=== PATIENT | female | born 1990 | race Caucasian/White ===

== ENCOUNTER → 2017-02-21 | Outpatient (CLI) | payer OTHER ==
[~2017-02-21] MED LIST: AA/A14DR2 EACH EAR; AC500T PO; ACHD5005 PO; ALBU0.632 IH; ALBU17AE23 IH; ALPR2TAB2 PO; AMOX500C2 PO; ASEN10TA9 SL; AZIT-21 PO; AZTH250C PO; CEFU500T PO; CEPH500C PO; CITA10TA70 PO; CPR500T PO; DAPS25TA2 PO; DIAZ10TA PO; DICL500C PO; DOCU-161 PO; DOXE10CA PO; DOXY100C2 PO; HALO20TA PO; HYDR-3062 PO; HYDR-3812 PO; LACT10SO5 PO; LITH600C PO; LOXA25CA2 PO; METO-354 PO; METR500T PO; MINO100C2 PO; MTR500T PO; NAPR-243 PO; OMEP20TA2 PO; ONDA-42 SL; ONDA8TAB13 PO; ONDAN4ODT PO; ONDAN4ODT SL; OXCA600T3 PO; PALI6TAB2 PO; PHEN100T17 PO; PNT40TEC PO; PRD10T PO; PRD20T PO; PRM25T PO; PROP10TA8 PO; QTP100T PO; QUET300T PO; RNT150T PO; RT-FLOV44 INH; SENN1TAB76 PO; SULF1TAB38 PO; TRM50T PO; TRZ100T PO; VILA40TA PO
--- NOTE | 2017-02-21 13:01 | Diagnostic Imaging Report ---
INDICATION: Pelvic pain, irregular menstrual cycles. COMPARISON: None. DISCUSSION: Transabdominal and transvaginal sonographic evaluation of the pelvis was performed. The uterus is normal in echotexture and size measuring 7.2 x 4.7 x 3.5 cm. Normal endometrial thickness measuring 1 cm. The left ovary was not visualized, obscured by bowel. The right ovary is normal in echotexture and size with normal color Doppler blood flow. The right ovary measures 2.5 x 2.4 x 2.5 cm. No abnormal adnexal mass or fluid. IMPRESSION: 1. Nonvisualization of the left ovary due to overlying bowel. No other acute abnormality identified. Dictated by: Dictated on workstation # [id number]
== END ==
LOC: RAD 12:19
PROVIDERS: ATTEND Nurse Practitioner Family
DX: R10.2 Pelvic and perineal pain (principal)
CPT/HCPCS: 76830; 76856

== ENCOUNTER 2017-05-12 15:26 | Emergency (ER) | payer SELFPAY ==
[~2017-05-12] VITALS: Ht 177.8 cm; Wt 158.9 kg
[2017-05-12 15:36] VITALS: BP 155/83
[2017-05-12 15:52] LABS: BILIRUBIN,URINE NEGATIVE (NEGATIVE); KETONES,URINE NEGATIVE (NEGATIVE); LEUKOCYTE ESTERASE ,URINE 2+ (NEGATIVE); NITRITE,URINE NEGATIVE (NEGATIVE); PH,URINE 5 (5-9); PROTEIN,URINE 1+ (NEGATIVE); UROBILINOGEN,URINE NORMAL (NORMAL)
[2017-05-12 15:54] LABS: BASOPHILS # (AUTO) 0.1 10^3/uL (0.0-0.1); BASOPHILS % (AUTO) 1 % (0-10); EOSINOPHILS # (AUTO) 0.7 10^3/uL (0.0-0.3); EOSINOPHILS % (AUTO) 5 % (0-10); LYMPHOCYTES # (AUTO) 2.5 X 10^3 (1.0-4.0); LYMPHOCYTES % (AUTO) 18 % (12-44); MEAN CORPUSCULAR HEMOGLOBIN 28 PG (25-34); MEAN CORPUSCULAR HGB CONC 31 G/DL (32-36); MEAN CORPUSCULAR VOLUME 88 FL (80-99); MEAN PLATELET VOLUME 11.9 FL (7.4-10.4); MONOCYTES # (AUTO) 1.1 X 10^3 (0.0-1.0); MONOCYTES % (AUTO) 8 % (0-12); NEUTROPHILS # (AUTO) 9.8 X 10^3 (1.8-7.8); NEUTROPHILS % (AUTO) 69 % (42-75); PLATELET COUNT 280 10^3/uL (130-400); RED CELL DISTRIBUTION WIDTH 14.2 % (10.0-14.5); WHITE BLOOD COUNT 14.2 10^3/uL (4.3-11.0)
--- NOTE | 2017-05-12 15:57 | ED GU-Female ---
General Chief Complaint: -Female Stated Complaint: PAIN WHILE URINATING Source: patient Exam Limitations: no limitations History of Present Illness Time seen by provider: 15:55 Initial Comments To ER with reports of dental pain left upper for several days as well as urinary retention, burning upon urination for the past several weeks. She saw her primary care provider Dr. Peralta who put her on cephalexin (she believes that the antibiotic) which she finished one week ago but denies noting any improvement in her symptoms. She states that she's had no urinary output in 2 days but she's not been drinking much either. She does report chills and nausea with vomiting. No fevers. No flank pain. She does have suprapubic abdominal pain. 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 Timing/Duration: just prior to arrival Severity/Quality: moderate Location: suprapubic Radiation: none Activities at Onset: none Allergies and Home Medications Allergies Coded Allergies: No Known Drug Allergies (Unverified , 10/04/10) Home Medications Acetaminophen 500 Mg Tablet, 500 MG PO Q6H PRN for PAIN, (Reported) Albuterol Unknown Strength Aerosol, 2 PUFF IH Q4H PRN for SHORTNESS OF BREATH for 30 Days, (Reported) NEEDED FOR SHORTNESS OF BREATH Albuterol Sulfate 0.63 Mg/3 Ml Vial.neb, 1 EACH IH Q4HR, (Reported) Cefuroxime Axetil 500 Mg Tablet, 500 MG PO BID, #10 Prescribed by: THOM HUSAIN on 09/12/16 194 Citalopram Hydrobromide 10 Mg Tablet, 1 EACH PO DAILY, (Reported) Fluticasone Propionate 1 Puff Puff, 2 PUFF INH BID@08,20, #3 Ref 0 Prescribed by: SYDNEY CHENEY on 10/28/13 0939 Haloperidol 20 Mg Tablet, 1 EACH PO BID, (Reported) [place] Carbonate 600 Mg Capsule, 600 MG PO BID, (Reported) Minocycline HCl 100 Mg Capsule, 100 MG PO BID, #20 Ref 0 Prescribed by: ROSA PACE on 01/13/16 2348 Ondansetron 8 Mg Tab.rapdis, 8 MG PO Q6H PRN for NAUSEA/VOMITING, #10 Ref 0 Prescribed by: ROSA PACE on 02/24/15 1739 Ondansetron 8 Mg Tab.rapdis, 8 MG PO Q6H PRN for NAUSEA/VOMITING, #10 Ref 0 Prescribed by: ROSA PACE on 01/13/16 2348 Ondansetron Hcl 4 Mg Tab, 4 MG SL Q4H, #10 FOR NAUSEA AND VOMITING Prescribed by: ANA YEUNG on 04/12/15 1629 Pantoprazole Sod 40 Mg Tab, 40 MG PO DAILY, #10 Prescribed by: ANA YEUNG on 04/12/15 1629 Phenazopyridine Hcl 100 Mg Tablet, 1-2 EACH PO TID PRN PRN for PAIN, #14 Ref 1 Prescribed by: ROSA PACE on 02/24/15 1739 Trazodone Hcl 100 Mg Tablet, 100 MG PO DAILY, (Reported) Constitutional: see HPI EENTM: see HPI Respiratory: no symptoms reported Cardiovascular: no symptoms reported Genitourinary: no symptoms reported Musculoskeletal: no symptoms reported Skin: no symptoms reported Psychiatric/Neurological: No Symptoms Reported Endocrine: No Symptoms Reported Past Zpnqqnb-Liuewv-Iymrhw Hx Patient Social History Alcohol Use: Denies Use Recreational Drug Use: Yes (MARIJUANA) Smoking Status: Current Everyday Smoker Type Used: Cigarettes Recent Foreign Travel: No Contact w/Someone Who Travel: No Recent Hopitalizations: No Immunizations Up To Date Tetanus Booster (TDap): Less than 5yrs Seasonal Allergies Seasonal Allergies: Yes Surgeries HX Surgeries: Yes (LEFT EAR--BENIGN TUMOR REMOVED) Surgeries: Ear Surgery Respiratory Hx Respiratory Disorders: Yes Respiratory Disorders: Asthma, Pneumonia Cardiovascular Hx Cardiac Disorders: No Neurological Hx Neurological Disorders: No Reproductive System Hx Reproductive Disorders: No Sexually Transmitted Disease: No HIV/AIDS: No Female Reproductive Disorders: Denies Genitourinary Hx Genitourinary Disorders: Yes Genitourinary Disorders: Kidney Infection, Bladder Infection, UTI-Chronic Gastrointestinal Hx Gastrointestinal Disorders: Yes (H PYLORI, PAIN, N/V,HEARTBURN) Gastrointestinal Disorders: Gastroesophageal Reflux, Ulcer Musculoskeletal Hx Musculoskeletal Disorders: Yes Musculoskeletal Disorders: Back Injury, Chronic Back Pain Endocrine Hx Endocrine Disorders: Yes (INSULIN INTOLERANT, OBESITY) Endocrine Disorders: Diabetes, Non-Insulin dep HEENT HX ENT Disorders: No Hearing Impairment: Denies Cancer Hx Cancer: No Psychosocial Hx Psychiatric Problems: Yes (SCHIZO-EFFECTIVE, H/O CUTTING SELF, PANIC ATTACKS ) Behavioral Health Disorders: ADD/ADHD, Sleep Difficulties, Anxiety, Suicide Attempts, Bipolar, Personality Disorder, Depression Integumentary HX Skin/Integumentary Disorder: No Blood Transfusions Hx Blood Disorders: No Family Medical History Significant Family History: No Pertinent Family Hx Family Medial History: Family history: Asthma 09 BROTHER, Onset:Childhood Family history: Gastrointestinal disease 03 MOTHER, Onset:Unknown Family history: Hypertension 03 FATHER, Onset:40's - 50 Kidney disease 03 MOTHER, Onset:Childhood No Family History of: Abdominal aortic aneurysm [place]'s disease Alcoholism Aphasia Cancer Cataract Chest pain Congenital heart disease Congestive heart failure Cystic fibrosis Dementia Dysphagia Family history: Allergy Family history: Alzheimer's disease Family history: Arthritis Family history: Breast disease Family history: Cardiovascular disease Family history: Coronary thrombosis Family history: Diabetes mellitus Family history: Glaucoma Family history: Osteoporosis Family history: Thyroid disorder Headache Hearing loss Heart disease Hereditary disease History of - anemia History of - disorder History of - respiratory disease History of drug abuse Human immunodeficiency virus (HIV) seropositivity Hypercholesterolemia Infertile Malignant neoplasm of lung Myocardial infarction Parkinson's disease Prostate cancer Psychotic disorder Seizure disorder Stroke Tuberculosis Visual impairment Physical Exam Vital Signs Vital Sign - Last 12Hours 05/12/17 15:36 Temp 97.4 Pulse 83 Resp 16 B/P (MAP) 155/83 Capillary Refill : General Appearance: WD/WN, no apparent distress, obese HEENT: PERRL/EOMI, normal ENT inspection Neck: non-tender, full range of motion Cardiovascular: regular rate, rhythm, no murmur Respiratory: no respiratory distress, no accessory muscle use Gastrointestinal: normal bowel sounds, non tender, soft Neurologic/Psychiatric: alert, normal mood/affect, oriented x 3 Skin: normal color, warm/dry Progress/Results/Core Measures Results/Orders Lab Results Laboratory Tests Test 05/12/17 14:45 05/12/17 15:46 Range/Units White Blood Count 14.2 H 4.3-11.0 10^3/uL Red Blood Count 4.80 4.35-5.85 10^6/uL Hemoglobin 13.3 11.5-16.0 G/DL Hematocrit 42 35-52 % Mean Corpuscular Volume 88 80-99 FL Mean Corpuscular Hemoglobin 28 25-34 PG Mean Corpuscular Hemoglobin Concent 31 L 32-36 G/DL Red Cell Distribution Width 14.2 10.0-14.5 % Platelet Count 280 130-400 10^3/uL Mean Platelet Volume 11.9 H 7.4-10.4 FL Neutrophils (%) (Auto) 69 42-75 % Lymphocytes (%) (Auto) 18 12-44 % Monocytes (%) (Auto) 8 0-12 % Eosinophils (%) (Auto) 5 0-10 % Basophils (%) (Auto) 1 0-10 % Neutrophils # (Auto) 9.8 H 1.8-7.8 X 10^3 Lymphocytes # (Auto) 2.5 1.0-4.0 X 10^3 Monocytes # (Auto) 1.1 H 0.0-1.0 X 10^3 Eosinophils # (Auto) 0.7 H 0.0-0.3 10^3/uL Basophils # (Auto) 0.1 0.0-0.1 10^3/uL Neutrophils % (Manual) 56 % Lymphocytes % (Manual) 38 % Monocytes % (Manual) 0 % Eosinophils % (Manual) 5 % Basophils % (Manual) 1 % Band Neutrophils 0 % Blood Morphology Comment NORMAL Urine Color YELLOW Urine Clarity CLEAR Urine pH 5 5-9 Urine Specific [place] 1.020 1.016-1.022 Urine Protein 1+ H NEGATIVE Urine Glucose (UA) NEGATIVE NEGATIVE Urine Ketones NEGATIVE NEGATIVE Urine Nitrite NEGATIVE NEGATIVE Urine Bilirubin NEGATIVE NEGATIVE Urine Urobilinogen NORMAL NORMAL MG/DL Urine Leukocyte Esterase 2+ H NEGATIVE Urine RBC (Auto) NEGATIVE NEGATIVE Urine RBC NONE /HPF Urine WBC 0-2 /HPF Urine Squamous Epithelial Cells RARE /HPF Urine Crystals NONE /LPF Urine Bacteria TRACE /HPF Urine Casts NONE /LPF Urine Mucus NEGATIVE /LPF Urine Culture Indicated YES Sodium Level 140 135-145 MMOL/L Potassium Level 4.2 3.6-5.0 MMOL/L Chloride Level 107 98-107 MMOL/L Carbon Dioxide Level 24 21-32 MMOL/L Anion Gap 9 5-14 MMOL/L Blood Urea Nitrogen 9 7-18 MG/DL Creatinine 0.76 0.60-1.30 MG/DL Estimat Glomerular Filtration Rate > 60 BUN/Creatinine Ratio 12 Glucose Level 88 70-105 MG/DL Calcium Level 9.1 8.5-10.1 MG/DL Total Bilirubin 0.5 0.1-1.0 MG/DL Aspartate Amino Transf (AST/SGOT) 15 5-34 U/L Alanine Aminotransferase (ALT/SGPT) 27 0-55 U/L Alkaline Phosphatase 74 40-136 U/L Total Protein 7.5 6.4-8.2 GM/DL Albumin 3.8 3.2-4.5 GM/DL My Orders Orders - THOM HUSAIN APRN Ua Culture If Indicated (05/12/17 15:29) Urine Bedside (05/12/17 15:29) Cbc With Automated Diff (05/12/17 15:47) Comprehensive Metabolic Panel (05/12/17 15:47) Saline Lock/Iv-Start (05/12/17 15:47) Ns Iv 1000 Ml (Sodium Chloride 0.9%) (05/12/17 16:00) Ct Abdomen/Pelvis W (05/12/17 15:47) Fentanyl Injection (Sublimaze Injection (05/12/17 16:00) Iohexol Injection (Omnipaque 350 Mg/Ml 1 (05/12/17 16:00) Ns (Ivpb) (Sodium Chloride 0.9% Ivpb Bag (05/12/17 16:00) Urine Culture (05/12/17 14:45) Ct Abd/Pelvis Wo(Kidney Stone) (05/12/17 16:06) Hcg,Qualitative Urine (05/12/17 16:06) Manual Differential (05/12/17 14:45) Vital Signs/I&O Vital Sign - Last 12Hours 05/12/17 15:36 Temp 97.4 Pulse 83 Resp 16 B/P (MAP) 155/83 Departure Communication Progress Notes [place] catheter was inserted due to her sensation of a full bladder and no urine output in 2 days. Return of only about 200 mL of urine. 1609-The patient removed her own [place] catheter and IV as the nurse found them both laying on the floor when she entered the room to give IV pain medication and fluids. 1613- patient refuses CT scan would like to leave AGAINST MEDICAL ADVICE. I advised her of the risks. When asked why she wants to leave she states "I'm just freaked out". AMA form signed Impression Impression: Primary Impression: Left against medical advice Disposition: 07 AGAINST MEDICAL ADVICE Condition: Against Medical Advice Departure-Patient Inst. Referrals: YAIR JEREZ MD (PCP/Family) Primary Care Physician THOM HUSAIN APRN May 12, 2017 15:57
[2017-05-12] MEDS ORDERED: NS IV 1000 ML 1,000 ML IV SCH (16:00)
[2017-05-12] MEDS ORDERED: fentaNYL INJECTION 100 MCG/2 ML AMP IVP ONE (16:00)
[2017-05-12] MEDS ORDERED: IOHEXOL 350 MG/ML 100 ML (OMNIPAQUE 350) VIAL IV ONE (16:00)
[2017-05-12] MEDS ORDERED: NS 100 ML (IVPB) BAG IV ONE (16:00)
[2017-05-12 16:05] LABS: SQUAMOUS EPITHELIAL CELL,UR RARE /HPF; WBC,URINE 0-2 /HPF
[2017-05-12 16:08] LABS: ALANINE AMINOTRANSFERASE 27 U/L (0-55); ALBUMIN 3.8 GM/DL (3.2-4.5); ANION GAP 9 MMOL/L (5-14); ASPARTATE AMINO TRANSFERASE 15 U/L (5-34); BILIRUBIN,TOTAL 0.5 MG/DL (0.1-1.0); BLOOD UREA NITROGEN 9 MG/DL (7-18); BUN/CREATININE RATIO 12; CALCIUM 9.1 MG/DL (8.5-10.1); CARBON DIOXIDE 24 MMOL/L (21-32); CHLORIDE 107 MMOL/L (98-107); CREATININE SERUM 0.76 MG/DL (0.60-1.30); GFR ESTIMATED > 60; GLUCOSE 88 MG/DL (70-105); POTASSIUM 4.2 MMOL/L (3.6-5.0); SODIUM 140 MMOL/L (135-145); TOTAL PROTEIN 7.5 GM/DL (6.4-8.2)
[2017-05-12 16:11] LABS: BAND NEUTROPHILS 0 %; BASOPHILS % (MANUAL) 1 %; EOSINOPHILS % (MANUAL) 5 %; LYMPHOCYTES % (MANUAL) 38 %; NEUTROPHILS % (MANUAL) 56 %
--- OUTSIDE RECORDS SUMMARY | 2017-05-13 18:01 | XMS REPORT ---
Author Author YAIR JEREZ [facility] eClinicalWorks Address Unknown Phone Unavailable Care Team Providers Care City Designer Name Role Phone YAIR JEREZ Unavailable Allergies No Known Allergies Problems Problem Type Condition Code Onset Dates Condition Status Problem Unspecified backache 724.5 Active Problem Absence of menstruation 626.0 Active Problem Morbid obesity 278.01 Active Problem Asthma J45.909 Active Problem Asthma, unspecified, unspecified status 493.90 Active Problem Depressive disorder, not elsewhere classified 311 Active Problem Schizoaffective disorder, unspecified 295.70 Active Problem Nondependent cannabis abuse, unspecified 305.20 Active Medications Medication Code System Code Instructions Start Date End Date Status Dosage Hydrocodone-Acetaminophen [facility] [address]-08 5-325 MG 3 times a day Dec 1 tablet as needed Results No Known Results Summary Purpose eClinicalWorks Submission
--- OUTSIDE RECORDS SUMMARY | 2017-05-13 18:01 | XMS REPORT ---
Author Author YAIR JEREZ [facility] eClinicalWorks Address Unknown Phone Unavailable Care Team Providers Care Direct Care Staffer Name Role Phone YAIR JEREZ Unavailable Allergies No Known Allergies Problems Problem Type Condition Code Onset Dates Condition Status Assessment Back pain M54.9 Active Problem Depressive disorder, not elsewhere classified 311 Active Problem Unspecified backache 724.5 Active Problem Asthma J45.909 Active Problem Absence of menstruation 626.0 Active Problem Back pain M54.9 Active Problem Nondependent cannabis abuse, unspecified 305.20 Active Problem Asthma, unspecified, unspecified status 493.90 Active Problem Morbid obesity 278.01 Active Problem Schizoaffective disorder, unspecified 295.70 Active Medications Medication Code System Code Instructions Start Date End Date Status Dosage Hydrocodone-Acetaminophen [facility] 82862777460 5-325 MG TAKE ONE TABLET BY MOUTH THREE TIMES DAILY NEEDED Naproxen ND 26820155052 500 MG TAKE ONE TABLET BY MOUTH TWICE DAILY WITH FOOD Results No Known Results Summary Purpose eClinicalWorks Submission
--- OUTSIDE RECORDS SUMMARY | 2017-05-13 18:01 | XMS REPORT | Continuity of Care Document ---
Author Author [facility] Organization [facility] Address Unknown Phone Unavailable Care Team Providers Care Product Support Technician Name Role Phone De León, Kaylin PCP [phone] Source Comments Some departments are not documenting in the electronic medical record. If you do not see the information that you expected, contact Release of Information in the Health Information Management department at [phone] for further assistance in locating additional records.[facility] Active Allergies and Adverse Reactions No Known Allergies Current Medications Prescription Sig. Disp. Refills Start End Date Status Date albuterol 0.083% Inhale 2.5 mg solution as Active (PROVENTIL; VENTOLIN) 2.5 directed Every 4 Hours as mg /3 mL (0.083 %) IN needed for Wheezing. nebulizer solution Active Problems Not on file Social History Tobacco Use Types Packs/Day Years Used Date Never Smoker Alcohol Use Drinks/Week oz/Week Comments No Last Filed Vital Signs Vital Sign Reading Time Taken Blood Pressure 135/78 08/16/2010 7:00 PM CDT Pulse 129 08/16/2010 7:00 PM CDT Temperature 37.4 C (99.3 F) 08/16/2010 4:22 PM CDT Respiratory Rate - - Height 1.753 m (5' 9") 08/16/2010 10:00 AM CDT Weight 131.543 kg (290 lb) 08/16/2010 10:00 AM CDT Body Mass Index 42.81 08/16/2010 10:00 AM CDT Oxygen Saturation 96% 08/16/2010 7:00 PM CDT Plan of Care Health Maintenance Due Date Last Done Comments Physical (Comprehensive) 1998 Exam Hpv Vaccines (#1) 2002 Pertussis Vaccine 2002 Tetanus Vaccine 2008 Cervical Cancer Screening 2012 Influenza Vaccine 07/04/2017 Results from Last 3 Months Not on file
--- OUTSIDE RECORDS SUMMARY | 2017-05-13 18:02 | XMS REPORT ---
Author Author YAIR JEREZ [facility] eClinicalWorks Address Unknown Phone Unavailable Care Team Providers Care Business Insurance Agent Name Role Phone YAIR JEREZ CP Unavailable Allergies No Known Allergies Problems Problem Type Condition ICD-9 Code Onset Dates Condition Status Problem Depressive disorder, not elsewhere classified 311 Active Problem Asthma, unspecified, unspecified status 493.90 Active Problem Other abnormal glucose 790.29 Active Problem Unspecified backache 724.5 Active Problem Morbid obesity 278.01 Active Problem Excessive or frequent menstruation 626.2 Active Problem Absence of menstruation 626.0 Active Problem Schizoaffective disorder, unspecified 295.70 Active Problem Nondependent cannabis abuse, unspecified 305.20 Active Problem Unspecified disorder of menstruation and other abnormal bleeding from female genital tract 626.9 Active Problem Hirsutism 704.1 Active Medications Medication Code System Code Instructions Start Date End Date Status Dosage Hydrocodone-Acetaminophen [facility] [place] [address]-12 5-325 MG 3 times a day Dec 1 tablet as needed Results No Known Results Summary Purpose eClinicalWorks Submission
--- OUTSIDE RECORDS SUMMARY | 2017-05-13 18:02 | XMS REPORT ---
Author Author YAIR JEREZ [facility] eClinicalWorks Address Unknown Phone Unavailable Care Team Providers Care Natural Gas Engineer Name Role Phone YAIR JEREZ Unavailable Allergies, Adverse Reactions, Alerts Substance Reaction Event Type N.K.D.A. Info Not Available Non Drug Allergy Problems Problem Type Condition Code Onset Dates Condition Status Assessment Bronchitis J40 Active Assessment Local infection of the skin and subcutaneous tissue, unspecified L08.9 Active Problem Morbid obesity 278.01 Active Problem Schizoaffective disorder, unspecified 295.70 Active Problem Absence of menstruation 626.0 Active Problem Depressive disorder, not elsewhere classified 311 Active Problem Unspecified backache 724.5 Active Problem Nondependent cannabis abuse, unspecified 305.20 Active Problem Asthma, unspecified, unspecified status 493.90 Active Medications Medication Code System Code Instructions Start Date End Date Status Dosage Albuterol Sulfate [facility] [address]-40 (2.5 MG/3ML) 0.083% Inhalation every 4 hrs as needed 3 ml Albuterol Sulfate HFA [facility] [address]-42 108 (90 Base) MCG/ACT Inhalation every 4 hrs 2 puffs as needed PRN cough or wheezing Naproxen [facility] 47241945248 500 MG TAKE ONE TABLET BY MOUTH TWICE DAILY WITH FOOD Bactrim DS [facility] [address]-35 800-160 MG Orally 2 times a day Aug 15, 2015 Aug 22, 2015 1 tablet Naprosyn [facility] [address]-25 500 MG Orally every 12 hrs 1 tablet Hydrocodone-Acetaminophen [facility] [address]-22 5-325 MG 3 times a day Dec 1 tablet as needed Procedures Procedure Coding System Code Date Office Visit, Est Pt., Level 3 CPT-4 87400 Aug 15, 2015 Vital Signs Date/Time: Aug 15, 2015 Temperature 98.0 F Weight 340 lbs Height 68.5 in BMI 50.94 Index Blood Pressure Diastolic 78 mmHg Blood Pressure Systolic 128 mmHg Cardiac Monitoring Heart Rate 78 bpm Results No Known Results Summary Purpose eClinicalWorks Submission
--- OUTSIDE RECORDS SUMMARY | 2017-05-13 18:02 | XMS REPORT ---
Author Author YAIR JEREZ [facility] eClinicalWorks Address Unknown Phone Unavailable Care Team Providers Care Marine Cargo Inspector Name Role Phone YAIR JEREZ Unavailable Allergies No Known Allergies Problems Problem Type Condition Code Onset Dates Condition Status Problem Depressive disorder, not elsewhere classified 311 Active Problem Unspecified backache 724.5 Active Problem Asthma J45.909 Active Problem Absence of menstruation 626.0 Active Problem Back pain M54.9 Active Problem Nondependent cannabis abuse, unspecified 305.20 Active Problem Asthma, unspecified, unspecified status 493.90 Active Problem Morbid obesity 278.01 Active Problem Schizoaffective disorder, unspecified 295.70 Active Medications No Known Medications Results No Known Results Summary Purpose eClinicalWorks Submission
--- OUTSIDE RECORDS SUMMARY | 2017-05-13 18:02 | XMS REPORT ---
Author CONNER Sim eClinicalWorks Address Unknown Phone Unavailable Care Team Providers Care Highballer Name Role Phone CONNER RAMOS CP Unavailable Allergies, Adverse Reactions, Alerts Substance Reaction Event Type N.K.D.A. Info Not Available Non Drug Allergy Problems Problem Type Condition Code Onset Dates Condition Status Problem Back pain M54.9 Active Problem Asthma J45.909 Active Problem Other asthma J45.998 Active Problem Depressive disorder, not elsewhere classified 311 Active Assessment Encounter for dental examination Z01.20 Active Problem Schizoaffective disorder, unspecified 295.70 Active Problem Nondependent cannabis abuse, unspecified 305.20 Active Medications Medication Code System Code Instructions Start Date End Date Status Dosage Hydrocodone-Acetaminophen [facility] 90603478152 5-325 MG TAKE ONE TABLET BY MOUTH THREE TIMES DAILY NEEDED Celexa [facility] 99374148600 20 MG Orally Once a day 1 tablet Klonopin [facility] [address]-43 1 MG Orally- Twice a day as needed 0.5- 1 tablet Amoxicillin [facility] [address]-12 500 MG Orally 4 times daily 1 capsule Procedures Procedure Coding System Code Date INTRAORL-PERIAPICAL 1 FILM 43527 CPT-4 D0220 May 29, 2016 BITEWING - SINGLE FILM CPT-4 D0270 May 29, 2016 LTD ORAL EVALUATION - PROBLEM FOCUS CPT-4 D0140 May 29, 2016 Vital Signs Date/Time: May 29, 2016 Blood Pressure Diastolic 72 mmHg Blood Pressure Systolic 146 mmHg Cardiac Monitoring Heart Rate 86 bpm Results No Known Results Summary Purpose eClinicalWorks Submission
--- OUTSIDE RECORDS SUMMARY | 2017-05-13 18:02 | XMS REPORT ---
Author Author YAIR JEREZ [facility] Address [address] [place] [address] Care Team Providers Care National Sales Trainer Name Role Phone YAIR JEREZ Unavailable PROBLEMS Type Condition ICD9-CM Code EXW95-AQ Code Onset Dates Condition Status SNOMED Code Problem Other asthma J45.998 Active 52103307 Problem Back pain M54.9 Active 876729881 Problem Asthma J45.909 Active 012015065 ALLERGIES Unknown Allergies SOCIAL HISTORY No smoking Hx information available PLAN OF CARE VITAL SIGNS MEDICATIONS Unknown Medications RESULTS No Results PROCEDURES No Known procedures IMMUNIZATIONS No Known Immunizations
--- OUTSIDE RECORDS SUMMARY | 2017-05-13 18:02 | XMS REPORT ---
Author Author YAIR JEREZ [facility] eClinicalWorks Address Unknown Phone Unavailable Care Team Providers Care Tearer Name Role Phone YAIR JEREZ Unavailable Allergies [...] Start Date End Date Status Dosage Hydrocodone-Acetaminophen [facility] 20600277609 5-325 MG TAKE ONE TABLET BY MOUTH THREE TIMES DAILY NEEDED Results No Known Results Summary Purpose eClinicalWorks Submission
--- OUTSIDE RECORDS SUMMARY | 2017-05-13 18:02 | XMS REPORT ---
Author Author SOLA ROSEN [facility] eClinicalWorks Address Unknown Phone Unavailable Care Team Providers Care Logistics Account Manager Name Role Phone SOLA ROSEN CP Unavailable Allergies, Adverse Reactions, Alerts Substance Reaction Event Type N.K.D.A. Info Not Available Non Drug Allergy Problems Problem Type Condition Code Onset Dates Condition Status Assessment Schizoaffective disorder, bipolar type F25.0 Active Problem Depressive disorder, not elsewhere classified [...] Instructions Start Date End Date Status Dosage [facility] [address]-14 1 MG Orally Once a day Nov 02, [address] [facility] [address]-17 5-325 MG 3 times a day Dec 1 tablet as needed Albuterol Sulfate [facility] [address]-79 (2.5 MG/3ML) 0.083% Inhalation every 4 hrs as needed [address] [facility] 72934055465 500 MG TAKE ONE TABLET BY MOUTH TWICE DAILY WITH FOOD [facility] [address]-72 0.5 MG 0 Orally Once a day Nov 02, 2015 1 tablet Procedures Procedure Coding System Code Date URINE TEST CPT-4 36438 Nov 02, 2015 Psych diagnostic evaluation w/medical services, established patient CPT-4 88438 Nov 02, 2015 DRUG SCREEN NON TLC DEVICES CPT-4 06771 Nov 02, 2015 Vital Signs Date/Time: Nov 02, 2015 Cardiac Monitoring Heart Rate 120 bpm Weight 367.5 lbs Height 68.5 in BMI 55.06 Index Blood Pressure Diastolic 72 mmHg Blood Pressure Systolic 120 mmHg Results No Known Results Summary Purpose eClinicalWorks Submission
--- OUTSIDE RECORDS SUMMARY | 2017-05-13 18:02 | XMS REPORT ---
Author Author YAIR JEREZ [facility] eClinicalWorks Address Unknown Phone Unavailable Care Team Providers Care Waste Treatment Operator Name Role Phone YAIR JEREZ Unavailable Allergies [...] Instructions Start Date End Date Status Dosage Klonopin [facility] [address]-73 1 MG Orally- Twice a day as needed 0.5- 1 tablet Results No Known Results Summary Purpose eClinicalWorks Submission
--- OUTSIDE RECORDS SUMMARY | 2017-05-13 18:02 | XMS REPORT ---
Author Author YAIR JEREZ [facility] eClinicalWorks Address Unknown Phone Unavailable Care Team Providers Care Sound Art Instructor Name Role Phone YAIR JEREZ Unavailable Allergies [...] Instructions Start Date End Date Status Dosage Advair Diskus [facility] [address]-00 500-50 MCG/DOSE Inhalation Twice a day Nov 08, 2015 1 puff Results No Known Results Summary Purpose eClinicalWorks Submission
--- OUTSIDE RECORDS SUMMARY | 2017-05-13 18:03 | XMS REPORT ---
Author Author CHIOMA MARTINS Organization eClinicalWorks Address Unknown Phone Unavailable Care Team Providers Care Predatory Animal Exterminator Name Role Phone CHIOMA MARTINS CP Unavailable Allergies No Known Allergies Problems Problem Type Condition Code Onset Dates Condition Status Assessment Visit for suture removal Z48.02 Active Problem Morbid obesity 278.01 Active Problem Schizoaffective disorder, unspecified 295.70 Active Problem Absence of menstruation 626.0 Active Problem Depressive disorder, not elsewhere classified 311 Active Problem Unspecified backache 724.5 Active Problem Nondependent cannabis abuse, unspecified 305.20 Active Problem Asthma, unspecified, unspecified status 493.90 Active Medications No Known Medications Results No Known Results Summary Purpose eClinicalWorks Submission
--- OUTSIDE RECORDS SUMMARY | 2017-05-13 18:03 | XMS REPORT ---
Author Author YAIR JEREZ [facility] eClinicalWorks Address Unknown Phone Unavailable Care Team Providers Care Diamond Grinder Name Role Phone YAIR JEREZ Unavailable Allergies [...] Start Date End Date Status Dosage Hydrocodone-Acetaminophen [facility] 02503728825 5-325 MG TAKE ONE TABLET BY MOUTH THREE TIMES DAILY NEEDED Results No Known Results Summary Purpose eClinicalWorks Submission
--- OUTSIDE RECORDS SUMMARY | 2017-05-13 18:03 | XMS REPORT ---
Author Author YAIR JEREZ [facility] Address [address] [place] [address] Care Team Providers Care Vice President Underwriting Name Role Phone YAIR JEREZ Unavailable PROBLEMS Type Condition ICD9-CM Code XPH52-DW Code Onset Dates Condition Status SNOMED Code Problem Other asthma J45.998 Active 34638219 Problem Back pain M54.9 Active 721680493 Problem Asthma J45.909 Active 347525720 ALLERGIES Unknown Allergies SOCIAL HISTORY No smoking Hx information available PLAN OF CARE VITAL SIGNS MEDICATIONS Unknown Medications RESULTS No Results PROCEDURES No Known procedures IMMUNIZATIONS No Known Immunizations
--- OUTSIDE RECORDS SUMMARY | 2017-05-13 18:03 | XMS REPORT ---
Author Author CE FRENCH [facility] eClinicalWorks Address Unknown Phone Unavailable Care Team Providers Care Manager Fund Name Role Phone CE FRENCH CP Unavailable Allergies, Adverse Reactions, Alerts Substance Reaction Event Type N.K.D.A. Info Not Available Non Drug Allergy Problems Problem Type Condition Code Onset Dates Condition Status Problem Other asthma J45.998 Active Problem Back pain M54.9 Active Problem Mood disorder F39 Active Assessment Intermittent explosive disorder F63.81 Active Problem Asthma J45.909 Active Assessment Generalized anxiety disorder F41.1 Active Medications Medication Code System Code Instructions Start Date End Date Status Dosage Albuterol Sulfate HFA [facility] [address]-51 108 (90 Base) MCG/ACT Inhalation every 4 hrs 2 puffs as needed PRN cough or wheezing Celexa [facility] 89684617787 20 MG Orally Once a day 1 tablet Advair Diskus [facility] [address]-81 500-50 MCG/DOSE Inhalation Twice a day Nov 08, [address] [facility] [place] [address]-86 600 MG Orally at HS Jun 13, 2016 2 tablet Procedures Procedure Coding System Code Date Office Visit, Est Pt., Level 3 CPT-4 33439 Sep 12, 2016 Vital Signs Date/Time: Sep 12, 2016 Cardiac Monitoring Heart Rate 96 bpm Weight 367.8 lbs Height 68.5 in BMI 55.10 Index Blood Pressure Diastolic 88 mmHg Blood Pressure Systolic 148 mmHg Results No Known Results Summary Purpose eClinicalWorks Submission
--- OUTSIDE RECORDS SUMMARY | 2017-05-13 18:03 | XMS REPORT ---
Author Author YAIR JEREZ [facility] eClinicalWorks Address Unknown Phone Unavailable Care Team Providers Care Chemistry Professor Name Role Phone YAIR JEREZ Unavailable Allergies No Known Allergies Problems Problem Type Condition Code Onset Dates Condition Status Problem Morbid obesity 278.01 Active Problem Schizoaffective disorder, unspecified 295.70 Active Problem Absence of menstruation 626.0 Active Problem Depressive disorder, not elsewhere classified 311 Active Problem Unspecified backache 724.5 Active Problem Nondependent cannabis abuse, unspecified 305.20 Active Problem Asthma, unspecified, unspecified status 493.90 Active Medications Medication Code System Code Instructions Start Date End Date Status Dosage Hydrocodone-Acetaminophen [facility] [address]-31 5-325 MG 3 times a day Dec 1 tablet as needed Results No Known Results Summary Purpose eClinicalWorks Submission
--- OUTSIDE RECORDS SUMMARY | 2017-05-13 18:03 | XMS REPORT ---
Author Author SYDNEY CHENEY eClinicalWorks Address Unknown Phone Unavailable Care Team Providers Care Die Cutting Machine Operator Name Role Phone SYDNEY CHENEY CP Unavailable Allergies, Adverse Reactions, Alerts Substance Reaction Event Type N.K.D.A. Info Not Available Non Drug Allergy Problems Problem Type Condition Code Onset Dates Condition Status Problem Asthma J45.909 Active Problem Schizoaffective disorder, unspecified 295.70 Active Problem Back pain M54.9 Active Assessment Shortness of breath R06.02 Active Problem Nondependent cannabis abuse, unspecified 305.20 Active Problem Depressive disorder, not elsewhere classified 311 Active Medications Medication Code System Code Instructions Start Date End Date Status Dosage Zyprexa [facility] [address]-66 20 MG Orally Once a day Aug 30, 2015 1 tablet Celexa [facility] [address]-67 20 MG Orally Once a day Nov 10, 2015 1 tablet Hydrocodone-Acetaminophen [facility] 89506489116 5-325 MG TAKE ONE TABLET BY MOUTH THREE TIMES DAILY NEEDED Proventil HFA [facility] 53330754855 108 (90 Base) MCG/ACT INHALE TWO PUFFS BY MOUTH EVERY 4 TO 6 HOURS NEEDED FOR COUGH OR WHEEZING Naproxen [facility] 15165953122 500 MG TAKE ONE TABLET BY MOUTH TWICE DAILY WITH FOOD Albuterol Sulfate [facility] [address]-97 (2.5 MG/3ML) 0.083% Inhalation every 4 hrs as needed 3 ml Advair Diskus [facility] [address]-09 500-50 MCG/DOSE Inhalation Twice a day Nov 08, 2015 1 puff Albuterol Sulfate HFA [facility] [address]-21 108 (90 Base) MCG/ACT Inhalation every 4 hrs 2 puffs as needed PRN cough or wheezing Klonopin [facility] [address]-81 1 MG Orally- LAST REFILL UNTIL APPOINTMENT IS MADE Twice a day as needed 0.5-1 tablet Spironolactone [facility] [address]-34 100 MG Orally Once a day January 12, 2016 1 tablet Procedures Procedure Coding System Code Date COMPLETE CBC W/AUTO DIFF WBC CPT-4 56065 February 15, 2016 COMPREHEN METABOLIC PANEL CPT-4 18606 February 15, 2016 MEASURE BLOOD OXYGEN LEVEL CPT-4 53894 February 15, 2016 ASSAY THYROID STIM HORMONE CPT-4 81224 February 15, 2016 NATRIURETIC PEPTIDE CPT-4 21785 February 15, 2016 VENIPUNCT, ROUTINE* CPT-4 52497 February 15, 2016 Office Visit, Est Pt., Level 3 CPT-4 61187 February 15, 2016 Vital Signs Date/Time: February 15, 2016 Temperature 98.1 F Weight 373.9 lbs Height 68.5 in Oximetry on room air:98 % Blood Pressure Diastolic 80 mmHg Blood Pressure Systolic 126 mmHg Cardiac Monitoring Heart Rate 88 bpm BMI 56.02 Index Results Name Result Date Reference Range Unit Abnormality Flag CBC ----Lymphs 24 90764209 % ----Neutrophils 62 90713981 % ----Baso (Absolute) 0.1 [id number] 0.0-0.2 x10E3/uL ----Hemoglobin 14.0 58639714 11.1-15.9 g/dL ----Eos (Absolute) 0.7 97896191 0.0-0.4 x10E3/uL H ----Hematocrit 44.4 44942935 34.0-46.6 % ----Monocytes(Absolute) 0.8 10079718 0.1-0.9 x10E3/uL ----MCV 88 91148271 79-97 fL ----Lymphs (Absolute) 2.7 74275102 0.7-3.1 x10E3/uL ----MCH 27.7 45690233 26.6-33.0 pg ----Neutrophils (Absolute) 7.1 77877950 1.4-7.0 x10E3/uL H ----MCHC 31.5 53469570 31.5-35.7 g/dL ----Immature Granulocytes 0 60479811 % ----Basos 1 44359973 % ----RDW 15.0 77035753 12.3-15.4 % ----Immature Grans (Abs) 0.0 77005137 0.0-0.1 x10E3/uL ----WBC 11.3 15058223 3.4-10.8 x10E3/uL H ----Platelets 279 01238119 150-379 x10E3/uL ----Eos 6 35182545 % ----RBC 5.05 77661058 3.77-5.28 x10E6/uL ----Monocytes 7 88438321 % BNP ----B-Type Natriuretic Peptide 11.4 77572045 0.0-100.0 pg/mL ROUTINE VENIPUNCTURE TSH ----TSH 0.911 31917938 0.450-4.500 uIU/mL CMP ----Potassium, Serum 4.6 40539733 3.5-5.2 mmol/L ----Sodium, Serum 137 23744158 134-144 mmol/L ----BUN/Creatinine Ratio 20 03875717 8-20 ----eGFR If Africn Am 116 90624864 >59 mL/min/1.73 ----eGFR If NonAfricn Am 100 29704249 >59 mL/min/1.73 ----Creatinine, Serum 0.82 47972333 0.57-1.00 mg/dL ----BUN 16 84097091 6-20 mg/dL ----Glucose, Serum 90 51814258 65-99 mg/dL ----AST (SGOT) 11 86878934 0-40 IU/L ----Globulin, Total 3.2 62553534 1.5-4.5 g/dL ----ALT (SGPT) 18 23000913 0-32 IU/L ----A/G Ratio 1.2 09843140 1.1-2.5 ----Bilirubin, Total <0.2 60730836 0.0-1.2 mg/dL ----Alkaline Phosphatase, S 73 69843412 39-117 IU/L ----Carbon Dioxide, Total 24 36381701 18-29 mmol/L ----Calcium, Serum 9.3 81130856 8.7-10.2 mg/dL ----Protein, Total, Serum 7.1 89240187 6.0-8.5 g/dL ----Albumin, Serum 3.9 20160215 3.5-5.5 g/dL ----Chloride, Serum 98 20160215 97-108 mmol/L Summary Purpose eClinicalWorks Submission
--- OUTSIDE RECORDS SUMMARY | 2017-05-13 18:04 | XMS REPORT ---
Author Author YAIR JEREZ [facility] eClinicalWorks Address Unknown Phone Unavailable Care Team Providers Care Financial Services Specialist Name Role Phone YAIR JEREZ Unavailable Allergies, Adverse Reactions, Alerts Substance Reaction Event Type N.K.D.A. Info Not Available Non Drug Allergy Problems Problem Type Condition Code Onset Dates Condition Status Assessment Asthma J45.909 Active Problem Depressive disorder, not elsewhere classified [...] Instructions Start Date End Date Status Dosage PredniSONE [facility] [address]-39 20 MG Orally Once a day Nov 10, 2015 as directed Advair Diskus [facility] [address]-88 500-50 MCG/DOSE Inhalation Twice a day Nov 08, 2015 1 puff Celexa [facility] [address]-52 20 MG Orally Once a day Nov 10, 2015 1 tablet Zyprexa [facility] [address]-29 20 MG Orally Once a day Aug 30, 2015 1 tablet Naproxen [facility] 51317519114 500 MG TAKE ONE TABLET BY MOUTH TWICE DAILY WITH FOOD Albuterol Sulfate [facility] [address]-54 (2.5 MG/3ML) 0.083% Inhalation every 4 hrs as needed 3 ml Hydrocodone-Acetaminophen [facility] 10541621710 5-325 MG TAKE ONE TABLET BY MOUTH THREE TIMES DAILY NEEDED Rexulti [facility] [address]-64 0.5 MG 0 Orally Once a day Nov 02, 2015 1 tablet Klonopin [facility] [address]-55 1 MG Orally Twice a day as needed 0.5- 1 tablet Rexulti [facility] [address]-82 1 MG Orally Once a day Nov 02, 2015 1 tablet Procedures Procedure Coding System Code Date Office Visit, Est Pt., Level 2 CPT-4 50529 Nov 10, 2015 Vital Signs Date/Time: Nov 10, 2015 Temperature 97.8 F Weight 370 lbs Height 68.5 in BMI 55.43 Index Blood Pressure Diastolic 78 mmHg Blood Pressure Systolic 128 mmHg Cardiac Monitoring Heart Rate 88 bpm Results No Known Results Summary Purpose eClinicalWorks Submission
--- OUTSIDE RECORDS SUMMARY | 2017-05-13 18:04 | XMS REPORT ---
Author Author CAMILO LAWLER Organization eClinicalWorks Address Unknown Phone Unavailable Care Team Providers Care Civil Engineering Director Name Role Phone CAMILO LAWLER CP Unavailable Allergies No Known Allergies Problems Problem Type Condition Code Onset Dates Condition Status Problem Asthma J45.909 Active Problem Schizoaffective disorder, unspecified 295.70 Active Problem Back pain M54.9 Active Assessment Hirsutism L68.0 Active Assessment Morbid obesity with BMI of 50.0-59.9, adult Z68.43 Active Problem Nondependent cannabis abuse, unspecified 305.20 Active Problem Depressive disorder, not elsewhere classified 311 Active Medications No Known Medications Results No Known Results Summary Purpose eClinicalWorks Submission
--- OUTSIDE RECORDS SUMMARY | 2017-05-13 18:04 | XMS REPORT ---
Author Author SOLA ROSEN [facility] eClinicalWorks Address Unknown Phone Unavailable Care Team Providers Care Costuming Supervisor Name Role Phone SOLA ROSEN Unavailable Allergies, Adverse Reactions, Alerts Substance Reaction Event Type N.K.D.A. Info Not Available Non Drug Allergy Problems Problem Type Condition Code Onset Dates Condition Status Assessment Schizoaffective disorder, bipolar type F25.0 Active Problem Depressive disorder, not elsewhere classified 311 Active Problem Unspecified backache 724.5 Active Assessment Major depressive disorder, single episode, unspecified F32.9 Active Assessment Generalized anxiety disorder F41.1 Active Problem Asthma J45.909 Active Problem Absence of menstruation 626.0 Active Problem Back pain M54.9 Active Problem Nondependent cannabis abuse, unspecified 305.20 Active Problem Asthma, unspecified, unspecified status 493.90 Active Problem Morbid obesity 278.01 Active Problem Schizoaffective disorder, unspecified 295.70 Active Medications Medication Code System Code Instructions Start Date End Date Status Dosage Naproxen [facility] 56864201934 500 MG TAKE ONE TABLET BY MOUTH TWICE DAILY WITH FOOD Albuterol Sulfate [facility] [address]-11 (2.5 MG/3ML) 0.083% Inhalation every 4 hrs as needed [address] [facility] [address]-75 1 MG Orally Twice a day as needed 0.5- [address] [facility] [address]-83 20 MG Orally Once a day Aug 30, [address] [facility] [address]-41 1 MG Orally Once a day Nov 02, [address] [facility] [address]-29 500-50 MCG/DOSE Inhalation Twice a day Nov 08, 2015 1 puff Hydrocodone-Acetaminophen [facility] 67579095762 5-325 MG TAKE ONE TABLET BY MOUTH THREE TIMES DAILY NEEDED Celexa [facility] [address]-77 20 MG Orally Once a day Nov 10, [address] [facility] [address]-12 0.5 MG 0 Orally Once a day Nov 02, 2015 1 tablet Procedures Procedure Coding System Code Date MH Office Visit, Est Pt., Level 4 CPT-4 69195 Nov 10, 2015 Vital Signs Date/Time: Nov 10, 2015 Cardiac Monitoring Heart Rate 90 bpm Weight 370 lbs Height 68.5 in BMI 55.43 Index Blood Pressure Diastolic 78 mmHg Blood Pressure Systolic 128 mmHg Results No Known Results Summary Purpose eClinicalWorks Submission
--- OUTSIDE RECORDS SUMMARY | 2017-05-13 18:04 | XMS REPORT ---
Author Author YAIR JEREZ [facility] eClinicalWorks Address Unknown Phone Unavailable Care Team Providers Care Chief Underwriter Name Role Phone YAIR JEREZ Unavailable Allergies No Known Allergies Problems Problem Type Condition Code Onset Dates Condition Status Problem Asthma J45.909 Active Problem Schizoaffective disorder, unspecified 295.70 Active Problem Back pain M54.9 Active Assessment Back pain M54.9 Active Problem Nondependent cannabis abuse, unspecified 305.20 Active Problem Depressive disorder, not elsewhere classified 311 Active Medications Medication Code System Code Instructions Start Date End Date Status Dosage Klonopin [facility] [address]-46 1 MG Orally- Twice a day as needed 0.5- 1 tablet Spironolactone [facility] [address]-83 100 MG Orally Once a day January 12, 2016 1 tablet Results No Known Results Summary Purpose eClinicalWorks Submission
--- OUTSIDE RECORDS SUMMARY | 2017-05-13 18:04 | XMS REPORT ---
Author Author YAIR JEREZ [facility] Address [address] [place] [address] Care Team Providers Care Community Coordinator Name Role Phone YAIR JEREZ Unavailable PROBLEMS Type Condition ICD9-CM Code BVX58-HF Code Onset Dates Condition Status SNOMED Code Problem Other asthma J45.998 Active 71414010 Problem Back pain M54.9 Active 491577284 Problem Asthma J45.909 Active 898081400 ALLERGIES Unknown Allergies SOCIAL HISTORY No smoking Hx information available PLAN OF CARE VITAL SIGNS MEDICATIONS Medication Instructions Dosage Frequency Start Date End Date Duration Status Celexa 20 MG Orally Once a day 1 tablet 24h 30 Active Proventil HFA 108 (90 Base) MCG/ACT Inhalation every 4 hrs INHALE TWO PUFFS BY MOUTH EVERY 4 TO 6 HOURS NEEDED FOR COUGH OR WHEEZING 4h Active RESULTS No Results PROCEDURES No Known procedures IMMUNIZATIONS No Known Immunizations
--- OUTSIDE RECORDS SUMMARY | 2017-05-13 18:04 | XMS REPORT ---
Author Author YAIR JEREZ [facility] eClinicalWorks Address Unknown Phone Unavailable Care Team Providers Care Shoe Singer Name Role Phone YAIR JEREZ CP Unavailable Allergies, Adverse Reactions, Alerts Substance Reaction Event Type N.K.D.A. Info Not Available Non Drug Allergy Problems Problem Type Condition Code Onset Dates Condition Status Problem Other asthma J45.998 Active Problem Back pain M54.9 Active Problem Mood disorder F39 Active Assessment Mood disorder F39 Active Problem Asthma J45.909 Active Assessment Asthma J45.909 Active Medications Medication Code System Code Instructions Start Date End Date Status Dosage Advair Diskus [facility] [address]-84 500-50 MCG/DOSE Inhalation Twice a day Nov 08, 2015 1 puff PredniSONE [facility] [address]-07 50 mg Orally Once a day Sep 02, 2016 Sep 07, 2016 1 tablet Albuterol Sulfate HFA [facility] [address]-07 108 (90 Base) MCG/ACT Inhalation every 4 hrs 2 puffs as needed PRN cough or wheezing Amoxicillin [facility] [address]-78 500 MG Orally Four times a day Aug 28, 2016 Sep 04, 2016 1 capsule Gabapentin [facility] [address]-24 300 MG Orally daily Jun 13, 2016 1 cap every zenaida X 3 days then 1 cap BID X 3 days then 1 cap daily and 2 caps every zenaida Celexa [facility] 82710359351 20 MG Orally Once a day 1 tablet Procedures Procedure Coding System Code Date Office Visit, Est Pt., Level 3 CPT-4 46398 Sep 02, 2016 Vital Signs Date/Time: Sep 02, 2016 Cardiac Monitoring Heart Rate 80 bpm Weight 364.6 lbs Height 68.5 in BMI 54.62 Index Blood Pressure Diastolic 80 mmHg Blood Pressure Systolic 124 mmHg Results No Known Results Summary Purpose eClinicalWorks Submission
--- OUTSIDE RECORDS SUMMARY | 2017-05-13 18:04 | XMS REPORT ---
Author Author YAIR JEREZ [facility] eClinicalWorks Address Unknown Phone Unavailable Care Team Providers Care Physician Executive Name Role Phone YAIR JEREZ CP Unavailable Allergies, Adverse Reactions, Alerts Substance Reaction Event Type N.K.D.A. Info Not Available Non Drug Allergy Problems Problem Type Condition Code Onset Dates Condition Status Assessment Asthma J45.909 Active Problem Unspecified backache 724.5 Active Assessment Granulation tissue L92.9 Active Problem Absence of menstruation 626.0 Active Problem Morbid obesity 278.01 Active Problem Asthma J45.909 Active Problem Asthma, unspecified, unspecified status 493.90 Active Problem Depressive disorder, not elsewhere classified 311 Active Problem Schizoaffective disorder, unspecified 295.70 Active Problem Nondependent cannabis abuse, unspecified 305.20 Active Medications Medication Code System Code Instructions Start Date End Date Status Dosage Naproxen [facility] 62266491333 500 MG TAKE ONE TABLET BY MOUTH TWICE DAILY WITH FOOD Albuterol Sulfate [facility] [address]-23 (2.5 MG/3ML) 0.083% Inhalation every 4 hrs as needed 3 ml Albuterol Sulfate HFA [facility] [address]-79 108 (90 Base) MCG/ACT Inhalation every 4 hrs 2 puffs as needed PRN cough or wheezing Hydrocodone-Acetaminophen [facility] [address]-91 5-325 MG 3 times a day Dec 1 tablet as needed Procedures Procedure Coding System Code Date Office Visit, Est Pt., Level 3 CPT-4 53888 Oct 06, 2015 MEASURE BLOOD OXYGEN LEVEL CPT-4 03826 Oct 06, 2015 Vital Signs Date/Time: Oct 06, 2015 Temperature 99.1 F Weight 356 lbs Height 68.5 in Oximetry 99 % Blood Pressure Diastolic 78 mmHg Blood Pressure Systolic 118 mmHg Cardiac Monitoring Heart Rate 114 bpm BMI 53.34 Index Results No Known Results Summary Purpose eClinicalWorks Submission
--- OUTSIDE RECORDS SUMMARY | 2017-05-13 18:04 | XMS REPORT ---
Author Author YAIR JEREZ [facility] eClinicalWorks Address Unknown Phone Unavailable Care Team Providers Care Software Consultant Name Role Phone YAIR JEREZ CP Unavailable [...] Nondependent cannabis abuse, unspecified 305.20 Active Medications No Known Medications Results No Known Results Summary Purpose eClinicalWorks Submission
--- OUTSIDE RECORDS SUMMARY | 2017-05-13 18:04 | XMS REPORT ---
Author Author YAIR JEREZ [facility] Address [address] [place] [address] Care Team Providers Care Loan Documents Closer Name Role Phone YAIR JEREZ Unavailable PROBLEMS Type Condition ICD9-CM Code ACT40-VE Code Onset Dates Condition Status SNOMED Code Problem Other asthma J45.998 Active 76145679 Problem Back pain M54.9 Active 498650265 Problem Asthma J45.909 Active 887043724 ALLERGIES Unknown Allergies SOCIAL HISTORY No smoking Hx information available PLAN OF CARE VITAL SIGNS MEDICATIONS Unknown Medications RESULTS No Results PROCEDURES No Known procedures IMMUNIZATIONS No Known Immunizations
--- OUTSIDE RECORDS SUMMARY | 2017-05-13 18:04 | XMS REPORT ---
Author Author YAIR JEREZ [facility] eClinicalWorks Address Unknown Phone Unavailable Care Team Providers Care Database Specialist Name Role Phone YAIR JEREZ Unavailable Allergies No Known Allergies Problems Problem Type Condition Code Onset Dates Condition Status Problem Asthma J45.909 Active Problem Schizoaffective disorder, unspecified 295.70 Active Problem Back pain M54.9 Active Problem Nondependent cannabis abuse, unspecified 305.20 Active Problem Depressive disorder, not elsewhere classified 311 Active Medications No Known Medications Results No Known Results Summary Purpose eClinicalWorks Submission
--- OUTSIDE RECORDS SUMMARY | 2017-05-13 18:04 | XMS REPORT ---
Author Author CHIOMA MARTINS Organization [employer] Address Unknown Phone Unavailable Care Team Providers Care Tobacco Stripping Machine Operator Name Role Phone CHIOMA MARTINS CP Unavailable Allergies, Adverse Reactions, Alerts Substance Reaction Event Type N.K.D.A. Info Not Available Non Drug Allergy Problems Problem Type Condition Code Onset Dates Condition Status Assessment Sebaceous cyst L72.3 Active Problem Morbid obesity 278.01 Active Problem Schizoaffective disorder, unspecified 295.70 Active Problem Absence of menstruation 626.0 Active Problem Depressive disorder, not elsewhere classified 311 Active Problem Unspecified backache 724.5 Active Problem Nondependent cannabis abuse, unspecified 305.20 Active Problem Asthma, unspecified, unspecified status 493.90 Active Medications Medication Code System Code Instructions Start Date End Date Status Dosage Naproxen [facility] 65164209208 500 MG TAKE ONE TABLET BY MOUTH TWICE DAILY WITH FOOD Hydrocodone-Acetaminophen [facility] [address]-55 5-325 MG 3 times a day Dec 1 tablet as needed Albuterol Sulfate [facility] [address]-91 (2.5 MG/3ML) 0.083% Inhalation every 4 hrs as needed 3 ml Albuterol Sulfate HFA [facility] [address]-16 108 (90 Base) MCG/ACT Inhalation every 4 hrs 2 puffs as needed PRN cough or wheezing Zyprexa [facility] [address]-50 20 MG Orally Once a day Aug 30, 2015 1 tablet Klonopin [facility] [address]-88 1 MG Orally Twice a day as needed 0.5- 1 tablet Procedures Procedure Coding System Code Date EXC TR-EXT B9 YOCASTA 3.1-4 CM CPT-4 14455 Sep 19, 2015 Vital Signs Date/Time: Sep 19, 2015 Temperature 97.6 F Weight 360.6 lbs Height 68.5 in BMI 54.03 Index Blood Pressure Diastolic 78 mmHg Blood Pressure Systolic 132 mmHg Cardiac Monitoring Heart Rate 84 bpm Results No Known Results Summary Purpose [employer] Submission
--- OUTSIDE RECORDS SUMMARY | 2017-05-13 18:04 | XMS REPORT ---
Author Author YAIR JEREZ [facility] [employer] Address Unknown Phone Unavailable Care Team Providers Care Juice Bar Team Member Name Role Phone YAIR JEREZ Unavailable Allergies [...] Start Date End Date Status Dosage Hydrocodone-Acetaminophen [facility] 96447970974 5-325 MG TAKE ONE TABLET BY MOUTH THREE TIMES DAILY NEEDED Results No Known Results Summary Purpose [employer]Works Submission
--- OUTSIDE RECORDS SUMMARY | 2017-05-13 18:04 | XMS REPORT ---
Author Author CE FRENCH [facility] e[employer] Address Unknown Phone Unavailable Care Team Providers Care Special Education Inclusion Teacher Name Role Phone CE FRENCH CP Unavailable Allergies, Adverse Reactions, Alerts Substance Reaction Event Type N.K.D.A. Info Not Available Non Drug Allergy Problems Problem Type Condition Code Onset Dates Condition Status Assessment Intermittent explosive disorder F63.81 Active Problem Back pain M54.9 Active Problem Asthma J45.909 Active Problem Other asthma J45.998 Active Problem Depressive disorder, not elsewhere classified 311 Active Assessment Generalized anxiety disorder F41.1 Active Problem Schizoaffective disorder, unspecified 295.70 Active Problem Nondependent cannabis abuse, unspecified 305.20 Active Medications Medication Code System Code Instructions Start Date End Date Status Dosage Albuterol Sulfate [facility] [address]-50 (2.5 MG/3ML) 0.083% Inhalation every 4 hrs as needed 3 ml Celexa [facility] 00147377427 20 MG Orally Once a day 1 tablet Proventil HFA [facility] 22779212946 108 (90 Base) MCG/ACT INHALE TWO PUFFS BY MOUTH EVERY 4 TO 6 HOURS NEEDED FOR COUGH OR WHEEZING Hydrocodone-Acetaminophen [facility] 69688313058 5-325 MG TAKE ONE TABLET BY MOUTH THREE TIMES DAILY NEEDED Albuterol Sulfate HFA [facility] [address]-06 108 (90 Base) MCG/ACT Inhalation every 4 hrs 2 puffs as needed PRN cough or wheezing Gabapentin [facility] [address]-03 300 MG Orally daily Jun 13, 2016 1 cap every zenaida X 3 days then 1 cap BID X 3 days then 1 cap daily and 2 caps every zenaida Procedures Procedure Coding System Code Date Office Visit, Est Pt., Level 4 CPT-4 77492 Jun 13, 2016 Vital Signs Date/Time: Jun 13, 2016 Cardiac Monitoring Heart Rate 92 bpm Weight 364.8 lbs Height 68.5 in BMI 54.65 Index Blood Pressure Diastolic 85 mmHg Blood Pressure Systolic 126 mmHg Results No Known Results Summary Purpose [employer]Works Submission
--- OUTSIDE RECORDS SUMMARY | 2017-05-13 18:05 | XMS REPORT ---
Author Author YAIR JEREZ [facility] e[employer] Address Unknown Phone Unavailable Care Team Providers Care Venereal Disease Control Head Name Role Phone YAIR JEREZ CP Unavailable Allergies, Adverse Reactions, Alerts Substance Reaction Event Type N.K.D.A. Info Not Available Non Drug Allergy Problems Problem Type Condition Code Onset Dates Condition Status Assessment Asthma J45.909 Active Problem Depressive disorder, not elsewhere classified 311 Active Problem Unspecified backache 724.5 Active Assessment Back pain M54.9 Active Problem Asthma J45.909 Active Problem Absence of menstruation 626.0 Active Problem Back pain M54.9 Active Problem Nondependent cannabis abuse, unspecified 305.20 Active Problem Asthma, unspecified, unspecified status 493.90 Active Problem Morbid obesity 278.01 Active Problem Schizoaffective disorder, unspecified 295.70 Active Medications Medication Code System Code Instructions Start Date End Date Status Dosage Naproxen [facility] 15668649878 500 MG TAKE ONE TABLET BY MOUTH TWICE DAILY WITH FOOD Bactrim DS [facility] [address]-52 800-160 MG Orally Twice a day Nov 02, 2015 Nov 07, 2015 1 tablet Albuterol Sulfate [facility] [address]-22 (2.5 MG/3ML) 0.083% Inhalation every 4 hrs as needed 3 ml Hydrocodone-Acetaminophen [facility] [address]-71 5-325 MG 3 times a day Dec 1 tablet as needed Procedures Procedure Coding System Code Date URINALYSIS, AUTO, W/O SCOPE CPT-4 95966 Nov 02, 2015 URINE CULTURE/COLONY COUNT CPT-4 79565 Nov 02, 2015 Office Visit, Est Pt., Level 3 CPT-4 46988 Nov 02, 2015 No Charge CPT-4 17501 Nov 02, 2015 Vital Signs Date/Time: Nov 02, 2015 Temperature 97.8 F Weight 367.5 lbs Height 68.5 in BMI 55.06 Index Blood Pressure Diastolic 72 mmHg Blood Pressure Systolic 120 mmHg Cardiac Monitoring Heart Rate 120 bpm Results Name Result Date Reference Range Unit Abnormality Flag UA LONG DIP (IN HOUSE) ----LAURA +++ [id number] ----NIT Negative [id number] ----Exp date [id number] ----Lot # [id number] ----SG 1.025 [id number] ----KET Trace [id number] ----PETEY + [id number] ----GLU Negative [id number] ----Odor None [id number] ----pH 6.0 20151102 ----BLO Negative [id number] ----URO 0.2 20151102 ----Protein + [id number] ----Lot # [id number] ----Exp date [id number] ----Clarity Slightly Cloudy [id number] ----Color Yellow [id number] Summary Purpose eClinicalWorks Submission
--- OUTSIDE RECORDS SUMMARY | 2017-05-13 18:05 | XMS REPORT ---
Author Author YAIR JEREZ [facility] eClinicalWorks Address Unknown Phone Unavailable Care Team Providers Care Edge Banding Machine Offbearer Name Role Phone YAIR JEREZ Unavailable Allergies [...] Start Date End Date Status Dosage Hydrocodone-Acetaminophen [facility] [address]-04 5-325 MG 3 times a day Dec 1 tablet as needed Results No Known Results Summary Purpose [employer]ClinicalWorks Submission
--- OUTSIDE RECORDS SUMMARY | 2017-05-13 18:05 | XMS REPORT ---
Author Author BELLO VÁZQUEZ [facility] eClinicalWorks Address Unknown Phone Unavailable Care Team Providers Care Curator Herbarium Name Role Phone BELLO VÁZQUEZ CP Unavailable Allergies, Adverse Reactions, Alerts Substance Reaction Event Type N.K.D.A. Info Not Available Non Drug Allergy Problems Problem Type Condition Code Onset Dates Condition Status Assessment Schizoaffective disorder F25.9 Active Assessment Panic disorder with agoraphobia F40.01 Active Problem Morbid obesity 278.01 Active Problem Schizoaffective disorder, unspecified 295.70 Active Problem Absence of menstruation 626.0 Active Problem Depressive disorder, not elsewhere classified 311 Active Problem Unspecified backache 724.5 Active Problem Nondependent cannabis abuse, unspecified 305.20 Active Problem Asthma, unspecified, unspecified status 493.90 Active Medications Medication Code System Code Instructions Start Date End Date Status Dosage Hydrocodone-Acetaminophen [facility] [address]-03 5-325 MG 3 times a day Dec 1 tablet as needed Albuterol Sulfate [facility] [address]-64 (2.5 MG/3ML) 0.083% Inhalation every 4 hrs as needed 3 ml Zyprexa [facility] [address]-76 20 MG Orally Once a day Aug 30, 2015 1 tablet Naproxen [facility] 10905489338 500 MG TAKE ONE TABLET BY MOUTH TWICE DAILY WITH FOOD Albuterol Sulfate HFA [facility] [address]-79 108 (90 Base) MCG/ACT Inhalation every 4 hrs 2 puffs as needed PRN cough or wheezing Klonopin [facility] [address]-00 1 MG Orally Twice a day as needed 0.5- 1 tablet Procedures Procedure Coding System Code Date Office Visit, Est Pt., Level 3 CPT-4 52043 Aug 30, 2015 Vital Signs Date/Time: Aug 30, 2015 Cardiac Monitoring Heart Rate 72 bpm Weight 356.5 lbs Height 68.5 in BMI 53.41 Index Blood Pressure Diastolic 90 mmHg Blood Pressure Systolic 145 mmHg Results No Known Results Summary Purpose eClinicalWorks Submission
--- OUTSIDE RECORDS SUMMARY | 2017-05-13 18:05 | XMS REPORT ---
Author CONNER Sim [employer] Address Unknown Phone Unavailable Care Team Providers Care Director Of Cardiac Rehabilitation Name Role Phone CONNER RAMOS CP Unavailable Allergies, Adverse Reactions, Alerts Substance Reaction Event Type N.K.D.A. Info Not Available Non Drug Allergy Problems Problem Type Condition Code Onset Dates Condition Status Problem Back pain M54.9 Active Problem Asthma J45.909 Active Problem Other asthma J45.998 Active Assessment Dental examination Z01.20 Active Medications Medication Code System Code Instructions Start Date End Date Status Dosage Amoxicillin [facility] [place] 2] [address]-44 500 MG Orally Four times a day Aug 28, 2016 Sep 04, 2016 1 capsule Procedures Procedure Coding System Code Date INTRAORL-PERIAPICAL 1 FILM 06960 CPT-4 D0220 Aug 28, 2016 LTD ORAL EVALUATION - PROBLEM FOCUS CPT-4 D0140 Aug 28, 2016 Vital Signs Date/Time: Aug 28, 2016 Blood Pressure Diastolic 43 mmHg Blood Pressure Systolic 81 mmHg Height 68.5 in Results No Known Results Summary Purpose eClinicalWorks Submission
--- OUTSIDE RECORDS SUMMARY | 2017-05-13 18:06 | XMS REPORT | Continuity of Care Document ---
Author Author [facility] of [facility] of [facility] Address Unknown Phone Unavailable Allergies Active Description Code Type Severity Reaction Onset Reported/Identified Relationship to Patient Clinical Status Yes No Known Drug Allergies [id number] Drug Allergy Unknown N/ A 10/04/2010 Medications Problems Date Dx Coded Attending Type Code Diagnosis Diagnosed By 10/04/2010 Ot 842.10 10/04/2010 Ot 847.0 10/04/2010 Ot 959.09 10/04/2010 Ot E000.8 10/04/2010 Ot E816.0 10/12/2010 Ot V54.89 01/06/2012 Ot 789.03 ABDOMINAL PAIN, RIGHT LOWER QUADRANT 01/06/2012 Ot 789.09 ABDOMINAL PAIN, OTHER SPECIFIED SITE 06/26/2012 Ot 530.11 REFLUX ESOPHAGITIS 06/26/2012 Ot 531.90 STOMACH ULCER NOS 06/26/2012 Ot 535.50 UNSP GASTRITIS GASTRODUODENITIS W/O ME 09/11/2012 Ot 380.4 IMPACTED CERUMEN 09/11/2012 Ot 388.70 OTALGIA NOS 09/11/2012 Ot 521.00 UNSPEC DENTAL CARIES 10/03/2012 Ot 388.70 OTALGIA NOS 10/03/2012 Ot 558.9 NONINF GASTROENTERIT NEC 10/03/2012 Ot 784.0 HEADACHE 10/03/2012 Ot 787.01 NAUSEA WITH VOMITING 12/30/2012 CELSA TELLEZ DO 133.0 SCABIES 12/30/2012 133.0 SCABIES 12/30/2012 MARIELOS MARTIN APRN 133.0 SCABIES 12/30/2012 MARIELOS MARTIN APRN N 133.0 SCABIES 12/30/2012 PORSCHE HARGROVE MD 133.0 SCABIES 12/30/2012 LEIGHTON ESCALANTE APRN 133.0 SCABIES 12/30/2012 MARIELOS MARTIN APRN N 133.0 SCABIES 12/30/2012 SOLITARIO MCKENNA, YAIR 133.0 SCABIES 12/30/2012 SOLITARIO MCKENNA, YAIR 133.0 SCABIES 12/30/2012 133.0 SCABIES 12/30/2012 SOLITARIO MCKENNA, YAIR 133.0 SCABIES 12/30/2012 SOLITARIO MCKENNA, YAIR 133.0 SCABIES 12/30/2012 AVA MERIDA, LEIGHTON Moy 133.0 SCABIES 12/30/2012 SOLITARIO MCKENNA, YAIR 133.0 SCABIES 12/30/2012 SOLITARIO MCKENNA, YAIR 133.0 SCABIES 12/30/2012 GILLIAN PHD, BOZENA Tolentino 133.0 SCABIES 12/30/2012 KATHIE BANKS, BELLO Jarrell 133.0 SCABIES 12/30/2012 SAMIA BELL LAC 133.0 SCABIES 12/30/2012 SOLITARIO MCKENNA, YAIR 133.0 SCABIES 12/30/2012 SAMIA BELL LAC 133.0 SCABIES 02/07/2013 Ot 682.3 CELLULITIS OF ARM 02/07/2013 Ot 989.5 TOXIC EFFECT VENOM 02/07/2013 Ot E000.8 OTHER EXTERNAL CAUSE STATUS 02/07/2013 Ot E849.0 ACCIDENT IN HOME 02/07/2013 Ot E905.1 VENOMOUS SPIDER BITE 02/21/2013 Ot 682.3 CELLULITIS OF ARM 02/21/2013 Ot 787.01 NAUSEA WITH VOMITING 02/22/2013 Ot 682.3 CELLULITIS OF ARM 02/22/2013 Ot V58.30 ENCOUNTER FOR CHANGE OR REMOVAL OF NONSU 05/11/2013 466.0 ACUTE BRONCHITIS 05/11/2013 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 05/11/2013 493.90 ASTHMA UNSPECIFIED 05/11/2013 788.1 DYSURIA 05/11/2013 MARIELOS MARTIN APRN N 466.0 ACUTE BRONCHITIS 05/11/2013 MARIELOS MARTIN APRN N 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 05/11/2013 MARIELOS MARTIN APRN N 493.90 ASTHMA UNSPECIFIED 05/11/2013 MARIELOS MARTIN APRN N 788.1 DYSURIA 05/11/2013 MARIELOS MARTIN APRN N 466.0 ACUTE BRONCHITIS 05/11/2013 MILLER CASHERO INVESTOR RELATIONS ANALYST, MARIELOS N 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 05/11/2013 MILLER CASHERO INVESTOR RELATIONS ANALYST, MARIELOS N 493.90 ASTHMA UNSPECIFIED 05/11/2013 MILLER CASHERO INVESTOR RELATIONS ANALYST, MARIELOS N 788.1 DYSURIA 05/11/2013 BEENA MCKENNA, PORSCHE Jarrell 466.0 ACUTE BRONCHITIS 05/11/2013 PORSCHE HARGROVE MD 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 05/11/2013 BEENA MCKENNA, PORSCHE Jarrell 493.90 ASTHMA UNSPECIFIED 05/11/2013 BEENA MCKENNA, PORSCHE Jarrell 788.1 DYSURIA 05/11/2013 AVA INVESTOR RELATIONS ANALYST, LEIGHTON A 466.0 ACUTE BRONCHITIS 05/11/2013 AVA INVESTOR RELATIONS ANALYST, LEIGHTON A 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 05/11/2013 AVA INVESTOR RELATIONS ANALYST, LEIGHTON A 493.90 ASTHMA UNSPECIFIED 05/11/2013 AVA INVESTOR RELATIONS ANALYST, LEIGHTON A 788.1 DYSURIA 05/11/2013 MILLER CASHERO INVESTOR RELATIONS ANALYST, MARIELOS N 466.0 ACUTE BRONCHITIS 05/11/2013 MILLER CASHERO INVESTOR RELATIONS ANALYST, MARIELOS N 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 05/11/2013 MILLER CASHERO INVESTOR RELATIONS ANALYST, MARIELOS N 493.90 ASTHMA UNSPECIFIED 05/11/2013 MILLER CASHERO INVESTOR RELATIONS ANALYST, MARIELOS N 788.1 DYSURIA 05/11/2013 YAIR JEREZ MD 466.0 ACUTE BRONCHITIS 05/11/2013 YAIR JEREZ MD 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 05/11/2013 SOLITARIO MCKENNA, YAIR 493.90 ASTHMA UNSPECIFIED 05/11/2013 YAIR JEREZ MD 788.1 DYSURIA 05/11/2013 YAIR JEREZ MD 466.0 ACUTE BRONCHITIS 05/11/2013 YAIR JEREZ MD 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 05/11/2013 SOLITARIO MCKENNA, YAIR 493.90 ASTHMA UNSPECIFIED 05/11/2013 YAIR JEREZ MD 788.1 DYSURIA 05/11/2013 466.0 ACUTE BRONCHITIS 05/11/2013 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 05/11/2013 493.90 ASTHMA UNSPECIFIED 05/11/2013 788.1 DYSURIA 05/11/2013 YAIR JEREZ MD 466.0 ACUTE BRONCHITIS 05/11/2013 YAIR JEREZ MD 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 05/11/2013 SOLITARIO MCKENNA, YAIR 493.90 ASTHMA UNSPECIFIED 05/11/2013 SOLITARIO MCKENNA, YAIR 788.1 DYSURIA 05/11/2013 SOLITARIO MCKENNA, YAIR 466.0 ACUTE BRONCHITIS 05/11/2013 SOLITARIO MCKENNA, YAIR 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 05/11/2013 SOLITARIO MCKENNA, YAIR 493.90 ASTHMA UNSPECIFIED 05/11/2013 SOLITARIO MCKENNA, YAIR 788.1 DYSURIA 05/11/2013 AVA INVESTOR RELATIONS ANALYST, LEIGHTON A 466.0 ACUTE BRONCHITIS 05/11/2013 AVA INVESTOR RELATIONS ANALYST, LEIGHTON A 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 05/11/2013 AVA INVESTOR RELATIONS ANALYST, LEIGHTON A 493.90 ASTHMA UNSPECIFIED 05/11/2013 AVA INVESTOR RELATIONS ANALYST, LEIGHTON A 788.1 DYSURIA 05/11/2013 YAIR JEREZ MD 466.0 ACUTE BRONCHITIS 05/11/2013 SOLITARIO MCKENNA, YAIR 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 05/11/2013 SOLITARIO MCKENNA, YAIR 493.90 ASTHMA UNSPECIFIED 05/11/2013 SOLITARIO MCKENNA, YAIR 788.1 DYSURIA 05/11/2013 YAIR JEREZ MD 466.0 ACUTE BRONCHITIS 05/11/2013 SOLITARIO MCKENNA, YAIR 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 05/11/2013 SOLITARIO MCKENNA, YAIR 493.90 ASTHMA UNSPECIFIED 05/11/2013 SOLITARIO MCKENNA, YAIR 788.1 DYSURIA 05/11/2013 GILLIAN PHD, BOZENA Tolentino 466.0 ACUTE BRONCHITIS 05/11/2013 GILLIAN PHD, BOZENA Tolentino 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 05/11/2013 GILLIAN PHD, BOZENA Tolentino 493.90 ASTHMA UNSPECIFIED 05/11/2013 GILLIAN PHD, BOZENA Tolentino 788.1 DYSURIA 05/11/2013 BELLO SALGUERO M 466.0 ACUTE BRONCHITIS 05/11/2013 BELLO SALGUERO M 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 05/11/2013 KATHIE BANKS, BELLO M 493.90 ASTHMA UNSPECIFIED 05/11/2013 KATHIE LAWYER PROBATE, BELLO M 788.1 DYSURIA 05/11/2013 RAY LAC, SAMIA 466.0 ACUTE BRONCHITIS 05/11/2013 RAY LAC, SAMIA 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 05/11/2013 RAY LAC, SAMIA 493.90 ASTHMA UNSPECIFIED 05/11/2013 RAY LAC, SAMIA 788.1 DYSURIA 05/11/2013 SOLITARIO MCKENNA, YAIR 466.0 ACUTE BRONCHITIS 05/11/2013 SOLITARIO MCKENNA, YAIR 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 05/11/2013 SOLITARIO MCKENNA, YAIR 493.90 ASTHMA UNSPECIFIED 05/11/2013 SOLITARIO MCKENNA, YAIR 788.1 DYSURIA 05/11/2013 RAY LAC, SAMIA 466.0 ACUTE BRONCHITIS 05/11/2013 RAY LAC, SAMIA 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 05/11/2013 RAY LAC, SAMIA 493.90 ASTHMA UNSPECIFIED 05/11/2013 RAY LAC, SAMIA 788.1 DYSURIA 06/03/2013 V67.9 UNSPECIFIED FOLLOW-UP EXAMINATION 06/03/2013 PAUL BARRY APRN, MARIELOS N V67.9 UNSPECIFIED FOLLOW-UP EXAMINATION 06/03/2013 PAUL BARRY APRN, MARIELOS N V67.9 UNSPECIFIED FOLLOW-UP EXAMINATION 06/03/2013 PORSCHE HARGROVE MD V67.9 UNSPECIFIED FOLLOW-UP EXAMINATION 06/03/2013 AVA MERIDA, LEIGHTON A V67.9 UNSPECIFIED FOLLOW-UP EXAMINATION 06/03/2013 PAUL BARRY APRN, MARIELOS N V67.9 UNSPECIFIED FOLLOW-UP EXAMINATION 06/03/2013 SOLITARIO MCKENNA, YAIR V67.9 UNSPECIFIED FOLLOW-UP EXAMINATION 06/03/2013 SOLITARIO MCKENNA, YAIR V67.9 UNSPECIFIED FOLLOW-UP EXAMINATION 06/03/2013 V67.9 UNSPECIFIED FOLLOW-UP EXAMINATION 06/03/2013 SOLITARIO MCKENNA, YAIR V67.9 UNSPECIFIED FOLLOW-UP EXAMINATION 06/03/2013 SOLITARIO MCKENNA, YAIR V67.9 UNSPECIFIED FOLLOW-UP EXAMINATION 06/03/2013 AVA MERIDA, LEIGHTON A V67.9 UNSPECIFIED FOLLOW-UP EXAMINATION 06/03/2013 SOLITARIO MCKENNA, YAIR V67.9 UNSPECIFIED FOLLOW-UP EXAMINATION 06/03/2013 SOLITARIO MCKENNA, YAIR V67.9 UNSPECIFIED FOLLOW-UP EXAMINATION 06/03/2013 GILLIAN PHD, BOZENA Tolentino V67.9 UNSPECIFIED FOLLOW-UP EXAMINATION 06/03/2013 BELLO SALGUERO V67.9 UNSPECIFIED FOLLOW-UP EXAMINATION 06/03/2013 SAMIA BELL LAC V67.9 UNSPECIFIED FOLLOW-UP EXAMINATION 06/03/2013 YAIR JEREZ MD V67.9 UNSPECIFIED FOLLOW-UP EXAMINATION 06/03/2013 SAMIA BELL LAC V67.9 UNSPECIFIED FOLLOW-UP EXAMINATION 07/08/2013 PAUL BARRY MAGNOLIA, MARIELOS N 278.00 OBESITY UNSPECIFIED 07/08/2013 MILLER CASHERO INVESTOR RELATIONS ANALYST, MARIELOS N 626.9 UNSPECIFIED DISORDERS OF MENSTRUATION AND OTHER ABNORMAL BLEEDING FROM FEMALE GENITAL TRACT 07/08/2013 MILLER CASHERO INVESTOR RELATIONS ANALYST, MARIELOS N 704.1 HIRSUTISM 07/08/2013 MILLER CASHERO INVESTOR RELATIONS ANALYST, MARIELOS N 278.00 OBESITY UNSPECIFIED 07/08/2013 MILLER CASHERO INVESTOR RELATIONS ANALYST, MARIELOS N 626.9 UNSPECIFIED DISORDERS OF MENSTRUATION AND OTHER ABNORMAL BLEEDING FROM FEMALE GENITAL TRACT 07/08/2013 MILLER CASHERO INVESTOR RELATIONS ANALYST, MARIELOS N 704.1 HIRSUTISM 07/08/2013 PORSCHE HARGROVE MD 278.00 OBESITY UNSPECIFIED 07/08/2013 PORSCHE HARGROVE MD 626.9 UNSPECIFIED DISORDERS OF MENSTRUATION AND OTHER ABNORMAL BLEEDING FROM FEMALE GENITAL TRACT 07/08/2013 PORSCHE HARGROVE MD 704.1 HIRSUTISM 07/08/2013 JACQUE ESCALANTE APRNIDI A 278.00 OBESITY UNSPECIFIED 07/08/2013 AVA MERIDA LEIGHTON A 626.9 UNSPECIFIED DISORDERS OF MENSTRUATION AND OTHER ABNORMAL BLEEDING FROM FEMALE GENITAL TRACT 07/08/2013 AVA MERIDA LEIGHTON A 704.1 HIRSUTISM 07/08/2013 MILLER CASHSOL INVESTOR RELATIONS ANALYST, MARIELOS N 278.00 OBESITY UNSPECIFIED 07/08/2013 MILLER CASHERO INVESTOR RELATIONS ANALYST, MARIELOS N 626.9 UNSPECIFIED DISORDERS OF MENSTRUATION AND OTHER ABNORMAL BLEEDING FROM FEMALE GENITAL TRACT 07/08/2013 MILLER CASHSOL MERIDA, MARIELOS N 704.1 HIRSUTISM 07/08/2013 YAIR JEREZ MD 278.00 OBESITY UNSPECIFIED 07/08/2013 YAIR JEREZ MD 626.9 UNSPECIFIED DISORDERS OF MENSTRUATION AND OTHER ABNORMAL BLEEDING FROM FEMALE GENITAL TRACT 07/08/2013 YAIR JEREZ MD 704.1 HIRSUTISM 07/08/2013 YAIR JEREZ MD 278.00 OBESITY UNSPECIFIED 07/08/2013 YAIR JEREZ MD 626.9 UNSPECIFIED DISORDERS OF MENSTRUATION AND OTHER ABNORMAL BLEEDING FROM FEMALE GENITAL TRACT 07/08/2013 YAIR JEREZ MD 704.1 HIRSUTISM 07/08/2013 278.00 OBESITY UNSPECIFIED 07/08/2013 626.9 UNSPECIFIED DISORDERS OF MENSTRUATION AND OTHER ABNORMAL BLEEDING FROM FEMALE GENITAL TRACT 07/08/2013 704.1 HIRSUTISM 07/08/2013 YAIR JEREZ MD 278.00 OBESITY UNSPECIFIED 07/08/2013 YAIR JEREZ MD 626.9 UNSPECIFIED DISORDERS OF MENSTRUATION AND OTHER ABNORMAL BLEEDING FROM FEMALE GENITAL TRACT 07/08/2013 YAIR JEREZ MD 704.1 HIRSUTISM 07/08/2013 YAIR JEREZ MD 278.00 OBESITY UNSPECIFIED 07/08/2013 YAIR JEREZ MD6.9 UNSPECIFIED DISORDERS OF MENSTRUATION AND OTHER ABNORMAL BLEEDING FROM FEMALE GENITAL TRACT 07/08/2013 YAIR JEREZ MD4.1 HIRSUTISM 07/08/2013 LEIGHTON ESCALANTE APRN A 278.00 OBESITY UNSPECIFIED 07/08/2013 LEIGHTON ESCALANTE APRN A 626.9 UNSPECIFIED DISORDERS OF MENSTRUATION AND OTHER ABNORMAL BLEEDING FROM FEMALE GENITAL TRACT 07/08/2013 LEIGHTON ESCALANTE APRN A 704.1 HIRSUTISM 07/08/2013 YAIR JEREZ MD 278.00 OBESITY UNSPECIFIED 07/08/2013 YAIR JEREZ MD6.9 UNSPECIFIED DISORDERS OF MENSTRUATION AND OTHER ABNORMAL BLEEDING FROM FEMALE GENITAL TRACT 07/08/2013 YAIR JEREZ MD 704.1 HIRSUTISM 07/08/2013 YAIR JEREZ MD 278.00 OBESITY UNSPECIFIED 07/08/2013 YAIR JEREZ MD6.9 UNSPECIFIED DISORDERS OF MENSTRUATION AND OTHER ABNORMAL BLEEDING FROM FEMALE GENITAL TRACT 07/08/2013 YAIR JEREZ MD 704.1 HIRSUTISM 07/08/2013 GILLIAN SANTANA, BOZENA Tolentino 278.00 OBESITY UNSPECIFIED 07/08/2013 BOZENA FRENCH PHD 626.9 UNSPECIFIED DISORDERS OF MENSTRUATION AND OTHER ABNORMAL BLEEDING FROM FEMALE GENITAL TRACT 07/08/2013 GILLIAN SANTANA, BOZENA Tolentino 704.1 HIRSUTISM 07/08/2013 BELLO SALGUERO M 278.00 OBESITY UNSPECIFIED 07/08/2013 BELLO SALGUERO 626.9 UNSPECIFIED DISORDERS OF MENSTRUATION AND OTHER ABNORMAL BLEEDING FROM FEMALE GENITAL TRACT 07/08/2013 BELLO SALGUERO 704.1 HIRSUTISM 07/08/2013 [facility] 278.00 OBESITY UNSPECIFIED 07/08/2013 RAY BUNDY SAMIA 626.9 UNSPECIFIED DISORDERS OF MENSTRUATION AND OTHER ABNORMAL BLEEDING FROM FEMALE GENITAL TRACT 07/08/2013 RAY NIHARIKA SAMIA 704.1 HIRSUTISM 07/08/2013 YAIR JEREZ MD 278.00 OBESITY UNSPECIFIED 07/08/2013 YAIR JEREZ MD6.9 UNSPECIFIED DISORDERS OF MENSTRUATION AND OTHER ABNORMAL BLEEDING FROM FEMALE GENITAL TRACT 07/08/2013 YAIR JEREZ MD 704.1 HIRSUTISM 07/08/2013 R[facility] 278.00 OBESITY UNSPECIFIED 07/08/2013 RAY BUNDY SAMIA 626.9 UNSPECIFIED DISORDERS OF MENSTRUATION AND OTHER ABNORMAL BLEEDING FROM FEMALE GENITAL TRACT 07/08/2013 SAMIA BELL LAC 704.1 HIRSUTISM 09/06/2013 LEIGHTON ESCALANTE APRN A 599.70 HEMATURIA 09/06/2013 LEIGHTON ESCALANTE APRN A 626.0 AMENORRHEA 09/06/2013 LEIGHTON ESCALANTE APRN A 787.01 NAUSEA WITH VOMITING 09/06/2013 MARIELOS MARTIN APRN N 599.70 HEMATURIA 09/06/2013 MARIELOS MARTIN APRN N 626.0 AMENORRHEA 09/06/2013 MARIELOS MARTIN APRN N 787.01 NAUSEA WITH VOMITING 09/06/2013 YAIR JEREZ MD 599.70 HEMATURIA 09/06/2013 YAIR JEREZ MD 626.0 AMENORRHEA 09/06/2013 YAIR JEREZ MD 787.01 NAUSEA WITH VOMITING 09/06/2013 YAIR JEREZ MD 599.70 HEMATURIA 09/06/2013 YAIR JEREZ MD 626.0 AMENORRHEA 09/06/2013 YAIR JEREZ MD 787.01 NAUSEA WITH VOMITING 09/06/2013 599.70 HEMATURIA 09/06/2013 626.0 AMENORRHEA 09/06/2013 787.01 NAUSEA WITH VOMITING 09/06/2013 YAIR JEREZ MD 599.70 HEMATURIA 09/06/2013 SOLITARIO MCKENNA, YAIR 626.0 AMENORRHEA 09/06/2013 YAIR JEREZ MD 787.01 NAUSEA WITH VOMITING 09/06/2013 YAIR JEREZ MD 599.70 HEMATURIA 09/06/2013 YAIR JEREZ MD 626.0 AMENORRHEA 09/06/2013 YAIR JEREZ MD 787.01 NAUSEA WITH VOMITING 09/06/2013 LEIGHTON ESCALANTE APRN A 599.70 HEMATURIA 09/06/2013 LEIGHTON ESCALANTE APRN A 626.0 AMENORRHEA 09/06/2013 LEIGHTON ESCALANTE APRN A 787.01 NAUSEA WITH VOMITING 09/06/2013 YAIR JEREZ MD 599.70 HEMATURIA 09/06/2013 YAIR JEREZ MD 626.0 AMENORRHEA 09/06/2013 YAIR JEREZ MD 787.01 NAUSEA WITH VOMITING 09/06/2013 YAIR JEREZ MD 599.70 HEMATURIA 09/06/2013 YAIR JEREZ MD 626.0 AMENORRHEA 09/06/2013 YAIR JEREZ MD 787.01 NAUSEA WITH VOMITING 09/06/2013 GILLIAN PHDBOZENA 599.70 HEMATURIA 09/06/2013 GILLIAN PHD, BOZENA Tolentino 626.0 AMENORRHEA 09/06/2013 GILLIAN PHD, BOZENA Tolentino 787.01 NAUSEA WITH VOMITING 09/06/2013 BELLO SALGUERO 599.70 HEMATURIA 09/06/2013 KATHIE LAWYER PROBATE, BELLO M 626.0 AMENORRHEA 09/06/2013 KATHIE BANKS, BELLO M 787.01 NAUSEA WITH VOMITING 09/06/2013 LUAREN BELL LACI 599.70 HEMATURIA 09/06/2013 RAY BUNDY SAMIA 626.0 AMENORRHEA 09/06/2013 RAY BUNDY, SAMIA 787.01 NAUSEA WITH VOMITING 09/06/2013 YAIR JEREZ MD 599.70 HEMATURIA 09/06/2013 YAIR JEREZ MD 626.0 AMENORRHEA 09/06/2013 YAIR JEREZ MD 787.01 NAUSEA WITH VOMITING 09/06/2013 LAUREN BELL LACI 599.70 HEMATURIA 09/06/2013 LAUREN BELL LACI 626.0 AMENORRHEA 09/06/2013 SAMIA BELL LAC 787.01 NAUSEA WITH VOMITING 10/07/2013 MILLER LISASOL INVESTOR RELATIONS ANALYST, MARIELOS N 698.9 UNSPECIFIED PRURITIC DISORDER 10/07/2013 PAUL BARRY APRSotero MARIELOS N 782.1 RASH AND OTHER NONSPECIFIC SKIN ERUPTION 10/07/2013 YAIR JEREZ MD.9 UNSPECIFIED PRURITIC DISORDER 10/07/2013 YAIR JEREZ MD2.1 RASH AND OTHER NONSPECIFIC SKIN ERUPTION 10/07/2013 YAIR JEREZ MD.9 UNSPECIFIED PRURITIC DISORDER 10/07/2013 YAIR JEREZ MD2.1 RASH AND OTHER NONSPECIFIC SKIN ERUPTION 10/07/2013 698.9 UNSPECIFIED PRURITIC DISORDER 10/07/2013 782.1 RASH AND OTHER NONSPECIFIC SKIN ERUPTION 10/07/2013 YAIR JEREZ MD.9 UNSPECIFIED PRURITIC DISORDER 10/07/2013 YAIR JEREZ MD2.1 RASH AND OTHER NONSPECIFIC SKIN ERUPTION 10/07/2013 YAIR JEREZ MD.9 UNSPECIFIED PRURITIC DISORDER 10/07/2013 YAIR JEREZ MD2.1 RASH AND OTHER NONSPECIFIC SKIN ERUPTION 10/07/2013 LEIGHTON ESCALANTE APRN 698.9 UNSPECIFIED PRURITIC DISORDER 10/07/2013 LEIGHTON ESCALANTE APRN A 782.1 RASH AND OTHER NONSPECIFIC SKIN ERUPTION 10/07/2013 YAIR JEREZ MD.9 UNSPECIFIED PRURITIC DISORDER 10/07/2013 YAIR JEREZ MD2.1 RASH AND OTHER NONSPECIFIC SKIN ERUPTION 10/07/2013 YAIR JEREZ MD.9 UNSPECIFIED PRURITIC DISORDER 10/07/2013 YAIR JEREZ MD2.1 RASH AND OTHER NONSPECIFIC SKIN ERUPTION 10/07/2013 GILLIAN SANTANA, BOZENA Tolentino 698.9 UNSPECIFIED PRURITIC DISORDER 10/07/2013 BOZENA FRENCH PHD 782.1 RASH AND OTHER NONSPECIFIC SKIN ERUPTION 10/07/2013 BELLO SALGUERO 698.9 UNSPECIFIED PRURITIC DISORDER 10/07/2013 BELLO SALGUERO 782.1 RASH AND OTHER NONSPECIFIC SKIN ERUPTION 10/07/2013 RAY LAC, SAMIA 698.9 UNSPECIFIED PRURITIC DISORDER 10/07/2013 RAY BUNDY, SAMIA 782.1 RASH AND OTHER NONSPECIFIC SKIN ERUPTION 10/07/2013 YAIR JEREZ MD 698.9 UNSPECIFIED PRURITIC DISORDER 10/07/2013 YAIR JEREZ MD 782.1 RASH AND OTHER NONSPECIFIC SKIN ERUPTION 10/07/2013 RAY BUNDY, SAMIA 698.9 UNSPECIFIED PRURITIC DISORDER 10/07/2013 RAY BUNDY, SAMIA 782.1 RASH AND OTHER NONSPECIFIC SKIN ERUPTION 10/24/2013 ANGELI MCKENNA, MATTHEW Tolentino Ot 490 BRONCHITIS NOS 10/24/2013 ANGELI MCKENNA, MATTHEW Tolentino Ot 786.05 SHORTNESS OF BREATH 11/02/2013 YAIR JEREZ MD 724.5 BACKACHE UNSPECIFIED 11/02/2013 724.5 BACKACHE UNSPECIFIED 11/02/2013 YAIR JEREZ MD 724.5 BACKACHE UNSPECIFIED 11/02/2013 YAIR JEREZ MD 724.5 BACKACHE UNSPECIFIED 11/02/2013 LEIGHTON ESCALANTE APRN A 724.5 BACKACHE UNSPECIFIED 11/02/2013 YAIR JEREZ MD 724.5 BACKACHE UNSPECIFIED 11/02/2013 YAIR JEREZ MD 724.5 BACKACHE UNSPECIFIED 11/02/2013 GILLIAN PHD, BOZENA Tolentino 724.5 BACKACHE UNSPECIFIED 11/02/2013 BELLO SALGUERO 724.5 BACKACHE UNSPECIFIED 11/02/2013 RAY BUNDY, SAMIA 724.5 BACKACHE UNSPECIFIED 11/02/2013 YAIR JEREZ MD 724.5 BACKACHE UNSPECIFIED 11/02/2013 RAY BUNDY, SAMIA 724.5 BACKACHE UNSPECIFIED 01/10/2014 YAIR JEREZ MD 461.8 OTHER ACUTE SINUSITIS 01/10/2014 LEIGHTON ESCALANTE APRN A 461.8 OTHER ACUTE SINUSITIS 01/10/2014 YAIR JEREZ MD 461.8 OTHER ACUTE SINUSITIS 01/10/2014 YAIR JEREZ MD 461.8 OTHER ACUTE SINUSITIS 01/10/2014 GILLIAN PHD, BOZENA Tolentino 461.8 OTHER ACUTE SINUSITIS 01/10/2014 BELLO SALGUERO 461.8 OTHER ACUTE SINUSITIS 01/10/2014 RAY LAC, SAMIA 461.8 OTHER ACUTE SINUSITIS 01/10/2014 YAIR JEREZ MD 461.8 OTHER ACUTE SINUSITIS 01/10/2014 RAY LAC, SAMIA 461.8 OTHER ACUTE SINUSITIS 03/07/2014 AVA INVESTOR RELATIONS ANALYST, LEIGHTON A 278.01 MORBID OBESITY 03/07/2014 AVA INVESTOR RELATIONS ANALYST, LEIGHTON A 626.2 MENORRHAGIA 03/07/2014 YAIR JEREZ MD 278.01 MORBID OBESITY 03/07/2014 SOLITARIO MCKENNA, YAIR 626.2 MENORRHAGIA 03/07/2014 YAIR JEREZ MD 278.01 MORBID OBESITY 03/07/2014 YAIR JEREZ MD 626.2 MENORRHAGIA 03/07/2014 GILLIAN PHD, BOZENA Tolentino 278.01 MORBID OBESITY 03/07/2014 GILLIAN PHD, BOZENA Tolentino 626.2 MENORRHAGIA 03/07/2014 BELLO SALGUERO M 278.01 MORBID OBESITY 03/07/2014 BELLO SALGUERO 626.2 MENORRHAGIA 03/07/2014 RAY LAC, SAMIA 278.01 MORBID OBESITY 03/07/2014 RAY LAC, SAMIA 626.2 MENORRHAGIA 03/07/2014 YAIR JEREZ MD 278.01 MORBID OBESITY 03/07/2014 YAIR JEREZ MD 626.2 MENORRHAGIA 03/07/2014 RAY LAC, SAMIA 278.01 MORBID OBESITY 03/07/2014 RAY LAC, SAMIA 626.2 MENORRHAGIA 05/24/2014 YAIR JEREZ MD 790.29 OTHER ABNORMAL GLUCOSE 05/24/2014 YAIR JEREZ MD 790.29 OTHER ABNORMAL GLUCOSE 05/24/2014 GILLIAN PHD, BOZENA Tolentino 790.29 OTHER ABNORMAL GLUCOSE 05/24/2014 BELLO SALGUERO 790.29 OTHER ABNORMAL GLUCOSE 05/24/2014 RAY LAC, SAMIA 790.29 OTHER ABNORMAL GLUCOSE 05/24/2014 YAIR JEREZ MD 790.29 OTHER ABNORMAL GLUCOSE 05/24/2014 RAY LAC, SAMIA 790.29 OTHER ABNORMAL GLUCOSE 05/30/2014 THOM HUSAIN INVESTOR RELATIONS ANALYST Ot 787.01 NAUSEA WITH VOMITING 05/30/2014 HUSAINTHOM INVESTOR RELATIONS ANALYST Ot 789.00 ABDOMINAL PAIN, UNSPECIFIED SITE 10/11/2014 YAIR JEREZ MD 686.9 UNSPECIFIED LOCAL INFECTION OF SKIN AND SUBCUTANEOUS TISSUE 10/11/2014 BOZENA FRENCH PHD 686.9 UNSPECIFIED LOCAL INFECTION OF SKIN AND SUBCUTANEOUS TISSUE 10/11/2014 BELLO SALGUERO 686.9 UNSPECIFIED LOCAL INFECTION OF SKIN AND SUBCUTANEOUS TISSUE 10/11/2014 RAY LAC, SAMIA 686.9 UNSPECIFIED LOCAL INFECTION OF SKIN AND SUBCUTANEOUS TISSUE 10/11/2014 YAIR JEREZ MD 686.9 UNSPECIFIED LOCAL INFECTION OF SKIN AND SUBCUTANEOUS TISSUE 10/11/2014 RAY LAC, SAMIA 686.9 UNSPECIFIED LOCAL INFECTION OF SKIN AND SUBCUTANEOUS TISSUE 12/02/2014 BOZENA FRENCH PHD 300.02 AN GEN ANXIETY 12/02/2014 BOZENA FRENCH PHD 311 DEPRESSIVE DISORDER NOS 12/02/2014 BELLO SALGUERO 300.02 AN GEN ANXIETY 12/02/2014 BELLO SALGUERO 311 DEPRESSIVE DISORDER NOS 12/02/2014 RAY LAC, SAMIA 300.02 AN GEN ANXIETY 12/02/2014 RAY LAC, SAMIA 311 DEPRESSIVE DISORDER NOS 12/02/2014 YAIR JEREZ MD 300.02 AN GEN ANXIETY 12/02/2014 YAIR JEREZ MD 311 DEPRESSIVE DISORDER NOS 12/02/2014 RAY LAC, SAMIA 300.02 AN GEN ANXIETY 12/02/2014 RAY LAC, SAMIA 311 DEPRESSIVE DISORDER NOS 12/12/2014 BOZENA FRENCH PHD 295.70 P SCHIZO AFFECTIVE 12/12/2014 BOZENA FRENCH PHD 305.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 12/12/2014 BELLO SALGUERO 295.70 P SCHIZO AFFECTIVE 12/12/2014 BELLO SALGUERO 305.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 12/12/2014 RAY LAC, SAMIA 295.70 P SCHIZO AFFECTIVE 12/12/2014 RAY LAC, SAMIA 305.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 12/12/2014 YAIR JEREZ MD 295.70 P SCHIZO AFFECTIVE 12/12/2014 YAIR JEREZ MD 305.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 12/12/2014 RAY LAC, SAMIA 295.70 P SCHIZO AFFECTIVE 12/12/2014 RAY LAC, SAMIA 305.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 12/26/2014 SAMIA BELL LAC NODX NO DIAGNOSIS 12/26/2014 YAIR JEREZ MD NODX NO DIAGNOSIS 12/26/2014 SAMIA BELL LAC NODX NO DIAGNOSIS 02/13/2015 SAMIA BELL LAC 296.45 MO BIPOLAR I MANIC PARTIAL OR UNSPEC REMISSION 02/13/2015 SAMIA BELL LAC 296.89 MO BIPOLAR II 02/24/2015 Ot 789.01 02/24/2015 Ot V72.84 02/24/2015 Ot 564.00 02/24/2015 Ot 789.00 02/24/2015 ROSA CORDERO Ot 131.00 UROGENITAL TRICHOMON NOS 02/24/2015 ROSA CORDERO Ot 787.01 NAUSEA WITH VOMITING 02/24/2015 ROSA CORDERO Ot 787.03 VOMITING ALONE 02/24/2015 ROSA CORDERO Ot 787.91 DIARRHEA 04/12/2015 Ot 789.01 04/12/2015 Ot V72.84 04/12/2015 Ot 564.00 04/12/2015 Ot 789.00 04/12/2015 ANA YEUNG DO Ot 623.8 NONINFLAM DIS VAGINA NEC 04/12/2015 ANJANA ANA LOPEZ Ot 626.2 EXCESSIVE MENSTRUATION 04/12/2015 ANJANA ANA LOPEZ Ot 787.01 NAUSEA WITH VOMITING 04/12/2015 ANA YEUNG DO Ot 787.91 DIARRHEA 04/12/2015 Ot 789.01 04/12/2015 Ot V72.84 04/12/2015 Ot 564.00 04/12/2015 Ot 789.00 04/14/2015 ANA YEUNG DO Ot 623.8 04/14/2015 ANJANA ANA LOPEZ Ot 626.2 04/14/2015 ANA YEUNG DO Ot 787.01 04/14/2015 ANJANA ANA LOPEZ Ot 787.91 01/13/2016 Ot 789.01 01/13/2016 Ot V72.84 01/13/2016 Ot 564.00 01/13/2016 Ot 789.00 01/14/2016 ROSA CORDERO Ot E11.9 TYPE 2 DIABETES MELLITUS WITHOUT COMPLIC 01/14/2016 ROSA CORDERO Ot E66.9 OBESITY, UNSPECIFIED 01/14/2016 ROSA CORDERO Ot L72.9 FOLLICULAR CYST OF THE SKIN AND SUBCUTAN 01/14/2016 ROSA CORDERO L Ot L73.2 HIDRADENITIS SUPPURATIVA 01/14/2016 Ot 789.01 01/14/2016 Ot V72.84 01/14/2016 Ot 564.00 01/14/2016 Ot 789.00 01/16/2016 WILFRIDO CORDEROEN aFby Ot E11.9 01/16/2016 ROSA CORDERO Ot E66.9 01/16/2016 SANJEEV RICHARDS, ROSA Hobbs Ot L72.9 01/16/2016 ROSA CORDERO L Ot L73.2 02/07/2016 ROSA CORDERO Ot E11.9 02/07/2016 ROSA CORDERO Ot E66.9 02/07/2016 ROSA CORDERO Ot L72.9 02/07/2016 ROSA CORDERO Ot L73.2 09/12/2016 Ot 789.01 ABDOMINAL PAIN, RIGHT UPPER QUADRANT 09/12/2016 Ot V72.84 EXAM PRE-OPERATIVE NOS 09/12/2016 Ot 564.00 UNSPEC CONSTIPATION 09/12/2016 Ot 789.00 ABDOMINAL PAIN, UNSPECIFIED SITE 09/12/2016 THOM HUSAIN APRN Ot E11.9 TYPE 2 DIABETES MELLITUS WITHOUT COMPLIC 09/12/2016 THOM HUSAIN APRN Ot E66.9 OBESITY, UNSPECIFIED 09/12/2016 THOM HUSAIN APRN Ot N39.0 URINARY TRACT INFECTION, SITE NOT SPECIF 09/12/2016 THOM HUSAIN APRN Ot R10.11 RIGHT UPPER QUADRANT PAIN 09/12/2016 THOM HUSAIN APRN Ot Z79.899 OTHER WASH OPERATOR (CURRENT) DRUG THERAPY 09/13/2016 THOM HUSAIN INVESTOR RELATIONS ANALYST Ot E11.9 TYPE 2 DIABETES MELLITUS WITHOUT COMPLIC 09/13/2016 THOM HUSAIN APRN Ot E66.9 OBESITY, UNSPECIFIED 09/13/2016 THOM HUSAIN APRN Ot N39.0 URINARY TRACT INFECTION, SITE NOT SPECIF 09/13/2016 HUSAIN, PETER J INVESTOR RELATIONS ANALYST Ot R10.11 RIGHT UPPER QUADRANT PAIN 09/13/2016 THOM HUSAIN INVESTOR RELATIONS ANALYST Ot Z79.899 OTHER PRISON (CURRENT) DRUG THERAPY 09/18/2016 THOM HUSAIN INVESTOR RELATIONS ANALYST Ot E11.9 TYPE 2 DIABETES MELLITUS WITHOUT COMPLIC 09/18/2016 THOM HUSAIN INVESTOR RELATIONS ANALYST Ot E66.9 OBESITY, UNSPECIFIED 09/18/2016 THOM HUSAIN INVESTOR RELATIONS ANALYST Ot N39.0 URINARY TRACT INFECTION, SITE NOT SPECIF 09/18/2016 THOM HUSAIN INVESTOR RELATIONS ANALYST Ot R10.11 RIGHT UPPER QUADRANT PAIN 09/18/2016 THOM HUSAIN INVESTOR RELATIONS ANALYST Ot Z79.899 OTHER PRISON (CURRENT) DRUG THERAPY 02/21/2017 Ot 789.01 ABDOMINAL PAIN, RIGHT UPPER QUADRANT 02/21/2017 Ot V72.84 EXAM PRE-OPERATIVE NOS 02/21/2017 Ot 564.00 UNSPEC CONSTIPATION 02/21/2017 Ot 789.00 ABDOMINAL PAIN, UNSPECIFIED SITE 02/21/2017 Ot 789.01 ABDOMINAL PAIN, RIGHT UPPER QUADRANT 02/21/2017 Ot V72.84 EXAM PRE-OPERATIVE NOS 02/21/2017 Ot 564.00 UNSPEC CONSTIPATION 02/21/2017 Ot 789.00 ABDOMINAL PAIN, UNSPECIFIED SITE 04/14/2017 CAMILO LAWLER INVESTOR RELATIONS ANALYST Ot R10.2 PELVIC AND PERINEAL PAIN Procedures Code [place] [address] ROUTINE VENIPUNCTURE 07/08/2013 57449 CBC 07/08/2013 24925 CMP 07/08/2013 70016 LIPID PANEL 07/08 2002331 GFR CALC (RESULT ONLY) 07/08/2013 58723 FSH 07/08/2013 34922 PROGESTERONE 03/2013 59187 TESTOSTERONE PANEL (FREE, TOTAL, and SHBG) 07/08/2013 95831 TSH 07/08/2013 84710 ROUTINE VENIPUNCTURE 07/27/2013 82316 TESTOSTERONE-WOMEN & CHILDREN 07/28/2013 78900 OXIMETRY 2012 64930 THERAPUTIC INJ SQ/IM 08/06/2013 J2930 SOLUMEDROL INJ 06532 UA W/ CULTURE IF INDICATED 09/06/2013 81060 URINE TEST (IN-HOUSE) 09/06/2013 79783 OXIMETRY 2012 29054 OXIMETRY 2013 81811 OXIMETRY 2013 25301 ROUTINE VENIPUNCTURE 03/07/2014 64153 TEST, URINE (IN-HOUSE) 03/07/2014 87472 CBC 03/07/2014 3687316 GFR CALC (RESULT ONLY) 03/07/2014 48460 CMP 03/07/2014 38919 LIPID PANEL 03/07 47068 A1C (RML) 2013 57973 TSH 03/07/2014 26262 INSULIN LEVEL 04/2014 37584 TESTOSTERONE TOTAL-WOMEN & CHILDREN 03/10/2014 34696 I/D SIMPLE ABSCESS 10/11/2014 01767 PSYCH DIAGNOSTIC EVALUATION 12/12/2014 01841 PSYCH DIAG EVAL W/MED SRVCS 12/12/2014 Addiction RayLauren amatoi-lac 12/12/2014 02280 A1C (IN-HOUSE) 69058 UA W/ CULTURE IF INDICATED 01/31/2015 52109 CULTURE URINE 12/2014 Results Test Result Range Complete blood count (CBC) with automated white blood cell (WBC) differential - 09/12/16 18:24 Blood leukocytes automated count (number/volume) 13.7 10*3/ uL 4.3-11.0 Blood erythrocytes automated count (number/volume) 5.13 10*6 /uL 4.35-5.85 Venous blood hemoglobin measurement (mass/volume) 14.8 g/dL 11.5-16.0 Blood hematocrit (volume fraction) 44 % 35-52 Automated erythrocyte mean corpuscular volume 86 [foz_us] 80-99 Automated erythrocyte mean corpuscular hemoglobin (mass per erythrocyte) 29 pg 25-34 Automated erythrocyte mean corpuscular hemoglobin concentration measurement ( mass/volume) 34 g/dL 32-36 Automated erythrocyte distribution width ratio 15.2 % 10.0-14.5 Automated blood platelet count (count/volume) 264 10*3/uL 130-400 Automated blood platelet mean volume measurement 11.8 [foz_ us] 7.4-10.4 Automated blood neutrophils/100 leukocytes 70 % 42-75 Automated blood lymphocytes/100 leukocytes 21 % 12-44 Blood monocytes/100 leukocytes 5 % 0-12 Automated blood eosinophils/100 leukocytes 3 % 0-10 Automated blood basophils/100 leukocytes 0 % 0-10 Blood neutrophils automated count (number/volume) 9.6 10*3 1.8-7.8 Blood lymphocytes automated count (number/volume) 2.9 10*3 1.0-4.0 Blood monocytes automated count (number/volume) 0.7 10*3 0.0-1.0 Automated eosinophil count 0.5 10*3/uL 0.0-0.3 Automated blood basophil count (count/volume) 0.1 10*3/uL 0.0-0.1 Comprehensive metabolic panel - 09/12/16 18:24 Serum or plasma sodium measurement (moles/volume) 139 mmol/ L 135-145 Serum or plasma potassium measurement (moles/volume) 4.3 mmol/L 3.6-5.0 Serum or plasma chloride measurement (moles/volume) 106 mmol /L 98-107 Carbon dioxide 21 mmol/L 21-32 Serum or plasma anion gap determination (moles/volume) 12 mmol/L 5-14 Serum or plasma urea nitrogen measurement (mass/volume) 16 mg/dL 7-18 Serum or plasma creatinine measurement (mass/volume) 0.80 mg /dL 0.60-1.30 Serum or plasma urea nitrogen/creatinine mass ratio 20 NRG Serum or plasma creatinine measurement with calculation of estimated glomerular filtration rate > NRG Serum or plasma glucose measurement (mass/volume) 103 mg/dL 70-105 Serum or plasma calcium measurement (mass/volume) 9.3 mg/dL 8.5-10.1 Serum or plasma total bilirubin measurement (mass/volume) 0.2 mg/dL 0.1-1.0 Serum or plasma alkaline phosphatase measurement (enzymatic activity/volume) 73 U/L 40-136 Serum or plasma aspartate aminotransferase measurement (enzymatic activity/ volume) 21 U/L 5-34 Serum or plasma alanine aminotransferase measurement (enzymatic activity/volume ) 46 U/L 0-55 Serum or plasma protein measurement (mass/volume) 7.5 g/dL 6.4-8.2 Serum or plasma albumin measurement (mass/volume) 3.9 g/dL 3.2-4.5 Lipase - 09/12/16 18:24 Lipase 18 U/L 8-78 Complete urinalysis with reflex to culture - 09/12/16 18:44 Urine color determination YELLOW NRG Urine clarity determination SLIGHTLY CLOUDY NRG Urine pH measurement by test strip 5 5- 9 Specific gravity of urine by test strip 1.025 1.016-1.022 Urine protein assay by test strip, semi-quantitative 1+ NEGATIVE Urine glucose detection by automated test strip NEGATIVE NEGATIVE Erythrocytes detection in urine sediment by light microscopy 2+ NEGATIVE Urine ketones detection by automated test strip NEGATIVE NEGATIVE Urine nitrite detection by test strip NEGATIVE NEGATIVE Urine total bilirubin detection by test strip NEGATIVE NEGATIVE Urine urobilinogen measurement by automated test strip (mass/volume) NORMAL NORMAL Urine leukocyte esterase detection by dipstick 3+ NEGATIVE Automated urine sediment erythrocyte count by microscopy (number/high power field) [HPF] NRG Automated urine sediment leukocyte count by microscopy (number/high power field ) [HPF] NRG Bacteria detection in urine sediment by light microscopy MODERATE NRG Squamous epithelial cells detection in urine sediment by light microscopy 25-50 NRG Crystals detection in urine sediment by light microscopy NONE NRG Casts detection in urine sediment by light microscopy NONE NRG Mucus detection in urine sediment by light microscopy NEGATIVE NRG Complete urinalysis with reflex to culture YES NRG Bacterial urine culture - 09/12/16 18:44 URINE CULTURE RESULTS <10,000/ML NRG Encounters ACCT No. Visit Date/Time Discharge Status Pt. Type Provider Facility Loc./Unit Complaint [id number] 02/21/2015 10:48:00 02/21/2015 23: 59:59 [facility] [id number] 01/31/2015 15:43:00 01/31/2015 23: 59:59 CLS Outpatient YAIR JEREZ MD [id number] 01/18/2015 10:57:00 01/18/2015 23: 59:59 [facility] [id number] 12/12/2014 12:19:00 12/12/2014 23: 59:59 CLS Outpatient GILLIAN SANTANA, BOZENA Tolentino [id number] 12/02/2014 10:59:00 12/02/2014 23: 59:59 CLS Outpatient BELLO SALGUERO [id number] 10/11/2014 09:37:00 10/11/2014 23: 59:59 CLS Outpatient YAIR JEREZ MD [id number] 05/24/2014 15:29:00 05/24/2014 23: 59:59 CLS Outpatient YAIR JEREZ MD [id number] 03/07/2014 08:52:00 03/07/2014 23: 59:59 CLS Outpatient LEIGHTON ESCALANTE APRN [id number] 01/10/2014 16:43:00 01/10/2014 23: 59:59 CLS Outpatient YAIR JEREZ MD [id number] 12/09/2013 11:14:00 12/09/2013 23: 59:59 CLS Outpatient YAIR JEREZ MD [id number] 11/02/2013 16:38:00 11/02/2013 23: 59:59 CLS Outpatient AYIR JEREZ MD [id number] 10/25/2013 16:07:00 10/25/2013 23: 59:59 CLS Outpatient YAIR JEREZ MD [id number] 10/07/2013 10:58:00 10/07/2013 23: 59:59 CLS Outpatient MARIELOS MARTIN APRN [id number] 09/06/2013 13:58:00 09/06/2013 23: 59:59 CLS Outpatient LEIGHTON ESCALANTE APRN [id number] 08/06/2013 15:05:00 08/06/2013 23: 59:59 CLS Outpatient PORSCHE HARGROVE MD [id number] 07/27/2013 10:02:00 07/27/2013 23: 59:59 CLS Outpatient MARIELOS MARTIN APRN [id number] 07/08/2013 08:54:00 07/08/2013 23: 59:59 CLS Outpatient MARIELOS MARTIN APRN [id number] 12/30/2012 09:29:00 12/30/2012 23: 59:59 CLS Outpatient CELSA TELLEZ DO [id number] 11/09/2013 10:55:00 Document Registration [id number] 06/24/2013 14:41:00 Document Registration
== END 2017-05-12 16:15 | disposition left against medical advice (07) ==
LOC: EDUNIT# 15:26 → ER 15:28
DX: Z87.828 Personal history of other (healed) physical injury and trauma; F60.9 Personality disorder, unspecified; F25.9 Schizoaffective disorder, unspecified; R33.9 Retention of urine, unspecified; F41.0 Panic disorder [episodic paroxysmal anxiety]; F90.9 Attention-deficit hyperactivity disorder, unspecified type; G89.29 Other chronic pain; F31.9 Bipolar disorder, unspecified; E66.9 Obesity, unspecified; Z91.5 Personal history of self-harm; M54.9 Dorsalgia, unspecified; E11.9 Type 2 diabetes mellitus without complications; G47.9 Sleep disorder, unspecified; F17.210 Nicotine dependence, cigarettes, uncomplicated; J45.909 Unspecified asthma, uncomplicated; Z86.018 Personal history of other benign neoplasm; K21.9 Gastro-esophageal reflux disease without esophagitis
CPT/HCPCS: 36415; 51702; 80053; 81000; 84703; 85007; 85025; 85027; 87088

== ENCOUNTER 2018-05-16 17:19 | Emergency (ER) | payer SELFPAY ==
[~2018-05-16] VITALS: Ht 177.8 cm; Wt 158.9 kg
[~2018-05-16 17:19] MED LIST changes: -HYDR-3812 PO
--- NOTE | 2018-05-16 18:26 | ED Integumentary General ---
General Chief Complaint: Skin/Wound Problems Stated Complaint: CYST ON STOMACH GETTING BIGGER Nursing Triage Note: CYST LANCED TO LEFT LOWER ABD AT [facility] LAST THUR, TOLD TO COME TO ER IF CYST CLOSED OR BECAME LARGER AND PT FEELS IT HAS DONE BOTH, ALSO SMALL RED PAINFUL CIRCLES AROUND. ALSO C/O CYST BELOW RIGHT BREAST LINE. History of Present Illness Date Seen by Provider: May 16, 2018 Time Seen by Provider: 18:00 Initial Comments Patient is a 27-year-old female who presents to the emergency room with complaints of a left lower abdominal cyst that she had lanced on 05/14/18 at [facility]. The cyst has been draining up and to this point and she says it recently scabbed over. She's been taking doxycycline for infection but has not been able to keep much of it down because it causes her to have nausea and vomiting. She also has a cyst on her right side of her abdomen. She is concerned because the cyst closed and stop draining. Allergies and Home Medications Allergies Coded Allergies: No Known Drug Allergies (Unverified , 10/04/10) Home Medications Acetaminophen 500 Mg Tablet, 500 MG PO Q6H PRN for PAIN, (Reported) Albuterol Unknown Strength Aerosol, 2 PUFF IH Q4H PRN for SHORTNESS OF BREATH, ( Reported) NEEDED FOR SHORTNESS OF BREATH Albuterol Sulfate 0.63 Mg/3 Ml Vial.neb, 1 EACH IH Q4HR, (Reported) Cefuroxime Axetil 500 Mg Tablet, 500 MG PO BID Prescribed by: THOM HUSAIN on 09/12/161946 Citalopram Hydrobromide 10 Mg Tablet, 1 EACH PO DAILY, (Reported) Fluticasone Propionate 1 Puff Puff, 2 PUFF INH BID@,20 Prescribed by: SYDNEY CHENEY on 10/28/13 0939 Haloperidol 20 Mg Tablet, 1 EACH PO BID, (Reported) [place] Carbonate 600 Mg Capsule, 600 MG PO BID, (Reported) Minocycline HCl 100 Mg Capsule, 100 MG PO BID Prescribed by: ROSA PACE on 01/13/16 2348 Ondansetron 8 Mg Tab.rapdis, 8 MG PO Q6H PRN for NAUSEA/VOMITING Prescribed by: ROSA PACE on 02/24/15 1739 Ondansetron 8 Mg Tab.rapdis, 8 MG PO Q6H PRN for NAUSEA/VOMITING Prescribed by: ROSA PACE on 01/13/16 2348 Ondansetron Hcl 4 Mg Tab, 4 MG SL Q4H FOR NAUSEA AND VOMITING Prescribed by: ANA YEUNG on 04/12/15 1629 Pantoprazole Sod 40 Mg Tab, 40 MG PO DAILY Prescribed by: ANA YEUNG on 04/12/15 1629 Phenazopyridine Hcl 100 Mg Tablet, 1-2 EACH PO TID PRN PRN for PAIN Prescribed by: ROSA PACE on 02/24/15 1739 Trazodone Hcl 100 Mg Tablet, 100 MG PO DAILY, (Reported) Patient Home Medication List Home Medication List Reviewed: Yes Constitutional: see HPI; No chills, No diaphoresis, No fever EENTM: see HPI; No ear discharge, No hearing loss, No ear pain Respiratory: see HPI; No short of breath, No wheezing Cardiovascular: see HPI; No chest pain, No edema, No Hx of Intervention Gastrointestinal: see HPI; No abdominal pain, No constipation, No diarrhea; nausea, vomiting Genitourinary: see HPI; No decreased output, No discharge, No dysuria Musculoskeletal: see HPI; No back pain, No gout Skin: see HPI, lesions (the right and left side of abdomen.) Psychiatric/Neurological: See HPI; Denies Anxiety, Denies Depressed, Denies Emotional Problems Endocrine: See HPI; Denies Excessive Sweating, Denies Flushing Hematologic/Lymphatic: See HPI; Denies Anemia, Denies Blood Clots Past Pkifzva-Jfwhnc-Ecsskz Hx Past Med/Social Hx: Reviewed Nursing Past Med/Soc Hx Patient Social History Alcohol Use: Denies Use Recreational Drug Use: No Smoking Status: Current Everyday Smoker Type Used: Cigarettes Recent Foreign Travel: No Contact w/Someone Who Travel: No Recent Infectious Disease Expo: No Recent Hopitalizations: No Physical Abuse: No Sexual Abuse: No Mistreated: No Fear: No Immunizations Up To Date Tetanus Booster (TDap): Less than 5yrs Seasonal Allergies Seasonal Allergies: Yes Past Medical History Surgeries: Yes (LEFT EAR--BENIGN TUMOR REMOVED) Ear Surgery Respiratory: Yes Asthma, Pneumonia Cardiac: No Neurological: No : No Last Menstrual Period: Apr 14, 2018 Reproductive Disorders: No Female Reproductive Disorders: Denies Sexually Transmitted Disease: No HIV/AIDS: No Kidney Infection, Bladder Infection, UTI-Chronic Gastrointestinal: Yes (H PYLORI, PAIN, N/V,HEARTBURN) Gastroesophageal Reflux, Ulcer Musculoskeletal: Yes Back Injury, Chronic Back Pain Endocrine: Yes (INSULIN INTOLERANT, OBESITY) Diabetes, Non-Insulin dep Hearing Impairment: Denies Cancer: No Psychosocial: Yes (SCHIZO-EFFECTIVE, H/O CUTTING SELF, PANIC ATTACKS) ADD/ADHD, Sleep Difficulties, Anxiety, Suicide Attempts, Bipolar, Personality Disorder, Depression Nursing Suicide Risk Score: 0 Integumentary: No Blood Disorders: No Family Medical History Reviewed Nursing Family Hx Family history: Asthma 09 BROTHER, Onset:Childhood Family history: Gastrointestinal disease 03 MOTHER, Onset:Unknown Family history: Hypertension 03 FATHER, Onset:40's - 50 Kidney disease 03 MOTHER, Onset:Childhood No Family History of: Abdominal aortic aneurysm [place]'s disease Alcoholism Aphasia Cancer Cataract Chest pain Congenital heart disease Congestive heart failure Cystic fibrosis Dementia Dysphagia Family history: Allergy Family history: Alzheimer's disease Family history: Arthritis Family history: Breast disease Family history: Cardiovascular disease Family history: Coronary thrombosis Family history: Diabetes mellitus Family history: Glaucoma Family history: Osteoporosis Family history: Thyroid disorder Headache Hearing loss Heart disease Hereditary disease History of - anemia History of - disorder History of - respiratory disease History of drug abuse Human immunodeficiency virus (HIV) seropositivity Hypercholesterolemia Infertile Malignant neoplasm of lung Myocardial infarction Parkinson's disease Prostate cancer Psychotic disorder Seizure disorder Stroke Tuberculosis Visual impairment No Pertinent Family Hx Physical Exam Vital Signs Capillary Refill : Less Than 3 Seconds General Appearance: WD/WN, no apparent distress HEENT: PERRL/EOMI, normal ENT inspection, TMs normal, pharynx normal Neck: non-tender, full range of motion, supple, normal inspection Cardiovascular: regular rate, rhythm, no edema, no gallop, no JVD, no murmur Respiratory: chest non-tender, lungs clear, normal breath sounds, no respiratory distress, no accessory muscle use Gastrointestinal: normal bowel sounds, non tender, soft, no organomegaly, no pulsatile mass Back: normal inspection, no CVA tenderness, no vertebral tenderness Extremities: normal range of motion, non-tender, normal inspection, no pedal edema, no calf tenderness Neurologic/Psychiatric: alert, normal mood/affect, oriented x 3 Skin: normal color, warm/dry, other (patient has history of supprativa hidradenitis and is obese. She has infected areas to the right and left side of her abdomen in the abdominal folds. The area is hardened and erythematous. There is no collection of fluid present.) Skin Problem Location: torso Skin Problem Character: abscess, erythema Lymphatic: no adenopathy Progress/Results/Core Measures Results/Orders Vital Signs/I&O Blood Pressure Mean: 124 Progress Progress Note : Time: 18:32 Progress Note Patient is given a prescription for Bactrim and instructed to stop the doxycycline due to GI upset. Departure Impression Primary Impression: Suppurative hidradenitis Disposition: HOME, SELF-CARE Condition: Stable/Unchanged Departure-Patient Inst. Decision time for Depature: 18:31 Referrals: PIPE OHARA APRN (PCP/Family) Primary Care Physician Patient Instructions: Hidradenitis Suppurativa Add. Discharge Instructions: Take medications as directed. Stop the doxycycline. [facility] within 1 week for recheck. Return back to the emergency room for any concerns as needed. All discharge instructions reviewed with patient and/or family. Voiced understanding. MICHAEL VARGAS May 16, 2018 18:26
[2018-05-16 18:50] VITALS: BP 182/96
== END 2018-05-16 18:35 | disposition home or self-care (01) ==
LOC: EDUNIT# 17:19 → ER 17:21
DX: L73.2 Hidradenitis suppurativa (principal); F17.210 Nicotine dependence, cigarettes, uncomplicated; K21.9 Gastro-esophageal reflux disease without esophagitis; E11.9 Type 2 diabetes mellitus without complications; F90.9 Attention-deficit hyperactivity disorder, unspecified type; F41.9 Anxiety disorder, unspecified; F31.9 Bipolar disorder, unspecified; F60.9 Personality disorder, unspecified; J45.909 Unspecified asthma, uncomplicated; Z87.19 Personal history of other diseases of the digestive system; Z79.4 Long term (current) use of insulin
CPT/HCPCS: 99282

== ENCOUNTER 2018-11-10 13:17 | Outpatient (CLI) | payer OTHER ==
[~2018-11-10] VITALS: Ht 177.8 cm; Wt 172.4 kg
[2018-11-11] MEDS ORDERED: HYDR-3820 PO (13:27)
== END 2018-11-10 14:04 | disposition home or self-care (01) ==
LOC: PREOP 13:17
PROVIDERS: ATTEND Surgery
DX: Z01.818 Encounter for other preprocedural examination (principal)

== ENCOUNTER 2018-11-11 11:08 | Day surgery (SDC) | payer OTHER ==
[~2018-11-11] VITALS: Ht 177.8 cm; Wt 172.4 kg
[2018-11-11 11:10] VITALS: BP 128/64
--- NOTE | 2018-11-11 11:18 | Progress Note-Pre Operative ---
Pre-Operative Progress Note H&P Reviewed The H&P was reviewed, patient examined and no changes noted. Time Seen by Provider: 11:16 Date H&P Reviewed: Nov 11, 2018 Time H&P Reviewed: 11:17 Pre-Operative Diagnosis: Cholelithiasis/cholecystitis SABRINA SAUNDERS DO Nov 11, 2018 11:18
[2018-11-11] MEDS ORDERED: ANCEF 2 GM/50 ML PRE-MIXED IVPB IV ONE (11:30)
[2018-11-11] MEDS ORDERED: LIDOCAINE/EPI 1%-1:200,000 (XYLOCAINE) 10 ML VIAL ONE (11:32)
[2018-11-11] MEDS ORDERED: IOPAMIDOL 61% 30 ML (ISOVUE 300) VIAL IV ONE (11:33)
[2018-11-11] MEDS ORDERED: ROCURONIUM 10 MG/ML 5 ML SYRINGE IV ONE (11:42)
[2018-11-11] MEDS ORDERED: SEVOFLURANE (ULTANE) 15 ML INHAL SOLN ONE ×7 (11:42→13:57)
[2018-11-11] MEDS ORDERED: LIDOCAINE PF 2% 5 ML (XYLOCAINE) VIAL ONE (11:42)
[2018-11-11] MEDS ORDERED: proPOfol 200 MG/20 ML (DIPRIVAN) VIAL IV ONE ×2 (11:42→13:06)
[2018-11-11] MEDS ORDERED: fentaNYL INJECTION 100 MCG/2 ML AMP ONE ×3 (11:42→14:08)
[2018-11-11] MEDS ORDERED: MIDAZOLAM 2 MG/2 ML (VERSED) VIAL ONE (11:43)
[2018-11-11] MEDS: LACTATED RINGERS 1,000 ML IV PRN ×2 (11:45→13:15)
[2018-11-11] MEDS ORDERED: FAMOTIDINE 20MG/2ML IV (PEPCID) ONE (11:57)
[2018-11-11] MEDS ORDERED: DEXAMETHASONE 10 MG/ML (DECADRON) 1 ML VIAL ONE (12:00)
[2018-11-11] MEDS ORDERED: ONDANSETRON 4 MG/2 ML (SDV) Z0FRAN ONE ×2 (12:00→14:11)
[2018-11-11] MEDS ORDERED: FAMOTIDINE 20MG/2ML IV (PEPCID) IVP ONE (12:00)
[2018-11-11] MEDS ORDERED: ceFAZolin 2 GM IV Premixed 50 ML IV ONE (12:00)
[2018-11-11] MEDS ORDERED: NEOSTIGMINE 1 MG/ML 5 ML SYRINGE ONE (12:28)
[2018-11-11] MEDS ORDERED: GLYCOPYRROLATE 0.2 MG/ML (ROBINUL) 2 ML VIAL ONE (12:28)
--- NOTE | 2018-11-11 13:26 | Progress Note-Post Operative ---
Post-Operative Progess Note Surgeon (s)/Business Development Specialist (s) Surgeon SABRINA SAUNDERS DO Business Development Specialist: Lilo Pre-Operative Diagnosis Cholelithiasis/cholecystitis Post-Operative Diagnosis Same Procedure & Operative Findings Date of Procedure 11/11/18 Procedure Performed/Findings Lap bia Anesthesia Type GET Estimated Blood Loss Estimated blood loss (mL): scant Specimens/Packing Specimens Removed GB and Contents SABRINA SAUNDERS DO Nov 11, 2018 13:26
[2018-11-11] MEDS ORDERED: HYDR-3820 PO (13:27)
--- NOTE | 2018-11-11 13:28 | Discharge Inst-Surgical ---
Discharge Inst-Surgical Depart Medication/Instructions New, Converted or Re-Newed RX: RX Given to Pt/Family Patient Instructions Follow up Appt: Make appointment for 1 week. Instructions: No lifting greater than 10 pounds. No strenuous activity. May shower in 24 hours, no tub bath or soaking. Use incentive spirometer at home as directed. No Smoking Skin/Wound Care: May remove bandages in am. You need to leave the Dermabond on over incision it will fall off on its own. Symptoms to Report: Appetite Changes, Extremity Discoloration, Numbness/Tingling, Swelling Increased , Bleeding Excessive, Eyesight Changes, Pain Increased, Urine Color Change, Constipation(Persistent), Fever over 101 degree F, Pain/Pressure in chest, Urinating Difficulty, Cough Up/Vomit Blood, Heart Beat Irreg/Pounding, Pain/ Pressure in jaw, Vaginal Bleeding Increase, Cramps in feet or legs, Lightheadedness, Pain/Pressure in shoulder, Diarrhea(Persistent), Memory Changes Suddenly, Questions/Concerns, Weight gain consecutive days, Dizziness/ Fainting, Nausea/Vomiting, Shortness of Breath, Weight gain over 2 pounds If questions or concerns contact your physician Or seek help at emergency department. Activity Activity as Tolerated: Yes Activity Instructions: Avoid Stress to Incision Driving Instructions: No Driving/Refer to Diet Discharge Diet: Avoid Fatty Foods, Low Fat/Low Cholesterol Diet After 24 Hours: Clear Liquid if Nauseous If Any Problems/Questions/Issu: Contact Your Physician, Go to Emergency Room Skin/Wound Care Infection Signs and Symptoms: Increased Redness, Foul Odor of Wound, Increased Drainage, Skin Itchy or Has a Rash, Increased Swelling, Temperature Above 101 F Wound Care Comment: Heating pad to shoulder or neck tonight Bathing Instructions: Shower Stitches/[place]/Dermabond Dis: Dermabond Ice Pack: Ice On and Off Site (as needed for pain) SABRINA SAUNDERS DO Nov 11, 2018 13:28
[2018-11-11] MEDS ORDERED: KETOROLAC 30 MG/ML VIAL ONE (13:29)
[2018-11-11] MEDS ORDERED: ONDANSETRON 4 MG/2 ML (SDV) Z0FRAN IVP PRN (14:00)
[2018-11-11] MEDS ORDERED: MEPERIDINE (DEMEROL) INJ 50 MG/ML IVP ONE (14:00)
[2018-11-11] MEDS ORDERED: fentaNYL INJECTION 100 MCG/2 ML AMP IVP ONE (14:00)
[2018-11-11] MEDS ORDERED: PROMETHAZINE INJ 25 MG/ML (PHENERGAN) AMP IVP ONE (14:00)
[2018-11-11] MEDS ORDERED: MEPERIDINE (DEMEROL) INJ 50 MG/ML ONE (14:21)
[2018-11-11 14:45] VITALS: BP 134/72
[2018-11-11] MEDS ORDERED: RT-ALBUTEROL HFA (VENTOLIN) PER PUFF IH ONE (14:57)
--- NOTE | 2018-11-11 15:03 | Anesthesia-General Post-Op ---
General Patient Condition Mental Status/LOC: Same as Preop Cardiovascular: Satisfactory Nausea/Vomiting: Absent Respiratory: Satisfactory Pain: Controlled Complications: Absent Post Op Complications Complications None Follow Up Care/Instructions Patient Instructions None needed. Anesthesia/Patient Condition Patient Condition Patient is doing well, no complaints, stable vital signs, no apparent adverse anesthesia problems. No complications reported per nursing. MATHEW NOGUERA CRNA Nov 11, 2018 15:03
[2018-11-11 15:20] VITALS: BP 130/67
[2018-11-11] MEDS ORDERED: HYDROcodone/APAP 10 MG/325 MG (LORTAB) TAB PO ONE (15:26)
[2018-11-11] MEDS ORDERED: HYDROcodone/APAP 5 MG/325 MG (LORTAB) TAB PO PRN (15:30)
[2018-11-11] MEDS ORDERED: HYDROcodone/APAP 10 MG/325 MG (LORTAB) TAB PO PRN (15:30)
--- NOTE | 2018-11-11 15:30 | NUR ---
TAKING PO FLUIDS AND CRACKERS WITHOUT PROBLEM. LORTAB 10/325 MG, ONE TABLET, GIVEN PO FOR C/O MID ABD SURGICAL SITE PAIN RATED 6.
[2018-11-11 16:00] VITALS: BP 134/61
--- NOTE | 2018-11-11 16:00 | NUR ---
PAIN RATED 3. ALERT, HAS BEEN UP TO BR WITH ASSIST, GAIT STEADY, VOIDS WITHOUT PROBLEM. NO CHANGE IN SITE ASSESSMENT. REQUESTING DISMISSAL.
--- NOTE | 2018-11-12 02:44 | OPERATIVE REPORT ---
DATE OF SERVICE: PREOPERATIVE DIAGNOSES: 1. Cholelithiasis, cholecystitis. 2. Morbid obesity. POSTOPERATIVE DIAGNOSES: 1. Cholelithiasis, cholecystitis. 2. Morbid obesity. PROCEDURE: Laparoscopic cholecystectomy. SURGEON: Jake Hatch DO B[employer]B [employer]QUAD COMMANDER: Rigoberto Nagy DO ANESTHESIA: General endotracheal tube. SPECIMEN: Gallbladder and contents. BLOOD LOSS: Scant. FLUIDS: Per anesthesia. POSTOPERATIVE CONDITION: Stable. INDICATION FOR PROCEDURE: The patient is a 28-year-old female who has been having right upper quadrant pain associated with fried and fatty foods and had ultrasound showed stones in the gallbladder. FINDINGS: The patient had multiple stones in the gallbladder. There was some thickening around the gallbladder wall. PROCEDURE NOTE: After informed consent was obtained, the patient was brought to the operating room, placed on the operating table in supine position. She was sterilely prepped and draped in normal fashion. Local lidocaine was used to infiltrate the skin above the umbilicus. Made an incision with #11 blade, carried down through skin into subcutaneous tissue, then deepened down to subcutaneous tissue with Bovie electrocautery down to the fascia. Fascia incised with Bovie electrocautery and bluntly entered the abdomen, swept a finger around, placed 0 Vicryl [id number] suture placed 11 mm trocar port under direct visualization. Created pneumoperitoneum and then placed 3 more ports in normal fashion using local lidocaine, 11 blade for stab incision and VersaStep system, all done under direct observation, one subxiphoid and 2 right upper quadrant. The patient then placed in reverse Trendelenburg and rotated left, able to visualize the gallbladder, take a picture and grasped and take at the fundus and taken in superior direction and grasp down to Pagan's pouch and pulled it in inferolateral direction and start dissecting out cystic duct and cystic artery, able to get around the cystic duct and the cystic artery, placed one clip distally on the cystic duct and one distally and one proximally on the cystic artery. Cut the cystic duct longterm through Metzenbaum scissors. The lumen into the cystic duct was very hard to see, looked like it had been fibrosed off, tried to cut a little bit more and then came across the entire duct. Attempted to put a cholangiogram catheter, could not get the cholangiocatheter go down, so at this point just elected to grasp the cystic duct and clipped distally to close it off. Then, cut the cystic artery with Metzenbaum scissors. Encountered a posterior branch of the cystic artery and clipped this as well and then cut above this with Bovie electrocautery and L-hook. Then using the Bovie electrocautery, took the gallbladder from bed of liver there was very intrahepatic. There was a small hole made with a couple of stones able to come out. Once we finally got the gallbladder completely off the bed of liver, then placed a bag in the abdomen, placed the gallbladder in the bag and then removed this through a supraumbilical incision. Placed the port back in the abdomen. I had pulled a couple of stones with the bag, but then noted there was still a couple more in the abdomen tried to pull these out grasp them and pulled through the ports. Copiously irrigated the bed of liver with normal saline. There was no bleeding. Clips appeared to be in place. Picture was taken, suctioned out all the fluid and placed the patient in supine. At this point, removed all ports under direct visualization, allowed pneumoperitoneum to escape. Closed supraumbilical incision with 0 Vicryl [id number] suture then clipped. Copiously irrigated all incisions with normal saline, closing the 3 small 5 mm incision with a single interrupted 4-0 undyed Monocryl subcuticular stitch, closed the supraumbilical incision with 3 interrupted 4-0 undyed Monocryl subcuticular stitches. Area was cleaned and dried. Dermabond and Band-Aids placed. Sponge, instruments and needle counts correct at the end of the case. Dr. Nagy assisted in this case helping to make incision. Closed incision, identified anatomy, hold anatomy out of way. She was then sent to recovery room in stable condition. Job ID: [id number] DocumentID: [id number] Dictated Date: 11/11/2018 14:54:12 Otolaryngology Surgeon Date: 11/12/2018 02:43:39 Dictated By: JAKE HATCH DO
[2018-11-12] MEDS ORDERED: FAMOTIDINE 20MG/2ML IV (PEPCID) IVP SCH (09:00)
== END 2018-11-11 16:00 | disposition home or self-care (01) ==
LOC: SDC 11:08
PROVIDERS: ATTEND Surgery
DX: K80.10 Calculus of gallbladder with chronic cholecystitis without obstruction (principal); Z11.2 Encounter for screening for other bacterial diseases; E66.01 Morbid (severe) obesity due to excess calories; F17.210 Nicotine dependence, cigarettes, uncomplicated; J45.909 Unspecified asthma, uncomplicated; K21.9 Gastro-esophageal reflux disease without esophagitis; F32.9 Major depressive disorder, single episode, unspecified; F25.0 Schizoaffective disorder, bipolar type; F90.9 Attention-deficit hyperactivity disorder, unspecified type; F60.9 Personality disorder, unspecified; Z68.43 Body mass index [BMI] 50.0-59.9, adult
CPT/HCPCS: 84703; 87081; 88304; 94664

== ENCOUNTER 2019-01-20 11:17 | Emergency (ER) | payer SELFPAY ==
[~2019-01-20] VITALS: Ht 177.8 cm; Wt 145.1 kg
[~2019-01-20 11:17] MED LIST changes: +HYDR-3820 PO
[2019-01-20] MEDS ORDERED: NS IV 1000 ML 1,000 ML IV SCH ×2 (11:46→14:48)
[2019-01-20] MEDS ORDERED: KETOROLAC 30 MG/ML VIAL IVP STA (11:46)
[2019-01-20 11:57] LABS: BILIRUBIN,URINE NEGATIVE (NEGATIVE); CLARITY,URINE YELLOW; COLOR,URINE CLEAR; GLUCOSE, URINE (UA) NEGATIVE (NEGATIVE); KETONES,URINE 1+ (NEGATIVE); LEUKOCYTE ESTERASE ,URINE 1+ (NEGATIVE); NITRITE,URINE NEGATIVE (NEGATIVE); PH,URINE 5 (5-9); PROTEIN,URINE 2+ (NEGATIVE); UROBILINOGEN,URINE NORMAL (NORMAL)
[2019-01-20] MEDS ORDERED: ONDANSETRON 4 MG/2 ML (SDV) Z0FRAN IVP ONE ×2 (12:00→14:00)
--- NOTE | 2019-01-20 12:11 | ED GI ---
General Chief Complaint: Abdominal/GI Problems Stated Complaint: LOWER ABD PAIN Nursing Triage Note: pt presents with c/o flank pain that radiates to her right lower abdomen since 1000 this morning. pt reports nausea and vomting 6x since pain started Sepsis Screen: No Definite Risk History of Present Illness Date Seen by Provider: Jan 20, 2019 Time Seen by Provider: 11:50 Initial Comments 28-year-old female presents for nausea, vomiting, right lower abdominal and flank pain, diaphoresis and pale. She reports her symptoms began acutely at 10:00 this morning. She has no history of frequent UTIs or kidney stones. She took ibuprofen 600 mg but vomited within 5 minutes of taking it. She had a miscarriage within the last year and is unsure if she is at the present time. Patient is unsure the exact date for her last menstrual cycle , she knows it was early November. She reports is not unusual for her to skip one to 2 months in between cycles. Timing/Duration: 1-3 Hours Severity/Quality: Moderate Location: RLQ, Flank (right) Radiation: No Radiation Activities at Onset: None Modifying Factors: Improves With Lying down, Improves With Vomiting Associated Symptoms: Back Pain, Nausea/Vomiting Allergies and Home Medications Allergies Coded Allergies: No Known Drug Allergies (Unverified , 10/04/10) Home Medications Hydrocodone Bit/Acetaminophen 1 Tab Tab, 1-2 EACH PO Q6H PRN for PAIN-MODERATE Prescribed by: KATHIE PINEDA on 01/20/19 1524 Hydrocodone/Acetaminophen 1 Each Tablet, 1 TAB PO Q6H Prescribed by: SABRINA SAUNDERS on 11/11/18 1327 Ondansetron 4 Mg Tab.rapdis, 8 MG PO Q6H PRN for NAUSEA/VOMITING-1ST LINE Prescribed by: KATHIE PINEDA on 01/20/19 1524 Patient Home Medication List Home Medication List Reviewed: Yes Review of Systems Review of Systems Constitutional: no symptoms reported, see HPI Gastrointestinal: See HPI, Abdominal Pain, Nausea, Poor Appetite, Poor Fluid Intake, Vomiting All Other Systems Reviewed Negative Unless Noted: Yes Past [id number]-Qlzavm Hx Past Med/Social Hx: Reviewed Nursing Past Med/Soc Hx Patient Social History Alcohol Use: Denies Use Recreational Drug Use: No Smoking Status: Current Everyday Smoker Type Used: Cigarettes Former Smoker, Quit: Sep 10, 2018 Recent Foreign Travel: No Contact w/Someone Who Travel: No Recent Infectious Disease Expo: No Recent Hopitalizations: No Immunizations Up To Date Tetanus Booster (TDap): Less than 5yrs Seasonal Allergies Seasonal Allergies: No Past Medical History Surgeries: Yes Gallbladder Respiratory: No Asthma Cardiac: No Neurological: No Reproductive Disorders: No Female Reproductive Disorders: Denies Sexually Transmitted Disease: No HIV/AIDS: No Genitourinary: No UTI-Chronic Gastrointestinal: No Gastroesophageal Reflux, Ulcer Musculoskeletal: No Chronic Back Pain Endocrine: No Diabetes, Non-Insulin dep HEENT: No Hearing Impairment: Denies Cancer: No Psychosocial: No ADD/ADHD, Sleep Difficulties, Anxiety, Suicide Attempts, Bipolar, Personality Disorder, Depression Integumentary: No Blood Disorders: No Family Medical History Family history: Asthma 09 BROTHER, Onset:Childhood Family history: Gastrointestinal disease 03 MOTHER, Onset:Unknown Family history: Hypertension 03 FATHER, Onset:40's - 50 Kidney disease 03 MOTHER, Onset:Childhood No Family History of: Abdominal aortic aneurysm Hart's disease Alcoholism Aphasia Cancer Cataract Chest pain Congenital heart disease Congestive heart failure Cystic fibrosis Dementia Dysphagia Family history: Allergy Family history: Alzheimer's disease Family history: Arthritis Family history: Breast disease Family history: Cardiovascular disease Family history: Coronary thrombosis Family history: Diabetes mellitus Family history: Glaucoma Family history: Osteoporosis Family history: Thyroid disorder Headache Hearing loss Heart disease Hereditary disease History of - anemia History of - disorder History of - respiratory disease History of drug abuse Human immunodeficiency virus (HIV) seropositivity Hypercholesterolemia Infertile Malignant neoplasm of lung Myocardial infarction Parkinson's disease Prostate cancer Psychotic disorder Seizure disorder Stroke Tuberculosis Visual impairment No Pertinent Family Hx Physical Exam Vital Signs Vital Signs - First Documented 01/20/19 11:32 Temp 97.5 Pulse 76 Resp 18 B/P (MAP) 144/96 (112) Pulse Ox 97 O2 Delivery Room Air Capillary Refill : Less Than 3 Seconds Height/Weight/BMI Height: 5'10.00" Weight: 320lbs. 0.0oz. [id number]; 54.5 BMI Method:Stated General Appearance: WD/WN, moderate distress (pain and vomiting) HEENT: PERRL/EOMI, normal ENT inspection, TMs normal, pharynx normal Neck: non-tender, full range of motion, supple, normal inspection Respiratory: chest non-tender, lungs clear, normal breath sounds Cardiovascular: normal peripheral pulses, regular rate, rhythm Gastrointestinal: normal bowel sounds, soft; No distended, No guarding, No rebound; tenderness (RLQ and Right flank) Back: normal inspection, no CVA tenderness, no vertebral tenderness, CVA tenderness (R) Neurologic/Psychiatric: no motor/sensory deficits, alert, normal mood/affect, oriented x 3 Skin: diaphoresis, pallor Progress/Results/Core Measures Results/Orders Lab Results Laboratory Tests Test 01/20/19 11:42 01/20/19 12:35 Range/Units Urine Color CLEAR Urine Clarity YELLOW Urine pH 5 5-9 Urine Specific [place] 1.030 H 1.016-1.022 Urine Protein 2+ H NEGATIVE Urine Glucose (UA) NEGATIVE NEGATIVE Urine Ketones 1+ H NEGATIVE Urine Nitrite NEGATIVE NEGATIVE Urine Bilirubin NEGATIVE NEGATIVE Urine Urobilinogen NORMAL NORMAL MG/DL Urine Leukocyte Esterase 1+ H NEGATIVE Urine RBC (Auto) 1+ H NEGATIVE White Blood Count 14.9 H 4.3-11.0 10^3/uL Red Blood Count 4.71 4.35-5.85 10^6/uL Hemoglobin 13.0 11.5-16.0 G/DL Hematocrit 40 35-52 % Mean Corpuscular Volume 85 80-99 FL Mean Corpuscular Hemoglobin 28 25-34 PG Mean Corpuscular Hemoglobin Concent 33 32-36 G/DL Red Cell Distribution Width 15.6 H 10.0-14.5 % Platelet Count 273 130-400 10^3/uL Mean Platelet Volume 11.8 H 7.4-10.4 FL Neutrophils (%) (Auto) 88 H 42-75 % Lymphocytes (%) (Auto) 8 L 12-44 % Monocytes (%) (Auto) 3 0-12 % Eosinophils (%) (Auto) 0 0-10 % Basophils (%) (Auto) 0 0-10 % Neutrophils # (Auto) 13.0 H 1.8-7.8 X 10^3 Lymphocytes # (Auto) 1.3 1.0-4.0 X 10^3 Monocytes # (Auto) 0.5 0.0-1.0 X 10^3 Eosinophils # (Auto) 0.1 0.0-0.3 10^3/uL Basophils # (Auto) 0.0 0.0-0.1 10^3/uL Neutrophils % (Manual) 88 % Lymphocytes % (Manual) 8 % Monocytes % (Manual) 3 % Basophils % (Manual) 1 % Blood Morphology Comment NORMAL Sodium Level 138 135-145 MMOL/L Potassium Level 4.5 3.6-5.0 MMOL/L Chloride Level 107 98-107 MMOL/L Carbon Dioxide Level 20 L 21-32 MMOL/L Anion Gap 11 5-14 MMOL/L Blood Urea Nitrogen 14 7-18 MG/DL Creatinine 0.86 0.60-1.30 MG/DL Estimat Glomerular Filtration Rate > 60 BUN/Creatinine Ratio 16 Glucose Level 122 H 70-105 MG/DL Calcium Level 8.8 8.5-10.1 MG/DL Corrected Calcium 9.0 8.5-10.1 MG/DL Total Bilirubin 0.3 0.1-1.0 MG/DL Aspartate Amino Transf (AST/SGOT) 17 5-34 U/L Alanine Aminotransferase (ALT/SGPT) 23 0-55 U/L Alkaline Phosphatase 68 40-136 U/L Total Protein 7.1 6.4-8.2 GM/DL Albumin 3.8 3.2-4.5 GM/DL My Orders Orders - KATHIE PINEDA Urine Bedside (01/20/19 11:20) Ketorolac Injection (Toradol Injection) (01/20/19 11:46) Saline Lock/Iv-Start (01/20/19 11:46) Ns Iv 1000 Ml (Sodium Chloride 0.9%) (01/20/19 11:46) Ondansetron Injection (Zofran Injectio (01/20/19 12:00) Urinalysis Dipstick Only (01/20/19 11:20) Abdomen/Kub 1view (01/20/19 12:38) Cbc With Automated Diff (01/20/19 12:38) Comprehensive Metabolic Panel (01/20/19 12:38) Manual Differential (01/20/19 12:35) Hydrocodone/Apap 5/325 Tablet (Lortab 5 (01/20/19 13:45) Ondansetron Injection (Zofran Injectio (01/20/19 14:00) Ct Abd/Pelvis Wo(Kidney Stone) (01/20/19 14:05) Saline Lock/Iv-Start (01/20/19 14:48) Ns Iv 1000 Ml (Sodium Chloride 0.9%) (01/20/19 14:48) Promethazine Injection (Phenergan Injec (01/20/19 15:45) Medications Given in ED Current Medications Medications Dose Ordered Sig/Monica Route Start Time Stop Time Status Last Admin Dose Admin Acetaminophen/ Hydrocodone Bitart 1 tab ONCE ONCE PO 01/20/19 13:45 01/20/19 13:46 DC 01/20/19 13:45 1 TAB Ondansetron HCl 4 mg ONCE ONCE IVP 01/20/19 12:00 01/20/19 12:01 DC 01/20/19 12:14 4 MG Ondansetron HCl 8 mg ONCE ONCE IVP 01/20/19 14:00 01/20/19 14:01 DC 01/20/19 14:12 8 MG Promethazine HCl 12.5 mg ONCE ONCE IVP 01/20/19 15:45 01/20/19 15:46 DC 01/20/19 15:43 12.5 MG Vital Signs/I&O 01/20/19 01/20/19 11:32 15:31 Temp 97.5 Pulse 76 76 Resp 18 18 B/P (MAP) 144/96 (112) 164/94 (117) Pulse Ox 97 98 O2 Delivery Room Air Room Air Blood Pressure Mean: 112 Progress Progress Note : Time: 11:50 Progress Note Patient seen and evaluated, urine hCG negative. We'll give 1 L of normal saline per IV, Zofran 4 mg IV and Toradol 30 mg IV. Will obtain labs and a KUB x-ray. 1300 KUB possible stone right lower quadrant, will obtain CT study. 1315 patient continuing to have nausea and pain, will give an additional 8 mg of Zofran IV and Lortab 5 mg for pain. 1400 patient continuing to have mild nausea, will give normal saline [address] shows a 3 mm stone in the distal ureter, right. Discussed findings with the patient, this should pass without surgical intervention. Phenergan 12.5 mg IV for nausea. Appointment made with Dr. Davis for early next week. Discharge instructions and return precautions reviewed with patient. Diagnostic Imaging Diagonstic Imaging: Xray Plain Films/CT/US/NM/MRI: abdomen Comments NAME: HUNTER COBB MED REC#: [id number] PT STATUS: REG ER : 1990 PHYSICIAN: KATHIE PINEDA ADMIT DATE: 01/20/19/ER Draft Date of Exam:01/20/19 ABDOMEN/KUB 1VIEW INDICATION: Nausea, vomiting, and diarrhea as well as right lower quadrant pain. TIME OF EXAM: 12:48 p.m. FINDINGS: The bowel gas pattern is nonobstructive. There are surgical clips in the gallbladder fossa. No pathologic calcifications are seen. No definite free air is identified. IMPRESSION: No acute abnormality is detected. Dictated on workstation # [id number] Dict: 01/20/19 1346 Trans: 01/20/19 1349 [id number] Interpreted by: MARY ANN LARSON MD Electronically signed by: Reviewed: Reviewed by Me Diagonstic Imaging: CT Plain Films/CT/US/NM/MRI: abdomen, pelvis Comments NAME: HUNTER COBB [facility] REC#: [id number] PT STATUS: REG ER : 1990 PHYSICIAN: KATHIE PINEDA ADMIT DATE: 01/20/19/ER Draft Date of Exam:01/20/19 CT ABD/PELVIS WO(KIDNEY STONE) PROCEDURE: CT urinary tract, rule out kidney stone. TECHNIQUE: Multiple contiguous axial images were obtained through the abdomen and pelvis without the use of intravenous contrast. Auto Exposure Controls were utilized during the CT exam to meet ALARA standards for radiation dose reduction. INDICATION: Right-sided posterior abdominal pain. COMPARISON: Correlation is made with prior CT from 09/12/2016. FINDINGS: A subpleural nodule in the posterior lateral left lower lobe appears to be stable in size at 6 mm. Otherwise the lung bases are clear. The liver is unremarkable. Gallbladder is surgically absent. No biliary duct dilatation is seen. The pancreas and spleen are unremarkable. No adrenal mass is identified. The right kidney does appear to be enlarged. There is right-sided hydro-ureteral nephrosis. Dilated right ureter is traced into the pelvis where there is an approximately 3 mm calculus located within the distal right ureter just proximal to the UVJ. Bladder is decompressed. No bladder calculi are seen. The left ureter is unremarkable. No intrarenal calculi are seen. Aorta is non-aneurysmal. Small and large bowel loops are normal in caliber. Appendix is unremarkable. There is no ascites or fluid collection. The uterus is unremarkable. IMPRESSION: 3 mm distal right ureteric calculus producing moderate hydroureteronephrosis. No other significant abnormality is detected. Dictated on workstation # [id number] Dict: 01/20/19 1445 Trans: 01/20/19 1458 TIM [id number] Interpreted by: MARY ANN LARSON MD Electronically signed by: Departure Impression Primary Impression: Urolithiasis Qualified Codes: N20.1 - Calculus of ureter Additional Impression: Nausea and vomiting Qualified Codes: R11.14 - Bilious vomiting Disposition: HOME, SELF-CARE Condition: Improved Departure-Patient Inst. Decision time for Depature: 14:30 Referrals: [facility]/ (PCP) Primary Care Physician PIPE OHARA APRN (Family) Primary Care Physician Patient Instructions: Kidney Stones (DC) Add. Discharge Instructions: Use hydrocodone/acetaminophen as prescribed for pain Take the Zofran as prescribed for nausea and vomiting Take ibuprofen 600 mg every 8 hours. Do not take any additional Tylenol if taking the hydrocodone as it has Tylenol in it. Increase her water intake and empty bladder every 2 hours while awake. Drink 1 cup of cranberry juice daily. Filter urine as directed. Follow-up with Dr. Ledezma on January 25 at 1:30 PM. Return to emergency department if symptoms worsen, fever greater than 101 not relieved by ibuprofen, or new problems. All discharge instructions reviewed with patient and/or family. Voiced understanding. Scripts Ondansetron (Ondansetron Odt) 4 Mg Tab.rapdis 8 MG PO Q6H PRN for NAUSEA/VOMITING-1ST LINE, #18 TAB 0 Refills Prov: KATHIE PINEDA 01/20/19 Hydrocodone Bit/Acetaminophen (Hydrocodone/Acetaminophen 5/325mg Tablet) 1 Tab Tab 1-2 EACH PO Q6H PRN for PAIN-MODERATE MDD 10, #30 TAB 0 Refills Prov: KATHIE PINEDA 01/20/19 Copy Copies To 1: DORITA DAVIS MD, AMY ARNP Jan 20, 2019 12:11
[2019-01-20 12:45] LABS: BASOPHILS % (AUTO) 0 % (0-10); EOSINOPHILS # (AUTO) 0.1 10^3/uL (0.0-0.3); EOSINOPHILS % (AUTO) 0 % (0-10); HEMATOCRIT 40 % (35-52); LYMPHOCYTES # (AUTO) 1.3 X 10^3 (1.0-4.0); LYMPHOCYTES % (AUTO) 8 % (12-44); MEAN CORPUSCULAR HEMOGLOBIN 28 PG (25-34); MEAN CORPUSCULAR HGB CONC 33 G/DL (32-36); MEAN CORPUSCULAR VOLUME 85 FL (80-99); MEAN PLATELET VOLUME 11.8 FL (7.4-10.4); MONOCYTES # (AUTO) 0.5 X 10^3 (0.0-1.0); MONOCYTES % (AUTO) 3 % (0-12); NEUTROPHILS % (AUTO) 88 % (42-75); PLATELET COUNT 273 10^3/uL (130-400); RED CELL DISTRIBUTION WIDTH 15.6 % (10.0-14.5); WHITE BLOOD COUNT 14.9 10^3/uL (4.3-11.0)
[2019-01-20 13:04] LABS: ALANINE AMINOTRANSFERASE 23 U/L (0-55); ALBUMIN 3.8 GM/DL (3.2-4.5); ALKALINE PHOSPHATASE 68 U/L (40-136); BILIRUBIN,TOTAL 0.3 MG/DL (0.1-1.0); BUN/CREATININE RATIO 16; CALCIUM 8.8 MG/DL (8.5-10.1); CARBON DIOXIDE 20 MMOL/L (21-32); CHLORIDE 107 MMOL/L (98-107); CREATININE SERUM 0.86 MG/DL (0.60-1.30); GFR ESTIMATED > 60; GLUCOSE 122 MG/DL (70-105); POTASSIUM 4.5 MMOL/L (3.6-5.0); SODIUM 138 MMOL/L (135-145); TOTAL PROTEIN 7.1 GM/DL (6.4-8.2)
[2019-01-20 13:13] LABS: BASOPHILS % (MANUAL) 1 %; LYMPHOCYTES % (MANUAL) 8 %; MONOCYTES % (MANUAL) 3 %; NEUTROPHILS % (MANUAL) 88 %; RBC MORPH NORMAL
[2019-01-20] MEDS ORDERED: HYDROcodone/APAP 5 MG/325 MG (LORTAB) TAB PO ONE (13:45)
--- NOTE | 2019-01-20 13:49 | Diagnostic Imaging Report ---
INDICATION: Nausea, vomiting, and diarrhea as well as right lower quadrant pain. TIME OF EXAM: 12:48 p.m. FINDINGS: The bowel gas pattern is nonobstructive. There are surgical clips in the gallbladder fossa. No pathologic calcifications are seen. No definite free air is identified. IMPRESSION: No acute abnormality is detected. Dictated by: Dictated on workstation # [id number]
--- NOTE | 2019-01-20 14:58 | Diagnostic Imaging Report ---
PROCEDURE: CT urinary tract, rule out kidney stone. TECHNIQUE: Multiple contiguous axial images were obtained through the abdomen and pelvis without the use of intravenous contrast. Auto Exposure Controls were utilized during the CT exam to meet ALARA standards for radiation dose reduction. INDICATION: Right-sided posterior abdominal pain. COMPARISON: Correlation is made with prior CT from 09/12/2016. FINDINGS: A subpleural nodule in the posterior lateral left lower lobe appears to be stable in size at 6 mm. Otherwise the lung bases are clear. The liver is unremarkable. Gallbladder is surgically absent. No biliary duct dilatation is seen. The pancreas and spleen are unremarkable. No adrenal mass is identified. The right kidney does appear to be enlarged. There is right-sided hydro-ureteral nephrosis. Dilated right ureter is traced into the pelvis where there is an approximately 3 mm calculus located within the distal right ureter just proximal to the UVJ. Bladder is decompressed. No bladder calculi are seen. The left ureter is unremarkable. No intrarenal calculi are seen. Aorta is non-aneurysmal. Small and large bowel loops are normal in caliber. Appendix is unremarkable. There is no ascites or fluid collection. The uterus is unremarkable. IMPRESSION: 3 mm distal right ureteric calculus producing moderate hydroureteronephrosis. No other significant abnormality is detected. Dictated by: Dictated on workstation # [id number]
[2019-01-20] MEDS ORDERED: ACHD5005 PO (15:24)
[2019-01-20] MEDS ORDERED: ONDA4TAB11 PO (15:24)
[2019-01-20 15:31] VITALS: BP 164/94
[2019-01-20] MEDS ORDERED: PROMETHAZINE INJ 25 MG/ML (PHENERGAN) AMP IVP ONE (15:45)
== END 2019-01-20 15:50 | disposition home or self-care (01) ==
LOC: EDUNIT# 11:17 → ER 11:19
DX: N13.2 Hydronephrosis with renal and ureteral calculous obstruction (principal); J45.909 Unspecified asthma, uncomplicated; K21.9 Gastro-esophageal reflux disease without esophagitis; E11.9 Type 2 diabetes mellitus without complications; F98.8 Other specified behavioral and emotional disorders with onset usually occurring in childhood and adolescence; F90.9 Attention-deficit hyperactivity disorder, unspecified type; F41.9 Anxiety disorder, unspecified; F31.9 Bipolar disorder, unspecified; F60.9 Personality disorder, unspecified; Z82.49 Family history of ischemic heart disease and other diseases of the circulatory system; Z91.5 Personal history of self-harm; Z87.19 Personal history of other diseases of the digestive system; Z87.440 Personal history of urinary (tract) infections; Z98.890 Other specified postprocedural states; Z87.891 Personal history of nicotine dependence
CPT/HCPCS: 36415; 74018; 74176; 80053; 81002; 84703; 85007; 85027; 96361; 96374; 96375; 96376

== ENCOUNTER → 2019-08-06 | Outpatient (CLI) | payer SELFPAY ==
[~2019-08-06] MED LIST changes: +CATHETER FLUSH 10 ML SYR IV PRN; +HOLD METFORMIN - RECEIVED CONTRAST 20 ML VIAL IV SCH; +IOHEXOL 350 MG/ML 100 ML (OMNIPAQUE 350) VIAL IV ONE; +NS 100 ML (IVPB) BAG IV ONE; +ONDA4TAB11 PO
--- NOTE | 2019-08-06 19:35 | Diagnostic Imaging Report ---
PROCEDURE: CT chest with contrast only. TECHNIQUE: Multiple contiguous axial images were obtained through the chest after administration of intravenous contrast. Auto Exposure Controls were utilized during the CT exam to meet ALARA standards for radiation dose reduction. DATE: August 06, 2019. COMPARISON: Chest radiograph, October 25, 2013. INDICATION: 29-year-old female, right-sided pulmonary nodule. FINDINGS: There is very minimal atelectasis in the right upper lobe on axial image 49 and adjacent sequential images. There is a noncalcified left lower lobe pulmonary nodule on axial image 105 which measures 6 mm in size. There is a subjacent 3 mm left lower lobe pulmonary nodule. There is no additional pulmonary nodule. There is no lung mass. There is no additional focal airspace consolidation. There is no pneumothorax. There is no pleural effusion. The central airways are patent. There is no identified large central pulmonary embolus. There is nondiagnostic assessment for segmental and subsegmental pulmonary emboli. The heart is not enlarged. There is no pericardial effusion. There is no identified abnormally enlarged mediastinal, hilar or axillary lymph node which meets CT size criteria for adenopathy. The patient is status post cholecystectomy. There is no identified acute bony abnormality. IMPRESSION: CT chest: 1. There is a 6 mm noncalcified left lower lobe pulmonary nodule and adjacent 3 mm noncalcified left lower lobe pulmonary nodule. These are unchanged since at least May 30, 2014, consistent with benign etiology. No additional identified pulmonary nodule. 2. No acute cardiopulmonary abnormality. Dictated by: Dictated on workstation # [id number]
== END ==
LOC: RAD 13:11
PROVIDERS: ATTEND Nurse Practitioner Family
DX: R91.8 Other nonspecific abnormal finding of lung field (principal); Z90.49 Acquired absence of other specified parts of digestive tract
CPT/HCPCS: 71260

== ENCOUNTER → 2019-08-30 | Outpatient (CLI) | payer SELFPAY ==
[~2019-08-30] MED LIST changes: -CATHETER FLUSH 10 ML SYR IV PRN; -HOLD METFORMIN - RECEIVED CONTRAST 20 ML VIAL IV SCH; -IOHEXOL 350 MG/ML 100 ML (OMNIPAQUE 350) VIAL IV ONE; -NS 100 ML (IVPB) BAG IV ONE
[2019-08-30 16:08] LABS: ABG BASE EXCESS 1.3 MMOL/L (-2.5-2.5); ABG OXYGEN SATURATION 96 % (94-100); ABG PCO2 41 MMHG (35-45); ABG PH 7.41 (7.37-7.43); ABG PO2 79 MMHG (79-93); ABG TCO2 26.7 MMOL/L (21.0-31.0); ALLENS TEST POS; INSPIRED O2 ROOM AIR; PATIENT TEMP 37; VENTILATOR NO
== END ==
LOC: RT 15:28
PROVIDERS: ATTEND Internal Medicine Critical Care Medicine
DX: R06.00 Dyspnea, unspecified (principal)
CPT/HCPCS: 36600; 82805

== ENCOUNTER → 2019-09-20 | Outpatient (CLI) | payer OTHER ==
[~2019-09-20] MED LIST changes: +SULF-222 PO
== END ==
LOC: CARD 14:02
PROVIDERS: ATTEND Internal Medicine Critical Care Medicine
DX: I51.7 Cardiomegaly (principal)
CPT/HCPCS: 93306

== ENCOUNTER 2019-09-23 01:03 | Emergency (ER) | payer SELFPAY ==
[~2019-09-23] VITALS: Ht 177 cm; Wt 185.0 kg
[~2019-09-23 01:03] MED LIST changes: -SULF-222 PO
[2019-09-23] MEDS ORDERED: LACTATED RINGERS 1,000 ML IV STA (02:19)
[2019-09-23 02:25] LABS: BASOPHILS # (AUTO) 0.1 10^3/uL (0.0-0.1); BASOPHILS % (AUTO) 1 % (0-10); EOSINOPHILS # (AUTO) 0.6 10^3/uL (0.0-0.3); EOSINOPHILS % (AUTO) 5 % (0-10); HEMATOCRIT 40 % (35-52); HEMOGLOBIN 12.8 G/DL (11.5-16.0); LYMPHOCYTES # (AUTO) 3.3 X 10^3 (1.0-4.0); LYMPHOCYTES % (AUTO) 31 % (12-44); MEAN CORPUSCULAR HEMOGLOBIN 28 PG (25-34); MEAN CORPUSCULAR HGB CONC 32 G/DL (32-36); MEAN CORPUSCULAR VOLUME 86 FL (80-99); MEAN PLATELET VOLUME 12.2 FL (7.4-10.4); MONOCYTES # (AUTO) 0.9 X 10^3 (0.0-1.0); MONOCYTES % (AUTO) 8 % (0-12); NEUTROPHILS % (AUTO) 55 % (42-75); PLATELET COUNT 272 10^3/uL (130-400); RED CELL DISTRIBUTION WIDTH 14.7 % (10.0-14.5); WHITE BLOOD COUNT 10.8 10^3/uL (4.3-11.0)
--- NOTE | 2019-09-23 02:25 | ED General ---
General Chief Complaint: Skin/Wound Problems Stated Complaint: POSS BIT BY SPIDER ON STOMACH, STS CHEST DISCOMFOR Source of Information: Patient Exam Limitations: No Limitations History of Present Illness Date Seen by Provider: Sep 23, 2019 Time Seen by Provider: 02:13 Initial Comments Here with report of spider bite on her stomach. Also notes that she's been short of breath for a few days. States the wound was noted yesterday and has worsened. There is increasing surrounding erythema that she has noted and marked with a pen. It seems to have extended beyond the previous marked now and encompasses an area of approximately 12 x 12 cm with a central more significant 2 x 2 centimeter area of erythema that has a 4 mm ulcerative core in the center. Complains of nausea. States that she's not been drinking well. States that she's not felt well since she has not ate or drank much. Does smoke but is down to 2 cigarettes a day. Notes wheezing has worsened over the past couple of days. Timing/Duration: 2-3 Days Severity: Moderate Associated Systoms: No Chest Pain, No Cough, No Fever/Chills; Nausea/Vomiting, Shortness of Air; No Weakness Allergies and Home Medications Allergies Coded Allergies: No Known Drug Allergies (Unverified , 10/04/10) Home Medications Hydrocodone Bit/Acetaminophen 1 Tab Tab, 1-2 EACH PO Q6H PRN for PAIN-MODERATE Prescribed by: KATHIE PINEDA on 01/20/19 1524 Hydrocodone/Acetaminophen 1 Each Tablet, 1 TAB PO Q6H Prescribed by: SABRINA SAUNDERS on 11/11/18 1327 Ondansetron 4 Mg Tab.rapdis, 8 MG PO Q6H PRN for NAUSEA/VOMITING-1ST LINE Prescribed by: KATHIE PINEDA on 01/20/19 1524 Ondansetron 4 Mg Tab.rapdis, 4 MG PO Q6H PRN for NAUSEA/VOMITING Prescribed by: MATTHEW SUH on 09/23/19 030 Sulfamethoxazole/Trimethoprim 1 Each Tablet, 1 EACH PO BID Prescribed by: MATTHEW SUH on 09/23/19 030 Patient Home Medication List Home Medication List Reviewed: Yes Review of Systems Review of Systems Constitutional: see HPI; No chills, No fever EENTM: no symptoms reported Respiratory: No cough; short of breath, wheezing Cardiovascular: no symptoms reported Gastrointestinal: nausea; No vomiting Genitourinary: no symptoms reported Musculoskeletal: no symptoms reported Skin: see HPI, change in color, lesions Psychiatric/Neurological: No Symptoms Reported Past Owuvxzl-Ooqpmk-Fkktsb Hx Past Med/Social Hx: Reviewed Nursing Past Med/Soc Hx Patient Social History Alcohol Use: Denies Use Recreational Drug Use: No Smoking Status: Current Everyday Smoker Type Used: Cigarettes Former Smoker, Quit: Sep 10, 2018 Recent Foreign Travel: No Contact w/Someone Who Travel: No Recent Hopitalizations: No Physical Abuse: No Sexual Abuse: No Mistreated: No Fear: No Immunizations Up To Date Tetanus Booster (TDap): Less than 5yrs Seasonal Allergies Seasonal Allergies: No Past Medical History Surgeries: Yes Gallbladder Respiratory: No Asthma Cardiac: No Neurological: No Reproductive Disorders: No Female Reproductive Disorders: Denies Sexually Transmitted Disease: No HIV/AIDS: No Genitourinary: No UTI-Chronic Gastrointestinal: No Gastroesophageal Reflux, Ulcer Musculoskeletal: No Chronic Back Pain Endocrine: No Diabetes, Non-Insulin dep HEENT: No Hearing Impairment: Denies Cancer: No Psychosocial: No ADD/ADHD, Sleep Difficulties, Anxiety, Suicide Attempts, Bipolar, Personality Disorder, Depression Integumentary: No Blood Disorders: No Family Medical History Reviewed Nursing Family Hx Family history: Asthma 09 BROTHER, Onset:Childhood Family history: Gastrointestinal disease 03 MOTHER, Onset:Unknown Family history: Hypertension 03 FATHER, Onset:40's - 50 Kidney disease 03 MOTHER, Onset:Childhood No Family History of: Abdominal aortic aneurysm Albino's disease Alcoholism Aphasia Cancer Cataract Chest pain Congenital heart disease Congestive heart failure Cystic fibrosis Dementia Dysphagia Family history: Allergy Family history: Alzheimer's disease Family history: Arthritis Family history: Breast disease Family history: Cardiovascular disease Family history: Coronary thrombosis Family history: Diabetes mellitus Family history: Glaucoma Family history: Osteoporosis Family history: Thyroid disorder Headache Hearing loss Heart disease Hereditary disease History of - anemia History of - disorder History of - respiratory disease History of drug abuse Human immunodeficiency virus (HIV) seropositivity Hypercholesterolemia Infertile Malignant neoplasm of lung Myocardial infarction Parkinson's disease Prostate cancer Psychotic disorder Seizure disorder Stroke Tuberculosis Visual impairment No Pertinent Family Hx Physical Exam Vital Signs Vital Signs - First Documented 09/23/19 01:12 Temp 36.4 Pulse 107 Resp 20 B/P (MAP) 183/107 (132) Pulse Ox 100 O2 Delivery Room Air Capillary Refill : Height, Weight, BMI Height: 5'10.00" Weight: 320lbs. 0.0oz. 145.651180fm; 54.5 BMI Method:Stated General Appearance: No Apparent Distress, WD/WN, Obese HEENT: PERRL/EOMI, Pharynx Normal Neck: Non Tender, Supple Respiratory: No Accessory Muscle Use, Expiration, Wheezing Cardiovascular: No Murmur, Tachycardia Gastrointestinal: Non Tender, Soft Back: Normal Inspection, No CVA Tenderness, No Vertebral Tenderness Extremity: Normal Range of Motion, Non Tender Neurologic/Psychiatric: Alert, Oriented x3 Skin: Warm/Dry, Erythema, Other (erythema of right lower abdomen 12 x 12 cm wit h a central more significant 2 x 2 centimeter area of erythema that has a 4 mm ulcerative core in the center.) Progress/Results/Core Measures Suspected Sepsis SIRS Temperature: Pulse: Respiratory Rate: Laboratory Tests 09/23/19 01:35: White Blood Count 10.8 Blood Pressure / Mean: Laboratory Tests 09/23/19 01:35: Creatinine 0.81, Platelet Count 272, Total Bilirubin 0.2 Results/Orders Lab Results Laboratory Tests Test 09/23/19 01:35 Range/Units White Blood Count 10.8 4.3-11.0 10^3/uL Red Blood Count 4.61 4.35-5.85 10^6/uL Hemoglobin 12.8 11.5-16.0 G/DL Hematocrit 40 35-52 % Mean Corpuscular Volume 86 80-99 FL Mean Corpuscular Hemoglobin 28 25-34 PG Mean Corpuscular Hemoglobin Concent 32 32-36 G/DL Red Cell Distribution Width 14.7 H 10.0-14.5 % Platelet Count 272 130-400 10^3/uL Mean Platelet Volume 12.2 H 7.4-10.4 FL Neutrophils (%) (Auto) 55 42-75 % Lymphocytes (%) (Auto) 31 12-44 % Monocytes (%) (Auto) 8 0-12 % Eosinophils (%) (Auto) 5 0-10 % Basophils (%) (Auto) 1 0-10 % Neutrophils # (Auto) 6.0 1.8-7.8 X 10^3 Lymphocytes # (Auto) 3.3 1.0-4.0 X 10^3 Monocytes # (Auto) 0.9 0.0-1.0 X 10^3 Eosinophils # (Auto) 0.6 H 0.0-0.3 10^3/uL Basophils # (Auto) 0.1 0.0-0.1 10^3/uL Sodium Level 141 135-145 MMOL/L Potassium Level 4.1 3.6-5.0 MMOL/L Chloride Level 105 98-107 MMOL/L Carbon Dioxide Level 23 21-32 MMOL/L Anion Gap 13 5-14 MMOL/L Blood Urea Nitrogen 15 7-18 MG/DL Creatinine 0.81 0.60-1.30 MG/DL Estimat Glomerular Filtration Rate > 60 BUN/Creatinine Ratio 19 Glucose Level 102 70-105 MG/DL Calcium Level 9.1 8.5-10.1 MG/DL Corrected Calcium 9.2 8.5-10.1 MG/DL Total Bilirubin 0.2 0.1-1.0 MG/DL Aspartate Amino Transf (AST/SGOT) 13 5-34 U/L Alanine Aminotransferase (ALT/SGPT) 26 0-55 U/L Alkaline Phosphatase 72 40-136 U/L C-Reactive Protein High Sensitivity 1.51 H 0.00-0.50 MG/DL Total Protein 7.3 6.4-8.2 GM/DL Albumin 3.9 3.2-4.5 GM/DL My Orders Orders - MATTHEW SUH MD Cbc With Automated Diff (09/23/19 02:19) Comprehensive Metabolic Panel (09/23/19 02:19) Hs C Reactive Protein (09/23/19 02:19) Ondansetron Injection (Zofran Injectio (09/23/19 02:30) Lactated Ringers (Lr 1000 Ml Iv Solution (09/23/19 02:19) Ed Iv/Invasive Line Start (09/23/19 02:19) Albuterol/Ipra Inhalation Soln (Duoneb I (09/23/19 02:30) Svn Small Volume Nebulizer (09/23/19 02:19) Sulfamethoxazole/Trimet Ds Tab (Bactrim (09/23/19 02:40) Rx-Albuterol Inhaler (Rx-Proair) (09/23/19 02:45) Ondansetron Injection (Zofran Injectio (09/23/19 03:00) Medications Given in ED Current Medications Medications Dose Ordered Sig/Monica Route Start Time Stop Time Status Last Admin Dose Admin Albuterol Sulfate 1 gm ONCE ONCE IH 09/23/19 02:45 09/23/19 02:46 DC 09/23/19 02:53 1 GM Albuterol/ Ipratropium 3 ml ONCE ONCE INH 09/23/19 02:30 09/23/19 02:31 DC 09/23/19 02:25 3 ML Ondansetron HCl 4 mg ONCE ONCE IVP 09/23/19 02:30 09/23/19 02:31 DC 09/23/19 02:25 4 MG Ondansetron HCl 4 mg ONCE ONCE IVP 09/23/19 03:00 09/23/19 03:01 DC 09/23/19 03:04 4 MG Vital Signs/I&O 09/23/19 01:12 Temp 36.4 Pulse 107 Resp 20 B/P (MAP) 183/107 (132) Pulse Ox 100 O2 Delivery Room Air Capillary Refill : Progress Note : Progress Note Seen and evaluated. IV, labs, DuoNeb, LR 1 L bolus and Zofran 4 mg IV ordered. Monitor patient. 0300: Labs reviewed and showed no significant findings. CRP is a little elevated. Bactrim DS one tab by mouth given. Go pack of albuterol MDI given. A little better after the DuoNeb that was given earlier in audible whe ezing has resolved. Patient is a little nauseated again after taking the Bactrim DS. Repeat 4 mg of Zofran IV. Dressing changed by nursing. Discharged home with return precautions. Patient verbalize understanding instructions and agreement with plan. Departure Impression Primary Impression: Spider bite wound Qualified Codes: T63.304A - Toxic effect of unspecified spider venom, undetermined, initial encounter Additional Impressions: Cellulitis Qualified Codes: L03.311 - Cellulitis of abdominal wall Bronchitis Nausea Disposition: 01 HOME, SELF-CARE Condition: Stable Departure-Patient Inst. Decision time for Depature: 03:03 Referrals: [facility] (PCP) Primary Care Physician PIPE OHARA APRN (Family) Primary Care Physician Patient Instructions: Spider Bites, Cellulitis (Skin Infection), Adult (DC), Nausea and Vomiting, Adult (DC), Acute Bronchitis, Adult (DC) Add. Discharge Instructions: All discharge instructions reviewed with patient and/or family. Voiced understanding. Take medications as directed. Follow-up with your Dr. in one to 2 days for recheck. Return for worse pain, fever, vomiting, weakness, breathing problems or other concerns as needed. You may continue to change dressing over wound at least daily but more often if needed if it becomes soiled. You may take ibuprofen 600 mg every 8 hours as needed for pain. You may also take Tyleno l/acetaminophen 1000 mg every 8 hours as needed for pain.. Plenty of fluids. Scripts Sulfamethoxazole/Trimethoprim (Sulfamethoxazole-Tmp Ds Tablet) 1 Each Tablet 1 EACH PO BID, #20 TAB 0 Refills Prov: MATTHEW SUH MD 09/23/19 Ondansetron (Ondansetron Odt) 4 Mg Tab.rapdis 4 MG PO Q6H PRN for NAUSEA/VOMITING, #12 TAB 0 Refills Prov: MATTHEW SUH MD 09/23/19 MATTHEW SUH MD Sep 23, 2019 02:25 POS
[2019-09-23] MEDS ORDERED: ONDANSETRON 4 MG/2 ML (SDV) Z0FRAN IVP ONE ×2 (02:30→03:00)
[2019-09-23] MEDS ORDERED: RT-ALBUTEROL/IPRATROPIUM 3 ML (DUONEB) VIAL INH ONE (02:30)
[2019-09-23 02:38] LABS: ALANINE AMINOTRANSFERASE 26 U/L (0-55); ALBUMIN 3.9 GM/DL (3.2-4.5); ALKALINE PHOSPHATASE 72 U/L (40-136); BILIRUBIN,TOTAL 0.2 MG/DL (0.1-1.0); BUN/CREATININE RATIO 19; CALCIUM 9.1 MG/DL (8.5-10.1); CARBON DIOXIDE 23 MMOL/L (21-32); CHLORIDE 105 MMOL/L (98-107); CREATININE SERUM 0.81 MG/DL (0.60-1.30); GFR ESTIMATED > 60; GLUCOSE 102 MG/DL (70-105); POTASSIUM 4.1 MMOL/L (3.6-5.0); SODIUM 141 MMOL/L (135-145); TOTAL PROTEIN 7.3 GM/DL (6.4-8.2)
[2019-09-23] MEDS ORDERED: TRIM/SULFAMETH 160/800 (SEPTRA DS) TAB PO STA (02:40)
[2019-09-23] MEDS ORDERED: RX-ALBUTEROL INHALER (PROAIR) 8.5 GM IH ONE (02:45)
[2019-09-23] MEDS ORDERED: ONDA4TAB11 PO (03:06)
[2019-09-23] MEDS ORDERED: SULF-222 PO (03:06)
[2019-09-23 03:55] VITALS: BP 151/86
--- NOTE | 2019-09-23 14:05 | NUR ---
Received a phone call from Erin stating she can not afford the medications she was prescribed today. F/U with [facility] et faxed information to them ([facility]). Spoke with Erin again et encouraged her to make a f/u appointment with them et that they would be contacting her for any additional needs as well as medications she might need.
== END 2019-09-23 04:00 | disposition home or self-care (01) ==
LOC: EDUNIT# 01:03 → ER 01:06
DX: T63.304A Toxic effect of unspecified spider venom, undetermined, initial encounter (principal); L03.311 Cellulitis of abdominal wall; R11.0 Nausea; J45.909 Unspecified asthma, uncomplicated; K21.9 Gastro-esophageal reflux disease without esophagitis; E11.9 Type 2 diabetes mellitus without complications; F90.9 Attention-deficit hyperactivity disorder, unspecified type; F41.9 Anxiety disorder, unspecified; F31.9 Bipolar disorder, unspecified; F60.9 Personality disorder, unspecified; F17.210 Nicotine dependence, cigarettes, uncomplicated; Z82.49 Family history of ischemic heart disease and other diseases of the circulatory system
CPT/HCPCS: 36415; 80053; 85025; 86141

== ENCOUNTER → 2019-10-01 | Outpatient (CLI) | payer OTHER ==
[~2019-10-01] MED LIST changes: +RT-ALBUTEROL SULF 2.5 MG/3 ML PRE-MIX VIAL INH ONE; +RT-ALBUTEROL SULF 2.5 MG/3 ML PRE-MIX VIAL ONE; +SULF-222 PO
== END ==
LOC: RT 12:26
PROVIDERS: ATTEND Internal Medicine Critical Care Medicine
DX: R06.00 Dyspnea, unspecified (principal)
CPT/HCPCS: 94060; 94640; 94726; 94729

== ENCOUNTER 2019-10-07 20:31 | Outpatient (CLI) | payer OTHER ==
[~2019-10-07 20:31] MED LIST changes: -MINO100C2 PO; +MINO100C5 PO; -RT-ALBUTEROL SULF 2.5 MG/3 ML PRE-MIX VIAL INH ONE; -RT-ALBUTEROL SULF 2.5 MG/3 ML PRE-MIX VIAL ONE
== END 2019-10-08 06:45 | disposition home or self-care (01) ==
LOC: SLEEP 20:31
PROVIDERS: ATTEND Internal Medicine Critical Care Medicine
DX: J98.4 Other disorders of lung (principal); E66.9 Obesity, unspecified; G47.10 Hypersomnia, unspecified; J45.909 Unspecified asthma, uncomplicated
CPT/HCPCS: 95810

== ENCOUNTER 2020-04-10 13:51 | Outpatient (RCR) | payer OTHER ==
[~2020-04-10 13:51] MED LIST changes: -CATHETER FLUSH 10 ML SYR IV PRN; -HOLD METFORMIN - RECEIVED CONTRAST 20 ML VIAL IV SCH; -IOHEXOL 350 MG/ML 100 ML (OMNIPAQUE 350) VIAL IV ONE; -NS 100 ML (IVPB) BAG IV ONE
== END 2020-07-09 | disposition home or self-care (01) ==
LOC: CARD 13:51
PROVIDERS: ATTEND Internal Medicine Interventional Cardiology
DX: I10 Essential (primary) hypertension (principal); R55 Syncope and collapse; R00.2 Palpitations; Z72.0 Tobacco use

== ENCOUNTER → 2020-04-10 | Outpatient (CLI) | payer OTHER ==
[~2020-04-10] MED LIST changes: +ACHYD1T PO; +CATHETER FLUSH 10 ML SYR IV PRN; +HOLD METFORMIN - RECEIVED CONTRAST 20 ML VIAL IV SCH; -HYDR-3820 PO; +IOHEXOL 350 MG/ML 100 ML (OMNIPAQUE 350) VIAL IV ONE; +NS 100 ML (IVPB) BAG IV ONE
[2020-04-10 14:42] LABS: CREATININE SERUM 0.74 MG/DL (0.60-1.30); GFR ESTIMATED > 60
[2020-04-10 14:43] LABS: BUN/CREATININE RATIO 18
--- NOTE | 2020-04-10 17:54 | Diagnostic Imaging Report ---
INDICATION: Lung nodule and shortness of breath and cough. TECHNIQUE: Multiple contiguous axial images were obtained through the chest after uneventful bolus administration of intravenous contrast. 3D reconstructed CTA MIP acquisitions were also performed. Auto Exposure Controls were utilized during the CT exam to meet ALARA standards for radiation dose reduction. COMPARISON made to 08/06/2019. Bolus is somewhat suboptimal but the central pulmonary structures show no evidence of pulmonary emboli. The thoracic aorta is normal in caliber. There is no mediastinal hematoma or mass or adenopathy. There is no hilar mass or adenopathy. There are no enlarged axillary nodes. There is no pleural or pericardial fluid. Lung parenchymal windows demonstrate some motion artifact. There is no consolidation. Small 6 mm pulmonary nodule visualized in the left lower lobe is unchanged compared to 08/06/2019. Visualized portions of the upper abdomen were unremarkable. IMPRESSION: No CT evidence of pulmonary emboli or acute abnormality in the chest. Stable small 6 mm nodule in the left lower lobe. There is some limitation due to motion artifact. Dictated by: Dictated on workstation # [id number]
== END ==
LOC: RAD 13:51
PROVIDERS: ATTEND Nurse Practitioner Family
DX: J45.909 Unspecified asthma, uncomplicated (principal); R91.1 Solitary pulmonary nodule; M79.89 Other specified soft tissue disorders
CPT/HCPCS: 36415; 71275; 82565; 84520

== ENCOUNTER → 2020-05-26 | Outpatient (CLI) | payer OTHER ==
--- NOTE | 2020-05-26 17:23 | Diagnostic Imaging Report ---
PROCEDURE: US Non-ob pelvis comp/trans. TECHNIQUE: Multiple real-time grayscale images were obtained of the pelvis in various projections endovaginally. Transabdominal imaging was also performed. INDICATION: Abnormal uterine bleeding. FINDINGS: Uterus is anteverted measuring 8.6 x 3.6 x 4.7 cm. There is a 9 mm nabothian cyst present. No myometrial mass is detected. Overall quality of the study is significantly compromised due to patient large body habitus. Ovaries cannot be visualized due to body habitus. No definite adnexal mass or free fluid is identified. IMPRESSION: Limited study due to patient large body habitus. No gross abnormality is detected. Dictated by: Dictated on workstation # [id number]
== END ==
LOC: RAD 14:09
DX: N93.9 Abnormal uterine and vaginal bleeding, unspecified (principal)
CPT/HCPCS: 76830; 76856

== ENCOUNTER 2020-10-22 18:33 | Emergency (ER) | payer OTHER ==
[~2020-10-22] VITALS: Ht 178 cm; Wt 192.0 kg
[2020-10-22 19:15] LABS: BILIRUBIN,URINE NEGATIVE (NEGATIVE); CLARITY,URINE CLEAR; COLOR,URINE YELLOW; GLUCOSE, URINE (UA) NEGATIVE (NEGATIVE); KETONES,URINE NEGATIVE (NEGATIVE); LEUKOCYTE ESTERASE ,URINE NEGATIVE (NEGATIVE); NITRITE,URINE NEGATIVE (NEGATIVE); PH,URINE 5.5 (5-9); PROTEIN,URINE NEGATIVE (NEGATIVE)
--- NOTE | 2020-10-22 19:15 | NUR ---
PT REPORTS UPON RISE ON THIS DAY, SHE BEGAN TO EXPERIENCE SOA THAT INCREASES IN SEVERITY WHEN EXERTING HERSELF. REPORTS CHEST DISCOMFORT DESCRIBED "TIGHTNESS." REPORTS WITHIN LAST HOUR, SHE HAS BEGAN TO EXPERIENCE HEADACHE ET DIZZINESS. DENIES FEVER OR CHILLS. REPORTS TO UTILIZE CPAP MACHINE AT NIGHT. REPORTS HX ASTHMA. 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 A&OX4.
--- NOTE | 2020-10-22 19:15 | NUR ---
RECIEVED REPORT FROM DA LOMBARDI TO ASSUME CARE OF PT AT THIS TIME.
[2020-10-22] MEDS ORDERED: NS IV 1000 ML 1,000 ML ONE (19:22)
[2020-10-22 19:28] LABS: BACTERIA,URINE NEGATIVE /HPF; WBC,URINE RARE /HPF
[2020-10-22] MEDS ORDERED: NS IV 1000 ML 1,000 ML IV SCH (19:30)
[2020-10-22 19:32] LABS: BASOPHILS # (AUTO) 0.1 10^3/uL (0.0-0.1); BASOPHILS % (AUTO) 1 % (0-10); EOSINOPHILS # (AUTO) 0.3 10^3/uL (0.0-0.3); EOSINOPHILS % (AUTO) 3 % (0-10); HEMATOCRIT 38 % (35-52); HEMOGLOBIN 11.6 g/dL (11.5-16.0); LYMPHOCYTES # (AUTO) 2.4 10^3/uL (1.0-4.0); LYMPHOCYTES % (AUTO) 22 % (12-44); MEAN CORPUSCULAR HEMOGLOBIN 25 pg (25-34); MEAN CORPUSCULAR HGB CONC 30 g/dL (32-36); MEAN CORPUSCULAR VOLUME 82 fL (80-99); MEAN PLATELET VOLUME 11.2 fL (9.0-12.2); MONOCYTES # (AUTO) 0.7 10^3/uL (0.0-1.0); MONOCYTES % (AUTO) 6 % (0-12); NEUTROPHILS # (AUTO) 7.4 10^3/uL (1.8-7.8); NEUTROPHILS % (AUTO) 68 % (42-75); PLATELET COUNT 300 10^3/uL (130-400); WHITE BLOOD COUNT 10.9 10^3/uL (4.3-11.0)
[2020-10-22 19:38] LABS: CHLORIDE 102 MMOL/L (98-107); SODIUM 136 MMOL/L (135-145)
[2020-10-22 19:39] LABS: CALCIUM 8.9 MG/DL (8.5-10.1)
[2020-10-22 19:40] LABS: FIBRIN DEGRADATION PRODUCTS 0.47 UG/ML (0.00-0.49); GLUCOSE 90 MG/DL (70-105); INR 0.9 (0.8-1.4)
[2020-10-22 19:41] LABS: TOTAL PROTEIN 7.6 GM/DL (6.4-8.2)
[2020-10-22 19:42] LABS: BILIRUBIN,TOTAL 0.3 MG/DL (0.1-1.0); CARBON DIOXIDE 24 MMOL/L (21-32)
[2020-10-22 19:44] LABS: ALKALINE PHOSPHATASE 70 U/L (40-136); GFR ESTIMATED > 60
[2020-10-22 19:45] LABS: BUN/CREATININE RATIO 19
[2020-10-22 19:47] LABS: ALANINE AMINOTRANSFERASE 27 U/L (0-55)
--- NOTE | 2020-10-22 19:49 | ED Respiratory ---
General Chief Complaint: Respiratory Problems Stated Complaint: MAJOR ASHFORD History of Present Illness Date Seen by Provider: Oct 22, 2020 Time Seen by Provider: 18:45 Initial Comments 30-year-old female presents for headache and shortness of breath. She has a longstanding history of asthma and syncopal episodes, she was on steroids approximately 3 to 4 weeks ago for her asthma. She wears CPAP at night. She has been tested multiple times for COVID-19 as she works in long-term care, reporting a few residents and employees are positive. Her most recent test was on 10/19/2020 and she is unsure of the results. She denies any fevers. She last had Tylenol at noon today. She has had no nausea or vomiting and reports normal smell and taste. Her appetite has been less than normal today. She last used her albuterol inhaler at 1630, Advair this morning. Timing/Duration: yesterday Severity: moderate Prior Episodes/Possible Cause: occasional episodes Modifying Factors: Improves With Albuterol Inhaler, Improves With Rest, Improves With Other (CPAP) Associated Symptoms: chest pain/soreness, cough (Occasionally productive); No dizziness, No earache; facial pain (Frontal sinuses); No fever/chills; headache; No lightheadedness; muscle aches; No nasal congestion, No nasal drainage; shortness of breath; No sinus infection, No sore throat, No wheezing Allergies and Home Medications Allergies Coded Allergies: No Known Drug Allergies (Unverified , 10/04/10) Home Medications Amoxicillin/Potassium Clav 1 Each Tablet, 1 EACH PO BID Prescribed by: KATHIE PINEDA on 10/22/202048 Hydrocodone Bit/Acetaminophen 1 Each Tablet, 1 TAB PO Q6H Prescribed by: SABRINA SAUNDERS on 11/11/18 1327 Hydrocodone Bit/Acetaminophen 1 Tab Tab, 1-2 EACH PO Q6H PRN for PAIN-MODERATE Prescribed by: KATHIE PINEDA on 01/20/19 1524 Ondansetron 4 Mg Tab.rapdis, 8 MG PO Q6H PRN for NAUSEA/VOMITING-1ST LINE Prescribed by: KATHIE PINEDA on 01/20/19 1524 Ondansetron 4 Mg Tab.rapdis, 4 MG PO Q6H PRN for NAUSEA/VOMITING Prescribed by: MATTHEW SUH on 11/21/19 0306 Prednisone 20 Mg Tab, 40 MG PO DAILY Prescribed by: KATHIE PINEDA on 10/22/202048 Sulfamethoxazole/Trimethoprim 1 Each Tablet, 1 EACH PO BID Prescribed by: MATTHEW SUH on 09/23/19305 Patient Home Medication List Home Medication List Reviewed: Yes Review of Systems Review of Systems Constitutional: see HPI, malaise EENTM: see HPI, no symptoms reported; No epistaxis, No nose congestion, No nose pain, No throat pain Respiratory: see HPI, cough, dyspnea on exertion, short of breath Cardiovascular: no symptoms reported, see HPI; No chest pain, No palpitations, No syncope Gastrointestinal: see HPI; No abdominal pain, No constipation, No diarrhea; loss of appetite; No nausea, No vomiting Genitourinary: no symptoms reported, see HPI : No Musculoskeletal: no symptoms reported, see HPI Skin: no symptoms reported, see HPI All Other Systems Reviewed Negative Unless Noted: Yes Past Phaboza-Wskfll-Yjwfxo Hx Past Med/Social Hx: Reviewed Nursing Past Med/Soc Hx Patient Social History Alcohol Use: Denies Use Recreational Drug Use: No Smoking Status: Former Smoker Type Used: Cigarettes Former Smoker, Quit: Sep 10, 2018 Recent Foreign Travel: No Contact w/Someone Who Travel: No Recent Infectious Disease Expo: Yes Recent Hopitalizations: No Physical Abuse: No Sexual Abuse: No Mistreated: No Fear: No Immunizations Up To Date Tetanus Booster (TDap): Less than 5yrs Seasonal Allergies Seasonal Allergies: No Past Medical History Surgeries: Yes Gallbladder Respiratory: No Asthma Cardiac: No Neurological: No Reproductive Disorders: No Female Reproductive Disorders: Denies Sexually Transmitted Disease: No HIV/AIDS: No Genitourinary: No UTI-Chronic Gastrointestinal: No Gastroesophageal Reflux, Ulcer Musculoskeletal: No Chronic Back Pain Endocrine: No Diabetes, Non-Insulin dep HEENT: No Hearing Impairment: Denies Cancer: No Psychosocial: No ADD/ADHD, Sleep Difficulties, Anxiety, Suicide Attempts, Bipolar, Personality Disorder, Depression Integumentary: No Blood Disorders: No Family Medical History Family history: Asthma 09 BROTHER, Onset:Childhood Family history: Gastrointestinal disease 03 MOTHER, Onset:Unknown Family history: Hypertension 03 FATHER, Onset:40's - 50 Kidney disease 03 MOTHER, Onset:Childhood No Family History of: Abdominal aortic aneurysm Telfair's disease Alcoholism Aphasia Cancer Cataract Chest pain Congenital heart disease Congestive heart failure Cystic fibrosis Dementia Dysphagia Family history: Allergy Family history: Alzheimer's disease Family history: Arthritis Family history: Breast disease Family history: Cardiovascular disease Family history: Coronary thrombosis Family history: Diabetes mellitus Family history: Glaucoma Family history: Osteoporosis Family history: Thyroid disorder Headache Hearing loss Heart disease Hereditary disease History of - anemia History of - disorder History of - respiratory disease History of drug abuse Human immunodeficiency virus (HIV) seropositivity Hypercholesterolemia Infertile Malignant neoplasm of lung Myocardial infarction Parkinson's disease Prostate cancer Psychotic disorder Seizure disorder Stroke Tuberculosis Visual impairment No Pertinent Family Hx Physical Exam Vital Signs - First Documented 10/22/20 18:45 Temp 36.6 Pulse 100 Resp 22 B/P (MAP) 162/92 (115) O2 Delivery Room Air Capillary Refill : Less Than 3 Seconds Height: 5'10.00" Weight: 320lbs. 0.0oz. 145.959203ve; 60.00 BMI Method:Stated General Appearance: WD/WN, no apparent distress, obese Eyes: Bilateral Eye Normal Inspection, Bilateral Eye PERRL, Bilateral Eye EOMI HEENT: PERRL/EOMI, normal ENT inspection, TMs normal, pharynx normal Neck: non-tender, full range of motion, supple, normal inspection Respiratory: chest non-tender, lungs clear, normal breath sounds, no respiratory distress, no accessory muscle use Cardiovascular: normal peripheral pulses, regular rate, rhythm, no edema Gastrointestinal: normal bowel sounds, non tender, soft Extremities: normal range of motion, non-tender, normal inspection, no pedal edema, no calf tenderness, normal capillary refill Neurologic/Psychiatric: no motor/sensory deficits, alert, normal mood/affect, oriented x 3 Skin: normal color, warm/dry Lymphatic: no adenopathy Progress/Results/Core Measures Suspected Sepsis Recent Fever Within 48 Hours: No Infection Criteria Present: Suspected New Infection New/Unexplained Altered Menta: No Sepsis Screen: Possible Severe Sepsis Risk SIRS Temperature: Pulse: 100 Respiratory Rate: 22 Laboratory Tests 10/22/20 19:19: White Blood Count 10.9 Blood Pressure 162 /92 Mean: 115 Laboratory Tests 10/22/20 19:19: Creatinine 0.70, INR Comment 0.9, Platelet Count 300, Total Bilirubin 0.3 Results/Orders Lab Results Laboratory Tests Test 10/22/20 18:52 10/22/20 19:10 10/22/20 19:19 10/22/20 21:10 Range/Units Coronavirus 2019 (ANIRUDH) Negative Negative Urine Color YELLOW Urine Clarity CLEAR Urine pH 5.5 5-9 Urine Specific Leonard >=1.030 1.016-1.022 Urine Protein NEGATIVE NEGATIVE Urine Glucose (UA) NEGATIVE NEGATIVE Urine Ketones NEGATIVE NEGATIVE Urine Nitrite NEGATIVE NEGATIVE Urine Bilirubin NEGATIVE NEGATIVE Urine Urobilinogen 0.2 < = 1.0 MG/DL Urine Leukocyte Esterase NEGATIVE NEGATIVE Urine RBC (Auto) NEGATIVE NEGATIVE Urine RBC NONE /HPF Urine WBC RARE /HPF Urine Squamous Epithelial Cells 2-5 /HPF Urine Crystals NONE /LPF Urine Bacteria NEGATIVE /HPF Urine Casts NONE /LPF Urine Mucus NEGATIVE /LPF Urine Culture Indicated NO White Blood Count 10.9 4.3-11.0 10^3/uL Red Blood Count 4.69 3.80-5.11 10^6/uL Hemoglobin 11.6 11.5-16.0 g/dL Hematocrit 38 35-52 % Mean Corpuscular Volume 82 80-99 fL Mean Corpuscular Hemoglobin 25 25-34 pg Mean Corpuscular Hemoglobin Concent 30 L 32-36 g/dL Red Cell Distribution Width 15.4 H 10.0-14.5 % Platelet Count 300 130-400 10^3/uL Mean Platelet Volume 11.2 9.0-12.2 fL Immature Granulocyte % (Auto) 1 % Neutrophils (%) (Auto) 68 42-75 % Lymphocytes (%) (Auto) 22 12-44 % Monocytes (%) (Auto) 6 0-12 % Eosinophils (%) (Auto) 3 0-10 % Basophils (%) (Auto) 1 0-10 % Neutrophils # (Auto) 7.4 1.8-7.8 10^3/uL Lymphocytes # (Auto) 2.4 1.0-4.0 10^3/uL Monocytes # (Auto) 0.7 0.0-1.0 10^3/uL Eosinophils # (Auto) 0.3 0.0-0.3 10^3/uL Basophils # (Auto) 0.1 0.0-0.1 10^3/uL Immature Granulocyte # (Auto) 0.1 0.0-0.1 10^3/uL Prothrombin Time 13.0 12.2-14.7 SEC INR Comment 0.9 0.8-1.4 Activated Partial Thromboplast Time 27 24-35 SEC D-Dimer 0.47 0.00-0.49 UG/ML Sodium Level 136 135-145 MMOL/L Potassium Level 4.0 3.6-5.0 MMOL/L Chloride Level 102 98-107 MMOL/L Carbon Dioxide Level 24 21-32 MMOL/L Anion Gap 10 5-14 MMOL/L Blood Urea Nitrogen 13 7-18 MG/DL Creatinine 0.70 0.60-1.30 MG/DL Estimat Glomerular Filtration Rate > 60 BUN/Creatinine Ratio 19 Glucose Level 90 70-105 MG/DL Calcium Level 8.9 8.5-10.1 MG/DL Corrected Calcium 8.9 8.5-10.1 MG/DL Total Bilirubin 0.3 0.1-1.0 MG/DL Aspartate Amino Transf (AST/SGOT) 15 5-34 U/L Alanine Aminotransferase (ALT/SGPT) 27 0-55 U/L Alkaline Phosphatase 70 40-136 U/L Lactate Dehydrogenase 236 H 125-220 U/L Troponin I < 0.028 <0.028 NG/ML C-Reactive Protein High Sensitivity 1.79 H 0.00-0.50 MG/DL Total Protein 7.6 6.4-8.2 GM/DL Albumin 4.0 3.2-4.5 GM/DL Procalcitonin 0.03 <0.10 NG/ML Micro Results Microbiology 10/22/20 Influenza Types A,B Antigen (TALHA) - Final, Complete My Orders Orders - KATHIE PINEDA Influenza A And B Antigens (10/22/20 18:49) Covid 19 Inhouse Test (10/22/20 18:49) Urine Bedside (10/22/20 18:49) Ua Culture If Indicated (10/22/20 18:49) Ns Iv 1000 Ml (Sodium Chloride 0.9%) (10/22/20 19:22) Dexamethasone Injection (Decadron Injec (10/22/20 19:22) Ed Iv/Invasive Line Start (10/22/20 19:24) Ns Iv 1000 Ml (Sodium Chloride 0.9%) (10/22/20 19:30) Dexamethasone Injection (Decadron Inje (10/22/20 19:30) Cbc With Automated Diff (10/22/20 19:24) Comprehensive Metabolic Panel (10/22/20 19:24) Hs C Reactive Protein (10/22/20 19:24) Fibrin Degradation Products (10/22/20 19:24) Protime With Inr (10/22/20 19:24) Partial Thromboplastin Time (10/22/20 19:24) Troponin I (10/22/20 19:24) Chest 1 View, Ap/Pa Only (10/22/20 19:24) Ekg Tracing (10/22/20 19:24) Procalcitonin (Pct) (10/22/20 19:27) LDH (10/22/20 19:) Vital Signs: Every 4 Hours (Or (10/22/20 19:52) Ferritin (10/22/20:52) Ekg Tracing (10/22/20:52) Coronavirus Sars-Cov-2 So 2018 (10/22/20 19:52) Sputum Culture (10/22/20 20:18) Acetaminophen Tablet/Caplet (Tylenol T (10/22/20 20:42) Ceftriaxone For Iv Use (Rocephin For I (10/22/20 20:45) Azithromycin Injection (Zithromax Inject (10/22/20 20:45) Rx-Ondansetron Po (Rx-Zofran Po) (10/22/20 21:57) Medications Given in ED Current Medications Medications Dose Ordered Sig/Monica Route Start Time Stop Time Status Last Admin Dose Admin Azithromycin 500 mg/Sodium Chloride 255 ml @ 250 mls/hr ONCE ONCE IV 10/22/20 20:45 10/22/20 21:46 DC 10/22/20 21:01 250 MLS/HR Ceftriaxone Sodium 1000 mg/ Sterile Water 10 ml @ 200 mls/hr ONCE ONCE IV 10/22/20 20:45 10/22/20 20:47 DC 10/22/20 21:01 200 MLS/HR Dexamethasone Sodium Phosphate 8 mg ONCE ONCE IV 10/22/20 19:30 10/22/20 19:31 DC 10/22/20 19:30 8 MG Vital Signs/I&O 10/22/20 18:45 Temp 36.6 Pulse 100 Resp 22 B/P (MAP) 162/92 (115) O2 Delivery Room Air Capillary Refill : Less Than 3 Seconds Blood Pressure Mean: 115 Progress Note : Time: 18:45 Progress Note Patient seen and evaluated, afebrile, SaO2 97 to 99% on room air. Will complete labs, EKG and chest x-ray. Normal saline 1 L per IV, Decadron 8 mg IV. 1934 rapid Covid swab negative, influenza A/B negative. Will do send out COVID- 19 Chest x-ray shows possible early pneumonia on the right lower lobe. 1999 azithromycin and Rocephin for pneumonia, IV. Then will plan discharge. 2014 patient complains of headache, Tylenol 650 mg orally given. Patient will give Sputum specimen. 2129 antibiotics infused, patient complains of mild nausea will give Zofran. Unable to provide sputum sample. Discharge instructions, return precautions and quarantine reviewed with patient. All questions answered. ECG Initial ECG Impression Date: Oct 22, 2020 Initial ECG Impression Time: 19:16 Initial ECG Rate: 94 Initial ECG Rhythm: Normal Sinus Initial ECG Intervals: Normal Initial ECG Intervals VT 161, QRSD 102, QT 352, QTc 441. [place] P 30, QRS 8, T 13. Initial ECG Impression: Normal Initial ECG Comparisson: Unchanged Diagnostic Imaging Diagonstic Imaging: Xray Plain Films/CT/US/NM/MRI: chest Comments NAME: HUNTER COBB MED REC#: [id number] PT STATUS: REG ER : 1990 PHYSICIAN: KATHIE PINEDA ADMIT DATE: 10/22/20/ER Draft Date of Exam:10/22/20 CHEST 1 VIEW, AP/PA ONLY INDICATION: Covid pneumonia, shortness of breath and chest pain. FINDINGS: Heart size is normal. There are patchy infiltrates in the right lung base. There is no pleural effusion or pneumothorax. Mediastinum is unremarkable. IMPRESSION: Patchy right base infiltrate suspect for pneumonia. Dictated on workstation # [id number] Dict: 10/22/202003 Trans: 10/22/202010 PJE [id number] Interpreted by: JOE RG MD Electronically signed by: Departure Impression Primary Impression: Asthma Qualified Codes: J45.40 - Moderate persistent asthma, uncomplicated Additional Impressions: Right lower lobe pneumonia Qualified Codes: J18.9 - Pneumonia, unspecified organism Person under investigation for COVID-19 Disposition: 01 HOME, SELF-CARE Condition: Stable Departure-Patient Inst. Decision time for Depature: 21:15 Referrals: [facility] (PCP) Primary Care Physician PIPE OHARA APRN (Family) Primary Care Physician Patient Instructions: Pneumonia, Adult (DC), Coronavirus Disease 2019 (COVID- 19) ED, Asthma, Adult ED Add. Discharge Instructions: Continue to use your medications for asthma, for additional shortness of air use 2 to 4 puffs of your albuterol every 4 hours, wait 2 to 3 minutes before puffs. Take aspirin 81 mg once daily Begin an immune multivitamin that has vitamin C, vitamin D and zinc. Quarantine at home until your Covid 19 send out test results are called to you. Take antibiotics and steroids as prescribed. Have someone get your medications and leave on your porch. Call your primary care provider if your symptoms are not improving or worsen. You may take Tylenol 650 mg alternating with ibuprofen 600 mg every 4 hours for fever or headache. Continue to use your CPAP when sleeping. Walk in your home and do not stay sedentary, take deep breaths 10 times every hour while awake. Increase water intake, 16 ounces every 2 hours while awake. Return to the emergency department for shortness of breath not relieved with your inhaler, fever greater than 101 degrees not relieved with Tylenol or ibuprofen, chest pain, or new urgent healthcare needs. All discharge instructions reviewed with patient and/or family. Voiced understanding. Scripts Ondansetron (Ondansetron Odt) 4 Mg Tab.rapdis 4 MG PO Q6H PRN for NAUSEA/VOMITING, #8 TAB 0 Refills Prov: KATHIE PINEDA 10/22/20 Prednisone (Prednisone) 20 Mg Tab 40 MG PO DAILY, #6 TAB 0 Refills Prov: KATHIE PINEDA 10/22/20 Amoxicillin/Potassium Clav (Augmentin 875-125 Tablet) 1 Each Tablet 1 EACH PO BID, #20 TAB 0 Refills Prov: KATHIE PINEDA 10/22/20 Work/School Note: Work Release Form Date Seen in the Emergency Department: Oct 22, 2020 Other Restrictions Listed Below: No work until COVID testing results and symptom free 48 hours. KATHIE PINEDA Oct 22, 2020 19:49
--- NOTE | 2020-10-22 20:12 | Diagnostic Imaging Report ---
INDICATION: Covid pneumonia, shortness of breath and chest pain. FINDINGS: Heart size is normal. There are patchy infiltrates in the right lung base. There is no pleural effusion or pneumothorax. Mediastinum is unremarkable. IMPRESSION: Patchy right base infiltrate suspect for pneumonia. Dictated by: Dictated on workstation # [id number]
[2020-10-22] MEDS ORDERED: ACETAMINOPHEN 325 MG TABLET PO STA (20:42)
[2020-10-22] MEDS ORDERED: AZITHROMYCIN INJECTION 500 MG in NS (IVPB) 250 ML IV ONE (20:45)
[2020-10-22] MEDS ORDERED: cefTRIAXone FOR IV USE 1,000 MG in WATER (STERILE) FOR INJECTION 10 ML IV ONE (20:45)
[2020-10-22] MEDS ORDERED: PRD20T PO (20:49)
[2020-10-22] MEDS ORDERED: AMOX-358 PO (20:49)
[2020-10-22] MEDS ORDERED: RX-ONDANSETRON 4 MG ODT (ZOFRAN) PPK #4 ONE (21:54)
[2020-10-22] MEDS ORDERED: RX-ONDANSETRON 4 MG ODT (ZOFRAN) PPK #4 PO STA (21:57)
[2020-10-22] MEDS ORDERED: ONDA4TAB11 PO (21:59)
[2020-10-22 22:05] VITALS: BP 123/97
== END 2020-10-22 22:05 | disposition home or self-care (01) ==
LOC: EDUNIT# 18:33 → ER 18:34
DX: J45.909 Unspecified asthma, uncomplicated (principal); J18.1 Lobar pneumonia, unspecified organism; E66.9 Obesity, unspecified; G89.29 Other chronic pain; M54.9 Dorsalgia, unspecified; Z20.828 Contact with and (suspected) exposure to other viral communicable diseases; Z68.44 Body mass index [BMI] 60.0-69.9, adult; Z82.49 Family history of ischemic heart disease and other diseases of the circulatory system; Z87.891 Personal history of nicotine dependence; Z79.891 Long term (current) use of opiate analgesic; Z79.52 Long term (current) use of systemic steroids
CPT/HCPCS: 71045; 80053; 81000; 82728; 83615; 84145; 84484; 84703; 85025; 85379; 85610; 85730; 86141; 87804; 93005; 99284; U0002; 36415; 87635

== ENCOUNTER 2020-11-09 05:37 | Outpatient (RCR) | payer OTHER ==
[~2020-11-09 05:37] MED LIST changes: +AMOX-358 PO
[2020-11-09] MEDS ORDERED: METF-397 PO (13:56)
== END 2020-11-09 14:19 | disposition home or self-care (01) ==
LOC: PREOP 05:37
PROVIDERS: ATTEND Surgery
DX: Z01.812 Encounter for preprocedural laboratory examination (principal); L05.91 Pilonidal cyst without abscess

== ENCOUNTER 2020-11-15 08:01 | Day surgery (SDC) | payer OTHER ==
[2020-11-15] VITALS (11 sets, daily range): BP systolic 107–165; BP diastolic 35–82
[~2020-11-15] VITALS: Ht 177.8 cm; Wt 192.0 kg
[~2020-11-15 08:01] MED LIST changes: +METF-397 PO
--- NOTE | 2020-11-15 08:07 | Progress Note-Pre Operative ---
Pre-Operative Progress Note H&P Reviewed The H&P was reviewed, patient examined and no changes noted. Time Seen by Provider: 08:05 Date H&P Reviewed: Nov 15, 2020 Time H&P Reviewed: 08:06 Pre-Operative Diagnosis: pilonidal cyst SABRINA SAUNDERS DO Nov 15, 2020 08:07
[2020-11-15] MEDS ORDERED: CATHETER FLUSH 10 ML SYR IV PRN (08:30)
[2020-11-15] MEDS ORDERED: ceFAZolin 2 GM IV Premixed 50 ML IV ONE (08:30)
[2020-11-15] MEDS ORDERED: LACTATED RINGERS 1,000 ML IV PRN (08:30)
[2020-11-15] MEDS ORDERED: LIDOCAINE/EPI 1%-1:100,000 (XYLOCAINE) 50 ML ONE (08:52)
[2020-11-15] MEDS ORDERED: MIDAZOLAM 2 MG/2 ML (VERSED) VIAL ONE (09:01)
[2020-11-15] MEDS ORDERED: fentaNYL INJECTION 100 MCG/2 ML AMP ONE (09:01)
[2020-11-15] MEDS ORDERED: proPOfol 200 MG/20 ML (DIPRIVAN) VIAL IV ONE (09:09)
[2020-11-15] MEDS ORDERED: ONDANSETRON 4 MG/2 ML (SDV) Z0FRAN ONE (09:09)
[2020-11-15] MEDS ORDERED: ROCURONIUM 10 MG/ML 5 ML SYRINGE IV ONE (09:10)
[2020-11-15] MEDS ORDERED: SUCCINYLCHOLINE INJ 100 MG/5 ML SYR/VIAL ONE (09:10)
[2020-11-15] MEDS ORDERED: LIDOCAINE PF 2% 5 ML (XYLOCAINE) VIAL ONE (09:10)
[2020-11-15] MEDS ORDERED: DESFLURANE (SUPRANE) 15 ML INHAL SOLN ONE (09:10)
--- NOTE | 2020-11-15 10:04 | Progress Note-Post Operative ---
Post-Operative Progess Note Surgeon (s)/Batch Mixing Truck Driver (s) Surgeon SABRINA SAUNDERS DO Batch Mixing Truck Driver: ARTURO Copeland Pre-Operative Diagnosis pilonidal cyst Post-Operative Diagnosis same Procedure & Operative Findings Date of Procedure 11/15/20 Procedure Performed/Findings Exc of pilonidal cyst with packing Anesthesia Type GET Estimated Blood Loss Estimated blood loss (mL): scant Specimens/Packing Specimens Removed pilonidal cyst SABRINA SAUNDERS DO Nov 15, 2020 10:04
[2020-11-15] MEDS ORDERED: ACHYD1T PO (10:05)
--- NOTE | 2020-11-15 10:06 | Discharge Inst-Surgical ---
Discharge Inst-Surgical Depart Medication/Instructions New, Converted or Re-Newed RX: RX Given to Pt/Family Patient Instructions Follow up Appt: Make appointment for 1 week. [phone] Instructions: No strenuous activity. May shower in 24 hours, no tub bath or soaking. Use incentive spirometer at home as directed. No Smoking Skin/Wound Care: May remove bandages in am. You need to leave the Dermabond on incision it will fall off on it's own. Symptoms to Report: Appetite Changes, Extremity Discoloration, Numbness/Tingling, Swelling Increased, Bleeding Excessive, Eyesight Changes, Pain Increased, Urine Color Lora nge, Constipation(Persistent), Fever over 101 degree F, Pain/Pressure in chest, Urinating Difficulty, Cough Up/Vomit Blood, Heart Beat Irreg/Pounding, Pain/Pressure in jaw, Cramps in feet or legs, Lightheadedness, Pain/Pressure in shoulder, Diarrhea(Persistent), Memory Changes Suddenly, Questions/Concerns, Weight gain consecutive days, Dizziness/Fainting, Nausea/Vomiting, Shortness of Breath, Weight gain over 2 pounds If questions or concerns contact your physician Or seek help at emergency department. Activity Activity as Tolerated: Yes Activity Instructions: Avoid Stress to Incision Driving Instructions: No Driving/Refer to Dr. Mcgill Discharge Diet: No Restrictions Diet After 24 Hours: Clear Liquid if Nauseous If Any Problems/Questions/Issu: Contact Your Physician, Go to Emergency Room Skin/Wound Care Infection Signs and Symptoms: Increased Redness, Foul Odor of Wound, Increased Drainage, Skin Itchy or Has a Rash, Increased Swelling, Temperature Above 101 F Bathing Instructions: SABRINA Carbajal DO Nov 15, 2020 10:06
--- NOTE | 2020-11-15 10:25 | Anesthesia-General Post-Op ---
General Patient Condition Mental Status/LOC: Same as Preop Cardiovascular: Satisfactory Nausea/Vomiting: Absent Respiratory: Satisfactory Pain: Controlled Complications: Absent Post Op Complications Complications None Follow Up Care/Instructions Patient Instructions None needed. Anesthesia/Patient Condition Patient Condition Patient is doing well, no complaints, stable vital signs, no apparent adverse anesthesia problems. No complications reported per nursing. MARGRET MEEK CRNA Nov 15, 2020 10:25
[2020-11-15] MEDS ORDERED: morphine INJ 10 MG/ML 1ML (SYR OR VIAL) IVP ONE (10:30)
[2020-11-15] MEDS: ONDANSETRON 4 MG/2 ML (SDV) Z0FRAN IVP PRN ×2 (10:46→11:30)
[2020-11-15] MEDS ORDERED: HYDROcodone/APAP 10 MG/325 MG (LORTAB) TAB PO ONE (12:30)
--- NOTE | 2020-11-15 19:42 | OPERATIVE REPORT ---
DATE OF SERVICE: 11/15/2020 PREOPERATIVE DIAGNOSIS: Pilonidal cyst. POSTOPERATIVE DIAGNOSIS: Pilonidal cyst. PROCEDURE: Excision of pilonidal cyst. SURGEON: Jake Hatch DO FLORAL ASSISTANT: FELIPE Copeland. ANESTHESIA: General endotracheal tube. SPECIMEN: Pilonidal cyst. BLOOD LOSS: Scant. FLUIDS: Per anesthesia. POSTOPERATIVE CONDITION: Stable. INDICATION FOR PROCEDURE: The patient is a 30-year-old female who has an opening in between her gluteal cheeks diagnosed with pilonidal cyst. It has occasionally drained and she wanted this removed. FINDINGS: The patient had a pilonidal cyst removed and sent to pathology. PROCEDURE NOTE: After informed consent was obtained, the patient was brought to the operating room, placed on the table in the prone position. She was sterilely prepped and draped in normal fashion. Local lidocaine was used to infiltrate the pilonidal cyst. The patient had multiple small pinpoint holes in between the gluteal cheeks, but she had one area that was measured about 4 mm x about 2 mm, had some good granulation tissue in it, but this area had been leaking. I infiltrated around this with local, then made an incision with 11 blade, carried down through the skin and subcutaneous tissues, made a circular incision around this opening and grasped with an Allis and then dissected down with Bovie electrocautery. Elected to open the incision superiorly and inferiorly to be able to get all of this sinus tract down to the sacrum, able to get all the way down and removed the sinus tract, did not really see any other sinus tract, even though she had these pinpoint holes above and below this point, copiously irrigated. Hemostasis obtained. Elected to pack with quarter-inch iodoform packing. The patient tolerated the procedure and transferred to recovery room in stable condition. Sponge, instrument and needle count was correct at the end of the case. Job ID: [id number] DocumentID: [id number] Dictated Date: 11/15/2020 13:01:00 Operations Systems Specialist Date: 11/15/2020 19:40:46 Dictated By: JAKE HATCH DO
== END 2020-11-15 12:40 | disposition home or self-care (01) ==
LOC: SDC 08:01
PROVIDERS: ATTEND Surgery
DX: L05.91 Pilonidal cyst without abscess (principal); G47.33 Obstructive sleep apnea (adult) (pediatric); K21.9 Gastro-esophageal reflux disease without esophagitis; E11.9 Type 2 diabetes mellitus without complications; I10 Essential (primary) hypertension; J45.909 Unspecified asthma, uncomplicated; E66.01 Morbid (severe) obesity due to excess calories; Z68.44 Body mass index [BMI] 60.0-69.9, adult; Z79.51 Long term (current) use of inhaled steroids; Z79.899 Other long term (current) drug therapy; Z79.84 Long term (current) use of oral hypoglycemic drugs; Z87.891 Personal history of nicotine dependence
CPT/HCPCS: 82962; 84703; 87081; 88304

== ENCOUNTER 2020-12-16 13:01 | Emergency (ER) | payer OTHER ==
[~2020-12-16] VITALS: Ht 177.8 cm; Wt 181.4 kg
[2020-12-16 13:49] LABS: BILIRUBIN,URINE NEGATIVE (NEGATIVE); CLARITY,URINE CLOUDY; COLOR,URINE YELLOW; GLUCOSE, URINE (UA) NEGATIVE (NEGATIVE); KETONES,URINE NEGATIVE (NEGATIVE); LEUKOCYTE ESTERASE ,URINE NEGATIVE (NEGATIVE); NITRITE,URINE NEGATIVE (NEGATIVE); PROTEIN,URINE NEGATIVE (NEGATIVE)
[2020-12-16 14:02] LABS: BACTERIA,URINE LARGE /HPF; RBC,URINE 0-2 /HPF; SQUAMOUS EPITHELIAL CELL,UR 25-50 /HPF; WBC,URINE 0-2 /HPF
[2020-12-16 14:03] LABS: BASOPHILS % (AUTO) 1 % (0-10); EOSINOPHILS # (AUTO) 0.1 10^3/uL (0.0-0.3); EOSINOPHILS % (AUTO) 1 % (0-10); HEMATOCRIT 37 % (35-52); HEMOGLOBIN 10.9 g/dL (11.5-16.0); LYMPHOCYTES # (AUTO) 1.2 10^3/uL (1.0-4.0); LYMPHOCYTES % (AUTO) 23 % (12-44); MEAN CORPUSCULAR HEMOGLOBIN 24 pg (25-34); MEAN CORPUSCULAR HGB CONC 30 g/dL (32-36); MEAN CORPUSCULAR VOLUME 82 fL (80-99); MEAN PLATELET VOLUME 10.8 fL (9.0-12.2); MONOCYTES # (AUTO) 0.7 10^3/uL (0.0-1.0); MONOCYTES % (AUTO) 13 % (0-12); NEUTROPHILS # (AUTO) 3.3 10^3/uL (1.8-7.8); NEUTROPHILS % (AUTO) 62 % (42-75); PLATELET COUNT 237 10^3/uL (130-400); WHITE BLOOD COUNT 5.3 10^3/uL (4.3-11.0)
--- NOTE | 2020-12-16 14:07 | ED General ---
General Chief Complaint: General Problems/Pain Stated Complaint: FEVER / HEADACHE Nursing Triage Note: Pt ambulatory to ED with multiple complaints. Pt c/o increased SOB. Pt reports having asthma. Pt reports headache and low and middle back pain with urinary burning and "dribbling". Pt reports back and urinary issues began three days ago. Pt reports fever began last night and got as high as 103.9. Pt reports taking 650 mg tylenol at approximately 1100. Pt reports being tested for COVID at work on but has not received the results. Nursing Sepsis Screen: No Definite Risk Source of Information: Patient Exam Limitations: No Limitations History of Present Illness Date Seen by Provider: Dec 16, 2020 Time Seen by Provider: 13:45 Initial Comments This is a 30-year-old female who presents to the ER with complaints of urinary hesitancy, dribbling, burning and right lower back pain for the past 3 days. States she recently had a pilonidal cyst I&D, and is having quite a bit of purulent discharge. She is currently followed by Dr. Saunders. Reports decreased fluid intake, due to hectic work schedule. Additionally, reports increasing shortness of breath with activity, but states she does have history of asthma. Has been using her albuterol inhaler at home with minimal relief. States she is COIVD tested twice a week at her work, and has test pending from . She has been alternating Tylenol and Excedrin with no relief. Allergies and Home Medications Allergies Coded Allergies: No Known Drug Allergies (Unverified , 10/04/10) Home Medications Hydrocodone Bit/Acetaminophen 1 Ea Tab, 1 TAB PO Q6H Prescribed by: SABRINA SAUNDERS on 11/15/20 1005 Metformin HCl 500 Mg Tablet, 500 MG PO BID, (Reported) Ondansetron 4 Mg Tab.rapdis, 8 MG PO Q6H PRN for NAUSEA/VOMITING-1ST LINE Prescribed by: KATHIE PINEDA on 01/20/19 1524 Sulfamethoxazole/Trimethoprim 1 Each Tablet, 1 EACH PO BID Prescribed by: DIPTI DURAN on 12/16/20 1017 Patient Home Medication List Home Medication List Reviewed: Yes Review of Systems Review of Systems Constitutional: see HPI EENTM: no symptoms reported Respiratory: see HPI Cardiovascular: no symptoms reported Gastrointestinal: see HPI Genitourinary: see HPI Musculoskeletal: no symptoms reported Skin: see HPI Psychiatric/Neurological: No Symptoms Reported Hematologic/Lymphatic: No Symptoms Reported Immunological/Allergic: no symptoms reported Past Xwhbqrc-Yqsbjw-Thnynp Hx Patient Social History Alcohol Use: Denies Use Smoking Status: Former Smoker Type Used: Cigarettes Former Smoker, Quit: Sep 10, 2018 Recent Infectious Disease Expo: No Recent Hopitalizations: No Immunizations Up To Date Tetanus Booster (TDap): Less than 5yrs Date of Influenza Vaccine: Sep 03, 2020 Seasonal Allergies Seasonal Allergies: No Past Medical History Surgeries: Yes Gallbladder Respiratory: Yes Asthma, Sleep Apnea Currently Using CPAP: Yes Currently Using BIPAP: No Cardiac: No Neurological: No Reproductive Disorders: No Female Reproductive Disorders: Denies Sexually Transmitted Disease: No HIV/AIDS: No Genitourinary: No Kidney Stones Gastrointestinal: No Gastroesophageal Reflux, Ulcer Musculoskeletal: No Chronic Back Pain Endocrine: No Diabetes, Non-Insulin dep HEENT: No Hearing Impairment: Denies Cancer: No Psychosocial: No Sleep Difficulties, Suicide Attempts Integumentary: Yes (HAS HIDRADENITIS UNDER BREASTS) Blood Disorders: No Family Medical History Family history: Asthma 09 BROTHER, Onset:Childhood Family history: Gastrointestinal disease 03 MOTHER, Onset:Unknown Family history: Hypertension 03 FATHER, Onset:40's - 50 Kidney disease 03 MOTHER, Onset:Childhood No Family History of: Abdominal aortic aneurysm [place]'s disease Alcoholism Aphasia Cancer Cataract Chest pain Congenital heart disease Congestive heart failure Cystic fibrosis Dementia Dysphagia Family history: Allergy Family history: Alzheimer's disease Family history: Arthritis Family history: Breast disease Family history: Cardiovascular disease Family history: Coronary thrombosis Family history: Diabetes mellitus Family history: Glaucoma Family history: Osteoporosis Family history: Thyroid disorder Headache Hearing loss Heart disease Hereditary disease History of - anemia History of - disorder History of - respiratory disease History of drug abuse Human immunodeficiency virus (HIV) seropositivity Hypercholesterolemia Infertile Malignant neoplasm of lung Myocardial infarction Parkinson's disease Prostate cancer Psychotic disorder Seizure disorder Stroke Tuberculosis Visual impairment No Pertinent Family Hx Physical Exam Vital Signs Vital Signs - First Documented 12/16/20 13:15 Temp 37.0 Pulse 102 Resp 22 B/P (MAP) 182/93 (122) Pulse Ox 97 O2 Delivery Room Air Capillary Refill : Less Than 3 Seconds Height, Weight, BMI Height: 5'10.00" Weight: 320lbs. 0.0oz. 145.894892pn; 57.00 BMI Method:Stated General Appearance: No Apparent Distress, WD/WN Eyes: Bilateral Eye Normal Inspection, Bilateral Eye PERRL, Bilateral Eye EOMI HEENT: PERRL/EOMI, Normal ENT Inspection, Pharynx Normal, Moist Mucous Membranes Neck: Full Range of Motion, Normal Inspection, Supple Respiratory: Chest Non Tender, Lungs Clear, Normal Breath Sounds, No Accessory Muscle Use, No Respiratory Distress Cardiovascular: Regular Rate, Rhythm, No Murmur, Normal Peripheral Pulses Gastrointestinal: Normal Bowel Sounds, Non Tender Back: Normal Inspection, No Vertebral Tenderness Extremity: Normal Capillary Refill, Normal Inspection, Normal Range of Motion Neurologic/Psychiatric: Alert, Oriented x3, No Motor/Sensory Deficits, Normal Mood/Affect Skin: Normal Color, Warm/Dry Progress/Results/Core Measures Suspected Sepsis Recent Fever Within 48 Hours: Yes Infection Criteria Present: None New/Unexplained Altered Menta: No Sepsis Screen: No Definite Risk SIRS Temperature: Pulse: 102 Respiratory Rate: 22 Laboratory Tests 12/16/20 13:52: White Blood Count 5.3 Blood Pressure 182 /93 Mean: 122 Laboratory Tests 12/16/20 13:52: Creatinine 0.79, Platelet Count 237, Total Bilirubin 0.2 Results/Orders Lab Results Laboratory Tests Test 12/16/20 13:25 12/16/20 13:52 Range/Units Urine Color YELLOW Urine Clarity CLOUDY Urine pH 6.0 5-9 Urine Specific [place] 1.025 H 1.016-1.022 Urine Protein NEGATIVE NEGATIVE Urine Glucose (UA) NEGATIVE NEGATIVE Urine Ketones NEGATIVE NEGATIVE Urine Nitrite NEGATIVE NEGATIVE Urine Bilirubin NEGATIVE NEGATIVE Urine Urobilinogen 0.2 < = 1.0 MG/DL Urine Leukocyte Esterase NEGATIVE NEGATIVE Urine RBC (Auto) TRACE-I NEGATIVE Urine RBC 0-2 /HPF Urine WBC 0-2 /HPF Urine Squamous Epithelial Cells 25-50 H /HPF Urine Crystals NONE /LPF Urine Bacteria LARGE H /HPF Urine Casts NONE /LPF Urine Mucus NEGATIVE /LPF Urine Culture Indicated NO White Blood Count 5.3 4.3-11.0 10^3/uL Red Blood Count 4.49 3.80-5.11 10^6/uL Hemoglobin 10.9 L 11.5-16.0 g/dL Hematocrit 37 35-52 % Mean Corpuscular Volume 82 80-99 fL Mean Corpuscular Hemoglobin 24 L 25-34 pg Mean Corpuscular Hemoglobin Concent 30 L 32-36 g/dL Red Cell Distribution Width 15.9 H 10.0-14.5 % Platelet Count 237 130-400 10^3/uL Mean Platelet Volume 10.8 9.0-12.2 fL Immature Granulocyte % (Auto) 0 % Neutrophils (%) (Auto) 62 42-75 % Lymphocytes (%) (Auto) 23 12-44 % Monocytes (%) (Auto) 13 H 0-12 % Eosinophils (%) (Auto) 1 0-10 % Basophils (%) (Auto) 1 0-10 % Neutrophils # (Auto) 3.3 1.8-7.8 10^3/uL Lymphocytes # (Auto) 1.2 1.0-4.0 10^3/uL Monocytes # (Auto) 0.7 0.0-1.0 10^3/uL Eosinophils # (Auto) 0.1 0.0-0.3 10^3/uL Basophils # (Auto) 0.0 0.0-0.1 10^3/uL Immature Granulocyte # (Auto) 0.0 0.0-0.1 10^3/uL Sodium Level 138 135-145 MMOL/L Potassium Level 4.2 3.6-5.0 MMOL/L Chloride Level 105 98-107 MMOL/L Carbon Dioxide Level 24 21-32 MMOL/L Anion Gap 9 5-14 MMOL/L Blood Urea Nitrogen 11 7-18 MG/DL Creatinine 0.79 0.60-1.30 MG/DL Estimat Glomerular Filtration Rate > 60 BUN/Creatinine Ratio 14 Glucose Level 94 70-105 MG/DL Calcium Level 8.3 L 8.5-10.1 MG/DL Corrected Calcium 8.5 8.5-10.1 MG/DL Total Bilirubin 0.2 0.1-1.0 MG/DL Aspartate Amino Transf (AST/SGOT) 17 5-34 U/L Alanine Aminotransferase (ALT/SGPT) 25 0-55 U/L Alkaline Phosphatase 62 40-136 U/L Total Protein 7.3 6.4-8.2 GM/DL Albumin 3.7 3.2-4.5 GM/DL Micro Results Microbiology 12/16/20 Influenza Types A,B Antigen (TALHA) - Final, Complete My Orders Orders - DIPTI DURAN APRN Influenza A And B Antigens (12/16/20 13:27) Ua Culture If Indicated (12/16/20 13:41) Chest 1 View, Ap/Pa Only (12/16/20 13:41) Comprehensive Metabolic Panel (12/16/20 13:41) Cbc With Automated Diff (12/16/20 13:41) Ketorolac Injection (Toradol Injection) (12/16/20 15:00) Orphenadrine Inj (Ed Only) (Norflex Inje (12/16/20 15:00) Ceftriaxone For Im Use (Rocephin For Im (12/16/20 15:00) Lidocaine 1% Inj 20 Ml (Xylocaine 1% Inj (12/16/20 15:00) Medications Given in ED Current Medications Medications Dose Ordered Sig/Monica Route Start Time Stop Time Status Last Admin Dose Admin Ceftriaxone Sodium 1,000 mg ONCE ONCE IM 12/16/20 15:00 12/16/20 15:01 DC 12/16/20 15:07 1,000 MG Ketorolac Tromethamine 60 mg ONCE ONCE IM 12/16/20 15:00 12/16/20 15:01 DC 12/16/20 15:09 60 MG Lidocaine HCl 2.1 ml ONCE ONCE INJ 12/16/20 15:00 12/16/20 15:01 DC 12/16/20 15:07 2.1 ML Vital Signs/I&O 12/16/20 12/16/20 13:15 15:36 Temp 37.0 37.0 Pulse 102 92 Resp 22 18 B/P (MAP) 182/93 (122) 152/90 (122) Pulse Ox 97 97 O2 Delivery Room Air Room Air Capillary Refill : Less Than 3 Seconds Blood Pressure Mean: 122 Progress Note : Progress Note Pt. examined and in no acute distress. Has COVID test pending. Will check urine, basic labs, CXR, and influenza at this time. Currently she is resting comfortably. Labs reviewed and are unremarkable. Influenza negative. Chest x-ray shows no acute findings. Slight urinary tract infection vs contaminated sample, will treat with Bactrim as this will also help with her pilonidal cyst. Pain in her back could certainly be from the cyst. She is not septic. discussed as living at home until she has results of her COVID test. Reviewed treatment plan and discharge POC, she is agreeable with plan. Diagnostic Imaging Diagonstic Imaging: Xray Plain Films/CT/US/NM/MRI: chest Comments NAME: [facility] REC#: [id number] PT STATUS: REG ER : 1990 PHYSICIAN: DIPTI DURAN APRN ADMIT DATE: 12/16/20/ER Signed Date of Exam:12/16/20 CHEST 1 VIEW, AP/PA ONLY CHEST 1 VIEW, AP/PA ONLY Indication: Chest pain. Comparison: 10/22/2020 Findings: Diffuse hazy opacities are secondary to patient's large body habitus. No focal airspace disease in the visualized lungs. Please note that the posterior lower lobes are poorly evaluated by portable radiography. No pleural effusion or pneumothorax. Normal cardiomediastinal silhouette. Impression: 1. No acute cardiopulmonary process by portable radiography. Dictated by: Dictated on workstation # [id number] Dict: 12/16/20 1439 Trans: 12/16/20 1440 [facility] [id number] Interpreted by: CARMELO HAUSER MD Electronically signed by: CARMELO HAUSER MD 12/16/20 1440 Reviewed: Reviewed by Me Departure Impression Primary Impression: Urinary tract infection Disposition: 01 HOME, SELF-CARE Condition: Improved Departure-Patient Inst. Decision time for Depature: 14:54 Referrals: [facility] (PCP) Primary Care Physician RANDY SESAY APRN (Family) Primary Care Physician Patient Instructions: Urinary Tract Infection, Adult (DC) Add. Discharge Instructions: Plan: 1. Discharge home. Increase fluid intake. 2. May take Tylenol or Ibuprofen as needed for pain per package instructions. 3. Follow up with Dr. Saunders next week regarding Pilonidal cyst. 4. Take antibiotics as directed and complete full course. 5. Return for any new or concerning symptoms. All discharge instructions reviewed with patient and/or family. Voiced understanding. Scripts Sulfamethoxazole/Trimethoprim (Bactrim Ds Tablet) 1 Each Tablet 1 EACH PO BID for 10 Days, #20 TAB 0 Refills Prov: DIPTI DURAN APRN 12/16/20 Work/School Note: Work Release Form Date Seen in the Emergency Department: Dec 16, 2020 Return to Work: Dec 19, 2020 Restrictions: Return-No Fever (24hrs) Restrictions: Need to wait for COVID results DIPTI DURAN APRN Dec 16, 2020 14:07
[2020-12-16 14:15] LABS: ALBUMIN 3.7 GM/DL (3.2-4.5); CHLORIDE 105 MMOL/L (98-107); POTASSIUM 4.2 MMOL/L (3.6-5.0); SODIUM 138 MMOL/L (135-145)
[2020-12-16 14:16] LABS: CALCIUM 8.3 MG/DL (8.5-10.1)
[2020-12-16 14:17] LABS: GLUCOSE 94 MG/DL (70-105)
[2020-12-16 14:18] LABS: TOTAL PROTEIN 7.3 GM/DL (6.4-8.2)
[2020-12-16 14:19] LABS: BILIRUBIN,TOTAL 0.2 MG/DL (0.1-1.0); CARBON DIOXIDE 24 MMOL/L (21-32)
[2020-12-16 14:21] LABS: ALKALINE PHOSPHATASE 62 U/L (40-136); CREATININE SERUM 0.79 MG/DL (0.60-1.30); GFR ESTIMATED > 60
[2020-12-16 14:22] LABS: BUN/CREATININE RATIO 14
[2020-12-16 14:24] LABS: ALANINE AMINOTRANSFERASE 25 U/L (0-55)
--- NOTE | 2020-12-16 14:41 | Diagnostic Imaging Report ---
CHEST 1 VIEW, AP/PA ONLY Indication: Chest pain. Comparison: 10/22/2020 Findings: Diffuse hazy opacities are secondary to patient's large body habitus. No focal airspace disease in the visualized lungs. Please note that the posterior lower lobes are poorly evaluated by portable radiography. No pleural effusion or pneumothorax. Normal cardiomediastinal silhouette. Impression: 1. No acute cardiopulmonary process by portable radiography. Dictated by: Dictated on workstation # [id number]
[2020-12-16] MEDS ORDERED: SULF1TAB35 PO (14:57)
[2020-12-16] MEDS ORDERED: ORPHENADRINE 60 MG/2 ML (NORFLEX) AMP (ED ONLY) IM ONE (15:00)
[2020-12-16] MEDS ORDERED: KETOROLAC 60 MG/2 ML VIAL IM ONE (15:00)
[2020-12-16] MEDS ORDERED: LIDOCAINE 1% INJ 20 ML 20 ML VIAL INJ ONE (15:00)
[2020-12-16] MEDS ORDERED: cefTRIAXone 1,000 MG/2.86 ml vial (IM ONLY) IM ONE (15:00)
[2020-12-16 15:36] VITALS: BP 152/90
== END 2020-12-16 15:35 | disposition home or self-care (01) ==
LOC: EDUNIT# 13:01 → ER 13:02
DX: N39.0 Urinary tract infection, site not specified (principal); G89.29 Other chronic pain; M54.9 Dorsalgia, unspecified; E11.9 Type 2 diabetes mellitus without complications; Z87.891 Personal history of nicotine dependence; Z82.49 Family history of ischemic heart disease and other diseases of the circulatory system; Z79.84 Long term (current) use of oral hypoglycemic drugs; Z79.891 Long term (current) use of opiate analgesic
CPT/HCPCS: 36415; 71045; 80053; 81000; 85025; 87804

== ENCOUNTER 2020-12-29 14:12 | Emergency (ER) | payer OTHER ==
[~2020-12-29] VITALS: Ht 177.8 cm; Wt 188.2 kg
[~2020-12-29 14:12] MED LIST changes: +SULF1TAB35 PO
[2020-12-29] MEDS ORDERED: NS IV 1000 ML 1,000 ML IV SCH (14:45)
[2020-12-29] MEDS ORDERED: ACETAMINOPHEN 325 MG TABLET PO ONE (14:45)
[2020-12-29 15:36] LABS: ALBUMIN 3.7 GM/DL (3.2-4.5); CHLORIDE 109 MMOL/L (98-107); SODIUM 141 MMOL/L (135-145)
[2020-12-29 15:37] LABS: CALCIUM 8.3 MG/DL (8.5-10.1)
[2020-12-29 15:38] LABS: GLUCOSE 85 MG/DL (70-105); TOTAL PROTEIN 7.2 GM/DL (6.4-8.2)
[2020-12-29 15:39] LABS: CARBON DIOXIDE 26 MMOL/L (21-32)
[2020-12-29 15:40] LABS: BILIRUBIN,TOTAL 0.3 MG/DL (0.1-1.0)
[2020-12-29 15:42] LABS: ALKALINE PHOSPHATASE 63 U/L (40-136); CREATININE SERUM 0.73 MG/DL (0.60-1.30); GFR ESTIMATED > 60
[2020-12-29 15:43] LABS: BUN/CREATININE RATIO 15
[2020-12-29 15:45] LABS: ALANINE AMINOTRANSFERASE 80 U/L (0-55)
[2020-12-29 15:47] LABS: BASOPHILS # (AUTO) 0.1 10^3/uL (0.0-0.1); BASOPHILS % (AUTO) 1 % (0-10); EOSINOPHILS # (AUTO) 0.2 10^3/uL (0.0-0.3); EOSINOPHILS % (AUTO) 3 % (0-10); HEMATOCRIT 39 % (35-52); HEMOGLOBIN 11.7 g/dL (11.5-16.0); LYMPHOCYTES # (AUTO) 2.1 10^3/uL (1.0-4.0); LYMPHOCYTES % (AUTO) 32 % (12-44); MEAN CORPUSCULAR HEMOGLOBIN 24 pg (25-34); MEAN CORPUSCULAR HGB CONC 30 g/dL (32-36); MEAN CORPUSCULAR VOLUME 80 fL (80-99); MEAN PLATELET VOLUME 12.1 fL (9.0-12.2); MONOCYTES # (AUTO) 0.5 10^3/uL (0.0-1.0); MONOCYTES % (AUTO) 8 % (0-12); NEUTROPHILS # (AUTO) 3.7 10^3/uL (1.8-7.8); NEUTROPHILS % (AUTO) 56 % (42-75); PLATELET COUNT 245 10^3/uL (130-400); WHITE BLOOD COUNT 6.6 10^3/uL (4.3-11.0)
--- NOTE | 2020-12-29 15:53 | Diagnostic Imaging Report ---
INDICATION: Shortness of breath. Comparison made to prior examination 12/16/2020. FINDINGS: The heart size, mediastinal configuration, and pulmonary vascularity are within normal limits. There is no pleural effusion, pneumothorax, or pneumonia. The osseous structures are unremarkable. IMPRESSION: No acute cardiopulmonary abnormality. Dictated by: Dictated on workstation # [id number]
[2020-12-29 16:09] LABS: PROTHROMBIN TIME PATIENT 13.3 SEC (12.2-14.7)
--- NOTE | 2020-12-29 16:44 | ED Respiratory ---
General Chief Complaint: Respiratory Problems Stated Complaint: COVID + SOB Nursing Triage Note: PT ABULATE TO ROOM 06 WITHOUT DIFFICULTY WITH C/O SOB. PT REPORTS TESTING POS FOR COVID-19 ON FRIDAY AND WAS GIVEN PRESCRIPTION FOR PREDNISONE. Source: patient Exam Limitations: no limitations History of Present Illness Date Seen by Provider: Dec 29, 2020 Time Seen by Provider: 14:33 Initial Comments 30-year-old female who presents to the emergency room with complaints of shortness of breath. Lost taste of smell and tested positive for Covid 19 on 12/26/2020. She reports that over the past few days she has had worsening shortness of breath. At time of diagnosis she was prescribed prednisone and is currently on day 3 of prednisone prescription. She denies fevers. Reports that she has had a lot of fatigue. Timing/Duration: getting worse Associated Symptoms: cough, shortness of breath Allergies and Home Medications Allergies Coded Allergies: No Known Drug Allergies (Unverified , 10/04/10) Home Medications Hydrocodone Bit/Acetaminophen 1 Ea Tab, 1 TAB PO Q6H Prescribed by: SABRINA SAUNDERS on 11/15/20 1005 Metformin HCl 500 Mg Tablet, 500 MG PO BID, (Reported) Ondansetron 4 Mg Tab.rapdis, 8 MG PO Q6H PRN for NAUSEA/VOMITING-1ST LINE Prescribed by: KATHIE PINEDA on 01/20/19 1524 Sulfamethoxazole/Trimethoprim 1 Each Tablet, 1 EACH PO BID Prescribed by: DIPTI DRUAN on 12/16/20 1457 Patient Home Medication List Home Medication List Reviewed: Yes Review of Systems Review of Systems Constitutional: see HPI; No chills, No fever; malaise Respiratory: see HPI, short of breath All Other Systems Reviewed Negative Unless Noted: Yes Past Usrcwdb-Drfgfj-Lniaoy Hx Past Med/Social Hx: Reviewed Nursing Past Med/Soc Hx Patient Social History Alcohol Use: Denies Use Smoking Status: Former Smoker Type Used: Cigarettes Former Smoker, Quit: Sep 10, 2018 2nd Hand Smoke Exposure: No Recent Infectious Disease Expo: No Recent Hopitalizations: No Immunizations Up To Date Tetanus Booster (TDap): Less than 5yrs Date of Influenza Vaccine: Sep 03, 2020 Seasonal Allergies Seasonal Allergies: No Past Medical History Surgeries: Yes Gallbladder Respiratory: Yes Asthma, Sleep Apnea Currently Using CPAP: Yes Currently Using BIPAP: No Cardiac: No Neurological: No Reproductive Disorders: No Female Reproductive Disorders: Denies Sexually Transmitted Disease: No HIV/AIDS: No Genitourinary: No Kidney Stones Gastrointestinal: No Gastroesophageal Reflux, Ulcer Musculoskeletal: No Chronic Back Pain Endocrine: No Diabetes, Non-Insulin dep HEENT: No Hearing Impairment: Denies Cancer: No Psychosocial: No Sleep Difficulties, Suicide Attempts Integumentary: Yes (HAS HIDRADENITIS UNDER BREASTS) Blood Disorders: No Family Medical History Reviewed Nursing Family Hx Family history: Asthma 09 BROTHER, Onset:Childhood Family history: Gastrointestinal disease 03 MOTHER, Onset:Unknown Family history: Hypertension 03 FATHER, Onset:40's - 50 Kidney disease 03 MOTHER, Onset:Childhood No Family History of: Abdominal aortic aneurysm [place]'s disease Alcoholism Aphasia Cancer Cataract Chest pain Congenital heart disease Congestive heart failure Cystic fibrosis Dementia Dysphagia Family history: Allergy Family history: Alzheimer's disease Family history: Arthritis Family history: Breast disease Family history: Cardiovascular disease Family history: Coronary thrombosis Family history: Diabetes mellitus Family history: Glaucoma Family history: Osteoporosis Family history: Thyroid disorder Headache Hearing loss Heart disease Hereditary disease History of - anemia History of - disorder History of - respiratory disease History of drug abuse Human immunodeficiency virus (HIV) seropositivity Hypercholesterolemia Infertile Malignant neoplasm of lung Myocardial infarction Parkinson's disease Prostate cancer Psychotic disorder Seizure disorder Stroke Tuberculosis Visual impairment No Pertinent Family Hx Physical Exam Vital Signs - First Documented 12/29/20 14:37 Temp 36.1 Pulse 96 Resp 18 B/P (MAP) 160/111 (127) O2 Delivery Room Air Capillary Refill : Less Than 3 Seconds Height: 5'10.00" Weight: 320lbs. 0.0oz. 145.132986wq; 59.00 BMI Method:Stated General Appearance: WD/WN, no apparent distress HEENT: PERRL/EOMI, normal ENT inspection, TMs normal, pharynx normal Respiratory: chest non-tender, lungs clear, normal breath sounds, no respiratory distress, no accessory muscle use Cardiovascular: normal peripheral pulses, regular rate, rhythm, no edema, no gallop, no JVD, no murmur Gastrointestinal: normal bowel sounds, non tender, soft Extremities: normal capillary refill Neurologic/Psychiatric: alert, normal mood/affect, oriented x 3 Skin: normal color, warm/dry Focused Exam Lactate Level 12/29/20 14:51: Lactic Acid Level 1.01 Lactic Acid Level Laboratory Tests Test 12/29/20 14:51 Lactic Acid Level 1.01 MMOL/L (0.50-2.00) Progress/Results/Core Measures Suspected Sepsis Recent Fever Within 48 Hours: No Infection Criteria Present: Documented Infection New/Unexplained Altered Menta: No Sepsis Screen: No Definite Risk SIRS Temperature: Pulse: 96 Respiratory Rate: 18 Laboratory Tests 12/29/20 14:51: White Blood Count 6.6 Blood Pressure 160 /111 Mean: 127 12/29/20 14:51: Lactic Acid Level 1.01 Laboratory Tests 12/29/20 14:51: Creatinine 0.73, INR Comment 1.0, Platelet Count 245, Total Bilirubin 0.3 Results/Orders Lab Results Laboratory Tests Test 12/29/20 14:51 Range/Units White Blood Count 6.6 4.3-11.0 10^3/uL Red Blood Count 4.86 3.80-5.11 10^6/uL Hemoglobin 11.7 11.5-16.0 g/dL Hematocrit 39 35-52 % Mean Corpuscular Volume 80 80-99 fL Mean Corpuscular Hemoglobin 24 L 25-34 pg Mean Corpuscular Hemoglobin Concent 30 L 32-36 g/dL Red Cell Distribution Width 15.3 H 10.0-14.5 % Platelet Count 245 130-400 10^3/uL Mean Platelet Volume 12.1 9.0-12.2 fL Immature Granulocyte % (Auto) 0 % Neutrophils (%) (Auto) 56 42-75 % Lymphocytes (%) (Auto) 32 12-44 % Monocytes (%) (Auto) 8 0-12 % Eosinophils (%) (Auto) 3 0-10 % Basophils (%) (Auto) 1 0-10 % Neutrophils # (Auto) 3.7 1.8-7.8 10^3/uL Lymphocytes # (Auto) 2.1 1.0-4.0 10^3/uL Monocytes # (Auto) 0.5 0.0-1.0 10^3/uL Eosinophils # (Auto) 0.2 0.0-0.3 10^3/uL Basophils # (Auto) 0.1 0.0-0.1 10^3/uL Immature Granulocyte # (Auto) 0.0 0.0-0.1 10^3/uL Prothrombin Time 13.3 12.2-14.7 SEC INR Comment 1.0 0.8-1.4 Activated Partial Thromboplast Time 25 24-35 SEC Fibrinogen 402 221-496 MG/DL Sodium Level 141 135-145 MMOL/L Potassium Level 4.0 3.6-5.0 MMOL/L Chloride Level 109 H 98-107 MMOL/L Carbon Dioxide Level 26 21-32 MMOL/L Anion Gap 6 5-14 MMOL/L Blood Urea Nitrogen 11 7-18 MG/DL Creatinine 0.73 0.60-1.30 MG/DL Estimat Glomerular Filtration Rate > 60 BUN/Creatinine Ratio 15 Glucose Level 85 70-105 MG/DL Lactic Acid Level 1.01 0.50-2.00 MMOL/L Calcium Level 8.3 L 8.5-10.1 MG/DL Corrected Calcium 8.5 8.5-10.1 MG/DL Total Bilirubin 0.3 0.1-1.0 MG/DL Aspartate Amino Transf (AST/SGOT) 32 5-34 U/L Alanine Aminotransferase (ALT/SGPT) 80 H 0-55 U/L Alkaline Phosphatase 63 40-136 U/L Lactate Dehydrogenase 224 H 125-220 U/L Troponin I < 0.028 <0.028 NG/ML C-Reactive Protein High Sensitivity 0.35 0.00-0.50 MG/DL Total Protein 7.2 6.4-8.2 GM/DL Albumin 3.7 3.2-4.5 GM/DL My Orders Orders - MICHAEL VARGAS Vital Signs: Every 4 Hours (Or (12/29/20 14:32) Monitor-Rhythm Ecg Trace Only (12/29/20 14:32) Ed Iv/Invasive Line Start (12/29/20 14:32) Cbc With Automated Diff (12/29/20 14:32) Comprehensive Metabolic Panel (12/29/20 14:32) Ferritin (12/29/20 14:32) LDH (12/29/20 14:32) Hs C Reactive Protein (12/29/20 14:32) Troponin I (12/29/20 14:32) Lactic Acid Analyzer (12/29/20 14:32) Protime With Inr (12/29/20 14:32) Partial Thromboplastin Time (12/29/20 14:32) Fibrinogen (12/29/20 14:32) Ekg Tracing (12/29/20 14:32) Chest 1 View, Ap/Pa Only (12/29/20 14:32) Ns Iv 1000 Ml (Sodium Chloride 0.9%) (12/29/20 14:45) Acetaminophen Tablet/Caplet (Tylenol T (12/29/20 14:45) Medications Given in ED Current Medications Medications Dose Ordered Sig/Monica Route Start Time Stop Time Status Last Admin Dose Admin Acetaminophen 650 mg ONCE ONCE PO 12/29/20 14:45 12/29/20 14:46 DC 12/29/20 15:07 650 MG Vital Signs/I&O 12/29/20 14:37 Temp 36.1 Pulse 96 Resp 18 B/P (MAP) 160/111 (127) O2 Delivery Room Air Capillary Refill : Less Than 3 Seconds Blood Pressure Mean: 127 Progress Note : Time: 16:42 Progress Note I have seen and evaluated the patient. I informed her of her normal laboratory and imaging studies. She is feeling better after fluid administration. I have instructed her to continue previously prescribed medications. Use her rescue inhaler albuterol as needed. She agrees with plan of care, plans for discharge, return precautions were given. Departure Impression Primary Impression: COVID-19 Disposition: 01 HOME, SELF-CARE Condition: Stable/Unchanged Departure-Patient Inst. Decision time for Depature: 16:43 Referrals: [facility]/ (PCP) Primary Care Physician RANDY SESAY APRN (Family) Primary Care Physician Patient Instructions: Coronavirus Disease 2019 (COVID-19) Overview, Coronavirus Disease 2019 (COVID-19) (DC) Add. Discharge Instructions: Continue your medications as previously prescribed. Use your rescue inhaler as needed. Obtain a pulse oximetry to help monitor at home and if your oxygen saturation goes below 90% return back to the emergency room. Drink plenty of fluids to stay hydrated. Return back to the emergency room for worsening symptoms or concerns as needed. All discharge instructions reviewed with patient and/or family. Voiced understanding. MICHAEL VARGAS Dec 29, 2020 16:44
[2020-12-29 17:08] VITALS: BP 127/66
== END 2020-12-29 17:08 | disposition home or self-care (01) ==
LOC: EDUNIT# 14:12 → ER 14:13
DX: U07.1 COVID-19 (principal); E11.9 Type 2 diabetes mellitus without complications; G89.29 Other chronic pain; M54.9 Dorsalgia, unspecified; Z87.891 Personal history of nicotine dependence; Z82.49 Family history of ischemic heart disease and other diseases of the circulatory system; Z79.891 Long term (current) use of opiate analgesic; Z79.84 Long term (current) use of oral hypoglycemic drugs
CPT/HCPCS: 36415; 71045; 80053; 82728; 83605; 83615; 84484; 85025; 85384; 85610; 85730; 86141; 93005; 93041

== ENCOUNTER 2021-04-06 05:49 | Emergency (ER) | payer SELFPAY ==
[~2021-04-06] VITALS: Ht 177.8 cm; Wt 214.1 kg
[2021-04-06] MEDS ORDERED: RT-ALBUTEROL/IPRATROPIUM 3 ML (DUONEB) VIAL INH ONE (06:15)
[2021-04-06] MEDS ORDERED: predniSONE 20 MG TAB PO ONE (06:15)
--- NOTE | 2021-04-06 06:15 | ED Respiratory ---
General Chief Complaint: Respiratory Problems Stated Complaint: CHEST IS TIGHT,LEGS SWELLING Nursing Triage Note: Pt ambulates to ED 5 w/ c/o increasing shortness of breath and leg swelling. Pt reports it started 2 days ago. Reports using rescue inhalers without relief. Source: patient Exam Limitations: no limitations History of Present Illness Date Seen by Provider: Apr 06, 2021 Time Seen by Provider: 06:03 Initial Comments Patient is a 30-year-old female, morbid obesity who presents to the emergency department today with a chief complaint of shortness of breath and leg swelling. Patient states that she was cleaning out a basement for a new house that they were going to move into and states that she was exposed to some "black mold" within the last week. Patient states that her shortness of breath and leg swelling is started over the course of the last couple of days. She states it feels "tight" to breathe. She is attempted to use her ProAir inhaler for relief but has not been able to. She also tried to use her CPAP last night and was unable to obtain any relief. She denies fevers, chills, runny nose, congestion or sore throat. She states she is chronically nauseated. No issues with bowel or bladder. She states that her feet were so swollen this morning that she has had a difficult time putting on her shoes. She states this does not usually happen. She denies any excessive use of NSAIDs. All other review of systems reviewed and negative except as stated. Timing/Duration: yesterday, getting worse Severity: moderate Prior Episodes/Possible Cause: allergen exposure Modifying Factors: Worse With Activity; Improves With Rest Associated Symptoms: shortness of breath Allergies and Home Medications Allergies Coded Allergies: No Known Drug Allergies (Unverified , 10/04/10) Home Medications Hydrocodone Bit/Acetaminophen 1 Ea Tab, 1 TAB PO Q6H Prescribed by: SABRINA SAUNDERS on 11/15/20 1005 Metformin HCl 500 Mg Tablet, 500 MG PO BID, (Reported) Ondansetron 4 Mg Tab.rapdis, 8 MG PO Q6H PRN for NAUSEA/VOMITING-1ST LINE Prescribed by: KATHIE PINEDA on 01/20/19 1524 Prednisone 50 Mg Tab, 50 MG PO DAILY Prescribed by: LING PINEDA on 04/06/21 0657 Sulfamethoxazole/Trimethoprim 1 Each Tablet, 1 EACH PO BID Prescribed by: DIPTI DURAN on 12/16/20 9204 Patient Home Medication List Home Medication List Reviewed: Yes Review of Systems Review of Systems Constitutional: see HPI EENTM: no symptoms reported Respiratory: dyspnea on exertion, short of breath Cardiovascular: edema Gastrointestinal: no symptoms reported Genitourinary: no symptoms reported : No Musculoskeletal: no symptoms reported Skin: no symptoms reported All Other Systems Reviewed Negative Unless Noted: Yes Past [id number]-Vnvgpd-Jxsogc Hx Patient Social History Type Used: Cigarettes Former Smoker, Quit: Sep 10, 2018 2nd Hand Smoke Exposure: No Recent Infectious Disease Expo: No Recent Hopitalizations: No Immunizations Up To Date Tetanus Booster (TDap): Less than 5yrs Date of Influenza Vaccine: Sep 03, 2020 Seasonal Allergies Seasonal Allergies: No Past Medical History Surgeries: Yes Gallbladder Respiratory: Yes Asthma, Sleep Apnea Currently Using CPAP: Yes Currently Using BIPAP: No Cardiac: No Neurological: No Reproductive Disorders: No Female Reproductive Disorders: Denies Sexually Transmitted Disease: No HIV/AIDS: No Genitourinary: No Kidney Stones Gastrointestinal: No Gastroesophageal Reflux, Ulcer Musculoskeletal: No Chronic Back Pain Endocrine: No Diabetes, Non-Insulin dep HEENT: No Hearing Impairment: Denies Cancer: No Psychosocial: No Sleep Difficulties, Suicide Attempts Integumentary: Yes (HAS HIDRADENITIS UNDER BREASTS) Blood Disorders: No Family Medical History Family history: Asthma 09 BROTHER, Onset:Childhood Family history: Gastrointestinal disease 03 MOTHER, Onset:Unknown Family history: Hypertension 03 FATHER, Onset:40's - 50 Kidney disease 03 MOTHER, Onset:Childhood No Family History of: Abdominal aortic aneurysm Morton's disease Alcoholism Aphasia Cancer Cataract Chest pain Congenital heart disease Congestive heart failure Cystic fibrosis Dementia Dysphagia Family history: Allergy Family history: Alzheimer's disease Family history: Arthritis Family history: Breast disease Family history: Cardiovascular disease Family history: Coronary thrombosis Family history: Diabetes mellitus Family history: Glaucoma Family history: Osteoporosis Family history: Thyroid disorder Headache Hearing loss Heart disease Hereditary disease History of - anemia History of - disorder History of - respiratory disease History of drug abuse Human immunodeficiency virus (HIV) seropositivity Hypercholesterolemia Infertile Malignant neoplasm of lung Myocardial infarction Parkinson's disease Prostate cancer Psychotic disorder Seizure disorder Stroke Tuberculosis Visual impairment No Pertinent Family Hx Physical Exam Vital Signs - First Documented 04/06/21 05:58 Temp 36.3 Pulse 101 Resp 24 B/P (MAP) 179/84 (115) Pulse Ox 99 O2 Delivery Room Air Capillary Refill : Less Than 3 Seconds Height: 5'10.00" Weight: 320lbs. 0.0oz. 145.462757wv; 67.00 BMI Method:Stated General Appearance: WD/WN, no apparent distress Eyes: Bilateral Eye Normal Inspection, Bilateral Eye PERRL, Bilateral Eye EOMI HEENT: PERRL/EOMI, pharynx normal Respiratory: no respiratory distress, no accessory muscle use, wheezing (Scant expiratory wheeze noted on the left, patient has mild increased work of breathing sounds a little dyspneic when she speaks. No overt respiratory distress) Cardiovascular: regular rate, rhythm, no murmur Gastrointestinal: other (Morbid obesity) Extremities: normal inspection, pedal edema (1-2+ pedal edema bilateral lower extremities) Neurologic/Psychiatric: alert, normal mood/affect, oriented x 3 Skin: normal color, warm/dry Progress/Results/Core Measures Suspected Sepsis Recent Fever Within 48 Hours: No Infection Criteria Present: Suspected New Infection New/Unexplained Altered Menta: No Sepsis Screen: Possible Severe Sepsis Risk SIRS Temperature: Pulse: 101 Respiratory Rate: 24 Blood Pressure 179 /84 Mean: 115 Laboratory Tests 04/06/21 06:24: Creatinine 0.73 Results/Orders Lab Results Laboratory Tests Test 04/06/21 06:24 Range/Units Sodium Level 140 135-145 MMOL/L Potassium Level 4.3 3.6-5.0 MMOL/L Chloride Level 104 98-107 MMOL/L Carbon Dioxide Level 24 21-32 MMOL/L Anion Gap 12 5-14 MMOL/L Blood Urea Nitrogen 11 7-18 MG/DL Creatinine 0.73 0.60-1.30 MG/DL Estimat Glomerular Filtration Rate > 60 BUN/Creatinine Ratio 15 Glucose Level 132 H 70-105 MG/DL Calcium Level 8.7 8.5-10.1 MG/DL My Orders Orders - LING PINEDA MD Basic Metabolic Panel (04/06/21 06:15) Prednisone Tablet (Deltasone Tablet) (04/06/21 06:15) Albuterol/Ipra Inhalation Soln (Duoneb I (04/06/21 06:15) Svn Small Volume Nebulizer (04/06/21 06:15) Medications Given in ED Current Medications Medications Dose Ordered Sig/Monica Route Start Time Stop Time Status Last Admin Dose Admin Albuterol/ Ipratropium 3 ml ONCE ONCE INH 04/06/21 06:15 04/06/21 06:16 DC 04/06/21 06:26 3 ML Prednisone 50 mg ONCE ONCE PO 04/06/21 06:15 04/06/21 06:16 DC 04/06/21 06:20 50 MG Vital Signs/I&O 04/06/21 04/06/21 05:58 06:26 Temp 36.3 Pulse 101 Resp 24 B/P (MAP) 179/84 (115) Pulse Ox 99 97 O2 Delivery Room Air Room Air Capillary Refill : Less Than 3 Seconds Blood Pressure Mean: 115 Progress Note : Time: 06:55 Progress Note Patient feels a little bit better after breathing treatment, labs reviewed, electrolytes are normal renal function is normal. Blood sugar is 132. Patient's vital signs are stable. Her blood pressure is good her pulse is normal and her room air oxygen is 96 to 99%. Patient is in no obvious respiratory distress. I counseled her on breathing treatments over the course of the next 24 to 48 hours. We will start her on some prednisone. Patient will be started on 50 mg for 5 days after today. She is advised of the side effects of prednisone. She verbalizes understanding. All questions are sought and answered. Patient is stable for discharge. Departure Impression Primary Impression: Asthma exacerbation Qualified Codes: J45.21 - Mild intermittent asthma with (acute) exacerbation Additional Impression: Pedal edema Disposition: HOME, SELF-CARE Condition: Stable Departure-Patient Inst. Decision time for Depature: 06:55 Referrals: KULDIP MARTÍNEZ MD (PCP/Family) Primary Care Physician Patient Instructions: Asthma, Adult (DC) Add. Discharge Instructions: Take the prednisone daily starting tomorrow for 5 days. Your dose will be 50 mg. Use your ProAir inhaler every 4 hours for today and tomorrow to help relieve your shortness of breath. Come back to the emergency room for any increased or worsening shortness of breath, cough fever or other emergent concerns. Have close follow-up with your primary care provider. Call today for a follow- up appointment on Friday or Friday. Scripts Prednisone (Prednisone) 50 Mg Tab 50 MG PO DAILY for 5 Days, #5 TAB Prov: LING PINEDA MD 04/06/21 LING PINEDA MD Apr 06, 2021 06:15
[2021-04-06 06:40] LABS: CHLORIDE 104 MMOL/L (98-107); POTASSIUM 4.3 MMOL/L (3.6-5.0); SODIUM 140 MMOL/L (135-145)
[2021-04-06 06:42] LABS: CALCIUM 8.7 MG/DL (8.5-10.1); GLUCOSE 132 MG/DL (70-105)
[2021-04-06 06:43] LABS: CARBON DIOXIDE 24 MMOL/L (21-32)
[2021-04-06 06:46] LABS: CREATININE SERUM 0.73 MG/DL (0.60-1.30); GFR ESTIMATED > 60
[2021-04-06 06:47] LABS: BUN/CREATININE RATIO 15
[2021-04-06] MEDS ORDERED: PRD50T PO (06:57)
[2021-04-06 07:02] VITALS: BP 179/84
== END 2021-04-06 07:04 | disposition home or self-care (01) ==
LOC: EDUNIT# 05:49 → ER 05:53
DX: J45.901 Unspecified asthma with (acute) exacerbation (principal); R60.0 Localized edema; R73.9 Hyperglycemia, unspecified; G47.30 Sleep apnea, unspecified; E66.01 Morbid (severe) obesity due to excess calories; Z68.44 Body mass index [BMI] 60.0-69.9, adult; Z99.89 Dependence on other enabling machines and devices; Z87.891 Personal history of nicotine dependence
CPT/HCPCS: 36415; 80048; 94640; 99283

== ENCOUNTER 2021-05-02 05:06 | Inpatient (IN) | payer SELFPAY ==
[~2021-05-02] VITALS: Ht 177.8 cm; Wt 204.9 kg
[~2021-05-02 05:06] MED LIST changes: +PRD50T PO
[2021-05-02 05:36] LABS: BASOPHILS # (AUTO) 0.1 10^3/uL (0.0-0.1); BASOPHILS % (AUTO) 1 % (0-10); EOSINOPHILS # (AUTO) 0.5 10^3/uL (0.0-0.3); EOSINOPHILS % (AUTO) 4 % (0-10); HEMATOCRIT 39 % (35-52); HEMOGLOBIN 11.9 g/dL (11.5-16.0); LYMPHOCYTES # (AUTO) 3.1 10^3/uL (1.0-4.0); LYMPHOCYTES % (AUTO) 27 % (12-44); MEAN CORPUSCULAR HEMOGLOBIN 25 pg (25-34); MEAN CORPUSCULAR HGB CONC 30 g/dL (32-36); MEAN CORPUSCULAR VOLUME 82 fL (80-99); MEAN PLATELET VOLUME 10.4 fL (9.0-12.2); MONOCYTES # (AUTO) 0.8 10^3/uL (0.0-1.0); MONOCYTES % (AUTO) 7 % (0-12); NEUTROPHILS # (AUTO) 6.8 10^3/uL (1.8-7.8); NEUTROPHILS % (AUTO) 60 % (42-75); PLATELET COUNT 335 10^3/uL (130-400); WHITE BLOOD COUNT 11.4 10^3/uL (4.3-11.0)
[2021-05-02 05:50] LABS: ALBUMIN 3.7 GM/DL (3.2-4.5); CHLORIDE 102 MMOL/L (98-107); POTASSIUM 4.2 MMOL/L (3.6-5.0); SODIUM 140 MMOL/L (135-145)
[2021-05-02 05:51] LABS: CALCIUM 9.4 MG/DL (8.5-10.1)
[2021-05-02 05:52] LABS: GLUCOSE 107 MG/DL (70-105)
[2021-05-02 05:53] LABS: PROTHROMBIN TIME PATIENT 13.7 SEC (12.2-14.7); TOTAL PROTEIN 7.6 GM/DL (6.4-8.2)
[2021-05-02 05:54] LABS: BILIRUBIN,TOTAL 0.2 MG/DL (0.1-1.0); CARBON DIOXIDE 27 MMOL/L (21-32)
[2021-05-02 05:55] LABS: ERYTHROCYTE SEDIMENTATION RATE 22 MM/HR (0-20)
[2021-05-02 05:56] LABS: ALKALINE PHOSPHATASE 68 U/L (40-136); CREATININE SERUM 0.81 MG/DL (0.60-1.30); GFR ESTIMATED > 60
[2021-05-02 05:57] LABS: BUN/CREATININE RATIO 17
[2021-05-02 05:59] LABS: ALANINE AMINOTRANSFERASE 26 U/L (0-55)
[2021-05-02 06:04] LABS: BILIRUBIN,URINE NEGATIVE (NEGATIVE); CLARITY,URINE CLEAR; COLOR,URINE YELLOW; GLUCOSE, URINE (UA) NEGATIVE (NEGATIVE); KETONES,URINE NEGATIVE (NEGATIVE); LEUKOCYTE ESTERASE ,URINE NEGATIVE (NEGATIVE); NITRITE,URINE NEGATIVE (NEGATIVE); PH,URINE 5.5 (5-9); PROTEIN,URINE NEGATIVE (NEGATIVE)
[2021-05-02 06:09] LABS: BACTERIA,URINE NEGATIVE /HPF; HCG,QUALITATIVE URINE NEGATIVE (NEGATIVE)
--- NOTE | 2021-05-02 06:13 | ED Respiratory ---
General Stated Complaint: PNEUMONIA,COUGH,FEVER Source: patient (ANA YEUNG DO) History of Present Illness Date Seen by Provider: May 02, 2021 Time Seen by Provider: 05:10 Initial Comments PT ARRIVES VIA POV FROM HOME STATES SHE HAS BEEN SICK FOR THE LAST 10 DAYS C/O PRODUCTIVE COUGH C/O SHORTNESS OF BREATH AND WHEEZING STATES HOME O2 SATS HAVE BEEN 92-98% ON ROOM AIR ( DOES NOT HAVE HOME O2, ONLY CPAP) C/O NAUSEA/VOMITING/DIARRHEA FOR THE LAST 4 DAYS C/O LOSS OF SMELL AND DECREASED TASTE THE LAST 4 DAYS C/O FEVER UP TO 102.5 OFF AND ON FOR THE LAST 10 DAYS C/O BODY ACHES PT WAS SEEN AT [facility] 1 WEEK AGO FOR THESE SYMPTOMS WAS PRESCRIBED LEVAQUIN WHICH SHE HAS FINISHED AND 3 DAYS OF STEROIDS NO IMPROVEMENT IN SYMPTOMS PT HAS ASTHMA AND USES SYMBICORT, ADVAIR AND RESCUE PRO-AIR INHALER LAST USED PRO-AIR JUST PRIOR TO ARRIVAL PT DID HAVE COVID-19 IN DECEMBER--TESTED + 12/26/20 NO HOSPITALIZATION PCP: [facility] (ANA YEUNG DO) Allergies and Home Medications Allergies Coded Allergies: No Known Drug Allergies (Unverified , 10/04/10) Home Medications Hydrocodone Bit/Acetaminophen 1 Ea Tab, 1 TAB PO Q6H Prescribed by: SABRINA SAUNDERS on 11/15/20 1005 Metformin HCl 500 Mg Tablet, 500 MG PO BID, (Reported) Ondansetron 4 Mg Tab.rapdis, 8 MG PO Q6H PRN for NAUSEA/VOMITING-1ST LINE Prescribed by: KATHIE PINEDA on 01/20/19 1524 Prednisone 50 Mg Tab, 50 MG PO DAILY Prescribed by: LING PINEDA on 04/06/21 0657 Sulfamethoxazole/Trimethoprim 1 Each Tablet, 1 EACH PO BID Prescribed by: DIPTI DURAN on 12/16/20 1977 Patient Home Medication List Home Medication List Reviewed: Yes (LYNN DURAN MD) Review of Systems Review of Systems Constitutional: see HPI, fever EENTM: see HPI, nose congestion Respiratory: see HPI, cough, short of breath Cardiovascular: no symptoms reported; No chest pain Gastrointestinal: see HPI; No abdominal pain; diarrhea, nausea, vomiting Genitourinary: no symptoms reported Musculoskeletal: see HPI (BODY ACHES) Skin: no symptoms reported Psychiatric/Neurological: No Symptoms Reported Hematologic/Lymphatic: No Symptoms Reported Immunological/Allergic: no symptoms reported (ANA YEUNG DO) Past Roppgml-Flmked-Gtucxj Hx Past Med/Social Hx: Reviewed and Corrections made (ANA YEUNG DO) Patient Social History Alcohol Use: Past History Drug of Choice: THC, METH Smoking Status: Former Smoker Type Used: Cigarettes Former Smoker, Quit: Sep 10, 2018 2nd Hand Smoke Exposure: No Recent Hopitalizations: No Substance type: Methamphetamine, Marijuana (ANA YEUNG DO) Immunizations Up To Date Tetanus Booster (TDap): Less than 5yrs Date of Influenza Vaccine: Sep 03, 2020 (ANA YEUNG DO) Seasonal Allergies Seasonal Allergies: No (ANA YEUNG DO) Past Medical History Surgeries: Yes (PILONIDAL CYST 11/2020; LEFT EAR BENIGN TUMOR) Ear Surgery, Gallbladder Respiratory: Yes Asthma, Sleep Apnea Currently Using CPAP: Yes Currently Using BIPAP: No Cardiac: No Neurological: No Reproductive Disorders: Yes Female Reproductive Disorders: Menstrual Problems Sexually Transmitted Disease: No HIV/AIDS: No Genitourinary: Yes Kidney Stones Gastrointestinal: Yes Gastroesophageal Reflux, Ulcer Musculoskeletal: Yes Chronic Back Pain Endocrine: Yes (MORBID OBESITY) Diabetes, Non-Insulin dep HEENT: No Hearing Impairment: Denies Cancer: No Psychosocial: Yes (SCHIZO-AFFECTIVE; CUTTING; PANIC ATTACKS; SUBSTANCE ABUSE) Sleep Difficulties, Suicide Attempts, Depression Integumentary: Yes (HAS HIDRADENITIS UNDER BREASTS) Blood Disorders: No (ANA YEUNG DO) Family Medical History Family history: Asthma 09 BROTHER, Onset:Childhood Family history: Gastrointestinal disease 03 MOTHER, Onset:Unknown Family history: Hypertension 03 FATHER, Onset:40's - 50 Kidney disease 03 MOTHER, Onset:Childhood No Family History of: Abdominal aortic aneurysm Rhea's disease Alcoholism Aphasia Cancer Cataract Chest pain Congenital heart disease Congestive heart failure Cystic fibrosis Dementia Dysphagia Family history: Allergy Family history: Alzheimer's disease Family history: Arthritis Family history: Breast disease Family history: Cardiovascular disease Family history: Coronary thrombosis Family history: Diabetes mellitus Family history: Glaucoma Family history: Osteoporosis Family history: Thyroid disorder Headache Hearing loss Heart disease Hereditary disease History of - anemia History of - disorder History of - respiratory disease History of drug abuse Human immunodeficiency virus (HIV) seropositivity Hypercholesterolemia Infertile Malignant neoplasm of lung Myocardial infarction Parkinson's disease Prostate cancer Psychotic disorder Seizure disorder Stroke Tuberculosis Visual impairment No Pertinent Family Hx SOCIAL HISTORY: -ETOH--HX VERY HEAVY USE -DRUGS-HX METH, THC USE -SMOKED 1 PPD, QUIT 2018 (ANA YEUNG DO) Physical Exam Vital Signs - First Documented 05/02/21 05/02/21 05:12 05:25 Temp 36.6 Pulse 111 Resp 22 B/P (MAP) 142/95 (111) Pulse Ox 98 O2 Delivery Room Air O2 Flow Rate 2.00 (LYNN DURAN MD) Capillary Refill : (ANA YEUNG DO) Height: 5'10.00" Weight: 320lbs. 0.0oz. 145.534941gv; 67.00 BMI Method:Stated General Appearance: obese (MORBIDLY OBESE; ), other (ABLE TO TALK IN SHORT SENTENCES; DYSPNEIC WITH AUDIBLE WHEEZING ) HEENT: PERRL/EOMI, normal ENT inspection Neck: normal inspection Respiratory: other (DYSPNEIC WITH AUDIBLE WHEEZING AT BEDSIDE. ) Cardiovascular: no murmur, tachycardia Gastrointestinal: non tender, soft Extremities: non-tender, other (UNABLE TO DETERMINE IF EDEMA IS PRESENT DUE TO BODY HABITUS) Neurologic/Psychiatric: no motor/sensory deficits, alert, normal mood/affect, oriented x 3 Skin: normal color, warm/dry (ANA YEUNG DO) Focused Exam Lactate Level 05/02/21 05:36: Lactic Acid Level 1.02 (LYNN DURAN MD) Lactic Acid Level Laboratory Tests Test 05/02/21 05:36 Lactic Acid Level 1.02 MMOL/L (0.50-2.00) (LYNN DURAN MD) Progress/Results/Core Measures Suspected Sepsis SIRS Temperature: Pulse: Respiratory Rate: Laboratory Tests 05/02/21 05:25: White Blood Count 11.4H Blood Pressure / Mean: 05/02/21 05:36: Lactic Acid Level 1.02 Laboratory Tests 05/02/21 05:25: Creatinine 0.81, INR Comment 1.0, Platelet Count 335, Total Bilirubin 0.2 (ANA YEUNG DO) Results/Orders Lab Results Laboratory Tests Test 05/02/21 05:25 05/02/21 05:36 05/02/21 05:58 Range/Units White Blood Count 11.4 H 4.3-11.0 10^3/uL Red Blood Count 4.80 3.80-5.11 10^6/uL Hemoglobin 11.9 11.5-16.0 g/dL Hematocrit 39 35-52 % Mean Corpuscular Volume 82 80-99 fL Mean Corpuscular Hemoglobin 25 25-34 pg Mean Corpuscular Hemoglobin Concent 30 L 32-36 g/dL Red Cell Distribution Width 15.0 H 10.0-14.5 % Platelet Count 335 130-400 10^3/uL Mean Platelet Volume 10.4 9.0-12.2 fL Immature Granulocyte % (Auto) 1 % Neutrophils (%) (Auto) 60 42-75 % Lymphocytes (%) (Auto) 27 12-44 % Monocytes (%) (Auto) 7 0-12 % Eosinophils (%) (Auto) 4 0-10 % Basophils (%) (Auto) 1 0-10 % Neutrophils # (Auto) 6.8 1.8-7.8 10^3/uL Lymphocytes # (Auto) 3.1 1.0-4.0 10^3/uL Monocytes # (Auto) 0.8 0.0-1.0 10^3/uL Eosinophils # (Auto) 0.5 H 0.0-0.3 10^3/uL Basophils # (Auto) 0.1 0.0-0.1 10^3/uL Immature Granulocyte # (Auto) 0.1 0.0-0.1 10^3/uL Erythrocyte Sedimentation Rate 22 H 0-20 MM/HR Prothrombin Time 13.7 12.2-14.7 SEC INR Comment 1.0 0.8-1.4 Activated Partial Thromboplast Time 28 24-35 SEC Sodium Level 140 135-145 MMOL/L Potassium Level 4.2 3.6-5.0 MMOL/L Chloride Level 102 98-107 MMOL/L Carbon Dioxide Level 27 21-32 MMOL/L Anion Gap 11 5-14 MMOL/L Blood Urea Nitrogen 14 7-18 MG/DL Creatinine 0.81 0.60-1.30 MG/DL Estimat Glomerular Filtration Rate > 60 BUN/Creatinine Ratio 17 Glucose Level 107 H 70-105 MG/DL Calcium Level 9.4 8.5-10.1 MG/DL Corrected Calcium 9.6 8.5-10.1 MG/DL Total Bilirubin 0.2 0.1-1.0 MG/DL Aspartate Amino Transf (AST/SGOT) 12 5-34 U/L Alanine Aminotransferase (ALT/SGPT) 26 0-55 U/L Alkaline Phosphatase 68 40-136 U/L Lactate Dehydrogenase 185 125-220 U/L Troponin I < 0.028 <0.028 NG/ML C-Reactive Protein High Sensitivity 2.06 H 0.00-0.50 MG/DL B-Type Natriuretic Peptide < 10.0 <100.0 PG/ML Total Protein 7.6 6.4-8.2 GM/DL Albumin 3.7 3.2-4.5 GM/DL Procalcitonin 0.03 <0.10 NG/ML Serum Test, Qualitative NEGATIVE NEGATIVE Serum Alcohol < 10 <10 MG/DL Influenza Type A (RT-PCR) Not Detected Not Detecte Influenza Type B (RT-PCR) Not Detected Not Detecte SARS-CoV-2 RNA (RT-PCR) Not Detected Not Detecte Lactic Acid Level 1.02 0.50-2.00 MMOL/L Urine Color YELLOW Urine Clarity CLEAR Urine pH 5.5 5-9 Urine Specific [place] 1.025 H 1.016-1.022 Urine Protein NEGATIVE NEGATIVE Urine Glucose (UA) NEGATIVE NEGATIVE Urine Ketones NEGATIVE NEGATIVE Urine Nitrite NEGATIVE NEGATIVE Urine Bilirubin NEGATIVE NEGATIVE Urine Urobilinogen 0.2 < = 1.0 MG/DL Urine Leukocyte Esterase NEGATIVE NEGATIVE Urine RBC (Auto) NEGATIVE NEGATIVE Urine RBC NONE /HPF Urine WBC NONE /HPF Urine Squamous Epithelial Cells 10-25 H /HPF Urine Crystals NONE /LPF Urine Bacteria NEGATIVE /HPF Urine Casts NONE /LPF Urine Mucus NEGATIVE /LPF Urine Culture Indicated CULTURE PENDING Urine Test NEGATIVE NEGATIVE Urine Opiates Screen NEGATIVE NEGATIVE Urine Oxycodone Screen NEGATIVE NEGATIVE Urine Methadone Screen NEGATIVE NEGATIVE Urine Propoxyphene Screen NEGATIVE NEGATIVE Urine Barbiturates Screen NEGATIVE NEGATIVE Ur Tricyclic Antidepressants Screen NEGATIVE NEGATIVE Urine Phencyclidine Screen NEGATIVE NEGATIVE Urine Amphetamines Screen NEGATIVE NEGATIVE Urine Methamphetamines Screen NEGATIVE NEGATIVE Urine Benzodiazepines Screen NEGATIVE NEGATIVE Urine Cocaine Screen NEGATIVE NEGATIVE Urine Cannabinoids Screen NEGATIVE NEGATIVE (LYNN DURAN MD) My Orders Orders - LYNN DURAN MD Albuterol Pre-Mix Nebs (Rt) (Proventil (05/02/21 07:30) Albuterol/Ipra Inhalation Soln (Duoneb I (05/02/21 07:30) Svn Small Volume Nebulizer (05/02/21 07:30) Svn Small Volume Nebulizer (05/02/21 07:30) Magnesium 1 Gm/100 Ml Ivpb (Magnesium Nuñez (05/02/21 07:30) Arterial Blood Gas (05/02/21 08:49) (LYNN DURAN MD) Medications Given in ED Current Medications Medications Dose Ordered Sig/Monica Route Start Time Stop Time Status Last Admin Dose Admin Albuterol/ Ipratropium 3 ml ONCE ONCE INH 05/02/21 06:15 05/02/21 06:16 DC 05/02/21 06:31 3 ML Albuterol/ Ipratropium 3 ml ONCE ONCE INH 05/02/21 07:30 05/02/21 07:31 DC 05/02/21 07:37 3 ML Dexamethasone Sodium Phosphate 10 mg ONCE ONCE IV 05/02/21 06:15 05/02/21 06:16 DC 05/02/21 06:39 10 MG Dexamethasone Sodium Phosphate 20 mg ONCE ONCE INH 05/02/21 07:30 05/02/21 07:31 DC 05/02/21 07:27 20 MG Magnesium Sulfate/ Dextrose 100 ml @ 100 mls/hr ONCE ONCE IV 05/02/21 07:30 05/02/21 08:29 DC 05/02/21 07:46 100 MLS/HR (LYNN DURAN MD) Vital Signs/I&O 05/02/21 05/02/21 05/02/21 05/02/21 05:12 05:25 06:31 07:29 Temp 36.6 Pulse 111 Resp 22 B/P (MAP) 142/95 (111) Pulse Ox 98 98 98 O2 Delivery Room Air Nasal Cannula Room Air Nasal Cannula O2 Flow Rate 2.00 2.00 05/02/21 07:37 Pulse Ox 96 O2 Delivery Nasal Cannula O2 Flow Rate 2.00 (LYNN DURAN MD) Vital Signs/I&O Capillary Refill : (ANA YEUNG DO) Progress Note : Progress Note PLACED IN ISOLATION ROOM PPE WORN COVID-19 TESTING PERFORMED 0600--CARE TURNED OVER TO DR. DURAN AT SHIFT CHANGE. ALL STUDIES PENDING (ANA YEUNG DO) Progress Note #1: Time: 07:31 Progress Note Work-up has been essentially unremarkable. Patient is still very tight and wheezy after a DuoNeb treatment. Dexamethasone has been administered by IV route and is now being administered by nebulizer as well. An hour-long nebulizer treatment has been ordered to follow. A gram of magnesium will also be administered. We will reassess after these interventions to determine disposition. Oxygen saturation is 100% on 2 L. Progress Note #2: Time: 07:47 Progress Note Patient complained of left earache, especially with coughing. On exam she has a tight cerumen impaction and TM is not visible. Progress Note #3: Time: 08:54 Progress Note Patient is still very tight and wheezy. Oxygen saturation dropped to 91% on room air when she got up to the commode. This was after the hour-long nebulizer treatment. Nasal cannula was reapplied at 2 L/min. Admission was deemed necessary. Magnesium sulfate is infusing. Case was discussed with Dr. West. In her consultation with pulmonology it was determined that bed placement would be based on ABG results. ABG is pending. Patient informed me she has sleep apnea and uses CPAP at night. This was added to the bridging orders. I also placed orders for Colace and irrigation of the left ear when patient is feeling well enough to perform that treatment. I discussed CODE STATUS with the patient and she is full code at this time. She has being admitted to the hospitalist service. Dr. Martínez in [place] is her primary care provider. (LYNN DURAN MD) ECG Initial ECG Impression Date: May 02, 2021 Initial ECG Impression Time: 05:39 Initial ECG Rate: 105 Initial ECG Rhythm: S.Tach (IVCD) (ANA YEUNG DO) Diagnostic Imaging Diagonstic Imaging: Xray Plain Films/CT/US/NM/MRI: chest Comments 2 view chest x-ray viewed by me and report reviewed. See report below: NAME: HUNTER COBB MED REC#: [id number] PT STATUS: REG ER : 1990 PHYSICIAN: ANA YEUNG DO ADMIT DATE: 05/02/21/ER Draft Date of Exam:05/02/21 CHEST PA/LAT (2 VIEW) INDICATION: Cough and labored breathing EXAMINATION: PA and lateral views of the chest. FINDINGS: The heart size and vascularity are normal. Lungs are clear. There is no effusion. There is no acute bony abnormality. IMPRESSION: No acute abnormality is seen. There is no significant change from 10/25/2013. Dictated on workstation # [id number] Dict: 05/02/21 0708 Trans: 05/02/21 0713 [facility] [id number] Interpreted by: BRAD STANTON MD (LYNN DURAN MD) Departure Communication (Admissions) Time/Spoke to Admitting Phy: 08:45 Dr. West (LYNN DURAN MD) Impression Primary Impression: Asthma exacerbation Qualified Codes: J45.901 - Unspecified asthma with (acute) exacerbation Additional Impression: Left ear impacted cerumen Disposition: ADMITTED INPATIENT Condition: Stable Admissions Decision to Admit Reason: Admit from ER (General) Decision to Admit/Date: May 02, 2021 Time/Decision to Admit Time: 08:35 (LYNN DURAN MD) Departure-Patient Inst. Referrals: KULDIP MARTÍNEZ MD (PCP/Family) Primary Care Physician ANA YEUNG DO May 02, 2021 06:13 LYNN DURAN MD May 02, 2021 07:37
[2021-05-02] MEDS ORDERED: RT-ALBUTEROL/IPRATROPIUM 3 ML (DUONEB) VIAL INH ONE ×2 (06:15→07:30)
[2021-05-02 06:47] LABS: AMPHETAMINE SCREEN, URINE NEGATIVE (NEGATIVE); BARBITURATE SCREEN URINE NEGATIVE (NEGATIVE); BENZODIAZEPINES SCREEN URINE NEGATIVE (NEGATIVE); CANNABINOID SCREEN, URINE NEGATIVE (NEGATIVE); COCAINE SCREEN URINE NEGATIVE (NEGATIVE); METHADONE STAT NEGATIVE (NEGATIVE); METHAMPHETAMINE SCREEN URINE S NEGATIVE (NEGATIVE); OPIATE SCREEN URINE NEGATIVE (NEGATIVE); OXYCODONE STAT NEGATIVE (NEGATIVE); PROPOXYPHENE STAT NEGATIVE (NEGATIVE); TRICYCLIC ANTIDEPRESSANTS SCRE NEGATIVE (NEGATIVE)
--- NOTE | 2021-05-02 07:13 | Diagnostic Imaging Report ---
INDICATION: Cough and labored breathing EXAMINATION: PA and lateral views of the chest. FINDINGS: The heart size and vascularity are normal. Lungs are clear. There is no effusion. There is no acute bony abnormality. IMPRESSION: No acute abnormality is seen. There is no significant change from 10/25/2013. Dictated by: Dictated on workstation # [id number]
[2021-05-02] MEDS ORDERED: RT-ALBUTEROL SULF 2.5 MG/3 ML PRE-MIX VIAL INH STA ×2 (07:30→13:24)
[2021-05-02] MEDS ORDERED: MAGNESIUM 1 GM/100 ML IVPB 100 ML IV ONE (07:30)
[2021-05-02] MEDS ORDERED: ADVAIR HFA 115/21 MCG INHALER 8 GM IH ONE (08:00)
[2021-05-02 09:31] LABS: ABG BASE EXCESS 0.6 MMOL/L (-2.5-2.5); ABG OXYGEN SATURATION 96 % (94-100); ABG PCO2 39 MMHG (35-45); ABG PH 7.41 (7.37-7.43); ABG PO2 80 MMHG (79-93); ABG TCO2 25.9 MMOL/L (21.0-31.0); ALLENS TEST YES-POS; INSPIRED O2 2 L
[2021-05-02 09:32] LABS: PATIENT TEMP 98.3; VENTILATOR NO
[2021-05-02] MEDS ORDERED: RT-ALBUTEROL INHALER HFA (VENTOLIN HFA) 18 GM IH SCH (10:00)
[2021-05-02 10:17] VITALS: BP 159/71
[2021-05-02 10:20] VITALS: BP 142/95
[2021-05-02] MEDS ORDERED: DOCUSATE SODIUM 10 MG/ML 10 ML UDC (COLACE) PO PRN (10:30)
[2021-05-02] MEDS ORDERED: DOCUSATE SODIUM 10 MG/ML 10 ML UDC (COLACE) LEFT EAR PRN (10:30)
[2021-05-02] MEDS ORDERED: IBUPROFEN 600 MG (MOTRIN) TAB PO PRN (10:30)
[2021-05-02] MEDS: MAGNESIUM 1 GM/D5W 100 ML IVPB IV SCH ×2 (10:40→12:00)
[2021-05-02] MEDS: ONDANSETRON 4 MG/2 ML (SDV) Z0FRAN IVP PRN ×3 (10:40→21:51)
[2021-05-02] MEDS: LACTATED RINGERS 1,000 ML IV SCH (10:40)
[2021-05-02] MEDS ORDERED: BUDE10.2 IH (11:46)
[2021-05-02] MEDS ORDERED: RT-ALBUINH IH (11:46)
[2021-05-02] MEDS ORDERED: FLUT1DIS26 IH (11:46)
[2021-05-02] MEDS ORDERED: ASPI-789 PO (11:46)
[2021-05-02] MEDS: methylPREDNISolone 40 MG/ML (Solu-MEDROL) VIAL IV SCH ×2 (11:59→17:48)
[2021-05-02] MEDS ORDERED: RT-ALBUTEROL/IPRATROPIUM 3 ML (DUONEB) VIAL INH PRN (12:00)
[2021-05-02 12:29] VITALS: BP 127/62
--- NOTE | 2021-05-02 13:14 | History & Physical-Hospitalist ---
History of Present Illness HPI/Chief Complaint Pt is a 30yoCF with a PMH of asthma who presented to the ER due to shortness of breath. She was seen in the ER on 04/06 for similar and completed steroids then. She has been compliant with her inahlers (Symbicort and Advair and ProAir) at home but has continued to feel short of breath. She also has a lot of nausea and vomiting since being on the steroids. She was seen last week at [facility] clinic and prescribed Levaquin and more steroids. They have not helped her symptoms. She has been using her ProAir every 2-4 hours. She did have COVID back in December. She has not been vaccinated yet. Source: patient Date Seen 05/02/21 Time Seen by a Provider: 13:50 Attending Physician Cathy West MD PCP Magdi Kee MD Referring Physician Date of Admission May 02, 2021 at 08:52 Home Medications & Allergies Home Medications Reviewed patient Home Medication Reconciliation performed by pharmacy medication reconciliations chemical research technician and/or nursing. Patients Allergies have been reviewed. Allergies Allergies Coded Allergies No Known Drug Allergies (Unverified05/02/21) Past Vtovdpc-Zisane-Jidueo Hx Patient Social History Tobacco Use?: No Smoking Status: Former Smoker Use of E-Cig and/or Vaping dev: No Substance type: Methamphetamine, Marijuana Additional substance use comme: quit smoking pot 2019 Alcohol Use?: No Pt feels they are or have been: No Immunizations Up To Date Date of Influenza Vaccine: Sep 03, 2020 Tetanus Booster (TDap): Unknown Hepatitis A: Yes Hepatitis B: Yes Seasonal Allergies Seasonal Allergies: No Current Status status: No status: No Advance Directives: No Communicates: Verbally Primary Language: Nepali Preferred Spoken Language: Nepali Implanted or Applied Medical D: CPAP Past Medical History Surgeries: Ear Surgery, Gallbladder Asthma, Sleep Apnea Currently Using CPAP: Yes Currently Using BIPAP: No Sexually Transmitted Disease: No HIV/AIDS: No Kidney Stones Gastroesophageal Reflux, Ulcer Chronic Back Pain Diabetes, Non-Insulin dep Hearing Impairment: Denies Sleep Difficulties, Suicide Attempts, Depression Blood Disorders: No Asthma Schizoaffective Depression Anxiety 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 Family Medical History Family history: Asthma 09 BROTHER, Onset:Childhood Family history: Gastrointestinal disease 03 MOTHER, Onset:Unknown Family history: Hypertension 03 FATHER, Onset:40's - 50 Kidney disease 03 MOTHER, Onset:Childhood No Family History of: Abdominal aortic aneurysm Comanche's disease Alcoholism Aphasia Cancer Cataract Chest pain Congenital heart disease Congestive heart failure Cystic fibrosis Dementia Dysphagia Family history: Allergy Family history: Alzheimer's disease Family history: Arthritis Family history: Breast disease Family history: Cardiovascular disease Family history: Coronary thrombosis Family history: Diabetes mellitus Family history: Glaucoma Family history: Osteoporosis Family history: Thyroid disorder Headache Hearing loss Heart disease Hereditary disease History of - anemia History of - disorder History of - respiratory disease History of drug abuse Human immunodeficiency virus (HIV) seropositivity Hypercholesterolemia Infertile Malignant neoplasm of lung Myocardial infarction Parkinson's disease Prostate cancer Psychotic disorder Seizure disorder Stroke Tuberculosis Visual impairment No Pertinent Family Hx SOCIAL HISTORY: -ETOH--HX VERY HEAVY USE -DRUGS-HX METH, THC USE -SMOKED 1 PPD, QUIT 2018 Review of Systems Constitutional: fever EENTM: no symptoms reported Respiratory: cough, dyspnea on exertion, phlegm, short of breath, wheezing Cardiovascular: no symptoms reported Gastrointestinal: nausea, vomiting Genitourinary: no symptoms reported Musculoskeletal: no symptoms reported Skin: no symptoms reported Psychiatric/Neurological: No Symptoms Reported Physical Exam Physical Exam Vital Signs Vital Signs - First Documented 05/02/21 05/02/21 05/02/21 05:12 05:25 10:20 Temp 36.6 Pulse 111 Resp 22 B/P (MAP) 142/95 (111) Pulse Ox 98 O2 Delivery Room Air O2 Flow Rate 2.00 FiO2 21 Capillary Refill : Less Than 3 Seconds Height, Weight, BMI Height: 5'10.00" Weight: 320lbs. 0.0oz. 145.538093ac; 65.73 BMI Method:Stated General Appearance: No Apparent Distress, Obese HEENT: PERRL/EOMI, Moist Mucous Membranes Neck: Normal Inspection, Supple Respiratory: No Accessory Muscle Use, Wheezing (poor airmovement but wheezing noted) Cardiovascular: Regular Rate, Rhythm, No Murmur Gastrointestinal: Normal Bowel Sounds, Non Tender, Soft Extremity: No Calf Tenderness, No Pedal Edema Neurologic/Psychiatric: Alert, Oriented x3, Normal Mood/Affect Results Results/Procedures Labs Laboratory Tests 05/02/21 05:25 Patient resulted labs reviewed. Imaging [facility], [place] NAME: [facility] REC#: [id number] PT STATUS: REG ER : 1990 PHYSICIAN: ANA YEUNG DO ADMIT DATE: 05/02/21/ER Signed Date of Exam:05/02/21 CHEST PA/LAT (2 VIEW) INDICATION: Cough and labored breathing EXAMINATION: PA and lateral views of the chest. FINDINGS: The heart size and vascularity are normal. Lungs are clear. There is no effusion. There is no acute bony abnormality. IMPRESSION: No acute abnormality is seen. There is no significant change from 10/25/2013. Dictated by: Dictated on workstation # [id number] Dict: 05/02/21 0708 Trans: 05/02/21 0849 [facility] [id number] Interpreted by: BRAD STANTON MD Electronically signed by: BRAD STANTON MD 05/02/21 0849 Assessment/Plan Admission Diagnosis Status Asthmaticus Admission Status: Inpatient Order (span 2 midnights) Reason for Inpatient Admission: see below Assessment and Plan Status Asthmaticus Wean oxygen as able Received IV Decadron, hour long breathing treatment, Mag, and IH Decadron in the ER ABG done with a Co2 of 39 Continue on IV steroids TelePulm consult, appreciate recs ?post covid syndrome given worsening since her COVID diagnosis in December Nausea and vomiting ? due to gastritis from steroids Start on PPI Obesity No acute needs, clinically significant DVT ppx: Lovenox Diagnosis/Problems Diagnosis/Problems (1) Status asthmaticus Status: Acute Qualifiers: Asthma severity: moderate Asthma persistence: persistent Qualified Codes: J45.42 - Moderate persistent asthma with status asthmaticus CATHY WEST MD May 02, 2021 13:14
[2021-05-02] MEDS ORDERED: RT-ALBUTEROL SULF 2.5 MG/3 ML PRE-MIX VIAL ONE (13:18)
[2021-05-02] MEDS: RT-ALBUTEROL/IPRATROPIUM 3 ML (DUONEB) VIAL INH SCH ×3 (13:18→22:12)
[2021-05-02] MEDS ORDERED: PANTOPRAZOLE 40 MG (PROTONIX) VIAL IV NR (14:45)
[2021-05-02] MEDS ORDERED: ENOXAPARIN 40 MG/0.4 ML (LOVENOX) SYR SQ SCH (14:45)
[2021-05-02 15:27] VITALS: BP 148/72
[2021-05-02] MEDS: ENOXAPARIN 60 MG/0.6 ML (LOVENOX) SYR SC SCH (15:59)
[2021-05-02] MEDS: RT--FLUTICASONE/SALMETEROL 113-14 (AIRDUO RespiCLICK) IH SCH (19:03)
[2021-05-02 19:10] VITALS: BP 144/70
[2021-05-02] MEDS ORDERED: ADVAIR HFA 115/21 MCG INHALER 8 GM IH SCH ×2 (21:00)
[2021-05-02] MEDS: ALPRAZolam 0.5 MG (XANAX) TAB PO PRN (21:51)
[2021-05-02 23:50] VITALS: BP 133/73
[2021-05-03] MEDS: methylPREDNISolone 40 MG/ML (Solu-MEDROL) VIAL IV SCH ×5 (00:48→23:38)
[2021-05-03] MEDS: LACTATED RINGERS 1,000 ML IV SCH (00:48)
[2021-05-03] MEDS: RT-ALBUTEROL/IPRATROPIUM 3 ML (DUONEB) VIAL INH SCH ×6 (02:39→21:58)
[2021-05-03 04:32] VITALS: BP 133/55
[2021-05-03] MEDS: ENOXAPARIN 60 MG/0.6 ML (LOVENOX) SYR SC SCH ×2 (04:44→16:07)
[2021-05-03] MEDS: ONDANSETRON 4 MG/2 ML (SDV) Z0FRAN IVP PRN (04:44)
[2021-05-03] MEDS: RT--FLUTICASONE/SALMETEROL 113-14 (AIRDUO RespiCLICK) IH SCH ×2 (07:33→18:30)
[2021-05-03 07:45] LABS: HEMATOCRIT 35 % (35-52); HEMOGLOBIN 10.9 g/dL (11.5-16.0); MEAN CORPUSCULAR HEMOGLOBIN 25 pg (25-34); MEAN CORPUSCULAR HGB CONC 31 g/dL (32-36); MEAN CORPUSCULAR VOLUME 81 fL (80-99); PLATELET COUNT 303 10^3/uL (130-400); WHITE BLOOD COUNT 13.6 10^3/uL (4.3-11.0)
[2021-05-03 07:55] LABS: CHLORIDE 105 MMOL/L (98-107); POTASSIUM 4.5 MMOL/L (3.6-5.0); SODIUM 139 MMOL/L (135-145)
[2021-05-03 07:57] LABS: CALCIUM 8.8 MG/DL (8.5-10.1); GLUCOSE 162 MG/DL (70-105)
[2021-05-03 07:59] LABS: CARBON DIOXIDE 23 MMOL/L (21-32)
[2021-05-03 08:01] LABS: CREATININE SERUM 0.75 MG/DL (0.60-1.30); GFR ESTIMATED > 60
[2021-05-03 08:02] LABS: BUN/CREATININE RATIO 17
[2021-05-03 08:10] VITALS: BP 119/71
--- NOTE | 2021-05-03 08:34 | Pulmonary Consultation ---
History of Present Illness History of Present Illness Date Seen by Provider: May 03, 2021 Time Seen by Provider: 09:30 Date of Admission History of Present Illness Pt is a 30yoCF with a PMH of asthma who presented to the ER due to shortness of breath. She was seen in the ER on 04/06 for similar and completed steroids then. She has been compliant with her inahlers (Symbicort and Advair and ProAir) at home but has continued to feel short of breath. She also has a lot of nausea and vomiting since being on the steroids. She was seen last week at [facility] clinic and prescribed Levaquin and more steroids. They have not helped her symptoms. She has been using her ProAir every 2-4 hours. She did have COVID back in December. She has not been vaccinated yet. Pt also has a hx of RAISA on CPAP 8cmH20. Last PSG was 2 years ago/ compliant with CPAP. Not on home O2; Last year she gained 160lbs/ decreased exercise tolerance/ cough with clear sputum Allergies and Home Medications Allergies Coded Allergies: No Known Drug Allergies (Unverified , 05/02/21) Home Medications Albuterol Sulfate 1 Puff Puff, 2 PUFF IH Q4H PRN for SHORTNESS OF BREATH, (Reported) Aspirin/Acetaminophen/Caffeine 1 Each Tablet, 2 EACH PO Q6-8HR PRN for HEADACHE, (Reported) Budesonide/Formoterol Fumarate 10.2 Gm Hfa.aer.ad, 2 PUFF IH BID, (Reported) Fluticasone/Salmeterol 1 Each Blst.w.dev, 1 EACH IH DAILY, (Reported) Past Medical/Social/Family Hx Patient Social History Employed/Student: employed Tobacco Use?: No Smoking Status: Former Smoker Use of E-Cig and/or Vaping dev: No Substance type: Methamphetamine, Marijuana quit smoking pot 2019 Alcohol Use?: No Pt stated abuse/neglect: No Immunizations Up To Date Influenza Vaccine Up-to-Date: Yes; Up-to-Date Tetanus Booster (TDap): Unknown Hepatitis A: Yes Hepatitis B: Yes TB Skin Test: None Current Status status: No status: No Advance Directives: No Communicates: Verbally Primary Language: Malawian Preferred Spoken Language: Malawian Implanted or Applied Medical D: CPAP Past Medical History Asthma Schizoaffective Depression Anxiety 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 0.0oz. 145.968939kw; 65.73 BMI Method:Stated Exam Exam Patient acknowledged, consented, and participated in this virtual visit which was conducted using real time audio/video Vital Signs Date Time Temp Pulse Resp B/P (MAP) Pulse Ox O2 Delivery O2 Flow Rate FiO2 05/03/21 08:10 36.4 84 18 119/71 (87) 97 Nasal Cannula 1.00 05/03/21 07:42 Nasal Cannula 1.50 05/03/21 07:33 94 Nasal Cannula 1.50 05/03/21 07:00 103 05/03/21 04:32 36.4 94 20 133/55 (81) 96 Nasal Cannula 1.00 05/03/21 02:39 91 NIV CPAP 0.00 05/03/21 01:00 100 05/02/21 23:50 36.8 71 22 133/73 (93) 94 Nasal Cannula 1.00 05/02/21 22:13 90 NIV CPAP 0.00 05/02/21 20:00 95 Nasal Cannula 1.50 05/02/21 19:13 93 Nasal Cannula 1.00 05/02/21 19:10 36.9 116 22 144/70 (94) 94 Nasal Cannula 1.00 05/02/21 19:03 93 Nasal Cannula 1.00 05/02/21 19:00 110 05/02/21 16:35 113 05/02/21 15:27 36.9 125 20 148/72 (97) 96 Nasal Cannula 1.00 05/02/21 15:13 97 Nasal Cannula 1.00 05/02/21 13:19 98 Nasal Cannula 1.00 05/02/21 12:29 37.2 114 24 127/62 (83) 96 Nasal Cannula 1.00 05/02/21 10:20 36.6 111 98 21 05/02/21 10:17 37.8 124 24 159/71 (100) 95 Nasal Cannula 1.00 05/02/21 10:15 126 28 152/80 96 Nasal Cannula 2.00 I & O 05/03/21 06:59 Intake Total 2020 ml Balance 2020 ml Height & Weight Height: 5'10.00" Weight: 320lbs. 0.0oz. 145.526084rn; 65.73 BMI Method:Stated General Appearance: No Apparent Distress, Obese HEENT: PERRL/EOMI, Moist Mucous Membranes Neck: Normal Inspection, Supple Respiratory: Chest Non Tender, Lungs Clear, No Accessory Muscle Use, Decreased Breath Sounds, Wheezing (resolved) Cardiovascular: Regular Rate, Rhythm, No Murmur Capillary Refill: Less Than 3 Seconds Gastrointestinal: non tender, soft Extremity: No Calf Tenderness, No Pedal Edema, Pedal Edema Neurologic/Psychiatric: Alert, Oriented x3, Normal Mood/Affect Results Lab Laboratory Tests 05/02/21 05:25 05/03/21 07:36 Assessment/Plan Assessment/Plan Acute hyoxemic resp failure dual etiology:L -RAISA suspect RV failure =weight reduction adviced/ consider revisiting the bariatric surgery approach =outpatient PSG =BIPAP12/7 at night if tolerated =melatonin given for better sleep quality =diuretic trial -Asthma poorly controlled/ moderate persistent -continue ICS/LABA/ GELACIO -I believe that the symptoms are mainbly related to raisa/ weigh tgain -ro dvt post covid dw patient via vidyo/ eko used for examination dw bed side rn and BALJIT Fonseca MD May 03, 2021 08:34
[2021-05-03] MEDS: PANTOPRAZOLE 40 MG (PROTONIX) VIAL IV SCH (09:18)
[2021-05-03] MEDS: ALPRAZolam 0.5 MG (XANAX) TAB PO PRN ×2 (09:18→18:54)
[2021-05-03] MEDS ORDERED: FUROSEMIDE 40 MG/4 ML INJ (LASIX) IVP ONE (09:30)
[2021-05-03] MEDS ORDERED: SCOPOLAMINE 1.5 MG (TRANSDERM-SCOP) PATCH TD ONE (09:30)
--- NOTE | 2021-05-03 09:38 | Progress Note - Hospitalist ---
Subjective HPI/CC On Admission Date Seen by Provider: May 03, 2021 Time Seen by Provider: 09:36 Pt is a 30yoCF with a PMH of asthma who presented to the ER due to shortness of breath. She was seen in the ER on 04/06 for similar and completed steroids then. She has been compliant with her inahlers (Symbicort and Advair and ProAir) at h ome but has continued to feel short of breath. She also has a lot of nausea and vomiting since being on the steroids. She was seen last week at [facility] clinic and prescribed Levaquin and more steroids. They have not helped her symptoms. She has been using her ProAir every 2-4 hours. She did have COVID back in December. She has not been vaccinated yet. Subjective/Events-last exam Pt reports breathing easier today. Nausea persists though. She was able to get up a little easier to the bathroom but still coughing a lot and short of breath. Does not feel like she is wheezing now. Focused Exam Lactate Level 05/02/21 05:36: Lactic Acid Level 1.02 Objective Exam Vital Signs Vital Signs Date Time Temp Pulse Resp B/P (MAP) Pulse Ox O2 Delivery O2 Flow Rate FiO2 05/03/21 08:10 36.4 84 18 119/71 (87) 97 Nasal Cannula 1.00 05/02/21 22:13 Capillary Refill : Less Than 3 Seconds General Appearance: No Apparent Distress, Obese Respiratory: No Accessory Muscle Use, Wheezing (scant expiratory) Cardiovascular: Regular Rate, Rhythm, No Murmur Gastrointestinal: Normal Bowel Sounds, Non Tender, Soft Neurologic/Psychiatric: Alert, Oriented x3 Results/Procedures Lab Laboratory Tests 05/03/21 07:36 Patient resulted labs reviewed. Assessment/Plan Assessment and Plan Assess & Plan/Chief Complaint Status Asthmaticus Wean oxygen as able Received IV Decadron, hour long breathing treatment, Mag, and IH Decadron in the ER ABG done with a Co2 of 39 Continue on IV steroids TelePulm consult, appreciate recs Patient confirms that symptoms have been much worse and persistent since COVID in December, likely has "long haul" symptoms Nausea and vomiting ? due to gastritis from steroids Continue PPI Zofran and Phenergan prn Add scopolamine patch as well today If not improvement by tomorrow with talk with surgery about possible EGD Obesity No acute needs, clinically significant DVT ppx: Lovenox Diagnosis/Problems Diagnosis/Problems (1) Status asthmaticus Status: Acute Qualifiers: Asthma severity: moderate Asthma persistence: persistent Qualified Codes: J45.42 - Moderate persistent asthma with status asthmaticus CATHY SAPP MD May 03, 2021 09:38
[2021-05-03] MEDS: PROMETHAZINE INJ 25 MG/ML (PHENERGAN) AMP IVP PRN ×2 (10:33→18:54)
[2021-05-03 12:50] VITALS: BP 127/70
--- NOTE | 2021-05-03 13:54 | Diagnostic Imaging Report ---
PROCEDURE: US Venous Lower Ext Minh. TECHNIQUE: Multiple real-time grayscale images were obtained over the lower extremities in various projections, bilaterally. Additional duplex Doppler and color Doppler images were also obtained. INDICATION: DVT. There is no evidence of right or left lower extremity DVT. Both lower extremity deep venous systems demonstrate normal compressibility with normal response to augmentation and Valsalva. No fluid collection or mass is detected. IMPRESSION: No evidence of right or left lower extremity DVT. Dictated by: Dictated on workstation # [id number]
[2021-05-03 16:09] VITALS: BP 125/71
[2021-05-03] MEDS ORDERED: BENZONATATE 100 MG (TESSALON) CAPSULE PO ONE (16:30)
[2021-05-03] MEDS ORDERED: guaiFENesin/CODEINE (ROBITUSSIN AC) 10ML UDC PO PRN (16:45)
[2021-05-03] MEDS: BENZONATATE 100 MG (TESSALON) CAPSULE PO SCH (19:25)
[2021-05-03] MEDS: MELATONIN 3 MG TABLET PO SCH (19:25)
[2021-05-03 19:56] VITALS: BP 131/69
[2021-05-03 23:46] VITALS: BP 100/63
[2021-05-04] MEDS: RT-ALBUTEROL/IPRATROPIUM 3 ML (DUONEB) VIAL INH SCH ×6 (02:21→22:52)
[2021-05-04] MEDS: ONDANSETRON 4 MG/2 ML (SDV) Z0FRAN IVP PRN ×4 (02:46→20:57)
[2021-05-04 04:33] VITALS: BP 134/76
[2021-05-04] MEDS: ENOXAPARIN 60 MG/0.6 ML (LOVENOX) SYR SC SCH ×2 (05:07→16:00)
[2021-05-04] MEDS: methylPREDNISolone 40 MG/ML (Solu-MEDROL) VIAL IV SCH (05:07)
[2021-05-04] MEDS: RT--FLUTICASONE/SALMETEROL 113-14 (AIRDUO RespiCLICK) IH SCH ×2 (07:01→22:52)
[2021-05-04] MEDS: BENZONATATE 100 MG (TESSALON) CAPSULE PO SCH ×3 (07:54→20:57)
[2021-05-04] MEDS: PANTOPRAZOLE 40 MG (PROTONIX) VIAL IV SCH (07:54)
--- NOTE | 2021-05-04 08:38 | Pulmonary Progress Note ---
Subjective Date Seen by a Provider: May 04, 2021 Time Seen by a Provider: 09:00 Subjective/Events-last exam BIPAP usage over night Review of Systems General: Fatigue Pulmonary: Dyspnea Sepsis Event Evaluation Height, Weight, BMI Height: 5'10.00" Weight: 320lbs. 0.0oz. 145.799574mc; 65.73 BMI Method:Stated Focused Exam Lactate Level 05/02/21 05:36: Lactic Acid Level 1.02 Exam Exam Patient acknowledged, consented, and participated in this virtual visit which was conducted using real time audio/video Vital Signs Date Time Temp Pulse Resp B/P (MAP) Pulse Ox O2 Delivery O2 Flow Rate FiO2 05/04/21 07:03 94 Nasal Cannula 1.50 05/04/21 07:03 Nasal Cannula 1.50 05/04/21 07:00 81 05/04/21 04:33 35.9 76 20 134/76 (95) 97 Nasal Cannula 1.50 05/04/21 02:21 100 20 95 30.00 05/04/21 01:00 61 05/03/21 23:46 36.1 82 20 100/63 (75) 96 Nasal Cannula 1.50 05/03/21 21:59 100 16 96 30.00 05/03/21 19:56 36.8 104 20 131/69 (89) 95 Nasal Cannula 1.50 05/03/21 19:20 Nasal Cannula 1.50 05/03/21 19:00 100 05/03/21 18:31 Nasal Cannula 1.50 05/03/21 18:30 95 Nasal Cannula 1.50 05/03/21 16:09 35.8 88 18 125/71 (89) 94 Nasal Cannula 1.50 05/03/21 14:50 94 Nasal Cannula 1.50 05/03/21 13:00 100 05/03/21 12:50 36.3 95 22 127/70 (89) 96 Nasal Cannula 1.00 05/03/21 11:08 94 Nasal Cannula 1.50 I & O 05/04/21 07:00 Intake Total 3250 ml Balance 3250 ml Height & Weight Height: 5'10.00" Weight: 320lbs. 0.0oz. 145.773997ch; 65.73 BMI Method:Stated General Appearance: No Apparent Distress, Obese HEENT: PERRL/EOMI, Moist Mucous Membranes Neck: Normal Inspection, Supple Respiratory: Lungs Clear, No Accessory Muscle Use, Wheezing (scant expiratory) Cardiovascular: Regular Rate, Rhythm, No Murmur Capillary Refill: Less Than 3 Seconds Gastrointestinal: non tender, soft Extremity: No Calf Tenderness, No Pedal Edema, Pedal Edema Neurologic/Psychiatric: Alert, Oriented x3 Results Lab Laboratory Tests 05/03/21 07:36 Assessment/Plan Assessment/Plan Acute hypoxemic resp failure -nickie/ oih -asthma uncontrolled in the context of NICKIE/ OIH -steroids short course: Prednisone 40mg po qd/LABA/LAMA/GELACIO; consider Advair 500/50 outpatient -outpatient PSG -weight reduction -outpatient follow up -home O2 eval pending BALJIT SOTELO MD May 04, 2021 08:38
[2021-05-04] MEDS ORDERED: FUROSEMIDE 40 MG/4 ML INJ (LASIX) IVP ONE (10:00)
--- NOTE | 2021-05-04 10:26 | Progress Note - Hospitalist ---
Subjective HPI/CC On Admission Date Seen by Provider: May 04, 2021 Time Seen by Provider: 10:21 Pt is a 30yoCF with a PMH of asthma who presented to the ER due to shortness of breath. She was seen in the ER on 04/06 for similar and completed steroids then. She has been compliant with her inahlers (Symbicort and Advair and ProAir) at home but has continued to feel short of breath. She also has a lot of nausea and vomiting since being on the steroids. She was seen last week at [facility] clinic and prescribed Levaquin and more steroids. They have not helped her symptoms. She has been using her ProAir every 2-4 hours. She did have COVID back in December. She has not been vaccinated yet. Subjective/Events-last exam Pt reports feeling better today. No complaints. Breathing is better but she still is dyspneic with exertion. We discussed that this may be post COVID syndrome. Encouraged vaccination as that can help with this symptoms. Focused Exam Lactate Level 05/02/21 05:36: Lactic Acid Level 1.02 Objective Exam Vital Signs Vital Signs Date Time Temp Pulse Resp B/P (MAP) Pulse Ox O2 Delivery O2 Flow Rate FiO2 05/04/21 07:03 94 Nasal Cannula 1.50 05/04/21 07:00 81 05/04/21 04:33 35.9 20 134/76 (95) 05/02/21 22:13 Capillary Refill : Less Than 3 Seconds General Appearance: No Apparent Distress, Obese Respiratory: Lungs Clear, No Accessory Muscle Use Cardiovascular: Regular Rate, Rhythm, No Murmur Gastrointestinal: Normal Bowel Sounds, Non Tender, Soft Extremity: No Calf Tenderness, No Pedal Edema Neurologic/Psychiatric: Alert, Oriented x3 Results/Procedures Lab Patient resulted labs reviewed. Assessment/Plan Assessment and Plan Assess & Plan/Chief Complaint Status Asthmaticus Post COVID syndrome Wean oxygen as able Home oxygen study ordered Continue steroids, switch to PO todays TelePulm consult, appreciate recs Nausea and vomiting Improving Continue PPI Zofran and Phenergan prn Obesity No acute needs, clinically significant DVT ppx: Lovenox Diagnosis/Problems Diagnosis/Problems (1) Status asthmaticus Status: Acute Qualifiers: Asthma severity: moderate Asthma persistence: persistent Qualified Codes: J45.42 - Moderate persistent asthma with status asthmaticus CATHY SAPP MD May 04, 2021 10:26
[2021-05-04 10:32] VITALS: BP 132/72
[2021-05-04 12:14] VITALS: BP 130/63
[2021-05-04] MEDS ORDERED: SALINE NASAL SPRAY (OCEAN) 45 ML BTL PRN (16:15)
[2021-05-04 16:42] VITALS: BP 133/79
[2021-05-04 19:34] VITALS: BP 129/72
[2021-05-04 20:48] VITALS: BP 129/72
[2021-05-04] MEDS: MELATONIN 3 MG TABLET PO SCH (20:57)
[2021-05-05] VITALS: BP 156/65
[2021-05-05] MEDS: RT-ALBUTEROL/IPRATROPIUM 3 ML (DUONEB) VIAL INH SCH ×3 (02:02→11:53)
[2021-05-05 04:00] VITALS: BP 129/66
[2021-05-05] MEDS: ENOXAPARIN 60 MG/0.6 ML (LOVENOX) SYR SC SCH (04:33)
[2021-05-05] MEDS ORDERED: predniSONE 20 MG TAB PO SCH (07:00)
[2021-05-05] MEDS: RT--FLUTICASONE/SALMETEROL 113-14 (AIRDUO RespiCLICK) IH SCH (07:35)
[2021-05-05 07:36] VITALS: BP 117/55
[2021-05-05] MEDS: PANTOPRAZOLE 40 MG (PROTONIX) VIAL IV SCH (08:41)
[2021-05-05] MEDS: BENZONATATE 100 MG (TESSALON) CAPSULE PO SCH ×2 (08:41→13:22)
[2021-05-05 11:39] VITALS: BP 135/74
[2021-05-05] MEDS ORDERED: FLUT1DIS26 IH (12:24)
[2021-05-05] MEDS ORDERED: PRD20T PO (12:24)
[2021-05-05] MEDS ORDERED: RT-ALBUINH IH (12:24)
--- NOTE | 2021-05-05 12:31 | Discharge Inst-Simple/Standard ---
Discharge Inst-Standard Discharge Medications New, Converted or Re-Newed RX: Transmitted to Pharmacy Patient Instructions/Follow Up Plan of Care/Instructions/FU: Please continue to take your medications as written. Please follow up with your primary care doctor to follow up this hospital stay and with Dr Rome in the pulmonary clinic. Activity as Tolerated: Yes Discharge Diet: No Restrictions Return to The Hospital For: Shortness of breath, wheezing, fever, chest pain, if you feel you are getting worse. CATHY SAPP MD May 05, 2021 12:31
--- NOTE | 2021-05-05 12:33 | Discharge Summary ---
Diagnosis/Chief Complaint Date of Admission May 02, 2021 at 08:52 Date of Discharge Discharge Date: May 05, 2021 Admission Diagnosis Status Asthmaticus Primary Care Kuldip Kee MD Discharge Diagnosis (1) Status asthmaticus Status: Acute Discharge Summary Discharge Physical Exam Allergies: Coded Allergies: No Known Drug Allergies (Unverified , 05/02/21) Vitals & I&Os Vital Signs Date Time Temp Pulse Resp B/P (MAP) Pulse Ox O2 Delivery O2 Flow Rate FiO2 05/05/21 13:40 37.1 79 18 135/74 95 Room Air 1.00 05/04/21 20:48 28 General Appearance: No Apparent Distress, Obese Respiratory: Lungs Clear, No Respiratory Distress Cardiovascular: Regular Rate, Rhythm, No Murmur Gastrointestinal: Normal Bowel Sounds, Soft Neurologic/Psychiatric: Alert, Oriented x3 Hospital Course Pt was admitted due to status asthmaticus. She was treated with steroids and did well. She was seen by TelePulm. It was deemed her symptoms were likely multifactorial between known asthma, Post COVID syndrome, and presumed obesity hypoventilation syndrome. She was discharged home with steroids taper and did not require oxygen. She is to follow up with Pulm Clinic here to arrange for outpatient sleep study and further care. She is to follow up with her PCP Dr Kee as well. Labs (last 24 hrs) Microbiology 05/02/21 Urine Culture - Final, Complete Mixed Bacterial Lexis 05/02/21 Blood Culture - Preliminary, Resulted No growth Patient resulted labs reviewed. Discussion & Recommendations Discharge Planning: >30 minutes discharge planning Discharge Home Medications: Active Scripts Active Prednisone 20 Mg Tab 20 Mg PO DAILY Take 3 tabs(60mg)daily, decrease by 1/2 tab(10mg)daily. Proair Hfa (Albuterol Sulfate) 1 Puff Puff 2 Puff IH Q4H PRN Advair 250-50 Diskus (Fluticasone/Salmeterol) 1 Each Blst.w.dev 1 Each IH DAILY Reported Excedrin Migraine Caplet (Aspirin/Acetaminophen/Caffeine) 1 Each Tablet 2 Each PO Q6-8HR PRN Instructions to patient/family Please see electronic discharge instructions given to patient. Copy Copies To 1: KULDIP KEE MD Problem Qualifiers (1) Status asthmaticus: Asthma severity: moderate Asthma persistence: persistent Qualified Codes: J45.42 - Moderate persistent asthma with status asthmaticus CATHY SAPP MD May 05, 2021 12:33
[2021-05-05 13:40] VITALS: BP 135/74
== END 2021-05-05 13:40 | disposition home or self-care (01) | DRG 202 ==
LOC: EDUNIT# 05:06 → ER 05:09 → 4TH 08:52
PROVIDERS: ADMIT Family Medicine; ATTEND Family Medicine
DX: J45.902 Unspecified asthma with status asthmaticus (principal); J96.01 Acute respiratory failure with hypoxia; Z68.44 Body mass index [BMI] 60.0-69.9, adult; E66.01 Morbid (severe) obesity due to excess calories; Z20.822 Contact with and (suspected) exposure to COVID-19; K21.9 Gastro-esophageal reflux disease without esophagitis; G89.29 Other chronic pain; M54.9 Dorsalgia, unspecified; E11.9 Type 2 diabetes mellitus without complications; F32.9 Major depressive disorder, single episode, unspecified; G47.33 Obstructive sleep apnea (adult) (pediatric); K29.70 Gastritis, unspecified, without bleeding; T38.0X5A Adverse effect of glucocorticoids and synthetic analogues, initial encounter; Z86.16 Personal history of COVID-19; Z79.84 Long term (current) use of oral hypoglycemic drugs; Z79.899 Other long term (current) drug therapy; Z87.891 Personal history of nicotine dependence
CPT/HCPCS: 36410; 36415; 71046; 76937; 80048; 80053; 80306; 80320; 81000; 82805; 83605; 83615; 83880; 84145; 84484; 84703; 85025; 85027; 85610; 85652; 85730; 86141; 87040; 87088; 87636; 93005; 93970; 94640; 94660; 94760; 96365; 96375

== ENCOUNTER 2021-07-29 13:01 | Observation (INO) | payer SELFPAY ==
[~2021-07-29] VITALS: Ht 177.8 cm; Wt 202.1 kg
[~2021-07-29 13:01] MED LIST changes: +ASPI-789 PO; +BUDE10.2 IH; +FLUT1DIS26 IH; +RT-ALBUINH IH; -SULF1TAB35 PO
--- NOTE | 2021-07-29 13:13 | ED Dyspnea ---
General Stated Complaint: TROUBLE BREATHING Source of Information: Patient Exam Limitations: No Limitations History of Present Illness Date Seen by Provider: Jul 29, 2021 Time Seen by Provider: 13:10 Initial Comments That the good delay for a child to ER with trouble breathing since about 3 AM. She has known asthma and has a nebulizer machine at home. No fevers or chills. Had Covid earlier this year. Was admitted in April for status asthmaticus. Also has comorbid obesity hypoventilation syndrome. Timing/Duration: Other (12 hours) Severity: Moderate Prior Episodes/Possible Cause: Occasional Episodes, Other Associated Symptoms: Cough, Wheezing Allergies and Home Medications Allergies Coded Allergies: No Known Drug Allergies (Unverified , 05/02/21) Patient Home Medication List Home Medication List Reviewed: Yes Albuterol Sulfate (Proair Hfa) 1 Puff Puff, 2 PUFF IH Q4H PRN for SHORTNESS OF BREATH Prescribed by: CATHY SAPP on 05/05/21 1224 Aspirin/Acetaminophen/Caffeine (Excedrin Migraine Caplet) 1 Each Tablet, 2 EACH PO Q6-8HR PRN for HEADACHE, (Reported) Entered as Reported by: ITZEL CASAS on 05/02/21 1146 Fluticasone/Salmeterol (Advair 250-50 Diskus) 1 Each Blst.w.dev, 1 EACH IH DAILY Prescribed by: CATHY SAPP on 05/05/21 1224 Prednisone (Prednisone) 20 Mg Tab, 20 MG PO DAILY Prescribed by: CATHY SAPP on 05/05/21 1224 Review of Systems Review of Systems Constitutional: see HPI EENTM: see HPI Respiratory: see HPI, short of breath, wheezing Cardiovascular: no symptoms reported Genitourinary: no symptoms reported Musculoskeletal: no symptoms reported Skin: no symptoms reported Psychiatric/Neurological: No Symptoms Reported Endocrine: No Symptoms Reported Past Umwfdag-Qcudjq-Yolskk Hx Immunizations Up To Date Tetanus Booster (TDap): Less than 5yrs Seasonal Allergies Seasonal Allergies: No Past Medical History Surgeries: Yes (PILONIDAL CYST 11/2020; LEFT EAR BENIGN TUMOR) Ear Surgery, Gallbladder Respiratory: Yes Asthma, Sleep Apnea Currently Using CPAP: Yes Currently Using BIPAP: No Cardiac: No Neurological: No Reproductive Disorders: Yes Female Reproductive Disorders: Menstrual Problems Sexually Transmitted Disease: No HIV/AIDS: No Genitourinary: Yes Kidney Stones Gastrointestinal: Yes Gastroesophageal Reflux, Ulcer Musculoskeletal: Yes Chronic Back Pain Endocrine: Yes (MORBID OBESITY) Diabetes, Non-Insulin dep HEENT: No Hearing Impairment: Denies Cancer: No Psychosocial: Yes (SCHIZO-AFFECTIVE; CUTTING; PANIC ATTACKS; SUBSTANCE ABUSE) Sleep Difficulties, Suicide Attempts, Depression Integumentary: Yes (HAS HIDRADENITIS UNDER BREASTS) Blood Disorders: No Family Medical History Family history: Asthma 09 BROTHER, Onset:Childhood Family history: Gastrointestinal disease 03 MOTHER, Onset:Unknown Family history: Hypertension 03 FATHER, Onset:40's - 50 Kidney disease 03 MOTHER, Onset:Childhood No Family History of: Abdominal aortic aneurysm Albino's disease Alcoholism Aphasia Cancer Cataract Chest pain Congenital heart disease Congestive heart failure Cystic fibrosis Dementia Dysphagia Family history: Allergy Family history: Alzheimer's disease Family history: Arthritis Family history: Breast disease Family history: Cardiovascular disease Family history: Coronary thrombosis Family history: Diabetes mellitus Family history: Glaucoma Family history: Osteoporosis Family history: Thyroid disorder Headache Hearing loss Heart disease Hereditary disease History of - anemia History of - disorder History of - respiratory disease History of drug abuse Human immunodeficiency virus (HIV) seropositivity Hypercholesterolemia Infertile Malignant neoplasm of lung Myocardial infarction Parkinson's disease Prostate cancer Psychotic disorder Seizure disorder Stroke Tuberculosis Visual impairment No Pertinent Family Hx SOCIAL HISTORY: -ETOH--HX VERY HEAVY USE -DRUGS-HX METH, THC USE -SMOKED 1 PPD, QUIT 2017 Physical Exam Vital Signs Vital Signs - First Documented Capillary Refill : Height, Weight, BMI Height: 5'10.00" Weight: 320lbs. 0.0oz. 145.302193oh; 65.73 BMI Method:Stated General Appearance: No Apparent Distress, WD/WN, Obese, Other (Alert and oriented very pleasant tachypneic with a respiratory rate in the upper 20s. Decent air movement throughout the lungs with some faint wheezing on the right.) HEENT: PERRL/EOMI, TMs Normal Neck: Full Range of Motion, Normal Inspection Respiratory: No Accessory Muscle Use, No Respiratory Distress Cardiovascular: Regular Rate, Rhythm, Normal Peripheral Pulses Gastrointestinal: Normal Bowel Sounds, Non Tender, Soft Extremity: Normal Capillary Refill, Normal Inspection Neurologic/Psychiatric: Alert, Oriented x3 Skin: Normal Color, Warm/Dry Progress/Results/Core Measures Results/Orders Lab Results Laboratory Tests Test 07/29/21 13:12 07/29/21 13:13 Range/Units Blood Gas Puncture Site RIGHT RADIAL Blood Gas Patient Temperature 37. Arterial Blood pH 7.42 7.37-7.43 Arterial Blood Partial Pressure CO2 43 35-45 MMHG Arterial Blood Partial Pressure O2 81 79-93 MMHG Arterial Blood HCO3 27 23-27 MMOL/L Arterial Blood Total CO2 28.4 21.0-31.0 MMOL/L Arterial Blood Oxygen Saturation 98 94-100 % Arterial Blood Base Excess 2.9 H -2.5-2.5 MMOL/L Eric Test POSITIVE Blood Gas Ventilator Setting NO Blood Gas Inspired Oxygen N/A White Blood Count 12.0 H 4.3-11.0 10^3/uL Red Blood Count 4.90 3.80-5.11 10^6/uL Hemoglobin 12.2 11.5-16.0 g/dL Hematocrit 40 35-52 % Mean Corpuscular Volume 82 80-99 fL Mean Corpuscular Hemoglobin 25 25-34 pg Mean Corpuscular Hemoglobin Concent 31 L 32-36 g/dL Red Cell Distribution Width 15.9 H 10.0-14.5 % Platelet Count 313 130-400 10^3/uL Mean Platelet Volume 11.2 9.0-12.2 fL Immature Granulocyte % (Auto) 0 % Neutrophils (%) (Auto) 69 42-75 % Lymphocytes (%) (Auto) 19 12-44 % Monocytes (%) (Auto) 6 0-12 % Eosinophils (%) (Auto) 6 0-10 % Basophils (%) (Auto) 1 0-10 % Neutrophils # (Auto) 8.2 H 1.8-7.8 10^3/uL Lymphocytes # (Auto) 2.3 1.0-4.0 10^3/uL Monocytes # (Auto) 0.7 0.0-1.0 10^3/uL Eosinophils # (Auto) 0.7 H 0.0-0.3 10^3/uL Basophils # (Auto) 0.1 0.0-0.1 10^3/uL Immature Granulocyte # (Auto) 0.0 0.0-0.1 10^3/uL Sodium Level 139 135-145 MMOL/L Potassium Level 4.2 3.6-5.0 MMOL/L Chloride Level 103 98-107 MMOL/L Carbon Dioxide Level 25 21-32 MMOL/L Anion Gap 11 5-14 MMOL/L Blood Urea Nitrogen 13 7-18 MG/DL Creatinine 0.73 0.60-1.30 MG/DL Estimat Glomerular Filtration Rate 94 BUN/Creatinine Ratio 18 Glucose Level 98 70-105 MG/DL Calcium Level 9.2 8.5-10.1 MG/DL Magnesium Level 2.0 1.6-2.4 MG/DL Serum Test, Qualitative NEGATIVE NEGATIVE My Orders Orders - THOM HUSAIN APRN Cbc With Automated Diff (07/29/21 13:06) Basic Metabolic Panel (07/29/21 13:06) Magnesium (07/29/21 13:06) Ed Iv/Invasive Line Start (07/29/21 13:06) Hcg,Qualitative Serum (07/29/21 13:06) Chest 1 View, Ap/Pa Only (07/29/21 13:06) Methylprednisolone Sod Succ (Solu-Medrol (07/29/21 13:15) Budesonide Inhalation Solution (Pulmicor (07/29/21 13:15) Albuterol/Ipra Inhalation Soln (Duoneb I (07/29/21 13:15) Albuterol Pre-Mix Nebs (Rt) (Proventil (07/29/21 13:15) Svn Small Volume Nebulizer (07/29/21 13:06) Svn Small Volume Nebulizer (07/29/21 13:06) Svn Small Volume Nebulizer (07/29/21 13:06) Arterial Blood Gas (07/29/21 13:12) Magnesium 1 Gm/100 Ml Ivpb (Magnesium Nuñez (07/29/21 14:15) Lactated Ringers (Lr 1000 Ml Iv Solution (07/29/21 14:15) Medications Given in ED Current Medications Medications Dose Ordered Sig/Monica Route Start Time Stop Time Status Last Admin Dose Admin Albuterol Sulfate 7.5 mg ONCE ONCE INH 07/29/21 13:15 07/29/21 13:16 DC 07/29/21 13:25 7.5 MG Albuterol/ Ipratropium 3 ml ONCE ONCE INH 07/29/21 13:15 07/29/21 13:16 DC 07/29/21 13:26 3 ML Methylprednisolone Sodium Succinate 125 mg ONCE ONCE IVP 07/29/21 13:15 07/29/21 13:16 DC 07/29/21 13:26 125 MG Vital Signs/I&O 07/29/21 07/29/21 07/29/21 13:05 13:05 13:26 Temp 37.0 Pulse 116 Resp 30 B/P (MAP) 179/117 (137) Pulse Ox 98 99 O2 Delivery Room Air Room Air Room Air Departure Communication (Admissions) 1411-after an hour-long breathing treatment with budesonide and IV Solu-Medrol she is still quite wheezy. In fact seems a bit more wheezy now than on arrival likely because of better air movement. Oxygen saturation is fine upwards of 95%. However we will admit for an asthma exacerbation, 2 g of IV mag sulfate to be ordered down here. Impression Primary Impression: Asthma exacerbation Disposition: ADMITTED INPATIENT Condition: Stable Admissions Decision to Admit Reason: Admit from ER (General) Decision to Admit/Date: Jul 29, 2021 Time/Decision to Admit Time: 14:11 Departure-Patient Inst. Decision time for Depature: 13:57 Referrals: KULDIP MARTÍNEZ MD (PCP/Family) Primary Care Physician THOM HUSAIN APRN Jul 29, 2021 13:13
[2021-07-29] MEDS ORDERED: RT-ALBUTEROL/IPRATROPIUM 3 ML (DUONEB) VIAL INH ONE (13:15)
[2021-07-29] MEDS ORDERED: RT-ALBUTEROL SULF 2.5 MG/3 ML PRE-MIX VIAL INH ONE ×2 (13:15→20:15)
[2021-07-29] MEDS ORDERED: methylPREDNISolone 125 MG (Solu-MEDROL) VIAL IVP ONE (13:15)
[2021-07-29] MEDS ORDERED: RT-BUDESONIDE NEBS 0.5 MG/2ML (PULMICORT) AMP INH SCH (13:15)
[2021-07-29 13:23] LABS: BASOPHILS # (AUTO) 0.1 10^3/uL (0.0-0.1); BASOPHILS % (AUTO) 1 % (0-10); EOSINOPHILS # (AUTO) 0.7 10^3/uL (0.0-0.3); EOSINOPHILS % (AUTO) 6 % (0-10); HEMATOCRIT 40 % (35-52); HEMOGLOBIN 12.2 g/dL (11.5-16.0); LYMPHOCYTES # (AUTO) 2.3 10^3/uL (1.0-4.0); LYMPHOCYTES % (AUTO) 19 % (12-44); MEAN CORPUSCULAR HEMOGLOBIN 25 pg (25-34); MEAN CORPUSCULAR HGB CONC 31 g/dL (32-36); MEAN CORPUSCULAR VOLUME 82 fL (80-99); MEAN PLATELET VOLUME 11.2 fL (9.0-12.2); MONOCYTES # (AUTO) 0.7 10^3/uL (0.0-1.0); MONOCYTES % (AUTO) 6 % (0-12); NEUTROPHILS # (AUTO) 8.2 10^3/uL (1.8-7.8); NEUTROPHILS % (AUTO) 69 % (42-75); PLATELET COUNT 313 10^3/uL (130-400)
[2021-07-29 13:25] LABS: ABG BASE EXCESS 2.9 MMOL/L (-2.5-2.5); ABG OXYGEN SATURATION 98 % (94-100); ABG PCO2 43 MMHG (35-45); ABG PH 7.42 (7.37-7.43); ABG PO2 81 MMHG (79-93); ABG TCO2 28.4 MMOL/L (21.0-31.0)
[2021-07-29 13:26] LABS: ALLENS TEST POSITIVE; VENTILATOR NO
[2021-07-29 13:34] LABS: POTASSIUM 4.2 MMOL/L (3.6-5.0)
[2021-07-29 13:35] LABS: CALCIUM 9.2 MG/DL (8.5-10.1)
[2021-07-29 13:39] LABS: CREATININE SERUM 0.73 MG/DL (0.60-1.30)
--- NOTE | 2021-07-29 13:44 | Diagnostic Imaging Report ---
EXAMINATION: Chest 1 view HISTORY: cough COMPARISON: 05/02/2021 FINDINGS: The lungs are clear without edema or pneumonia. No pleural effusion or pneumothorax. Heart size is normal. IMPRESSION: 1. Clear lungs. Dictated by: Dictated on workstation # [id number]
[2021-07-29] MEDS ORDERED: LACTATED RINGERS 1,000 ML IV SCH (14:15)
[2021-07-29] MEDS: MAGNESIUM 1 GM/100 ML IVPB 100 ML IV SCH ×2 (14:47→15:41)
[2021-07-29] MEDS: LACTATED RINGERS 1,000 ML IV SCH (15:43)
[2021-07-29 15:53] VITALS: BP 179/117
[2021-07-29] MEDS: ONDANSETRON 4 MG/2 ML (SDV) Z0FRAN IVP PRN (15:58)
[2021-07-29] MEDS: inSUlin ASPART (NovoLOG) 1 UNIT/0.01 ML (CHARGE PER UNIT) SC SCH ×2 (16:54→19:37)
[2021-07-29] MEDS ORDERED: RT-HYPERTONIC SALINE 3% 4 ML NEB IH ONE (17:00)
[2021-07-29] MEDS ORDERED: RT-epiNEPHrine (RACEMIC) 2.25% 0.5 ML VIAL INH ONE (17:00)
[2021-07-29] MEDS ORDERED: RT-ALBUTEROL SULF 2.5 MG/3 ML PRE-MIX VIAL INH PRN (17:00)
[2021-07-29] MEDS ORDERED: RT-HYPERTONIC SALINE 3% 4 ML NEB ONE (17:12)
--- NOTE | 2021-07-29 20:32 | Tele-ICU Progress Note ---
Progress Note 31F with asthma, OHS, NIDDM requiring prior hospitalizations admitted with status asthmaticus. In ED, received 1hr alb neb with budesonide and IV solumedrol and was more wheezy than on arrival, presumably secondary to in creased aeration. No hypoxia throughout evaluation in ED, ABG essentially normal.CXR WNL. Known COVID earlier this year. Has required admission for asthma 3 times since then. Had severe childhood asthma but had not had significant issues in adulthood until COVID. Patient appears clinically worse than labs/imaging, with moderate dyspnea and work of breathing. - status asthmaticus: repeat continuous neb, 10 mg albuterol now. Increase schedule from q6hr to q4h neb in addition to q2h PRN. Received solumedrol 125 mg in ER with 80 mg q8 ordered ongoing. Initiate BiPap PRN for symptomatic support, bronchospasm. - DM: sliding scale ordered. Given high dose steroids, will spot check overnight. Change diet from regular to carb control. Focused Exam Height, Weight, BMI Height: 5'10.00" Weight: 320lbs. 0.0oz. 145.737466cn; 66.01 BMI Method:Stated SURAJ VELOZ MD Jul 29, 2021 20:32
[2021-07-29] MEDS: methylPREDNISolone 40 MG/ML (Solu-MEDROL) VIAL IV SCH (20:40)
[2021-07-29 20:49] VITALS: BP 130/82
[2021-07-29] MEDS ORDERED: RT-ALBUTEROL SULF 2.5 MG/3 ML PRE-MIX VIAL INH SCH (21:00)
[2021-07-30] MEDS ORDERED: RT-ALBUTEROL SULF 2.5 MG/3 ML PRE-MIX VIAL INH SCH (01:00)
[2021-07-30] MEDS: RT-ALBUTEROL SULF 2.5 MG/3 ML PRE-MIX VIAL INH SCH ×6 (02:33→21:24)
[2021-07-30 02:34] VITALS: BP 135/73
[2021-07-30 04:29] LABS: BASOPHILS % (AUTO) 0 % (0-10); EOSINOPHILS % (AUTO) 0 % (0-10); HEMATOCRIT 35 % (35-52); LYMPHOCYTES # (AUTO) 0.9 10^3/uL (1.0-4.0); LYMPHOCYTES % (AUTO) 8 % (12-44); MEAN CORPUSCULAR HEMOGLOBIN 26 pg (25-34); MEAN CORPUSCULAR HGB CONC 31 g/dL (32-36); MEAN CORPUSCULAR VOLUME 82 fL (80-99); MEAN PLATELET VOLUME 11.7 fL (9.0-12.2); MONOCYTES # (AUTO) 0.2 10^3/uL (0.0-1.0); MONOCYTES % (AUTO) 2 % (0-12); NEUTROPHILS # (AUTO) 10.3 10^3/uL (1.8-7.8); NEUTROPHILS % (AUTO) 90 % (42-75); PLATELET COUNT 268 10^3/uL (130-400); WHITE BLOOD COUNT 11.5 10^3/uL (4.3-11.0)
[2021-07-30 04:47] LABS: CALCIUM 9.1 MG/DL (8.5-10.1); CREATININE SERUM 0.66 MG/DL (0.60-1.30); MAGNESIUM 2.9 MG/DL (1.6-2.4); PHOSPHORUS 3.4 MG/DL (2.3-4.7); POTASSIUM 4.3 MMOL/L (3.6-5.0)
[2021-07-30 04:58] LABS: HYPOCHROMASIA SLIGHT; LYMPHOCYTES % (MANUAL) 7 %; NEUTROPHILS % (MANUAL) 93 %
[2021-07-30] MEDS: inSUlin ASPART (NovoLOG) 1 UNIT/0.01 ML (CHARGE PER UNIT) SC SCH ×4 (05:03→21:37)
[2021-07-30] MEDS: methylPREDNISolone 40 MG/ML (Solu-MEDROL) VIAL IV SCH ×3 (05:08→21:42)
[2021-07-30] MEDS ORDERED: MAGNESIUM 1 GM/100 ML IVPB 100 ML IV SCH (06:00)
[2021-07-30] MEDS ORDERED: POTASSIUM CL 10MEQ/50ML IVPB 50 ML IV SCH (06:00)
[2021-07-30] MEDS ORDERED: KCL 20 MEQ TAB (K-DUR) PO SCH (06:00)
[2021-07-30] MEDS: LACTATED RINGERS 1,000 ML IV SCH ×2 (07:59)
[2021-07-30] MEDS: ONDANSETRON 4 MG/2 ML (SDV) Z0FRAN IVP PRN ×2 (08:03→21:42)
--- NOTE | 2021-07-30 09:46 | Tele-ICU Progress Note ---
Progress Note Available charting reviewed. Now off BIAPAP, on RA , confortable lying flat , SOB when moving hemodynamically stable Video assessment done, discussed with RN CPM with nebs and steroids Bedside physicians on case evaluated patient -> transfer to medical ahn Discussed with RN to reach out if any questions or concerns Focused Exam Height, Weight, BMI Height: 5'10.00" Weight: 320lbs. 0.0oz. 145.197332nr; 66.01 BMI Method:Stated ARIANNE RUVALCABA MD Jul 30, 2021 09:46
[2021-07-30] MEDS ORDERED: METF-397 PO (11:00)
[2021-07-30] MEDS ORDERED: LISI1TAB26 PO (11:00)
[2021-07-30] MEDS ORDERED: BUDE10.2 IH (11:00)
[2021-07-30] MEDS ORDERED: ACET-2267 PO (11:01)
[2021-07-30] MEDS ORDERED: PROM25TA14 PO (11:01)
[2021-07-30] MEDS ORDERED: RT-ALBUINH IH (11:10)
--- NOTE | 2021-07-30 11:40 | History & Physical-Hospitalist ---
History of Present Illness HPI/Chief Complaint Erin Gould is a 31-year-old female with past medical history of asthma, type 2 diabetes mellitus, obstructive sleep apnea, super super obesity, who presented with shortness of breath. She reports that she had been using her rescue inhaler several times daily for the past week. She has had a cough. She denies fevers and chills. She has had chest tightness. She has been having some pain on the right side of her abdomen. She has had chronic issues with nausea and vomiting. Source: patient Exam Limitations: no limitations Date Seen 07/30/21 Time Seen by a Provider: 09:00 Attending Physician Halina West MD PCP Magdi Kee MD Referring Physician Date of Admission Jul 29, 2021 at 14:21 Home Medications & Allergies Home Medications Reviewed patient Home Medication Reconciliation performed by pharmacy medication reconciliations technical maintenance technician and/or nursing. Patients Allergies have been reviewed. Allergies Allergies Coded Allergies No Known Drug Allergies (Unverified05/02/21) Past Wbxycxa-Ketvze-Nugzkr Hx Patient Social History Tobacco Use?: No Smoking Status: Never a Smoker Use of E-Cig and/or Vaping dev: No Substance use?: No Alcohol Use?: No Pt feels they are or have been: No Immunizations Up To Date Date of Influenza Vaccine: Sep 03, 2020 Tetanus Booster (TDap): Unknown Hepatitis A: Yes Hepatitis B: Yes Seasonal Allergies Seasonal Allergies: No Current Status status: Unknown Advance Directives: No Communicates: Verbally Primary Language: Faroese Preferred Spoken Language: Faroese Is interpretation needed?: No Implanted or Applied Medical D: None Past Medical History Surgeries: Ear Surgery, Gallbladder Asthma, Sleep Apnea Currently Using CPAP: Yes Currently Using BIPAP: No Sexually Transmitted Disease: No HIV/AIDS: No Kidney Stones Gastroesophageal Reflux, Ulcer Chronic Back Pain Diabetes, Non-Insulin dep Hearing Impairment: Denies Sleep Difficulties, Suicide Attempts, Depression Blood Disorders: No Asthma Schizoaffective Depression Anxiety 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 Family Medical History Family history: Asthma 09 BROTHER, Onset:Childhood Family history: Gastrointestinal disease 03 MOTHER, Onset:Unknown Family history: Hypertension 03 FATHER, Onset:40's - 50 Kidney disease 03 MOTHER, Onset:Childhood No Family History of: Abdominal aortic aneurysm Albino's disease Alcoholism Aphasia Cancer Cataract Chest pain Congenital heart disease Congestive heart failure Cystic fibrosis Dementia Dysphagia Family history: Allergy Family history: Alzheimer's disease Family history: Arthritis Family history: Breast disease Family history: Cardiovascular disease Family history: Coronary thrombosis Family history: Diabetes mellitus Family history: Glaucoma Family history: Osteoporosis Family history: Thyroid disorder Headache Hearing loss Heart disease Hereditary disease History of - anemia History of - disorder History of - respiratory disease History of drug abuse Human immunodeficiency virus (HIV) seropositivity Hypercholesterolemia Infertile Malignant neoplasm of lung Myocardial infarction Parkinson's disease Prostate cancer Psychotic disorder Seizure disorder Stroke Tuberculosis Visual impairment No Pertinent Family Hx SOCIAL HISTORY: -ETOH--HX VERY HEAVY USE -DRUGS-HX METH, THC USE -SMOKED 1 PPD, QUIT 2018 Review of Systems Constitutional: no symptoms reported EENTM: no symptoms reported Respiratory: cough, short of breath Cardiovascular: no symptoms reported Gastrointestinal: nausea, vomiting Musculoskeletal: no symptoms reported Skin: no symptoms reported Psychiatric/Neurological: No Symptoms Reported Physical Exam Physical Exam Vital Signs Vital Signs - First Documented 07/29/21 07/29/21 15:52 15:53 O2 Flow Rate 0.00 FiO2 21 Capillary Refill : Less Than 3 Seconds Height, Weight, BMI Height: 5'10.00" Weight: 320lbs. 0.0oz. 145.345644it; 66.01 BMI Method:Stated General Appearance: No Apparent Distress, Anxious, Obese HEENT: PERRL/EOMI, Pharynx Normal Neck: Normal Inspection, Supple Respiratory: No Respiratory Distress, Wheezing Gastrointestinal: Normal Bowel Sounds, Non Tender, Soft Extremity: Normal Inspection, Non Tender, No Pedal Edema Neurologic/Psychiatric: Alert, Oriented x3, No Motor/Sensory Deficits Skin: Normal Color, Warm/Dry Results Results/Procedures Labs Laboratory Tests 07/29/21 13:13 07/30/21 04:13 Patient resulted labs reviewed. Imaging: Reviewed Imaging Report Assessment/Plan Admission Diagnosis Acute asthma exacerbation Admission Status: Observation Assessment and Plan Acute asthma exacerbation Chest xray normal Started on IV steroids Breathing treatments MAT protocol No oxygen requirement TeleICU consulted, appreciate assistance Transfer to medical floor RAISA OHS Super super obesity Continue CPAP T2DM Sliding scale insulin DVT prophylaxis: Lovenox Diagnosis/Problems Diagnosis/Problems (1) Asthma exacerbation Status: Acute GRAHAM ORELLANA MD Jul 30, 2021 11:40
[2021-07-30] MEDS: ENOXAPARIN 60 MG/0.6 ML (LOVENOX) SYR SC SCH (11:55)
[2021-07-30] MEDS ORDERED: ACETAMINOPHEN 325 MG TABLET PO PRN (14:30)
[2021-07-30] MEDS: PROMETHAZINE INJ 25 MG/ML (PHENERGAN) AMP IVP PRN ×2 (14:33→21:42)
[2021-07-31] MEDS: ENOXAPARIN 60 MG/0.6 ML (LOVENOX) SYR SC SCH ×3 (00:15→23:25)
[2021-07-31] MEDS: RT-ALBUTEROL SULF 2.5 MG/3 ML PRE-MIX VIAL INH SCH ×6 (02:17→21:25)
[2021-07-31] MEDS: inSUlin ASPART (NovoLOG) 1 UNIT/0.01 ML (CHARGE PER UNIT) SC SCH ×4 (05:52→20:59)
[2021-07-31] MEDS: methylPREDNISolone 40 MG/ML (Solu-MEDROL) VIAL IV SCH (06:24)
[2021-07-31 06:30] LABS: CALCIUM 9.1 MG/DL (8.5-10.1); CREATININE SERUM 0.73 MG/DL (0.60-1.30); MAGNESIUM 2.6 MG/DL (1.6-2.4); PHOSPHORUS 4.1 MG/DL (2.3-4.7); POTASSIUM 4.4 MMOL/L (3.6-5.0)
[2021-07-31] MEDS: predniSONE 20 MG TAB PO SCH (12:18)
--- NOTE | 2021-07-31 13:25 | Pulmonary Consultation ---
History of Present Illness History of Present Illness Date Seen by Provider: Jul 31, 2021 Time Seen by Provider: 13:23 Date of Admission Reason for Visit: Asthma Exacerbation History of Present Illness Pt is a 31 y/o F with PMHx significant for asthma, type 2 diabetes mellitus, RAISA, COVID, morbid obesity who presented to ED with SOB and cough and admitted for asthma exacerbation. She reported using her rescue inhaler several times daily for the past week. She denies fevers and chills. In ED, received 1hr alb neb with budesonide and IV solumedrol. No hypoxia throughout evaluation in ED, ABG normal.CXR WNL. Given persistent SOB was initially monitored in ICU on continous BiPAP with Q4H neb treatments. Pt now transferred to medicine floor for further management. Pt currently on Q4H breathing treatments and has not required any prn treatments. Patient is currently 93% on RA. She also receiving prednisone. Allergies and Home Medications Allergies Coded Allergies: No Known Drug Allergies (Unverified , 05/02/21) Home Medications Acetaminophen 500 Mg Tablet, 1,000 MG PO Q8H PRN for PAIN-MILD (1-4), (Reported) Albuterol Sulfate 1 Puff Puff, 2 PUFF IH Q4H PRN for SHORTNESS OF BREATH, (Reported) Aspirin/Acetaminophen/Caffeine 1 Each Tablet, 2 EACH PO Q6-8HR PRN for HEADACHE, (Reported) Budesonide/Formoterol Fumarate 10.2 Gm Hfa.aer.ad, 2 PUFF IH BID, (Reported) LAST FILLED 01-25-2021 #3/90 DAY SUPPLY Lisinopril/Hydrochlorothiazide 1 Each Tablet, 1 TAB PO BID WITH MEALS, (Reported) LAST FILLED 06-06-2021 #60/30 DAY SUPPLY Metformin HCl 500 Mg Tablet, 500 MG PO BID WITH MEALS, (Reported) LAST FILLED 04-16-2021 #60/30 DAY SUPPLY Promethazine HCl 25 Mg Tablet, 25 MG PO Q4H PRN for NAUSEA/VOMITING-2ND LINE, (Reported) Past Medical/Social/Family Hx Patient Social History Tobacco Use?: No Smoking Status: Never a Smoker Use of E-Cig and/or Vaping dev: No Substance use?: No Alcohol Use?: No Pt stated abuse/neglect: No Immunizations Up To Date Influenza Vaccine Up-to-Date: No; Not Current Tetanus Booster (TDap): Unknown Hepatitis A: Yes Hepatitis B: Yes TB Skin Test: None Current Status status: Unknown Advance Directives: No Communicates: Verbally Primary Language: Sri Lankan Preferred Spoken Language: [place] Lankan Is interpretation needed?: No Implanted or Applied Medical D: None Past Medical History Asthma Schizoaffective Depression Anxiety 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 0.0oz. 145.931932fg; 66.01 BMI Method:Stated Exam Exam Patient acknowledged, consented, and participated in this virtual visit which was conducted using real time audio/video Vital Signs Date Time Temp Pulse Resp B/P (MAP) Pulse Ox O2 Delivery O2 Flow Rate FiO2 07/31/21 11:43 36.9 98 22 144/83 90 Room Air 07/31/21 10:55 91 Room Air 07/31/21 09:00 92 Room Air 07/31/21 07:50 36.8 99 20 139/89 94 NIV Bilevel 07/31/21 06:44 101 30 94 28.00 07/31/21 06:37 109 07/31/21 04:00 36.3 99 18 117/69 97 NIV Bilevel 07/31/21 02:17 84 17 96 28.00 07/31/21 01:00 81 07/31/21 00:00 36.5 91 15 126/69 95 NIV Bilevel 07/30/21 22:19 108 23 100 28.00 07/30/21 21:29 94 Room Air 07/30/21 21:00 94 Room Air 07/30/21 20:47 36.8 105 20 141/71 93 Room Air 07/30/21 19:00 101 07/30/21 18:46 94 Room Air 07/30/21 16:40 93 Room Air 07/30/21 16:00 86 14 121/81 98 Room Air 07/30/21 15:07 36.3 07/30/21 14:52 100 Nasal Cannula 2.00 07/30/21 14:07 36.4 07/30/21 14:05 Room Air I & O 07/31/21 07:00 Intake Total 2650 ml Balance 2650 ml Height & Weight Height: 5'10.00" Weight: 320lbs. 0.0oz. 145.883553bv; 66.01 BMI Method:Stated General Appearance: No Apparent Distress, Anxious, Mild Distress, Obese HEENT: PERRL/EOMI, Pharynx Normal Neck: Normal Inspection, Supple Respiratory: No Respiratory Distress, Wheezing Cardiovascular: Regular Rate, Rhythm, Normal Peripheral Pulses Capillary Refill: Less Than 3 Seconds Extremity: Normal Inspection, Non Tender, No Pedal Edema Neurologic/Psychiatric: Alert, Oriented x3, No Motor/Sensory Deficits Skin: Normal Color, Warm/Dry Results Lab Laboratory Tests 07/30/21 04:13 07/31/21 05:30 Assessment/Plan Assessment/Plan Pt is a 31 y/o F with hx of asthma, morbid obesity and recent covid infection presenting with asthma exacerbation. She is currently on RA and O2 sats are 94%. Notes that she still feels symptomatically the same. Cont present mgmt (Nebs Q4 with prn). Cont prednisone CPAP QHS Will still with no improvement can consider CT chest to evaluate for fibrotic changes post covid. PE less likely given no LE swelling and no hypoxia on exam OMAR BUSCH MD Jul 31, 2021 13:25
[2021-07-31] MEDS: ONDANSETRON 4 MG/2 ML (SDV) Z0FRAN IVP PRN ×2 (17:28→21:53)
--- NOTE | 2021-07-31 17:52 | Progress Note - Hospitalist ---
Subjective HPI/CC On Admission Date Seen by Provider: Jul 31, 2021 Time Seen by Provider: 10:50 Erin Gould is a 31-year-old female with past medical history of asthma, type 2 diabetes mellitus, obstructive sleep apnea, super super obesity, who presented with shortness of breath. She reports that she had been using her rescue inh aler several times daily for the past week. She has had a cough. She denies fevers and chills. She has had chest tightness. She has been having some pain on the right side of her abdomen. She has had chronic issues with nausea and vomiting. Subjective/Events-last exam She is feeling about the same. She is still short of breath, especially with exertion. Objective Exam Vital Signs Vital Signs Date Time Temp Pulse Resp B/P (MAP) Pulse Ox O2 Delivery O2 Flow Rate FiO2 07/31/21 16:00 36.7 90 18 142/67 92 Room Air 07/31/21 06:44 28.00 07/29/21 21:00 28 Capillary Refill : Less Than 3 Seconds General Appearance: No Apparent Distress, Anxious, Obese Respiratory: No Respiratory Distress, Wheezing Cardiovascular: Regular Rate, Rhythm, No Edema, No Murmur Gastrointestinal: Normal Bowel Sounds, Non Tender, Soft Extremity: Normal Inspection, Non Tender, No Pedal Edema Neurologic/Psychiatric: Alert, Oriented x3, No Motor/Sensory Deficits Skin: Normal Color, Warm/Dry Results/Procedures Lab Laboratory Tests 07/31/21 05:30 Patient resulted labs reviewed. Imaging: Reviewed Imaging Report Assessment/Plan Assessment and Plan Assess & Plan/Chief Complaint Acute asthma exacerbation Chest xray normal Continue steroids Breathing treatments MAT protocol No oxygen requirement Pulmology consulted, appreciate assistance RAISA OHS Super super obesity Continue CPAP T2DM Sliding scale insulin DVT prophylaxis: Lovenox Diagnosis/Problems Diagnosis/Problems (1) Asthma exacerbation Status: Acute GRAHAM ORELLANA MD Jul 31, 2021 17:52
[2021-07-31] MEDS ORDERED: ONDANSETRON 4 MG (ZOFRAN) ORAL DISSOLVE TAB PO PRN (19:45)
--- NOTE | 2021-07-31 22:56 | Diagnostic Imaging Report ---
EXAMINATION: CT angiography of the chest. TECHNIQUE: Contrast enhanced thin section helical images were obtained through the chest with intravenous contrast timed for the optimal opacification of the arterial structures per CTA protocol. Post-processing, reconstructions and interpretation of angiographic images of the vessels was performed. 3D MIP reconstructions were performed and reviewed. All CT scans use one or more of the following dose optimizing techniques: automated exposure control, MA and/or KvP adjustment based on a patient size and exam type, or iterative reconstruction. HISTORY: Hypoxia COMPARISON: CTA chest 04/10/2020 FINDINGS: Vascular: Limited evaluation secondary to poor bolus timing. No obvious filling defects are seen within the main or proximal pulmonary arteries. The thoracic aorta is normal in caliber. Thyroid: The thyroid is normal. Mediastinum: Heart size is normal without significant pericardial effusion. No suspicious lymphadenopathy. Lungs and airways: The lungs are clear without consolidation, pleural effusion, or pneumothorax. Linear atelectasis or scarring within the lung bases. The airways are normal. Upper abdomen: Gallbladder is surgically absent. Musculoskeletal: Degenerative changes of the spine without suspicious osseous lesion or compression fracture. IMPRESSION: 1. Limited evaluation for pulmonary embolus in the mid distal arteries secondary to bolus timing and patient body habitus. No obvious pulmonary embolus is seen within the main or proximal pulmonary arteries. 2. No other acute abnormality in the chest. Dictated by: Dictated on workstation # [id number]
[2021-07-31] MEDS ORDERED: NS 100 ML (IVPB) BAG IV ONE (23:15)
[2021-07-31] MEDS ORDERED: CATHETER FLUSH 10 ML SYR IV PRN (23:15)
[2021-07-31] MEDS ORDERED: IOHEXOL 350 MG/ML 100 ML (OMNIPAQUE 350) VIAL IV ONE (23:15)
[2021-07-31] MEDS ORDERED: HOLD METFORMIN - RECEIVED CONTRAST 20 ML VIAL IV SCH (23:15)
[2021-08-01] MEDS: RT-ALBUTEROL SULF 2.5 MG/3 ML PRE-MIX VIAL INH SCH ×3 (02:06→10:32)
[2021-08-01] MEDS: inSUlin ASPART (NovoLOG) 1 UNIT/0.01 ML (CHARGE PER UNIT) SC SCH ×2 (05:19→11:38)
[2021-08-01] MEDS: predniSONE 20 MG TAB PO SCH (06:57)
[2021-08-01 07:43] LABS: POTASSIUM 3.7 MMOL/L (3.6-5.0)
[2021-08-01 07:44] LABS: CALCIUM 8.9 MG/DL (8.5-10.1)
[2021-08-01 07:48] LABS: CREATININE SERUM 0.82 MG/DL (0.60-1.30); PHOSPHORUS 4.8 MG/DL (2.3-4.7)
[2021-08-01 07:51] LABS: MAGNESIUM 2.2 MG/DL (1.6-2.4)
[2021-08-01] MEDS: ONDANSETRON 4 MG/2 ML (SDV) Z0FRAN IVP PRN (08:59)
[2021-08-01] MEDS ORDERED: PRED10TA22 PO ×2 (10:46→10:51)
--- NOTE | 2021-08-01 11:06 | Discharge Summary ---
Discharge Summary Hospital Course Problems/Dx: (1) Asthma exacerbation Status: Acute Hospital Course Date of Admission: Jul 29, 2021 at 14:21 Admission Diagnosis : Acute asthma exacerbation Family Physician/Provider: Kuldip Martínez MD Date of Discharge: 08/01/21 Discharge Diagnosis: Acute asthma exacerbation Hospital Course: Erin Gould is a 31-year-old female with past medical history of asthma, obstructive sleep apnea, morbid obesity, who presented with shortness of breath and was admitted with an acute asthma exacerbation. She was started on IV steroids and admitted to the ICU. She did not require any supplemental oxygen but she did appear to be in respiratory distress. Her respiratory status im proved and she was transferred to the medical floor. She was continued on oral steroids. She continued to improve. She was prescribed a steroid taper to complete at home. She was given a prescription for a nebulizer. She should follow-up with her primary care physician in about a week. She should follow-up with pulmonology in a couple weeks. She was discharged home in stable condition. Labs and Pending Lab Test: Laboratory Tests 07/31/21 15:51: Glucometer 146H 07/31/21 18:48: Glucometer 146H 07/31/21 20:57: Glucometer 123H 08/01/21 05:19: Glucometer 89 08/01/21 07:12: Sodium Level 142, Potassium Level 3.7, Chloride Level 106, Carbon Dioxide Level 24, Anion Gap 12, Blood Urea Nitrogen 25H, Creatinine 0.82, Estimat Glomerular Filtration Rate 82, BUN/Creatinine Ratio 30, Glucose Level 85, Calcium Level 8. 9, Phosphorus Level 4.8H, Magnesium Level 2.2 Microbiology 07/29/21 MRSA Screen - Final, Complete MRSA not isolated Home Meds Active Prednisone 10 Mg Tab.ds.pk 10 Mg PO DAILY Take 6 tabs(60mg)daily,decrease by 1 tab(10mg)every other day. Reported Proair Hfa (Albuterol Sulfate) 1 Puff Puff 2 Puff IH Q4H PRN Tylenol Extra Strength (Acetaminophen) 500 Mg Tablet 1,000 Mg PO Q8H PRN Promethazine Tablet (Promethazine HCl) 25 Mg Tablet 25 Mg PO Q4H PRN Symbicort 160-4.5 Mcg Inhaler (Budesonide/Formoterol Fumarate) 10.2 Gm Hfa.ae r.ad 2 Puff IH BID LAST FILLED 01-25-2021 #3/90 DAY SUPPLY Metformin HCl 500 Mg Tablet 500 Mg PO BID WITH MEALS LAST FILLED 04-16-2021 #60/30 DAY SUPPLY Lisinopril-Hctz 20-25 mg Tab (Lisinopril/Hydrochlorothiazide) 1 Each Tablet 1 Tab PO BID WITH MEALS LAST FILLED 06-06-2021 #60/30 DAY SUPPLY Excedrin Migraine Caplet (Aspirin/Acetaminophen/Caffeine) 1 Each Tablet 2 Each PO Q6-8HR PRN Assessment/Pt Instructions Take medications as prescribed. Complete your course of steroids. Follow-up with your primary care physician. You are being set up to follow-up with pulmonology. Return with worsening shortness of breath or if you feel like you are getting worse. Discharge Planning: <30 minutes discharge planning Discharge Instructions Discharge Diet: No Restrictions Activity as Tolerated: Yes Consultations Pulmonology Discharge Physical Examination Vital Signs Vital Signs Date Time Temp Pulse Resp B/P (MAP) Pulse Ox O2 Delivery O2 Flow Rate FiO2 08/01/21 10:32 96 Room Air 08/01/21 08:00 36.8 94 24 122/64 08/01/21 02:06 28.00 07/29/21 21:00 28 General Appearance: No Apparent Distress, Obese Respiratory: No Respiratory Distress, Wheezing Cardiovascular: Regular Rate, Rhythm, No Edema, No Murmur Gastrointestinal: Normal Bowel Sounds, Non Tender, Soft Extremity: Normal Inspection, Non Tender, No Pedal Edema Skin: Normal Color, Warm/Dry Neurologic/Psychiatric: Alert, Oriented x3, No Motor/Sensory Deficits, Normal Mood/Affect Allergies: Coded Allergies: No Known Drug Allergies (Unverified , 05/02/21) Copy Copies To 1: KULDIP MARTÍNEZ MD Copies To 2: ISSA GUERRA APRN Discharge Summary Date of Admission Jul 29, 2021 at 14:21 Date of Discharge Discharge Date: Aug 01, 2021 Discharge Time: 09:30 Admission Diagnosis Acute asthma exacerbation Consults/Procedures Consulations Pulmonology Discharge Diagnosis Acute asthma exacerbation (1) Asthma exacerbation Status: Acute GRAHAM ORELLANA MD Aug 01, 2021 11:06
[2021-08-01] MEDS: ENOXAPARIN 60 MG/0.6 ML (LOVENOX) SYR SC SCH (12:17)
== END 2021-08-01 13:05 | disposition home or self-care (01) ==
LOC: EDUNIT# 13:01 → ER 13:03 → CSD 14:21 → ICU 18:45 → 4TH 07-30 16:27
PROVIDERS: ADMIT Family Medicine; ATTEND Internal Medicine
DX: J45.901 Unspecified asthma with (acute) exacerbation (principal); E66.2 Morbid (severe) obesity with alveolar hypoventilation; E11.9 Type 2 diabetes mellitus without complications; F32.9 Major depressive disorder, single episode, unspecified; G89.29 Other chronic pain; M54.9 Dorsalgia, unspecified; F41.9 Anxiety disorder, unspecified; F25.9 Schizoaffective disorder, unspecified; Z87.891 Personal history of nicotine dependence; Z68.44 Body mass index [BMI] 60.0-69.9, adult; Z79.899 Other long term (current) drug therapy; Z79.82 Long term (current) use of aspirin; Z79.84 Long term (current) use of oral hypoglycemic drugs; Z86.16 Personal history of COVID-19
CPT/HCPCS: 36415; 71045; 71275; 80048; 82805; 82947; 83735; 84100; 84703; 85007; 85025; 85027; 87081; 94640; 94660; 94760

== ENCOUNTER 2021-09-04 17:01 | Inpatient (IN) | payer OTHER ==
[~2021-09-04] VITALS: Ht 177.8 cm; Wt 204.4 kg
[2021-09-04] VITALS (7 sets, daily range): BP systolic 120–183; BP diastolic 54–107
[~2021-09-04 17:01] MED LIST changes: +ACET-2267 PO; +LISI1TAB26 PO; +PRED10TA22 PO; +PROM25TA14 PO
--- NOTE | 2021-09-04 17:37 | ED Cough/URI ---
General Chief Complaint: COVID19 Suspect/Confirmed Stated Complaint: CP / SOA / FEVER Source: patient Exam Limitations: no limitations (LING PINEDA MD) History of Present Illness Date Seen by Provider: Sep 04, 2021 Time Seen by Provider: 17:20 Initial Comments Patient is a 31-year-old female who presents to the emergency department today with a chief complaint of upper respiratory congestion, dry cough, shortness of breath, generalized malaise and fever. Symptom onset 2 to 3 days ago. She has a "tight chest". She states she feels like she has phlegm caught in the back of her throat that she cannot clear. She has a history of asthma and obesity hypoventilation syndrome. She has had multiple visits to the ER for similar complaints and admissions. She does wear a CPAP at night. She is not on home oxygen. Patient states she was around a nephew last week, 4-year-old with URI symptoms. No Covid contacts that she is aware of. She did have Covid back in December of this year. She is not Covid vaccinated. She is a diabetic. She is on medications for hypertension. She has mild headache. Chronic nausea, chronic loose stools secondary to previous cholecystectomy. A little bit of swelling in her lower extremities. No history of blood clots. No rashes that are concerning to her. No abdominal pain. No other symptoms such as dysuria, urgency, frequency, vaginal discharge. Menstrual cycles are very irregular, she states that she is not sexually active. She states T-max at home is 101, she did have 2 extra strength Tylenol about 2 hours prior to arrival. Last used her nebulizer and albuterol inhaler about 45 minutes prior to arrival. All other review of systems reviewed and negative except as stated. Timing/Duration: constant (3 days) Severity/Quality: moderate, dry cough Prior Episodes/Possible Cause: frequent episodes Modifying Factors: Improves With Albuterol Inhaler, Improves With Albuterol Nebulizer Associated Symptoms: chest pain/soreness, fever/chills, headache, nasal congestion, shortness of breath, wheezing (LING PINEDA MD) Allergies and Home Medications Allergies Coded Allergies: No Known Drug Allergies (Unverified , 05/02/21) Patient Home Medication List Home Medication List Reviewed: Yes (LYNN DURAN MD) Acetaminophen (Tylenol Extra Strength) 500 Mg Tablet, 1,000 MG PO Q8H PRN for PAIN-MILD (1-4), (Reported) Entered as Reported by: ITZEL CASAS on 07/30/21 1101 Albuterol Sulfate (Proair Hfa) 1 Puff Puff, 2 PUFF IH Q4H PRN for SHORTNESS OF BREATH, (Reported) Entered as Reported by: ITZEL CASAS on 07/30/21 1110 Aspirin/Acetaminophen/Caffeine (Excedrin Migraine Caplet) 1 Each Tablet, 2 EACH PO Q6-8HR PRN for HEADACHE, (Reported) Entered as Reported by: ITZEL CASAS on 05/02/21 1146 Budesonide/Formoterol Fumarate (Symbicort 160-4.5 Mcg Inhaler) 10.2 Gm Hfa.aer.ad, 2 PUFF IH BID, (Reported) Entered as Reported by: ITZEL CASAS on 07/30/21 1100 Lisinopril/Hydrochlorothiazide (Lisinopril-Hctz 20-25 mg Tab) 1 Each Tablet, 1 TAB PO BID WITH MEALS, (Reported) Entered as Reported by: ITZEL CASAS on 07/30/21 1100 Metformin HCl (Metformin HCl) 500 Mg Tablet, 500 MG PO BID WITH MEALS, (Reported) Entered as Reported by: ITZEL CASAS on 07/30/21 1100 Prednisone (Prednisone) 10 Mg Tab.ds.pk, 10 MG PO DAILY Prescribed by: GRAHAM ORELLANA on 08/01/21 1051 Promethazine HCl (Promethazine Tablet) 25 Mg Tablet, 25 MG PO Q4H PRN for NAUSEA/VOMITING-2ND LINE, (Reported) Entered as Reported by: ITZEL CASAS on 07/30/21 1101 Review of Systems Review of Systems Constitutional: see HPI, fever, malaise EENTM: nose congestion Respiratory: cough, dyspnea on exertion, short of breath Cardiovascular: chest pain ("tightness") Gastrointestinal: diarrhea (chronic) : No Musculoskeletal: no symptoms reported Skin: no symptoms reported Psychiatric/Neurological: No Symptoms Reported (LING PINEDA MD) All Other Systems Reviewed Negative Unless Noted: Yes (LING PINEDA MD) Past Vbgfias-Fsgvax-Zkqegw Hx Immunizations Up To Date Tetanus Booster (TDap): Less than 5yrs (LING PINEDA MD) Seasonal Allergies Seasonal Allergies: No (LING PINEDA MD) Past Medical History Surgeries: Yes (PILONIDAL CYST 11/2020; LEFT EAR BENIGN TUMOR) Ear Surgery, Gallbladder Respiratory: Yes Asthma, Sleep Apnea Currently Using CPAP: Yes Currently Using BIPAP: No Cardiac: No Neurological: No Reproductive Disorders: Yes Female Reproductive Disorders: Menstrual Problems Sexually Transmitted Disease: No HIV/AIDS: No Genitourinary: Yes Kidney Stones Gastrointestinal: Yes Gastroesophageal Reflux, Ulcer Musculoskeletal: Yes Chronic Back Pain Endocrine: Yes (MORBID OBESITY) Diabetes, Non-Insulin dep HEENT: No Hearing Impairment: Denies Cancer: No Psychosocial: Yes (SCHIZO-AFFECTIVE; CUTTING; PANIC ATTACKS; SUBSTANCE ABUSE) Sleep Difficulties, Suicide Attempts, Depression Integumentary: Yes (HAS HIDRADENITIS UNDER BREASTS) Blood Disorders: No (LING PINEDA MD) Family Medical History Family history: Asthma 09 BROTHER, Onset:Childhood Family history: Gastrointestinal disease 03 MOTHER, Onset:Unknown Family history: Hypertension 03 FATHER, Onset:40's - 50 Kidney disease 03 MOTHER, Onset:Childhood No Family History of: Abdominal aortic aneurysm Telfair's disease Alcoholism Aphasia Cancer Cataract Chest pain Congenital heart disease Congestive heart failure Cystic fibrosis Dementia Dysphagia Family history: Allergy Family history: Alzheimer's disease Family history: Arthritis Family history: Breast disease Family history: Cardiovascular disease Family history: Coronary thrombosis Family history: Diabetes mellitus Family history: Glaucoma Family history: Osteoporosis Family history: Thyroid disorder Headache Hearing loss Heart disease Hereditary disease History of - anemia History of - disorder History of - respiratory disease History of drug abuse Human immunodeficiency virus (HIV) seropositivity Hypercholesterolemia Infertile Malignant neoplasm of lung Myocardial infarction Parkinson's disease Prostate cancer Psychotic disorder Seizure disorder Stroke Tuberculosis Visual impairment No Pertinent Family Hx SOCIAL HISTORY: -ETOH--HX VERY HEAVY USE -DRUGS-HX METH, THC USE -SMOKED 1 PPD, QUIT 2017 (LING PINEDA MD) Physical Exam Vital Signs - First Documented 09/04/21 20:58 O2 Flow Rate 25.00 (LYNN DURAN MD) Capillary Refill : (LING PINEDA MD) Height: 5'10.00" Weight: 320lbs. 0.0oz. 145.984059tg; 66.01 BMI Method:Stated General Appearance: WD/WN, no apparent distress, obese Eyes: Bilateral Eye Normal Inspection, Bilateral Eye PERRL, Bilateral Eye EOMI HEENT: PERRL/EOMI, normal ENT inspection (left TM occluded by cerumen; oral mucosa appear adqueately hydrated'), pharynx normal Neck: full range of motion, supple Respiratory: lungs clear, normal breath sounds, no respiratory distress, no accessory muscle use, other (slightly labored breathing, moving actually, decent amounts of air. No wheezes noted; definitely not a "silent chest"; room air sats 97%; a little tachypneic in the low 20's) Cardiovascular: regular rate, rhythm (not tachycardic) Gastrointestinal: other (morbid obesity) Extremities: normal range of motion, non-tender Neurologic/Psychiatric: alert, normal mood/affect, oriented x 3 Skin: normal color, warm/dry (LING PINEDA MD) Progress/Results/Core Measures Suspected Sepsis SIRS Temperature: Pulse: Respiratory Rate: Blood Pressure / Mean: (LING PINEDA MD) Results/Orders Lab Results Laboratory Tests Test 09/04/21 17:20 09/04/21 17:25 09/04/21 18:03 09/04/21 18:14 Range/Units White Blood Count 10.7 4.3-11.0 10^3/uL Red Blood Count 4.68 3.80-5.11 10^6/uL Hemoglobin 11.8 11.5-16.0 g/dL Hematocrit 38 35-52 % Mean Corpuscular Volume 82 80-99 fL Mean Corpuscular Hemoglobin 25 25-34 pg Mean Corpuscular Hemoglobin Concent 31 L 32-36 g/dL Red Cell Distribution Width 15.4 H 10.0-14.5 % Platelet Count 315 130-400 10^3/uL Mean Platelet Volume 11.1 9.0-12.2 fL Immature Granulocyte % (Auto) 1 % Neutrophils (%) (Auto) 67 42-75 % Lymphocytes (%) (Auto) 21 12-44 % Monocytes (%) (Auto) 7 0-12 % Eosinophils (%) (Auto) 3 0-10 % Basophils (%) (Auto) 1 0-10 % Neutrophils # (Auto) 7.2 1.8-7.8 10^3/uL Lymphocytes # (Auto) 2.3 1.0-4.0 10^3/uL Monocytes # (Auto) 0.8 0.0-1.0 10^3/uL Eosinophils # (Auto) 0.3 0.0-0.3 10^3/uL Basophils # (Auto) 0.1 0.0-0.1 10^3/uL Immature Granulocyte # (Auto) 0.1 0.0-0.1 10^3/uL Sodium Level 139 135-145 MMOL/L Potassium Level 3.9 3.6-5.0 MMOL/L Chloride Level 103 98-107 MMOL/L Carbon Dioxide Level 25 21-32 MMOL/L Anion Gap 11 5-14 MMOL/L Blood Urea Nitrogen 12 7-18 MG/DL Creatinine 0.68 0.60-1.30 MG/DL Estimat Glomerular Filtration Rate 102 BUN/Creatinine Ratio 18 Glucose Level 92 70-105 MG/DL Calcium Level 8.9 8.5-10.1 MG/DL Blood Gas Puncture Site RIGHT RADIAL Blood Gas Patient Temperature 37 Arterial Blood pH 7.38 7.37-7.43 Arterial Blood Partial Pressure CO2 45 35-45 MMHG Arterial Blood Partial Pressure O2 83 79-93 MMHG Arterial Blood HCO3 26 23-27 MMOL/L Arterial Blood Total CO2 27.5 21.0-31.0 MMOL/L Arterial Blood Oxygen Saturation 96 94-100 % Arterial Blood Base Excess 1.6 -2.5-2.5 MMOL/L Eric Test UNKNOWN Blood Gas Ventilator Setting Blood Gas Inspired Oxygen SARS-CoV-2 RNA (RT-PCR) Not Detected Not Detecte Influenza Type A (RT-PCR) Not Detected Not Detecte Influenza Type B (RT-PCR) Not Detected Not Detecte C-Reactive Protein High Sensitivity 1.96 H 0.00-0.50 MG/DL (LYNN DURAN MD) My Orders Orders - LYNN DURAN MD Influenza A And B By Pcr (09/04/21 18:03) Arterial Blood Gas (09/04/21 18:04) Chest Pa/Lat (2 View) (09/04/21 18:05) Hs C Reactive Protein (09/04/21 18:05) Albuterol/Ipra Inhalation Soln (Duoneb I (09/04/21 18:30) Svn Small Volume Nebulizer (09/04/21 18:24) Methylprednisolone Sod Succ (Solu-Medrol (09/04/21 19:15) Magnesium 1 Gm/100 Ml Ivpb (Magnesium Nuñez (09/04/21 19:15) Albuterol Pre-Mix Nebs (Rt) (Proventil (09/04/21 19:13) Albuterol/Ipra Inhalation Soln (Duoneb I (09/04/21 19:15) Svn Small Volume Nebulizer (09/04/21 19:13) Svn Small Volume Nebulizer (09/04/21 19:13) Ketorolac Injection (Toradol Injection) (09/04/21 21:00) (LYNN DURAN MD) Medications Given in ED Current Medications Medications Dose Ordered Sig/Monica Route Start Time Stop Time Status Last Admin Dose Admin Albuterol/ Ipratropium 3 ml ONCE ONCE INH 09/04/21 18:30 09/04/21 18:31 DC 09/04/21 18:50 3 ML Albuterol/ Ipratropium 3 ml ONCE ONCE INH 09/04/21 19:15 09/04/21 19:16 DC 09/04/21 19:27 3 ML Ketorolac Tromethamine 30 mg ONCE ONCE IVP 09/04/21 21:00 09/04/21 21:01 DC 09/04/21 21:24 30 MG Magnesium Sulfate/ Dextrose 100 ml @ 100 mls/hr ONCE ONCE IV 09/04/21 19:15 09/04/21 20:14 DC 09/04/21 20:37 100 MLS/HR Methylprednisolone Sodium Succinate 125 mg ONCE ONCE IVP 09/04/21 19:15 09/04/21 19:16 DC 09/04/21 20:34 125 MG (LYNN DURAN MD) Vital Signs/I&O 09/04/21 09/04/21 09/04/21 09/04/21 17:05 17:05 17:05 18:47 Temp 36.8 36.8 Pulse 105 105 Resp 23 23 B/P (MAP) 123/80 (94) 123/80 Pulse Ox 100 100 97 O2 Delivery Room Air Room Air Room Air Room Air 09/04/21 09/04/21 19:28 20:58 Pulse 115 Resp 28 Pulse Ox 99 100 O2 Delivery Room Air O2 Flow Rate 25.00 (LYNN DURAN MD) Vital Signs/I&O Capillary Refill : (LING PINEDA MD) Progress Note #1: Time: 18:25 Progress Note Care of this patient was assumed from Dr. Pineda at shift change. Labs have been reviewed. Patient reports her chest still feels tight and she has discomfort with breathing. Two-view chest x-ray is pending. Influenza and Covid swabs were negative. Patient is observed to have a prolonged expiratory phase with no observable wheezing on auscultation. We will try a DuoNeb treatment when she returns from x-ray. Progress Note #2: Time: 19:15 Progress Note 2 view chest x-ray was read as clear. Patient's wheezing is more pronounced after a DuoNeb treatment. She does not feel much improved. It was noted that she is not currently on any maintenance inhaled medications for her asthma despite recent multiple problems with exacerbation. We will treat her with a gram of magnesium sulfate IV as well as Solu-Medrol and an hour-long nebulizer t reatment. Hopefully she will be improved and ready to discharge home with a renewed prescription for inhaled maintenance medication and a short course of oral steroids. Progress Note #3: Time: 21:16 Progress Note Patient did not have any significant improvement after the hour-long nebulizer treatment, Solu-Medrol, and magnesium. She states BiPAP has helped her in the past and she uses CPAP at home. We will try BiPAP here and admit her for observation overnight. Case was reviewed with Dr. Dior who is agreeable to the plan. Patient reports some chest discomfort with inspiration. Toradol was given. Patient maintains oxygen saturations in the high 90s on room air despite her wheezing. (LYNN DURAN MD) Diagnostic Imaging Diagonstic Imaging: Xray Plain Films/CT/US/NM/MRI: chest Comments NAME: HUNTER COBB MED REC#: [id number] PT STATUS: REG ER : 1990 PHYSICIAN: LYNN DURAN MD ADMIT DATE: 09/04/21/ER Draft Date of Exam:09/04/21 CHEST PA/LAT (2 VIEW) EXAMINATION: Chest 2 view HISTORY: Short of breath COMPARISON: 07/29/2021 FINDINGS: The lungs are clear without edema or pneumonia. No pleural effusion or pneumothorax. Heart size is normal. IMPRESSION: 1. Clear lungs. Dictated on workstation # [id number] Dict: 09/04/21 1834 Trans: 09/04/[address] [facility] [id number] Interpreted by: KULDIP FRENCH MD (LYNN DURAN MD) Departure Communication (Admissions) Time/Spoke to Admitting Phy: 21:01 Dr. Dior (LYNN DURAN MD) Impression Primary Impression: Asthma exacerbation Qualified Codes: J45.901 - Unspecified asthma with (acute) exacerbation Additional Impression: Pleuritic chest pain Disposition: ADMITTED INPATIENT Condition: Stable Admissions Decision to Admit Reason: Admit from ER (General) Decision to Admit/Date: Sep 04, 2021 Time/Decision to Admit Time: 20:30 (LYNN DURAN MD) Departure-Patient Inst. Referrals: KULDIP MARTÍNEZ MD (PCP/Family) Primary Care Physician LING PINEDA MD Sep 04, 2021 17:37 LYNN DURAN MD Sep 04, 2021 18:26
[2021-09-04 17:53] LABS: BASOPHILS # (AUTO) 0.1 10^3/uL (0.0-0.1); BASOPHILS % (AUTO) 1 % (0-10); EOSINOPHILS # (AUTO) 0.3 10^3/uL (0.0-0.3); EOSINOPHILS % (AUTO) 3 % (0-10); HEMATOCRIT 38 % (35-52); HEMOGLOBIN 11.8 g/dL (11.5-16.0); LYMPHOCYTES # (AUTO) 2.3 10^3/uL (1.0-4.0); LYMPHOCYTES % (AUTO) 21 % (12-44); MEAN CORPUSCULAR HEMOGLOBIN 25 pg (25-34); MEAN CORPUSCULAR HGB CONC 31 g/dL (32-36); MEAN CORPUSCULAR VOLUME 82 fL (80-99); MEAN PLATELET VOLUME 11.1 fL (9.0-12.2); MONOCYTES # (AUTO) 0.8 10^3/uL (0.0-1.0); MONOCYTES % (AUTO) 7 % (0-12); NEUTROPHILS # (AUTO) 7.2 10^3/uL (1.8-7.8); NEUTROPHILS % (AUTO) 67 % (42-75); PLATELET COUNT 315 10^3/uL (130-400); WHITE BLOOD COUNT 10.7 10^3/uL (4.3-11.0)
[2021-09-04 18:11] LABS: ABG BASE EXCESS 1.6 MMOL/L (-2.5-2.5); ABG OXYGEN SATURATION 96 % (94-100); ABG PCO2 45 MMHG (35-45); ABG PH 7.38 (7.37-7.43); ABG PO2 83 MMHG (79-93); ABG TCO2 27.5 MMOL/L (21.0-31.0)
[2021-09-04 18:11] LABS: CALCIUM 8.9 MG/DL (8.5-10.1); CREATININE SERUM 0.68 MG/DL (0.60-1.30); POTASSIUM 3.9 MMOL/L (3.6-5.0)
[2021-09-04 18:14] LABS: PATIENT TEMP 37
[2021-09-04] MEDS ORDERED: RT-ALBUTEROL/IPRATROPIUM 3 ML (DUONEB) VIAL INH ONE ×2 (18:30→19:15)
--- NOTE | 2021-09-04 18:46 | Diagnostic Imaging Report ---
EXAMINATION: Chest 2 view HISTORY: Short of breath COMPARISON: 07/29/2021 FINDINGS: The lungs are clear without edema or pneumonia. No pleural effusion or pneumothorax. Heart size is normal. IMPRESSION: 1. Clear lungs. Dictated by: Dictated on workstation # [id number]
[2021-09-04] MEDS ORDERED: RT-ALBUTEROL SULF 2.5 MG/3 ML PRE-MIX VIAL INH STA (19:13)
[2021-09-04] MEDS ORDERED: MAGNESIUM 1 GM/100 ML IVPB 100 ML IV ONE (19:15)
[2021-09-04] MEDS ORDERED: methylPREDNISolone 125 MG (Solu-MEDROL) VIAL IVP ONE (19:15)
[2021-09-04] MEDS ORDERED: KETOROLAC 30 MG/ML VIAL IVP ONE (21:00)
[2021-09-04] MEDS ORDERED: IBUPROFEN 600 MG (MOTRIN) TAB PO PRN (22:15)
[2021-09-04] MEDS ORDERED: RT-ALBUTEROL SULF 2.5 MG/3 ML PRE-MIX VIAL INH PRN (22:30)
[2021-09-04] MEDS: ALPRAZolam 0.25 MG (XANAX) TAB PO PRN (22:58)
[2021-09-04] MEDS ORDERED: CATHETER FLUSH 10 ML SYR IV PRN (23:00)
[2021-09-05] VITALS (14 sets, daily range): BP systolic 108–167; BP diastolic 62–98
[2021-09-05] MEDS ORDERED: RT-ALBUTEROL SULF 2.5 MG/3 ML PRE-MIX VIAL INH PRN
[2021-09-05] MEDS: methylPREDNISolone 40 MG/ML (Solu-MEDROL) VIAL IV SCH ×2 (01:08→06:13)
[2021-09-05] MEDS: CATHETER FLUSH 10 ML SYR IV SCH ×3 (01:09→22:48)
[2021-09-05] MEDS ORDERED: RT-ALBUTEROL/IPRATROPIUM 3 ML (DUONEB) VIAL IH SCH (02:00)
[2021-09-05] MEDS ORDERED: RT-ALBUTEROL SULF 2.5 MG/3 ML PRE-MIX VIAL INH SCH (02:00)
[2021-09-05] MEDS ORDERED: RT-epiNEPHrine (RACEMIC) 2.25% 0.5 ML VIAL ONE (03:54)
[2021-09-05] MEDS ORDERED: RT-epiNEPHrine (RACEMIC) 2.25% 0.5 ML VIAL INH ONE (04:00)
[2021-09-05 05:33] LABS: BASOPHILS % (AUTO) 0 % (0-10); EOSINOPHILS % (AUTO) 0 % (0-10); HEMATOCRIT 38 % (35-52); HEMOGLOBIN 11.7 g/dL (11.5-16.0); LYMPHOCYTES # (AUTO) 0.7 10^3/uL (1.0-4.0); LYMPHOCYTES % (AUTO) 7 % (12-44); MEAN CORPUSCULAR HEMOGLOBIN 25 pg (25-34); MEAN CORPUSCULAR HGB CONC 31 g/dL (32-36); MEAN CORPUSCULAR VOLUME 81 fL (80-99); MEAN PLATELET VOLUME 11.3 fL (9.0-12.2); MONOCYTES # (AUTO) 0.1 10^3/uL (0.0-1.0); MONOCYTES % (AUTO) 1 % (0-12); NEUTROPHILS # (AUTO) 9.1 10^3/uL (1.8-7.8); NEUTROPHILS % (AUTO) 91 % (42-75); PLATELET COUNT 294 10^3/uL (130-400)
[2021-09-05 05:57] LABS: CREATININE SERUM 0.78 MG/DL (0.60-1.30); POTASSIUM 3.8 MMOL/L (3.6-5.0)
[2021-09-05] MEDS: ALPRAZolam 0.25 MG (XANAX) TAB PO PRN ×3 (06:17→22:47)
[2021-09-05] MEDS ORDERED: FLU QUADRIvalent (3YOA+) 60 mcg/0.5 ml 2021-22(AFLURIA) IM ONE (07:15)
[2021-09-05] MEDS: RT-LEVALBUTEROL (XOPENEX) 1.25 MG/3 ML NEB NON-FORMULARY INH SCH ×5 (07:24→21:34)
[2021-09-05] MEDS ORDERED: RT-LEVALBUTEROL (XOPENEX) 1.25 MG/3 ML NEB NON-FORMULARY INH ONE (08:00)
[2021-09-05] MEDS ORDERED: RT-LEVALBUTEROL (XOPENEX) 1.25 MG/3 ML NEB NON-FORMULARY ONE (08:19)
--- NOTE | 2021-09-05 09:18 | History & Physical-Hospitalist ---
History of Present Illness HPI/Chief Complaint Patient is a 31-year-old female with past medical history of asthma, post Covid syndrome, obesity hypoventilation syndrome who presented to the emergency department due to shortness of breath, congestion, fever. Symptoms started 2 to 3 days ago following a visit with her nephew last week who had similar symptoms. She has been using her inhaler every 3-4 hours due to increased shortness of breath. She has a CPAP at night but is not currently taking any controller medications. She had significant wheezing that did not improve with breathing treatments in the ER and she was admitted for further management. This morning she states she just had a breathing treatment but still feels quite short of breath. Source: patient Date Seen 09/05/21 Time Seen by a Provider: 09:08 Attending Physician Ronald Dior MD PCP Kuldip Kee MD Referring Physician Date of Admission Sep 04, 2021 at 21:04 Home Medications & Allergies Home Medications Reviewed patient Home Medication Reconciliation performed by pharmacy medication reconciliations corrosion control technician and/or nursing. Patients Allergies have been reviewed. Allergies Allergies Coded Allergies No Known Drug Allergies (Unverified05/02/21) Past Lhbieju-Zthmzb-Lmvkii Hx Patient Social History Tobacco Use?: No Smoking Status: Former Smoker Use of E-Cig and/or Vaping dev: No Substance use?: No Alcohol Use?: No Pt feels they are or have been: No Immunizations Up To Date Date of Influenza Vaccine: Sep 03, 2020 First/Initial COVID19 Vaccinat: none Second COVID19 Vaccination Demarco: none Tetanus Booster (TDap): Unknown Hepatitis A: Yes Hepatitis B: Yes Seasonal Allergies Seasonal Allergies: No Current Status status: No Advance Directives: No Communicates: Verbally Primary Language: [place] Preferred Spoken Language: [place] Is interpretation needed?: No Implanted or Applied Medical D: None Past Medical History Surgeries: Ear Surgery, Gallbladder Asthma, Sleep Apnea Currently Using CPAP: Yes Currently Using BIPAP: No Sexually Transmitted Disease: No HIV/AIDS: No Kidney Stones Gastroesophageal Reflux, Ulcer Chronic Back Pain Diabetes, Non-Insulin dep Hearing Impairment: Denies Sleep Difficulties, Suicide Attempts, Depression Blood Disorders: No Asthma Schizoaffective Depression Anxiety 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 Family Medical History Family history: Asthma 09 BROTHER, Onset:Childhood Family history: Gastrointestinal disease 03 MOTHER, Onset:Unknown Family history: Hypertension 03 FATHER, Onset:40's - 50 Kidney disease 03 MOTHER, Onset:Childhood No Family History of: Abdominal aortic aneurysm Puxico's disease Alcoholism Aphasia Cancer Cataract Chest pain Congenital heart disease Congestive heart failure Cystic fibrosis Dementia Dysphagia Family history: Allergy Family history: Alzheimer's disease Family history: Arthritis Family history: Breast disease Family history: Cardiovascular disease Family history: Coronary thrombosis Family history: Diabetes mellitus Family history: Glaucoma Family history: Osteoporosis Family history: Thyroid disorder Headache Hearing loss Heart disease Hereditary disease History of - anemia History of - disorder History of - respiratory disease History of drug abuse Human immunodeficiency virus (HIV) seropositivity Hypercholesterolemia Infertile Malignant neoplasm of lung Myocardial infarction Parkinson's disease Prostate cancer Psychotic disorder Seizure disorder Stroke Tuberculosis Visual impairment No Pertinent Family Hx SOCIAL HISTORY: -ETOH--HX VERY HEAVY USE -DRUGS-HX METH, THC USE -SMOKED 1 PPD, QUIT 2018 Review of Systems Constitutional: fever, malaise EENTM: no symptoms reported Respiratory: see HPI Cardiovascular: chest pain Gastrointestinal: No abdominal pain; nausea Genitourinary: no symptoms reported Musculoskeletal: no symptoms reported Skin: no symptoms reported Psychiatric/Neurological: No Symptoms Reported Physical Exam Physical Exam Vital Signs Vital Signs - First Documented 09/04/21 09/04/21 20:58 21:56 O2 Flow Rate 25.00 FiO2 25 Capillary Refill : Less Than 3 Seconds Height, Weight, BMI Height: 5'10.00" Weight: 320lbs. 0.0oz. 145.794165fm; 67.02 BMI Method:Stated General Appearance: No Apparent Distress, Chronically ill, Obese HEENT: PERRL/EOMI, Other (BiPAP in place, ) Neck: Normal Inspection, Supple Respiratory: Wheezing (poor air movement) Cardiovascular: No JVD, No Murmur, Tachycardia Gastrointestinal: Normal Bowel Sounds, Non Tender, Soft Extremity: Normal Capillary Refill, No Calf Tenderness, No Pedal Edema Neurologic/Psychiatric: Alert, Oriented x3, Normal Mood/Affect Results Results/Procedures Labs Laboratory Tests 09/04/21 17:20 09/05/21 05:08 09/06/21 04:22 Patient resulted labs reviewed. Imaging: Reviewed Imaging Report Imaging [facility], [place] NAME: HUNTER COBB REC#: [id number] PT STATUS: REG ER : 1990 PHYSICIAN: LYNN DURAN MD ADMIT DATE: 09/04/21/ER Signed Date of Exam:09/04/21 CHEST PA/LAT (2 VIEW) EXAMINATION: Chest 2 view HISTORY: Short of breath COMPARISON: 07/29/2021 FINDINGS: The lungs are clear without edema or pneumonia. No pleural effusion or pneumothorax. Heart size is normal. IMPRESSION: 1. Clear lungs. Dictated by: Dictated on workstation # [id number] Dict: 09/04/[id number] Trans: 09/04/212057 [facility] [id number] Interpreted by: KULDIP FRENCH MD Electronically signed by: KULDIP FRENCH MD 09/04/212057 Assessment/Plan Admission Diagnosis Status asthmaticus Admission Status: Inpatient Order (span 2 midnights) Reason for Inpatient Admission: see below Assessment and Plan Status asthmaticus s/p Mag in ER Currently on BiPAP Continue steroids MAT protocol Pulm consult, appreciate recspulm Switch to Xopenex last night due to tachycardia Still wheezing significant despite recent breathign treatment so order placed for hour long unsure of compliance with medications as an outpatient as ER note reports no controller meds but prescribed symbicort at last discharge roughly 1 month ago RAISA OHS Super super obesity Continue CPAP T2DM Sliding scale insulin DVT prophylaxis: Lovenox Diagnosis/Problems Diagnosis/Problems (1) Status asthmaticus Status: Acute Qualifiers: Asthma severity: moderate Asthma persistence: persistent Qualified Codes: J45.42 - Moderate persistent asthma with status asthmaticus CATHY SAPP MD Sep 05, 2021 09:18
--- NOTE | 2021-09-05 10:21 | Pulmonary Consultation ---
History of Present Illness History of Present Illness Date Seen by Provider: Sep 05, 2021 Time Seen by Provider: 10:20 History of Present Illness She is a 31-year-old female with past medical history of asthma sensitivity to cold, super morbid obesity with the BMI of 67 apparently has asthma since childhood. Normally she does not get admitted to the hospital for asthma but this year she this is the third time she got admitted. However the first admission is in December for Covid19 infection. She is supposed to be on a maintenance bronchodilators with the steroids but for some reason she has not been on it. About 2 weeks ago she developed a little chest congestion cough or wheezing. She was treated with albuterol inhaler and steroids. She also developed a fever for couple of days low-grade. However her symptoms did not improve and she came to the emergency room. Chest x-ray done revealed no acute infiltrates. Her influenza and a Covid19 tests are negative. She has a history of sleep apnea for which she is on a CPAP mask at home. She is not any on home oxygen. She quit smoking about 3 years ago. No other family member in the house is a smoker currently. She is not known to have any drug allergies or any other on mental allergies except that when the weather changes she gets short of breath and her asthma flares up. Currently she denies any chest pain. She is on a BiPAP ventilation Atretol overdose 6 with FiO2 of 25%. Currently she is a tachycardic with a heart rate of 130/min. She is receiving [id number]-ulzya bronchodilator therapy with the levo albuterol. She also received racemic epinephrine and this a.m. She also complains of some difficulty in swallowing. However Marie she does not have any thrush even though we could not ruled out completely. She denies any history of hypertension, diabetes mellitus or any coronary artery disease. Today I made a video visit and discussed with the patient and the RN taking care of her. I have reviewed her previous pulmonary function test which are done in 2019 which he showed minimal airflow obstruction with significant bronchodilator response and reduced lung volumes however diffusion capacity is normal when compared to her lung volumes. There is a slight concern whether there is any upper airway obstruction as the inspiratory loop is somewhat flattened out Allergies and Home Medications Allergies Coded Allergies: No Known Drug Allergies (Unverified , 05/02/21) Home Medications Acetaminophen 500 Mg Tablet, 1,000 MG PO Q8H PRN for PAIN-MILD (1-4), (Reported) Albuterol Sulfate 1 Puff Puff, 2 PUFF IH Q4H PRN for SHORTNESS OF BREATH, (Reported) Aspirin/Acetaminophen/Caffeine 1 Each Tablet, 2 EACH PO Q6-8HR PRN for HEADACHE, (Reported) Budesonide/Formoterol Fumarate 10.2 Gm Hfa.aer.ad, 2 PUFF IH BID, (Reported) LAST FILLED 01-25-2021 #3/90 DAY SUPPLY Lisinopril/Hydrochlorothiazide 1 Each Tablet, 1 TAB PO BID WITH MEALS, (Reported) LAST FILLED 06-06-2021 #60/30 DAY SUPPLY Metformin HCl 500 Mg Tablet, 500 MG PO BID WITH MEALS, (Reported) LAST FILLED 04-16-2021 #60/30 DAY SUPPLY Prednisone 10 Mg Tab.ds.pk, 10 MG PO DAILY Take 6 tabs(60mg)daily,decrease by 1 tab(10mg)every other day. Prescribed by: GRAHAM ORELLANA on 08/01/21 1051 Promethazine HCl 25 Mg Tablet, 25 MG PO Q4H PRN for NAUSEA/VOMITING-2ND LINE, (Reported) Past Medical/Social/Family Hx Patient Social History Tobacco Use?: No Smoking Status: Former Smoker Use of E-Cig and/or Vaping dev: No Substance use?: No Alcohol Use?: No Pt stated abuse/neglect: No Immunizations Up To Date Influenza Vaccine Up-to-Date: No; Not Current First/Initial COVID19 Vaccinat: none Second COVID19 Vaccination Demarco: none Tetanus Booster (TDap): Unknown Hepatitis A: Yes Hepatitis B: Yes TB Skin Test: None Current Status status: No Advance Directives: No Communicates: Verbally Primary Language: [place]ian Preferred Spoken Language: [place]ian Is interpretation needed?: No Implanted or Applied Medical D: None Past Medical History Asthma Schizoaffective Depression Anxiety 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 0.0oz. 145.938780ag; 67.02 BMI Method:Stated Exam Exam Patient acknowledged, consented, and participated in this virtual visit which was conducted using real time audio/video Vital Signs Date Time Temp Pulse Resp B/P (MAP) Pulse Ox O2 Delivery O2 Flow Rate FiO2 09/05/21 08:22 112 21 25.00 09/05/21 08:00 112 19 133/80 (97) 97 NIV Bilevel 25.00 09/05/21 07:24 101 24 25.00 09/05/21 07:00 98 09/05/21 03:58 24 25.00 09/05/21 03:40 36.6 116 22 139/82 (101) 98 NIV Bilevel 25.00 09/05/21 02:54 86 22 25.00 09/05/21 01:07 96 17 134/74 (94) 94 NIV Bilevel 25.00 09/05/21 01:00 87 09/05/21 00:00 93 18 167/98 (121) 96 NIV Bilevel 25.00 09/04/21 23:48 112 99 25 09/04/21 23:35 37.0 NIV Bilevel 25.00 09/04/21 23:00 112 26 155/86 (109) 99 NIV Bilevel 25.00 09/04/21 22:45 104 18 120/54 (76) 96 NIV Bilevel 25.00 09/04/21 22:30 114 32 160/107 (127) 97 NIV Bilevel 25.00 09/04/21 22:15 106 27 149/89 (104) 98 NIV Bilevel 25.00 09/04/21 22:00 106 21 148/84 (106) 98 NIV Bilevel 25.00 09/04/21 21:56 NIV Bilevel 25 09/04/21 21:55 120 100 25.00 09/04/21 21:51 113 09/04/21 21:47 37.6 120 28 183/100 (127) 100 NIV Bilevel 25.00 09/04/21 21:30 36.8 114 18 145/76 97 NIV CPAP 25.00 09/04/21 20:58 115 28 100 25.00 09/04/21 19:28 99 Room Air 09/04/21 18:47 97 Room Air 09/04/21 17:05 Room Air 09/04/21 17:05 36.8 105 23 123/80 100 Room Air 09/04/21 17:05 36.8 105 23 123/80 (94) 100 Room Air I & O 09/05/21 07:00 Intake Total 220 ml Output Total 675 ml Balance -455 ml Height & Weight Height: 5'10.00" Weight: 320lbs. 0.0oz. 145.615819du; 67.02 BMI Method:Stated General Appearance: Anxious Respiratory: Rhonci (very few faint rhonchi bilateraaly) Capillary Refill: Less Than 3 Seconds Gastrointestinal: other (morbid obesity) Other comments PE PER ATTENDING Results Lab Laboratory Tests 09/04/21 17:20 09/05/21 05:08 Radiology CXR REVIEWED Assessment/Plan Assessment/Plan 1. Exacerbation of asthma with hypoxic respiratory failure requiring BiPAP ventilation. 2. Rule out any oral airway respiratory infections such as RSV, parainfluenza etc. 3. Super morbid obesity with obstructive sleep apnea on CPAP at home. Morbidly obese patient and he will generally have a tendency to have a frequent exacerbation of asthma. 4. Needs to rule out any upper airway obstruction Recommendations 1. We will get a arterial blood gas to make sure that she is not retaining any CO2 and if she continues to retain CO2 she needs to be transferred to ICU. 2. Increase IV Solu-Medrol 100 mg IV every 8 hours temporarily. 3. Continue bronchodilator therapy with levalbuterol. 4. We will start her on nystatin liquid to swish and swallow empirically to cover for possible esophageal candidiasis as patient having difficulty in swallowing. Once her respiratory distress is resolved we may consider getting an esophagogram. 4. We will review her IV Protonix as obese patients generally tend to have a GERD which precipitates asthma as well. 5. We will get a respiratory viral PCR panel 6. We will get IgE levels. 7. Once her respiratory distress improved we will try to get peak flow test. 8. Once she is a stable and out of exacerbation consider getting a repeat sleep study with a split-night titration and complete pulmonary function test as well as upper GI series. 9. I have some concerns about her upper airway as her inspiratory loop is somewhat flattened out hence I would recommend an ENT specialist evaluation as an outpatient to see whether she has any obstructive phenomenon in the upper airway which could be due to marked pendulous throat muscles however upper airway polyps or tumors needs to be kept in mind and ruled out. Thank you for this consultation and feel free to contact if you have any questions thank you Critical Care: Critically Ill Patient Time spent with patient (mins): 55 CHELSIE GOLDSMITH MD Sep 05, 2021 10:21
[2021-09-05 10:49] LABS: ABG BASE EXCESS -2.5 MMOL/L (-2.5-2.5); ABG OXYGEN SATURATION 98 % (94-100); ABG PCO2 38 MMHG (35-45); ABG PH 7.38 (7.37-7.43); ABG PO2 112 MMHG (79-93); ABG TCO2 23.1 MMOL/L (21.0-31.0); INSPIRED O2 25%
[2021-09-05 10:50] LABS: PATIENT TEMP 36.7; VENTILATOR NO
[2021-09-05] MEDS: NYSTATIN ORAL SUSP 5 ML UDC PO SCH ×3 (11:44→22:47)
[2021-09-05] MEDS: inSUlin ASPART (NovoLOG) 1 UNIT/0.01 ML (CHARGE PER UNIT) SC SCH ×3 (11:45→20:37)
[2021-09-05] MEDS ORDERED: ALBU2.5V4 NEB (11:51)
[2021-09-05] MEDS ORDERED: ONDANSETRON 4 MG/2 ML (SDV) Z0FRAN ONE (13:52)
[2021-09-05] MEDS ORDERED: ONDANSETRON 4 MG/2 ML (SDV) Z0FRAN IVP PRN (14:00)
[2021-09-05] MEDS: methylPREDNISolone 125 MG (Solu-MEDROL) VIAL IV SCH ×2 (14:05→22:47)
[2021-09-05 16:41] LABS: BILIRUBIN,URINE NEGATIVE (NEGATIVE); CLARITY,URINE CLEAR; COLOR,URINE YELLOW; GLUCOSE, URINE (UA) NEGATIVE (NEGATIVE); KETONES,URINE NEGATIVE (NEGATIVE); LEUKOCYTE ESTERASE ,URINE NEGATIVE (NEGATIVE); NITRITE,URINE NEGATIVE (NEGATIVE); PROTEIN,URINE NEGATIVE (NEGATIVE)
[2021-09-05 17:17] LABS: BACTERIA,URINE NEGATIVE /HPF; SQUAMOUS EPITHELIAL CELL,UR 0-2 /HPF
[2021-09-05] MEDS: lisINopril 20 MG (PRINIVIL) TABLET PO SCH (17:47)
[2021-09-05] MEDS ORDERED: NON-FORMULARY MEDICATION 1 EA EA (Lisinopril/Hydrochlorothiazide (Lisinopril-Hctz 20-25 mg PO SCH (18:00)
[2021-09-05] MEDS: RT--FLUTICASONE/SALMETEROL 232-14 (AIRDUO RespiCLICK) IH SCH (18:16)
[2021-09-06] MEDS: RT-LEVALBUTEROL (XOPENEX) 1.25 MG/3 ML NEB NON-FORMULARY INH SCH ×6 (02:14→22:27)
[2021-09-06 04:00] VITALS: BP 117/77
[2021-09-06 05:13] LABS: CALCIUM 8.8 MG/DL (8.5-10.1); CREATININE SERUM 0.7 MG/DL (0.60-1.30); MAGNESIUM 2.2 MG/DL (1.6-2.4); PHOSPHORUS 4.4 MG/DL (2.3-4.7); POTASSIUM 4.4 MMOL/L (3.6-5.0)
[2021-09-06] MEDS: CATHETER FLUSH 10 ML SYR IV SCH ×3 (06:20→22:00)
[2021-09-06] MEDS: NYSTATIN ORAL SUSP 5 ML UDC PO SCH ×3 (06:20→17:51)
[2021-09-06] MEDS: methylPREDNISolone 125 MG (Solu-MEDROL) VIAL IV SCH (06:20)
[2021-09-06] MEDS: inSUlin ASPART (NovoLOG) 1 UNIT/0.01 ML (CHARGE PER UNIT) SC SCH ×4 (06:23→21:55)
[2021-09-06] MEDS: RT--FLUTICASONE/SALMETEROL 232-14 (AIRDUO RespiCLICK) IH SCH ×2 (06:27→18:47)
[2021-09-06] MEDS: lisINopril 20 MG (PRINIVIL) TABLET PO SCH ×2 (08:20→17:51)
[2021-09-06] MEDS: ALPRAZolam 0.25 MG (XANAX) TAB PO PRN ×3 (08:23→22:38)
--- NOTE | 2021-09-06 09:10 | Progress Note - Hospitalist ---
Subjective HPI/CC On Admission Date Seen by Provider: Sep 06, 2021 Time Seen by Provider: 09:07 Patient is a 31-year-old female with past medical history of asthma, post Covid syndrome, obesity hypoventilation syndrome who presented to the emergency department due to shortness of breath, congestion, fever. Symptoms started 2 to 3 days ago following a visit with her nephew last week who had similar symptoms. She has been using her inhaler every 3-4 hours due to increased shortness of breath. She has a CPAP at night but is not currently taking any controller medications. She had significant wheezing that did not im prove with breathing treatments in the ER and she was admitted for further management. This morning she states she just had a breathing treatment but still feels quite short of breath. Subjective/Events-last exam Pt reports feeling better today but still short of breath. Worse when up and ambulating. Also complains of some difficulty swallowing as it causes nausea. Objective Exam Vital Signs Vital Signs Date Time Temp Pulse Resp B/P (MAP) Pulse Ox O2 Delivery O2 Flow Rate FiO2 09/06/21 07:00 96 09/06/21 06:27 96 Nasal Cannula 2.00 09/06/21 04:00 19 117/77 (90) 09/06/21 02:14 21 09/05/21 23:50 36.6 Capillary Refill : Less Than 3 Seconds General Appearance: No Apparent Distress, Chronically ill, Obese Respiratory: No Accessory Muscle Use, Wheezing, Other (on 2lpm) Cardiovascular: Regular Rate, Rhythm, No Murmur Gastrointestinal: Normal Bowel Sounds, Non Tender, Soft Neurologic/Psychiatric: Alert, Oriented x3 Results/Procedures Lab Laboratory Tests 09/06/21 04:22 Patient resulted labs reviewed. Imaging: Reviewed Imaging Report Assessment/Plan Assessment and Plan Assess & Plan/Chief Complaint Status asthmaticus Off BiPAP and on nasal cannula now Continue steroids, AirDuo MAT protocol Pulm consult, appreciate recspulm Still wheezing but improved air movement today unsure of compliance with medications as an outpatient as ER note reports no controller meds but prescribed symbicort at last discharge roughly 1 month ago RAISA OHS Super super obesity Continue CPAP HS T2DM Sliding scale insulin Dysphagia Will need EGD at some point but right now needs respiratory status to improve DVT prophylaxis: Lovenox Critical Care Critically Ill Patient Diagnosis/Problems Diagnosis/Problems (1) Status asthmaticus Status: Acute Qualifiers: Asthma severity: moderate Asthma persistence: persistent Qualified Codes: J45.42 - Moderate persistent asthma with status asthmaticus CATHY SAPP MD Sep 06, 2021 09:10
--- NOTE | 2021-09-06 10:57 | Pulmonary Progress Note ---
Subjective Date Seen by a Provider: Sep 06, 2021 Time Seen by a Provider: 10:49 Subjective/Events-last exam Patient today is feeling somewhat better and she is off the BiPAP in the using the oxygen via nasal cannula. However she still feels somewhat tightness in the chest. Yesterday blood gas revealed a decrease in the carbon dioxide suggestive of some improvement. She does admit that she has a type 2 diabetes mellitus and using Metformin as an outpatient. Also admits that she has a difficulty in affording the inhalers but trying to get as much as possible. Her IgE is markedly elevated suggestive of some allergies going on. She denies having any mold in the house. Dysphagia is improving Sepsis Event Evaluation Height, Weight, BMI Height: 5'10.00" Weight: 320lbs. 0.0oz. 145.887657og; 67.02 BMI Method:Stated Exam Exam Patient acknowledged, consented, and participated in this virtual visit which was conducted using real time audio/video Vital Signs Date Time Temp Pulse Resp B/P (MAP) Pulse Ox O2 Delivery O2 Flow Rate FiO2 09/06/21 10:33 93 Nasal Cannula 2.00 09/06/21 07:00 96 09/06/21 06:27 96 Nasal Cannula 2.00 09/06/21 04:00 84 19 117/77 (90) 99 NIV Bilevel 21.00 09/06/21 02:18 87 20 21.00 09/06/21 02:14 93 NIV Bilevel 21 09/06/21 01:00 81 09/05/21 23:50 36.6 100 15 147/84 (105) 95 Nasal Cannula 2.00 09/05/21 21:34 96 Nasal Cannula 2.00 09/05/21 21:00 Nasal Cannula 2.00 09/05/21 20:44 108/68 (81) 09/05/21 19:48 36.6 112 16 139/82 (101) 95 Nasal Cannula 2.00 09/05/21 19:00 102 09/05/21 18:17 99 Nasal Cannula 2.00 09/05/21 17:50 139/82 (101) 09/05/21 16:15 95 Nasal Cannula 2.00 09/05/21 16:09 36.2 118 23 145/77 (99) 97 09/05/21 15:05 95 Nasal Cannula 2.00 09/05/21 15:00 Nasal Cannula 2.00 09/05/21 12:54 120 09/05/21 12:33 126 22 140/72 (94) 95 Nasal Cannula 2.00 09/05/21 11:48 36.7 09/05/21 11:29 121 20 96 21.00 I & O 09/06/21 07:00 Intake Total 650 ml Output Total 275 ml Balance 375 ml Height & Weight Height: 5'10.00" Weight: 320lbs. 0.0oz. 145.676698ts; 67.02 BMI Method:Stated General Appearance: No Apparent Distress, Chronically ill, Obese HEENT: PERRL/EOMI, Other (BiPAP in place, ) Neck: Normal Inspection, Supple Respiratory: No Accessory Muscle Use, Wheezing, Other (on 2lpm) Cardiovascular: Regular Rate, Rhythm, No Murmur Capillary Refill: Less Than 3 Seconds Gastrointestinal: other (morbid obesity) Extremity: Normal Capillary Refill, No Calf Tenderness, No Pedal Edema Neurologic/Psychiatric: Alert, Oriented x3 Other comments PE PER ATTENDING Results Lab Laboratory Tests 09/04/21 17:20 09/05/21 05:08 09/06/21 04:22 Assessment/Plan Assessment/Plan 1. Exacerbation of asthma with hypoxic respiratory failure requiring BiPAP ventilation improving, currently on o2 via N/C. 2. Rule out any oral airway respiratory infections such as RSV, parainfluenza etc. 3. Super morbid obesity with obstructive sleep apnea on CPAP at home. Morbidly obese patient and he will generally have a tendency to have a frequent exacerbation of asthma. 4. Needs to rule out any upper airway obstruction. 5. history of Type 2 Diabetes mellitus. 6. Elevated IGE levels suggestive of on going allergies Recommendations 1. ABG's are satisfacory 2. Continue solumedrol at current dose and taper starting from 09/07/21. 3. Continue bronchodilator therapy with levalbuterol. 4. Continue on her on nystatin liquid to swish and swallow empirically to cover for possible esophageal candidiasis as patient having difficulty in swallowing. Once her respiratory distress is resolved we may consider getting an esophagogram. 4. Protonix po as obese patients generally tend to have a GERD which precipitates asthma as well. 5. Respiratory viral pcr panel is pending 6. child protective services social worker to help her with medications as out patient. 7. Once her respiratory distress improved we will try to get peak flow test. 8. Once she is a stable and out of exacerbation consider getting a repeat sleep study with a split-night titration and complete pulmonary function test as well as upper GI series. 9. I have some concerns about her upper airway as her inspiratory loop is somewhat flattened out hence I would recommend an ENT specialist evaluation as an outpatient to see whether she has any obstructive phenomenon in the upper airway which could be due to marked pendulous throat muscles however upper airway polyps or tumors needs to be kept in mind and ruled out. 10. Discussed with patient and RN via video visit Critical Care: Critically Ill Patient Time spent with patient (mins): 35 Diagnosis/Problems Diagnosis/Problems (1) Acute respiratory failure with hypoxia Status: Acute (2) Status asthmaticus Status: Acute (3) Morbid obesity due to excess calories Status: Chronic (4) Sleep apnea in adult CHELSIE GOLDSMITH MD Sep 06, 2021 10:57
[2021-09-06] MEDS: PANTOPRAZOLE 40 MG (PROTONIX) TAB PO SCH (11:45)
[2021-09-06 11:57] VITALS: BP 150/76
[2021-09-06 12:05] LABS: PARAINFLU 1 PCR Not Detected (Not Detected); PARAINFLU 2 PCR Not Detected (Not Detected); RSV PCR TEST Not Detected (Not Detected)
[2021-09-06] MEDS: methylPREDNISolone 40 MG/ML (Solu-MEDROL) VIAL IV SCH ×2 (14:54→21:24)
[2021-09-06 16:29] VITALS: BP 143/83
[2021-09-06 20:00] VITALS: BP 130/75
[2021-09-07] VITALS (7 sets, daily range): BP systolic 115–157; BP diastolic 63–90
[2021-09-07] MEDS: NYSTATIN ORAL SUSP 5 ML UDC PO SCH ×5 (00:53→23:06)
[2021-09-07] MEDS: RT-LEVALBUTEROL (XOPENEX) 1.25 MG/3 ML NEB NON-FORMULARY INH SCH ×6 (02:21→21:58)
[2021-09-07] MEDS: CATHETER FLUSH 10 ML SYR IV SCH ×3 (06:00→21:44)
[2021-09-07] MEDS: methylPREDNISolone 40 MG/ML (Solu-MEDROL) VIAL IV SCH ×3 (06:00→21:44)
[2021-09-07] MEDS: inSUlin ASPART (NovoLOG) 1 UNIT/0.01 ML (CHARGE PER UNIT) SC SCH ×4 (06:05→21:44)
[2021-09-07] MEDS: PANTOPRAZOLE 40 MG (PROTONIX) TAB PO SCH (08:13)
[2021-09-07] MEDS: lisINopril 20 MG (PRINIVIL) TABLET PO SCH ×2 (08:13→18:23)
[2021-09-07] MEDS: ALPRAZolam 0.25 MG (XANAX) TAB PO PRN ×3 (08:13→21:44)
--- NOTE | 2021-09-07 08:25 | Progress Note - Hospitalist ---
Subjective HPI/CC On Admission Date Seen by Provider: Sep 07, 2021 Time Seen by Provider: 08:20 Patient is a 31-year-old female with past medical history of asthma, post Covid syndrome, obesity hypoventilation syndrome who presented to the emergency department due to shortness of breath, congestion, fever. Symptoms started 2 to 3 days ago following a visit with her nephew last week who had similar symptoms. She has been using her inhaler every 3-4 hours due to increased shortness of breath. She has a CPAP at night but is not currently taking any controller medications. She had significant wheezing that did not improve with breathing treatments in the ER and she was admitted for further management. This morning she states she just had a breathing treatment but still feels quite short of breath. Subjective/Events-last exam Pt reports doing better today but still short of breath. Only symptom that is worsening is her dysphagia. Objective Exam Vital Signs Vital Signs Date Time Temp Pulse Resp B/P (MAP) Pulse Ox O2 Delivery O2 Flow Rate FiO2 09/07/21 08:00 Nasal Cannula 2.00 09/07/21 07:57 36.6 105 22 122/69 (86) 96 09/07/21 02:22 21 Capillary Refill : Less Than 3 Seconds General Appearance: No Apparent Distress, Chronically ill, Obese Respiratory: No Accessory Muscle Use, Wheezing (scant), Other (2lpm NC) Cardiovascular: Regular Rate, Rhythm, No Murmur Gastrointestinal: Normal Bowel Sounds, Non Tender, Soft Neurologic/Psychiatric: Alert, Oriented x3, Normal Mood/Affect Results/Procedures Lab Patient resulted labs reviewed. Imaging: Reviewed Imaging Report Assessment/Plan Assessment and Plan Assess & Plan/Chief Complaint Status asthmaticus Off BiPAP and on nasal cannula now Continue steroids, AirDuo MAT protocol Pulm consult, appreciate recspulm Still wheezing but improved air movement today unsure of compliance with medications as an outpatient as ER note reports no controller meds but prescribed symbicort at last discharge roughly 1 month ago dysphagia Reports it took 3.5 hours to eat dinner last night due to dysphagia Has seen Dr Hatch in the past and has had an EGD but cannot recall when Discussed with Dr Hatch who will see in consultation, appreciate assistance Breakfast tray removed RAIAS OHS Super super obesity Continue CPAP HS T2DM Sliding scale insulin DVT prophylaxis: Lovenox Critical Care Critically Ill Patient Diagnosis/Problems Diagnosis/Problems (1) Status asthmaticus Status: Acute Qualifiers: Asthma severity: moderate Asthma persistence: persistent Qualified Codes: J45.42 - Moderate persistent asthma with status asthmaticus CATHY SAPP MD Sep 07, 2021 08:24
--- NOTE | 2021-09-07 09:28 | Consultation - Surgery ---
EILEENTESS 09/07/21 0928: History of Present Illness History of Present Illness Patient Consulted On(alayna/time) 09/07/21 09:20 Date Seen by Provider: Sep 07, 2021 Time Seen by Provider: 09:05 Reason for Visit: Worsening dysphagia History of Present Illness HPI: Bryanna Khan is a 31-year-old female with past medical history of asthma, post-covid syndrome, obesity who presented to the emergency department due to shortness of breath, congestion, fever. Symptoms started 2 to 3 days ago following a visit with her nephew last week who had similar symptoms. Patient stated since having covid in [facility], she has been spiraling down and her asthma has been worse. She has been to the hospital 3x since June. She has been using her inhaler every 3-4 hours due to increased shortness of breath. She uses a CPAP at home. She had significant wheezing that did not improve with breathing treatments in the ER and she was admitted for further management. Patient states she has had worsening dysphagia over a couple months. Vomiting 2- 3x a day, that started before June. She has trouble keeping solids and liquids down and this has worsened since June. She stated she had an upper scope done years ago. She also states that she has had diarrhea every day since her cholecystectomy in 2018. Notices red blood in her stool occasionally. Denies reflux and burning in her throat, fever, chest pain, palpitations, nausea, and lightheadedness. Allergies and Home Medications Allergies Coded Allergies: No Known Drug Allergies (Unverified , 05/02/21) Patient Home Medication List Acetaminophen (Tylenol Extra Strength) 500 Mg Tablet, 1,000 MG PO Q8H PRN for PAIN-MILD (1-4), (Reported) Entered as Reported by: ITZEL CASAS on 07/30/21 1101 Last Action: Held Albuterol Sulfate (Proair Hfa) 1 Puff Puff, 2 PUFF IH Q4H PRN for SHORTNESS OF BREATH, (Reported) Entered as Reported by: ITZEL CASAS on 07/30/21 1110 Last Action: Held Albuterol Sulfate (Albuterol Sulfate) 2.5 Mg/3 Ml Vial.neb, 3 ML NEB Q6H PRN for SHORTNESS OF BREATH, (Reported) Entered as Reported by: ITZEL CASAS on 09/05/21 1151 Last Action: Held Aspirin/Acetaminophen/Caffeine (Excedrin Migraine Caplet) 1 Each Tablet, 2 EACH PO Q6-8HR PRN for HEADACHE, (Reported) Entered as Reported by: ITZEL CASAS on 05/02/21 1146 Last Action: Held Lisinopril/Hydrochlorothiazide (Lisinopril-Hctz 20-25 mg Tab) 1 Each Tablet, 1 TAB PO BID WITH MEALS, (Reported) Entered as Reported by: ITZEL CASAS on 07/30/21 1100 Last Action: Converted Metformin HCl (Metformin HCl) 500 Mg Tablet, 500 MG PO BID WITH MEALS, (Reported) Entered as Reported by: ITZEL CASAS on 07/30/21 1100 Last Action: Held Discontinued Medications Budesonide/Formoterol Fumarate (Symbicort 160-4.5 Mcg Inhaler) 10.2 Gm Hfa.aer.ad, 2 PUFF IH BID, (Reported) Discontinued Reason: No Longer Taking Entered as Reported by: ITZEL CASAS on 07/30/21 1100 Last Action: Discontinued Prednisone (Prednisone) 10 Mg Tab.ds.pk, 10 MG PO DAILY Discontinued Reason: No Longer Taking Prescribed by: GRAHAM ORELLANA on 08/01/21 1051 Last Action: Discontinued Promethazine HCl (Promethazine Tablet) 25 Mg Tablet, 25 MG PO Q4H PRN for NAUSEA/VOMITING-2ND LINE, (Reported) Discontinued Reason: No Longer Taking Entered as Reported by: ITZEL CASAS on 07/30/21 1101 Last Action: Discontinued Past Sodjwrp-Vncwrf-Ufcazq Hx Patient Social History Drug of Choice: THC, METH Smoking Status: Former Smoker (stopped smoking 3 years ago, 6 pk year hx. ) Former Smoker, Quit: Sep 10, 2018 Type Used: Cigarettes 2nd Hand Smoke Exposure: No Recent Hopitalizations: Yes (Since june, pt has been to hospital 3x for asthma exacerbation. ) Alcohol Use?: No Have you traveled recently?: No Immunizations Up To Date Tetanus Booster (TDap): Less than 5yrs Date of Influenza Vaccine: Sep 03, 2020 Seasonal Allergies Seasonal Allergies: No Surgeries History of Surgeries: Yes (PILONIDAL CYST 11/2020; LEFT EAR BENIGN TUMOR) Surgeries: Ear Surgery, Gallbladder Respiratory History of Respiratory Disorde: Yes Respiratory Disorders: Asthma, Sleep Apnea Cardiovascular History of Cardiac Disorders: No Neurological History of Neurological Disord: No Reproductive System Hx Reproductive Disorders: Yes Sexually Transmitted Disease: No HIV/AIDS: No Female Reproductive Disorders: Menstrual Problems Genitourinary History of Genitourinary Disor: Yes Genitourinary Disorders: Kidney Stones Gastrointestinal History of Gastrointestinal Di: Yes Gastrointestinal Disorders: Gastroesophageal Reflux, Ulcer Musculoskeletal History of Musculoskeletal Dis: Yes Musculoskeletal Disorders: Chronic Back Pain Endocrine History of Endocrine Disorders: Yes (MORBID OBESITY) Endocrine Disorders: Diabetes, Non-Insulin dep HEENT History of HEENT Disorders: No Hearing Impairment: Denies Cancer History of Cancer: No Psychosocial History of Psychiatric Problem: Yes (SCHIZO-AFFECTIVE; CUTTING; PANIC ATTACKS; SUBSTANCE ABUSE) Behavioral Health Disorders: Sleep Difficulties, Suicide Attempts, Depression Integumentary History of Skin or Integumenta: Yes (HAS HIDRADENITIS UNDER BREASTS) Blood Transfusions History of Blood Disorders: No Family Medical History Significant Family History: No Pertinent Family Hx Family Medial History: Family history: Asthma 09 BROTHER, Onset:Childhood Family history: Gastrointestinal disease 03 MOTHER, Onset:Unknown Family history: Hypertension 03 FATHER, Onset:40's - 50 Kidney disease 03 MOTHER, Onset:Childhood No Family History of: Abdominal aortic aneurysm [place]'s disease Alcoholism Aphasia Cancer Cataract Chest pain Congenital heart disease Congestive heart failure Cystic fibrosis Dementia Dysphagia Family history: Allergy Family history: Alzheimer's disease Family history: Arthritis Family history: Breast disease Family history: Cardiovascular disease Family history: Coronary thrombosis Family history: Diabetes mellitus Family history: Glaucoma Family history: Osteoporosis Family history: Thyroid disorder Headache Hearing loss Heart disease Hereditary disease History of - anemia History of - disorder History of - respiratory disease History of drug abuse Human immunodeficiency virus (HIV) seropositivity Hypercholesterolemia Infertile Malignant neoplasm of lung Myocardial infarction Parkinson's disease Prostate cancer Psychotic disorder Seizure disorder Stroke Tuberculosis Visual impairment Review of Systems-General Constitutional: No chills, No diaphoresis, No fever EENTM: throat pain (Patient has trouble swalling food, which hurts at times.); No hoarseness, No mouth pain, No mouth swelling Respiratory: cough (Coughs with trying to swallow because of worsening dysphagia.); No hemoptysis; short of breath (Asthma has been worse since Dec when she had covid.) Cardiovascular: No chest pain, No palpitations Gastrointestinal: RUQ (Diffuse mild tenderness and pain.), RLQ (Diffuse mild tenderness and pain.) Genitourinary: No dysuria, No frequency, No hematuria Musculoskeletal: No back pain, No muscle pain Skin: No change in color, No rash Psychiatric/Neurological: Denies Headache, Denies Numbness, Denies Paresthesia Physical Exam-General Problems Physical Exam Vital Signs Vital Signs - First Documented 09/04/21 09/04/21 20:58 21:56 O2 Flow Rate 25.00 FiO2 25 Capillary Refill : Less Than 3 Seconds General Appearance: no apparent distress, obese Eyes: Bilateral Eye PERRL HEENT: PERRL/EOMI, pharynx normal; No scleral icterus (R), No scleral icterus (L), No pharyngeal erythema Neck: non-tender, full range of motion, supple Respiratory: chest non-tender, no respiratory distress, no accessory muscle use, decreased breath sounds (Cannot take deep breaths due.); No stridor, No wheezing Cardiovascular: normal peripheral pulses, regular rate, rhythm, no gallop, no murmur Peripheral Pulses: 2+ Dorsalis Pedis (R), 2+ Radial Pulses (R), 2+ Radial Pulses (L) Gastrointestinal: normal bowel sounds, soft, no pulsatile mass, distended (Mild distention); No guarding, No rebound; tenderness (Mild tenderness on right side with palpation.) Back: no CVA tenderness, no vertebral tenderness Extremities: normal range of motion, non-tender, normal inspection, no calf tenderness Neurologic/Psychiatric: geriatric physical therapist II-XII nml as tested, no motor/sensory deficits, alert, normal mood/affect, oriented x 3 Skin: normal color, warm/dry Lymphatic: no adenopathy (cervical, axillary) Data Review Labs Laboratory Tests 09/06/21 11:14: Glucometer 162H 09/06/21 16:06: Glucometer 173H 09/06/21 20:22: Glucometer 149H 09/07/21 05:55: Glucometer 128H Radiology Last imaging performed 09/04/2021: NAME: [facility] REC#: [id number] PT STATUS: REG ER : 1990 PHYSICIAN: LYNN DURAN MD ADMIT DATE: 09/04/21/ER Signed Date of Exam:09/04/21 CHEST PA/LAT (2 VIEW) EXAMINATION: Chest 2 view HISTORY: Short of breath COMPARISON: 07/29/2021 FINDINGS: The lungs are clear without edema or pneumonia. No pleural effusion or pneumothorax. Heart size is normal. IMPRESSION: 1. Clear lungs. Dictated by: Dictated on workstation # [id number] Dict: 09/04/[id number] Trans: 09/04/212057 [facility] [id number] Interpreted by: KULDIP FRENCH MD Electronically signed by: KULDIP FRENCH MD 09/04/212057 Assessment/Plan Assessment/Plan Assessment/Plan Worsening dysphagia: Schedule EGD Rectal bleeding: Schedule Colonoscopy Recommended liquid diet, protein drinks for nutrition. Recommended protonix or similar and Cerafate. Plan to meet with patient outpatient. SABRINA SAUNDERS DO 09/07/21 1053: History of Present Illness History of Present Illness Time Seen by Provider: 09:51 History of Present Illness Surgery asked to consult regarding dysphagia. HPI per IM: Patient is a 31-year-old female with past medical history of asthma, post Covid syndrome, obesity hypoventilation syndrome who presented to the emergency department due to shortness of breath, congestion, fever. Symptoms started 2 to 3 days ago following a visit with her nephew last week who had similar symptoms. She has been using her inhaler every 3-4 hours due to increased shortness of breath. She has a CPAP at night but is not currently taking any controller medications. She had significant wheezing that did not improve with breathing treatments in the ER and she was admitted for further management. This morning she states she just had a breathing treatment but still feels quite short of breath. When I spoke to pt she stated she has been having trouble swallowing for "a couple of months"; also reported occasionally seeing blood with BMs. Last night had problems getting solid and liquids down. She was admitted for asthma exacerbation. Allergies and Home Medications Allergies Coded Allergies: No Known Drug Allergies (Unverified , 05/02/21) Patient Home Medication List Home Medication List Reviewed: Yes Acetaminophen (Tylenol Extra Strength) 500 Mg Tablet, 1,000 MG PO Q8H PRN for PAIN-MILD (1-4), (Reported) Entered as Reported by: ITZEL CASAS on 07/30/21 1101 Last Action: Held Albuterol Sulfate (Proair Hfa) 1 Puff Puff, 2 PUFF IH Q4H PRN for SHORTNESS OF BREATH, (Reported) Entered as Reported by: ITZEL CASAS on 07/30/21 1110 Last Action: Held Albuterol Sulfate (Albuterol Sulfate) 2.5 Mg/3 Ml Vial.neb, 3 ML NEB Q6H PRN for SHORTNESS OF BREATH, (Reported) Entered as Reported by: ITZEL CASAS on 09/05/21 1151 Last Action: Held Aspirin/Acetaminophen/Caffeine (Excedrin Migraine Caplet) 1 Each Tablet, 2 EACH PO Q6-8HR PRN for HEADACHE, (Reported) Entered as Reported by: ITZEL CASAS on 05/02/21 1146 Last Action: Held Lisinopril/Hydrochlorothiazide (Lisinopril-Hctz 20-25 mg Tab) 1 Each Tablet, 1 TAB PO BID WITH MEALS, (Reported) Entered as Reported by: ITZEL CASAS on 07/30/21 1100 Last Action: Converted Metformin HCl (Metformin HCl) 500 Mg Tablet, 500 MG PO BID WITH MEALS, (Reported) Entered as Reported by: ITZEL CASAS on 07/30/21 1100 Last Action: Held Discontinued Medications Budesonide/Formoterol Fumarate (Symbicort 160-4.5 Mcg Inhaler) 10.2 Gm Hfa.aer.ad, 2 PUFF IH BID, (Reported) Discontinued Reason: No Longer Taking Entered as Reported by: ITZEL CASAS on 07/30/21 1100 Last Action: Discontinued Prednisone (Prednisone) 10 Mg Tab.ds.pk, 10 MG PO DAILY Discontinued Reason: No Longer Taking Prescribed by: GRAHAM ORELLANA on 08/01/21 1051 Last Action: Discontinued Promethazine HCl (Promethazine Tablet) 25 Mg Tablet, 25 MG PO Q4H PRN for NAUSEA/VOMITING-2ND LINE, (Reported) Discontinued Reason: No Longer Taking Entered as Reported by: ITZEL CASAS on 07/30/21 1101 Last Action: Discontinued Past Htwbvtz-Jinwbp-Wngzia Hx Patient Social History Smoking Status: Former Smoker (stopped smoking 3 years ago, 6 pk year hx. ) Recent Hopitalizations: Yes (Since june, pt has been to hospital 3x for as thma exacerbation. ) Surgeries History of Surgeries: Yes (EGD in 2012) Surgeries: Ear Surgery, Gallbladder Respiratory History of Respiratory Disorde: Yes Respiratory Disorders: Asthma Cardiovascular History of Cardiac Disorders: Yes Cardiac Disorders: Hypertension Neurological History of Neurological Disord: No Genitourinary History of Genitourinary Disor: No Gastrointestinal History of Gastrointestinal Di: Yes Gastrointestinal Disorders: Gastroesophageal Reflux, Gall Bladder Disease Musculoskeletal History of Musculoskeletal Dis: No Endocrine History of Endocrine Disorders: Yes Endocrine Disorders: Diabetes, Non-Insulin dep HEENT History of HEENT Disorders: No Loss of Vision: Denies Hearing Impairment: Denies Cancer History of Cancer: No Psychosocial History of Psychiatric Problem: No Family Medical History Significant Family History: Asthma, Heart Disease, GI Disease, Hypertension Family Medial History: Family history: Asthma 09 BROTHER, Onset:Childhood Family history: Gastrointestinal disease 03 MOTHER, Onset:Unknown Family history: Hypertension 03 FATHER, Onset:40's - 50 Kidney disease 03 MOTHER, Onset:Childhood Review of Systems-General Constitutional: No chills, No diaphoresis, No fever EENTM: throat pain (Patient has trouble swalling food, which hurts at times.); No hoarseness, No mouth pain, No mouth swelling Respiratory: cough (Coughs with trying to swallow because of worsening dysphagia.), dyspnea on exertion; No hemoptysis; short of breath (Asthma has been worse since Dec when she had covid.) Cardiovascular: No chest pain, No palpitations Gastrointestinal: RUQ (Diffuse mild tenderness and pain.), RLQ (Diffuse mild tenderness and pain.), dysphagia Genitourinary: No dysuria, No frequency, No hematuria Musculoskeletal: No back pain, No muscle pain Skin: No change in color, No rash Psychiatric/Neurological: Denies Headache, Denies Numbness, Denies Paresthesia Physical Exam-General Problems Physical Exam General Appearance: obese (super morbidly) Eyes: Bilateral Eye PERRL, Bilateral Eye EOMI HEENT: pharynx normal; No scleral icterus (R), No scleral icterus (L) Neck: non-tender, full range of motion, supple Respiratory: chest non-tender, no respiratory distress, no accessory muscle use, decreased breath sounds (Cannot take deep breaths due.); No stridor, No wheezing Cardiovascular: regular rate, rhythm, no murmur Gastrointestinal: normal bowel sounds, soft; No guarding, No rebound; tenderness (Mild tenderness on right side with palpation.) Back: no CVA tenderness, no vertebral tenderness Extremities: non-tender, no calf tenderness Neurologic/Psychiatric: geriatric physical therapist II-XII nml as tested, no motor/sensory deficits, alert, normal mood/affect, oriented x 3 Skin: normal color, warm/dry Lymphatic: no adenopathy (cervical, axillary) Data Review Radiology Date of Exam:09/04/21 CHEST PA/LAT (2 VIEW) EXAMINATION: Chest 2 view HISTORY: Short of breath COMPARISON: 07/29/2021 FINDINGS: The lungs are clear without edema or pneumonia. No pleural effusion or pneumothorax. Heart size is normal. IMPRESSION: 1. Clear lungs. Dictated by: Dictated on workstation # [id number] Dict: 09/04/[id number] Trans: 09/04/212057 [facility] [phone] Interpreted by: KULDIP FRENCH MD Electronically signed by: KULDIP FRENCH MD 09/04/212057 Assessment/Plan Assessment/Plan Assessment/Plan Worsening dysphagia: Schedule EGD Rectal bleeding: Schedule Colonoscopy Asthma - on meds and improving, still O2 drops when getting up to bathroom Recommended liquid diet, protein drinks for nutrition. Start Protonix or similar and Cerafate. Plan to schedule procedures as an outpatient. Supervisory-Addendum Brief Verification & Attestation Participated in pt care: history, MDM, physical Personally performed: exam, history, MDM, supervision of care Care discussed with: Medical Student Procedures: n/a Verification and Attestation of Medical Student E/M Service A medical student performed and documented this service. I then reviewed and verified all information documented by the medical student and made modifications to such information, when appropriate. I personally performed a physical exam, medical decision making and then discussed any differences between the notes and made revisions as necessary to create one note. Sabrina Saunders , 09/07/21 , 11:00 TESS ARELLANO Sep 07, 2021 09:28 SABRINA SAUNDERS DO Sep 07, 2021 10:53
[2021-09-07] MEDS: PANTOPRAZOLE 40 MG (PROTONIX) VIAL IV SCH ×3 (09:39→21:44)
[2021-09-07] MEDS: SUCRALFATE 1 GM (CARAFATE) TAB PO SCH ×3 (10:55→21:44)
[2021-09-07] MEDS: RT--FLUTICASONE/SALMETEROL 232-14 (AIRDUO RespiCLICK) IH SCH ×2 (10:59→21:58)
[2021-09-08 00:23] VITALS: BP 126/63
[2021-09-08 02:24] VITALS: BP 115/69
[2021-09-08] MEDS: RT-LEVALBUTEROL (XOPENEX) 1.25 MG/3 ML NEB NON-FORMULARY INH SCH ×3 (02:24→10:25)
[2021-09-08 04:22] VITALS: BP 132/70
[2021-09-08] MEDS: NYSTATIN ORAL SUSP 5 ML UDC PO SCH (05:19)
[2021-09-08] MEDS: SUCRALFATE 1 GM (CARAFATE) TAB PO SCH ×2 (05:19→11:59)
[2021-09-08] MEDS: inSUlin ASPART (NovoLOG) 1 UNIT/0.01 ML (CHARGE PER UNIT) SC SCH ×2 (05:20→11:00)
[2021-09-08] MEDS: CATHETER FLUSH 10 ML SYR IV SCH (05:20)
[2021-09-08] MEDS: methylPREDNISolone 40 MG/ML (Solu-MEDROL) VIAL IV SCH (05:21)
[2021-09-08] MEDS: RT--FLUTICASONE/SALMETEROL 232-14 (AIRDUO RespiCLICK) IH SCH (07:25)
[2021-09-08 08:00] VITALS: BP 149/74
[2021-09-08] MEDS: lisINopril 20 MG (PRINIVIL) TABLET PO SCH (08:27)
[2021-09-08] MEDS: PANTOPRAZOLE 40 MG (PROTONIX) VIAL IV SCH (08:27)
[2021-09-08] MEDS ORDERED: PANT40TA2 PO (11:02)
[2021-09-08] MEDS ORDERED: PRED10TA22 PO (11:02)
[2021-09-08] MEDS ORDERED: SUCR1TAB PO (11:02)
[2021-09-08] MEDS ORDERED: RT-ALBUINH IH (11:02)
[2021-09-08] MEDS ORDERED: FLUT1AER5 IH (11:02)
--- NOTE | 2021-09-08 11:04 | Discharge Inst-Simple/Standard ---
Discharge Inst-Standard Patient Instructions/Follow Up Plan of Care/Instructions/FU: Continue to take your medications as written. Please follow-up with Dr. Hatch and with pulmonology as already scheduled. Please continue to follow with [facility] for primary care needs. Activity as Tolerated: Yes Discharge Diet: No Restrictions Return to The Hospital For: Shortness of breath, cough, increasing inhaler need, fever, chest pain, if you feel you are getting worse. CATHY SAPP MD Sep 08, 2021 11:04
--- NOTE | 2021-09-08 11:07 | Discharge Summary ---
Diagnosis/Chief Complaint Date of Admission Sep 04, 2021 at 21:04 Date of Discharge Discharge Date: Sep 08, 2021 Admission Diagnosis Status asthmaticus Primary Care Magdi Kee MD Discharge Diagnosis (1) Acute respiratory failure with hypoxia Status: Acute (2) Status asthmaticus Status: Acute (3) Morbid obesity due to excess calories Status: Chronic (4) Sleep apnea in adult Discharge Summary Discharge Physical Exam Allergies: Coded Allergies: No Known Drug Allergies (Unverified , 05/02/21) Vitals & I&Os Vital Signs Date Time Temp Pulse Resp B/P (MAP) Pulse Ox O2 Delivery O2 Flow Rate FiO2 09/08/21 10:25 93 Room Air 09/08/21 08:00 36.5 81 22 149/74 (99) 09/08/21 02:24 21.00 09/07/21 21:58 21 General Appearance: No Apparent Distress, Obese Respiratory: Lungs Clear, No Respiratory Distress Cardiovascular: Regular Rate, Rhythm, No JVD, No Murmur Neurologic/Psychiatric: Alert, Oriented x3 Hospital Course Patient was admitted secondary to status asthmaticus. She was treated with high-dose IV steroids, albuterol, magnesium, and supplemental oxygen. After couple of days her symptoms improved and she was less dependent on as needed albuterol treatments. She was seen by pulmonology while here and has outpatient follow-up scheduled. She did complain of dysphagia which she has had in the past and has seen Dr. Hatch for. He was consulted and recommended both EGD and colonoscopy. She is to follow-up with him next week for that. She has an appointment in 2 days with pulmonology. She was found to follow with [facility] upon discharge and I arranged with the assistance of Dr. Tavarez for her prescriptions to be sent to [facility]. She is to follow with them for further primary care needs. Labs (last 24 hrs) Laboratory Tests 09/07/21 16:02: Glucometer 134H 09/07/21 20:53: Glucometer 138H 09/08/21 05:17: Glucometer 119H Patient resulted labs reviewed. Pending Labs Laboratory Tests 09/08/21 05:17: Glucometer 119 Imaging: Reviewed Imaging Report Discussion & Recommendations Discharge Planning: >30 minutes discharge planning Discharge Home Medications: Active Scripts Active Sucralfate 1 Gm Tablet 1 Gm PO ACHS Prednisone 10 Mg Tab.ds.pk 10 Mg PO DAILY Take 6 tabs(60mg)daily,decrease by 1 tab(10MG)daily. Protonix (Pantoprazole Sodium) 40 Mg Tablet.dr 40 Mg PO DAILY Fluticasone-Salmeterol 232-14 (Fluticasone/Salmeterol) 1 Each Aer.pow.ba 0 Each IH RTBID Proair Hfa (Albuterol Sulfate) 1 Puff Puff 2 Puff IH Q4H PRN Reported Albuterol Sulfate 2.5 Mg/3 Ml Vial.neb 3 Ml NEB Q6H PRN Tylenol Extra Strength (Acetaminophen) 500 Mg Tablet 1,000 Mg PO Q8H PRN Metformin HCl 500 Mg Tablet 500 Mg PO BID WITH MEALS Lisinopril-Hctz 20-25 mg Tab (Lisinopril/Hydrochlorothiazide) 1 Each Tablet 1 Tab PO BID WITH MEALS Excedrin Migraine Caplet (Aspirin/Acetaminophen/Caffeine) 1 Each Tablet 2 Each PO Q6-8HR PRN Instructions to patient/family Please see electronic discharge instructions given to patient. CATHY SAPP MD Sep 08, 2021 11:07
[2021-09-08 12:00] VITALS: BP 151/71
== END 2021-09-08 11:30 | disposition home or self-care (01) | DRG 202 ==
LOC: EDUNIT# 17:01 → ER 17:03 → OBSVTOIN 21:04 → CSD 21:04 → 4TH 09-07 13:53
PROVIDERS: ADMIT Internal Medicine; ATTEND Internal Medicine
PROC: 5A09357 Assistance with Respiratory Ventilation, Less than 24 Consecutive Hours, Continuous Positive Airway Pressure (ICD-10-PCS; principal; 2021-09-06)
DX: J45.42 Moderate persistent asthma with status asthmaticus (principal); J96.01 Acute respiratory failure with hypoxia; E66.2 Morbid (severe) obesity with alveolar hypoventilation; K62.5 Hemorrhage of anus and rectum; Z68.44 Body mass index [BMI] 60.0-69.9, adult; E11.9 Type 2 diabetes mellitus without complications; Z20.822 Contact with and (suspected) exposure to COVID-19; R13.10 Dysphagia, unspecified; K21.9 Gastro-esophageal reflux disease without esophagitis; G89.29 Other chronic pain; M54.9 Dorsalgia, unspecified; F32.A Depression, unspecified; F41.0 Panic disorder [episodic paroxysmal anxiety]; F25.9 Schizoaffective disorder, unspecified; Z79.82 Long term (current) use of aspirin; Z79.84 Long term (current) use of oral hypoglycemic drugs; Z79.899 Other long term (current) drug therapy; Z86.16 Personal history of COVID-19
CPT/HCPCS: 36410; 36415; 36600; 71046; 76937; 80048; 81000; 82785; 82800; 82805; 82947; 83735; 84100; 85025; 85379; 86141; 87631; 87636; 93005; 94640; 94644; 94660; 94760

== ENCOUNTER 2021-09-20 05:30 | Outpatient (RCR) | payer OTHER ==
[~2021-09-20] VITALS: Ht 177.8 cm; Wt 213.9 kg
[~2021-09-20 05:30] MED LIST changes: +ALBU2.5V4 NEB; +FLUT1AER5 IH; +LISI1TAB46 PO; +METF500S5 PO; +PANT40GR PO; +PANT40TA2 PO; +SUCR1TAB PO; +SUCR1TAB36 PO
== END 2021-09-21 13:45 | disposition home or self-care (01) ==
LOC: PREOP 05:30
PROVIDERS: ATTEND Surgery
DX: Z01.812 Encounter for preprocedural laboratory examination (principal); K92.1 Melena; R13.10 Dysphagia, unspecified; Z20.822 Contact with and (suspected) exposure to COVID-19
CPT/HCPCS: 87635

== ENCOUNTER 2021-09-24 09:42 | Day surgery (SDC) | payer OTHER ==
[~2021-09-24] VITALS: Ht 177.8 cm; Wt 213.9 kg
[~2021-09-24 09:42] MED LIST changes: -LISI1TAB26 PO; +LISI1TAB48 PO
[2021-09-24] MEDS ORDERED: LACTATED RINGERS 1,000 ML IV ONE (09:51)
[2021-09-24] MEDS ORDERED: LACTATED RINGERS 1,000 ML IV STA (09:57)
[2021-09-24] MEDS ORDERED: HURRICAINE EXT TUBE (BENZOCAINE) XX PRN (10:00)
[2021-09-24 10:15] VITALS: BP 132/77
--- NOTE | 2021-09-24 10:41 | Progress Note-Pre Operative ---
Pre-Operative Progress Note H&P Reviewed The H&P was reviewed, patient examined and no changes noted. Time Seen by Provider: 10:40 Date H&P Reviewed: Sep 24, 2021 Time H&P Reviewed: 10:40 Pre-Operative Diagnosis: Hematochezia, Dysphagia SABRINA SAUNDERS DO Sep 24, 2021 10:41
[2021-09-24 10:56] LABS: BENZODIAZEPINES SCREEN URINE NEGATIVE (NEGATIVE)
[2021-09-24 10:57] LABS: AMPHETAMINE SCREEN, URINE NEGATIVE (NEGATIVE); BARBITURATE SCREEN URINE NEGATIVE (NEGATIVE); CANNABINOID SCREEN, URINE NEGATIVE (NEGATIVE); COCAINE SCREEN URINE NEGATIVE (NEGATIVE); METHADONE STAT NEGATIVE (NEGATIVE); METHAMPHETAMINE SCREEN URINE S NEGATIVE (NEGATIVE); OPIATE SCREEN URINE NEGATIVE (NEGATIVE); OXYCODONE STAT NEGATIVE (NEGATIVE); PROPOXYPHENE STAT NEGATIVE (NEGATIVE); TRICYCLIC ANTIDEPRESSANTS SCRE NEGATIVE (NEGATIVE)
[2021-09-24] MEDS ORDERED: MIDAZOLAM 2 MG/2 ML (VERSED) VIAL ONE (11:17)
[2021-09-24] MEDS ORDERED: PROPOFOL INJECTION 50 ML IV ONE ×2 (11:18→11:35)
[2021-09-24] MEDS ORDERED: KETAMINE SYRINGE 50 MG/5 ML SYRINGE ONE (11:18)
[2021-09-24] MEDS ORDERED: ONDANSETRON 4 MG/2 ML (SDV) Z0FRAN ONE (11:32)
[2021-09-24 11:54] VITALS: BP 106/62
[2021-09-24 11:55] VITALS: BP 107/58
--- NOTE | 2021-09-24 11:58 | Progress Note-Post Operative ---
Post-Operative Progess Note Surgeon (s)/Dean Of Instruction (s) Surgeon SABRINA SAUNDERS DO Dean Of Instruction: Tommy You, MSIII Pre-Operative Diagnosis Hematochezia, Dysphagia Post-Operative Diagnosis Gastritis Esophagitis Int hemorrhoids Procedure & Operative Findings Date of Procedure 09/24/21 Procedure Performed/Findings EGD with Bx Colonoscopy PROCEDURE NOTE: After informed consent was obtained, the patient was brought to the endoscopy suite, placed in bed in left lateral decubitus position. She was administered IV sedation by the STORE DIRECTOR who then monitored vitals the entire time, heart rate, blood pressure and pulse ox and the scope was inserted down the mouth through the esophagus into the stomach. On the way down, noted some mild esophagitis, took a picture, pushed into the stomach, pushed past the antrum into the duodenum. Duodenum looked good. Pulled back and did a biopsy of antrum, then retroflexed the scope, did not see hiatal hernia. Then pulled the scope into the GE junctio and did a biopsy of the GE junction. Pushed the scope back into the stomach, suctioned all the air out of the stomach. At this point pulled the scope up the esophagus and out the mouth. Switched camera, switched gloves, went down below, started the colonoscopy. Pushed all the way into about 140 cm to get all the way to cecum, took a picture of the appendiceal orifice, noted the ileocecal valve and then slowly withdrew the scope, insufflating to look circumferentially at the perez starting in the cecum, up the ascending colon to the hepatic flexure, then down the transverse colon, splenic flexure, into the descending colon, down into the sigmoid and finally into the rectum, retroflexed in the rectal vault, saw some minimal internal hemorrhoids and took a picture of this. The patient tolerated the procedure and she recovered in the endoscopy suite. Anesthesia Type IV sedation by STORE DIRECTOR Estimated Blood Loss Estimated blood loss (mL): scant Specimens/Packing Specimens Removed antral bx body of stomach bx GE jxn bx SABRINA SAUNDERS DO Sep 24, 2021 11:58
--- NOTE | 2021-09-24 11:59 | Endoscopy Discharge Instruct ---
Endo Procedure/Findings Findings 1.: Gastritis 2.: Other Findings (mild esophagitis) 3.: Internal Hemorrhoids Discharge Instructions - Activity: You might feel a little sleepy until tomorrow. This is due to the medicine you received to relax you. Until tomorrow, you should: NOT drive a car, operate machinery or power tools. NOT drink any alcoholic beverages. NOT make any important decisions or sign importortant papers. Do not return to work until tomorrow, unless otherwise instructed. Resume previous activities tomorrow. Diet: Start by taking liquids. If you tolerate liquids, advance to solid food. 1.: Colonscopy in 10 years, EGD in 3 years Notify Physician - If you experience excessive bleeding, unusual abdominal pain, fever, or chest pain, contact your doctor immediately. SABRINA SAUNDERS DO Sep 24, 2021 11:58
[2021-09-24 12:00] VITALS: BP 139/83
[2021-09-24 12:10] VITALS: BP 139/83
[2021-09-24 12:44] VITALS: BP 139/83
--- NOTE | 2021-09-24 14:40 | Anesthesia-General Post-Op ---
MAC Patient Condition Mental Status/LOC: Same as Preop Cardiovascular: Satisfactory Nausea/Vomiting: Absent Respiratory: Satisfactory Pain: Controlled Complications: Absent Post Op Complications Complications None Follow Up Care/Instructions Patient Instructions None needed. Anesthesiology Discharge Order Discharge Order Patient is doing well, no complaints, stable vital signs, no apparent adverse anesthesia problems. No complications reported per nursing. NOY GANDHI CRNA Sep 24, 2021 14:40
== END 2021-09-24 12:50 | disposition home or self-care (01) ==
LOC: ENDO 09:42
PROVIDERS: ATTEND Surgery
DX: K92.1 Melena (principal); R13.10 Dysphagia, unspecified; K29.50 Unspecified chronic gastritis without bleeding; K20.90 Esophagitis, unspecified without bleeding; K64.8 Other hemorrhoids; I10 Essential (primary) hypertension; J45.909 Unspecified asthma, uncomplicated; G47.33 Obstructive sleep apnea (adult) (pediatric); K21.9 Gastro-esophageal reflux disease without esophagitis; E11.9 Type 2 diabetes mellitus without complications; E66.01 Morbid (severe) obesity due to excess calories; Z68.44 Body mass index [BMI] 60.0-69.9, adult; Z79.84 Long term (current) use of oral hypoglycemic drugs; Z79.899 Other long term (current) drug therapy; Z99.89 Dependence on other enabling machines and devices; Z87.891 Personal history of nicotine dependence; Z90.49 Acquired absence of other specified parts of digestive tract; Z83.3 Family history of diabetes mellitus
CPT/HCPCS: 80306; 84703; 88305

== ENCOUNTER → 2021-11-22 | Outpatient (CLI) | payer MEDICAID, OTHER ==
[~2021-11-22] MED LIST changes: +RT-ALBUTEROL SULF 2.5 MG/3 ML PRE-MIX VIAL INH ONE
== END ==
LOC: RT 13:00
PROVIDERS: ATTEND Nurse Practitioner Family
DX: J45.909 Unspecified asthma, uncomplicated (principal)
CPT/HCPCS: 94060; 94726; 94729

== ENCOUNTER → 2022-04-26 | Outpatient (CLI) | payer MEDICAID ==
[~2022-04-26] MED LIST changes: -ASPI-789 PO; +ASPI1TAB23 PO; -RT-ALBUTEROL SULF 2.5 MG/3 ML PRE-MIX VIAL INH ONE
--- NOTE | 2022-04-26 12:21 | Diagnostic Imaging Report ---
PROCEDURE: Pelvic comp/transvaginal sonogram. TECHNIQUE: Complete transabdominal and transvaginal pelvic ultrasound was performed. In addition, limited pelvic Doppler was performed. INDICATION: Abnormal uterine bleeding. Uterus is anteverted measuring 7.9 x 3.8 x 4.7 cm. Endometrium is 12 mm in thickness. No myometrial mass is identified. There are multiple cysts noted in the region of the cervix, largest 1.9 x 2.0 x 2.2 cm. Ovaries cannot be visualized. No adnexal mass or free fluid is seen. IMPRESSION: 1. Nonvisualized ovaries. 2. Multiple cysts in the region of the cervix, perhaps nabothian cysts. No other abnormality is seen. Dictated by: Dictated on workstation # [id number]
== END ==
LOC: RAD 10:51
PROVIDERS: ATTEND Obstetrics & Gynecology
DX: N85.8 Other specified noninflammatory disorders of uterus (principal)
CPT/HCPCS: 76830; 76856

== ENCOUNTER 2022-07-27 10:58 | Emergency (ER) | payer MEDICAID ==
[~2022-07-27] VITALS: Ht 180.3 cm; Wt 207.7 kg
[~2022-07-27 10:58] MED LIST changes: -METF500S5 PO; +METF500S7 PO
--- NOTE | 2022-07-27 11:24 | ED General ---
General Chief Complaint: Chest Wall Stated Complaint: CHEST PAIN/TIGHTNESS/FEVER/DIARRHEA Nursing Triage Note: pt ambulatory to room. states she started having chest pain last night and cp has been continuous today. states it is a tightness in center right chest. sharp, stabbing pain when bending over. states it is worse when she breathes. pt reports also having vomiting at home last night. states she had temperature of 101.6 today at home and took tylenol. temp is 99.5 at triage. (JUAN M ISAAC APRN) History of Present Illness Date Seen by Provider: Jul 27, 2022 Time Seen by Provider: 11:20 Initial Comments Patient is a 32 yo F who presents to the ED with nonproductive cough, fever, and anterior chest pain that is worse with coughing or inspiration since yesterday. She states her roommate currently has URI symptoms. Patient denies any other known sick contacts. She took some acetaminophen earlier today for the symptoms. She states she is unable to take NSAIDs due to a scheduled bariatric procedure next month. Denies any diaphoresis, pedal edema, or near syncope. States she does have some shortness of breath. States she has a h/o asthma for which she has maintenance and rescue medications. (JUAN M ISAAC APRN) Allergies and Home Medications Allergies Coded Allergies: No Known Drug Allergies (Verified , 09/24/21) Patient Home Medication List Home Medication List Reviewed: Yes (JUAN M ISAAC APRN) Acetaminophen (Tylenol Extra Strength) 500 Mg Tablet, 1,000 MG PO Q8H PRN for PAIN-MILD (1-4), (Reported) Entered as Reported by: ITZEL CASAS on 07/30/21 1101 Albuterol Sulfate (Albuterol Sulfate) 2.5 Mg/3 Ml Vial.neb, 3 ML NEB Q6H PRN for SHORTNESS OF BREATH, (Reported) Entered as Reported by: ITZEL CASAS on 09/05/21 1151 Albuterol Sulfate (Proair Hfa) 1 Puff Puff, 2 PUFF IH Q4H PRN for SHORTNESS OF BREATH Prescribed by: CATHY SAPP on 09/08/21 1102 Aspirin/Acetaminophen/Caffeine (Excedrin Migraine Caplet) 1 Each Tablet, 2 EACH PO Q6-8HR PRN for HEADACHE, (Reported) Entered as Reported by: ITZEL CASAS on 05/02/21 1146 Dextromethorphan Polistirex (Delsym) 30 Mg/5 Ml Elsy.er.12h, 30 MG PO BID PRN for COUGH Prescribed by: Juan M Isaac on 07/27/22 1243 Fluticasone/Salmeterol (Fluticasone-Salmeterol 232-14) 1 Each Aer.pow.ba, 0 EACH IH RTBID Prescribed by: CATHY SAPP on 09/08/21 1102 Lisinopril/Hydrochlorothiazide (Lisinopril-Hctz 20-12.5 mg Tab) 1 Each Tablet, 1 EACH PO BID, (Reported) Entered as Reported by: ROHINI RUIZ on 09/17/21 1456 Metformin HCl (Metformin HCl) 500 Mg Tablet, 500 MG PO BID WITH MEALS, (Reported) Entered as Reported by: ITZEL CASAS on 07/30/21 1100 Pantoprazole Sodium (Pantoprazole Sodium) 40 Mg Granpkt.dr, 40 MG PO DAILY, (Reported) Entered as Reported by: ROHINI RUIZ on 09/17/21 1456 Sucralfate (Carafate) 1 Gm Tablet, 1 GM PO QID, (Reported) Entered as Reported by: ROHINI RUIZ on 09/17/21 145 Review of Systems Review of Systems Constitutional: no symptoms reported EENTM: no symptoms reported Respiratory: cough Cardiovascular: chest pain Gastrointestinal: no symptoms reported Genitourinary: no symptoms reported Musculoskeletal: no symptoms reported Skin: no symptoms reported Psychiatric/Neurological: No Symptoms Reported (JUAN M ISAAC APRN) Past Gjlgheh-Ldtqur-Qxtyfo Hx Patient Social History Tobacco Use?: No Use of E-Cig and/or Vaping dev: No Substance use?: No Alcohol Use?: No (JUAN M ISAAC APRN) Immunizations Up To Date Tetanus Booster (TDap): Unknown Influenza Vaccine Up-to-Date: Yes; Up-to-Date First/Initial COVID19 Vaccinat: none Second COVID19 Vaccination Demarco: none Third COVID19 Vaccination Date: none (JUAN M ISAAC APRN) Seasonal Allergies Seasonal Allergies: No (JUAN M ISAAC APRN) Past Medical History Surgeries: Yes (EGD in 2011) Ear Surgery, Gallbladder Respiratory: Yes Asthma, Sleep Apnea Currently Using CPAP: Yes Currently Using BIPAP: No Cardiac: Yes Hypertension Neurological: No Reproductive Disorders: Yes Female Reproductive Disorders: Menstrual Problems, Polycystic Ovarian Dis Sexually Transmitted Disease: No HIV/AIDS: No Genitourinary: No Kidney Stones Gastrointestinal: Yes Gastroesophageal Reflux, Gall Bladder Disease Musculoskeletal: No Chronic Back Pain Endocrine: Yes Diabetes, Non-Insulin dep HEENT: No Loss of Vision: Denies Hearing Impairment: Denies Cancer: No Psychosocial: No Sleep Difficulties, Suicide Attempts, Depression Integumentary: Yes (HAS HIDRADENITIS UNDER BREASTS) Blood Disorders: No Adverse Reaction/Blood Tranf: No (JUAN M ISAAC APRN) Family Medical History Family history: Asthma 09 BROTHER, Onset:Childhood Family history: Gastrointestinal disease 03 MOTHER, Onset:Unknown Family history: Hypertension 03 FATHER, Onset:40's - 50 Kidney disease 03 MOTHER, Onset:Childhood No Family History of: Abdominal aortic aneurysm Chandler's disease Alcoholism Aphasia Cancer Cataract Chest pain Congenital heart disease Congestive heart failure Cystic fibrosis Dementia Dysphagia Family history: Allergy Family history: Alzheimer's disease Family history: Arthritis Family history: Breast disease Family history: Cardiovascular disease Family history: Coronary thrombosis Family history: Diabetes mellitus Family history: Glaucoma Family history: Osteoporosis Family history: Thyroid disorder Headache Hearing loss Heart disease Hereditary disease History of - anemia History of - disorder History of - respiratory disease History of drug abuse Human immunodeficiency virus (HIV) seropositivity Hypercholesterolemia Infertile Malignant neoplasm of lung Myocardial infarction Parkinson's disease Prostate cancer Psychotic disorder Seizure disorder Stroke Tuberculosis Visual impairment Asthma, Heart Disease, GI Disease, Hypertension SOCIAL HISTORY: -ETOH--HX VERY HEAVY USE -DRUGS-HX METH, THC USE -SMOKED 1 PPD, QUIT 2017 (JUAN M ISAAC APRN) Physical Exam Vital Signs Vital Signs - First Documented 07/27/22 07/27/22 11:00 12:50 Temp 37.4 Pulse 99 Resp 16 B/P (MAP) 162/107 (125) Pulse Ox 100 O2 Delivery Room Air (LYNN DURAN MD) Vital Signs Capillary Refill : (JUAN M ISAAC APRN) Height, Weight, BMI Height: 5'10.00" Weight: 320lbs. 0.0oz. 145.209679cm; 63.00 BMI Method:Stated General Appearance: No Apparent Distress, WD/WN HEENT: PERRL/EOMI, TMs Normal, Normal ENT Inspection, Pharynx Normal Neck: Full Range of Motion, Normal Inspection, Non Tender, Supple Respiratory: Chest Non Tender, Lungs Clear, Normal Breath Sounds, No Accessory Muscle Use, No Respiratory Distress Cardiovascular: Regular Rate, Rhythm, No Edema, No Gallop, No JVD, No Murmur, Normal Peripheral Pulses Gastrointestinal: Normal Bowel Sounds, No Organomegaly, No Pulsatile Mass, Non Tender, Soft Back: Normal Inspection, No CVA Tenderness, No Vertebral Tenderness Extremity: Normal Capillary Refill, Normal Inspection, Normal Range of Motion, Non Tender, No Calf Tenderness, No Pedal Edema Neurologic/Psychiatric: Alert, Oriented x3, No Motor/Sensory Deficits, Normal Mood/Affect Skin: Normal Color, Warm/Dry (JUAN M ISAAC APRN) Progress/Results/Core Measures Suspected Sepsis SIRS Temperature: Pulse: 99 Respiratory Rate: 16 Blood Pressure 162 /107 Mean: 125 (JUAN M ISAAC APRN) Results/Orders Lab Results Laboratory Tests Test 07/27/22 11:18 Range/Units Influenza Type A (RT-PCR) Not Detected Not Detecte Influenza Type B (RT-PCR) Not Detected Not Detecte SARS-CoV-2 RNA (RT-PCR) Not Detected Not Detecte (LYNN DURAN MD) Vital Signs/I&O 07/27/22 07/27/22 11:00 12:50 Temp 37.4 37.0 Pulse 99 81 Resp 16 16 B/P (MAP) 162/107 (125) 176/104 Pulse Ox 100 97 O2 Delivery Room Air (LYNN DURAN MD) Vital Signs/I&O Capillary Refill : (JUAN M ISAAC APRN) Blood Pressure Mean: 125 Progress Note : Progress Note Patient is nontoxic and well hydrated on exam. Vital signs are reassuring. No adventitious lung sounds or increased WOB noted. Chest xray is acutely negative. COVID negative. I have low suspicion for ACS given URI symptoms and known sick contact with similar symptoms. Discussed supportive care and follow-up with PCP for persistent symptoms. Return precautions for urgent symptomology discussed. Patient verbalized understanding. (JUAN M ISAAC APRN) Departure Impression Primary Impression: Upper respiratory infection Qualified Codes: J06.9 - Acute upper respiratory infection, unspecified Disposition: HOME, SELF-CARE Condition: Stable Departure-Patient Inst. Decision time for Depature: 12:35 (JUAN M ISAAC APRN) Referrals: [facility] (PCP/Family) Primary Care Physician Patient Instructions: Viral Upper Respiratory Infection, Adult (DC) Scripts Dextromethorphan Polistirex (Delsym) 30 Mg/5 Ml Elsy.er.12h 30 MG PO BID PRN for COUGH for 10 Days, #60 ML Prov: JUAN M ISAAC APRN 07/27/22 ATTENDING PHYSICIAN NOTE: I was physically present as attending physician in the emergency department during the care of this patient, but I was not directly involved in the decision making or delivery of care for this patient. (LYNN DURAN MD) JUAN M ISAAC APRN Jul 27, 2022 11:24 LYNN DURAN MD Jul 27, 2022 19:57
--- NOTE | 2022-07-27 12:00 | Diagnostic Imaging Report ---
INDICATION: Shortness of breath. PA and lateral views were obtained. Comparison is made with prior exam of 09/22/2021. FINDINGS: The heart size, mediastinal configuration, and pulmonary vascularity are within normal limits. There is no pleural effusion, pneumothorax, or pneumonia. The osseous structures are unremarkable. IMPRESSION: No acute cardiopulmonary abnormality. Dictated by: Dictated on workstation # [id number]
[2022-07-27] MEDS ORDERED: IBUPROFEN 600 MG (MOTRIN) TAB PO ONE (12:15)
[2022-07-27] MEDS ORDERED: DEXT30SU5 PO (12:43)
[2022-07-27 12:50] VITALS: BP 176/104
== END 2022-07-27 12:50 | disposition home or self-care (01) ==
LOC: EDUNIT# 10:58 → ER 10:59
DX: J06.9 Acute upper respiratory infection, unspecified (principal); R07.89 Other chest pain; G47.30 Sleep apnea, unspecified; Z87.891 Personal history of nicotine dependence; Z99.89 Dependence on other enabling machines and devices; Z28.310 Unvaccinated for COVID-19; Z20.822 Contact with and (suspected) exposure to COVID-19
CPT/HCPCS: 71046; 87636; 93005

== ENCOUNTER 2022-11-03 22:54 | Emergency (ER) | payer MEDICAID ==
[~2022-11-03 22:54] MED LIST changes: +ALBU8.5H6 IH; +DEXT30SU5 PO; -RT-ALBUINH IH
[2022-11-03] MEDS ORDERED: METR-145 PO (23:24)
[2022-11-03] MEDS ORDERED: SULF1TAB38 PO (23:24)
--- NOTE | 2022-11-03 23:25 | ED Integumentary General ---
General Chief Complaint: Skin/Wound Problems Stated Complaint: SORE ON TAILBONE Nursing Triage Note: patient verbalized she has a wound on her tailbone, states for last two days. tonight she rolled over states the wound opened. verbalized hx of cyst removal from her back previously. Allergies and Home Medications Allergies Coded Allergies: No Known Drug Allergies (Verified , 09/24/21) Patient Home Medication List Acetaminophen (Tylenol Extra Strength) 500 Mg Tablet, 1,000 MG PO Q8H PRN for PAIN-MILD (1-4), (Reported) Entered as Reported by: ITZEL CASAS on 07/30/21 1101 Albuterol Sulfate (Albuterol Sulfate) 2.5 Mg/3 Ml Vial.neb, 3 ML NEB Q6H PRN for SHORTNESS OF BREATH, (Reported) Entered as Reported by: ITZEL CASAS on 09/05/21 1151 Albuterol Sulfate (Ventolin Hfa) 1 Puff Puff, 2 PUFF IH Q4H PRN for SHORTNESS OF BREATH Prescribed by: CATHY SAPP on 09/08/21 1102 Aspirin/Acetaminophen/Caffeine (Excedrin Migraine Caplet) 1 Each Tablet, 2 EACH PO Q6-8HR PRN for HEADACHE, (Reported) Entered as Reported by: ITZEL CASAS on 05/02/21 1146 Dextromethorphan Polistirex (Delsym) 30 Mg/5 Ml Elsy.er.12h, 30 MG PO BID PRN for COUGH Prescribed by: Juan M Isaac on 07/27/22 1243 Fluticasone/Salmeterol (Fluticasone-Salmeterol 232-14) 1 Each Aer.pow.ba, 0 EACH IH RTBID Prescribed by: CATHY SAPP on 09/08/21 1102 Lisinopril/Hydrochlorothiazide (Lisinopril-Hctz 20-12.5 mg Tab) 1 Each Tablet, 1 EACH PO BID, (Reported) Entered as Reported by: ROHINI RUIZ on 09/17/21 1456 Metformin HCl (Metformin HCl) 500 Mg Tablet, 500 MG PO BID WITH MEALS, (Reported) Entered as Reported by: ITZEL CASAS on 07/30/21 1100 Pantoprazole Sodium (Pantoprazole Sodium) 40 Mg Granpkt.dr, 40 MG PO DAILY, (Reported) Entered as Reported by: ROHINI RUIZ on 09/17/21 145 Sucralfate (Carafate) 1 Gm Tablet, 1 GM PO QID, (Reported) Entered as Reported by: ROHINI RUIZ on 09/17/21 1456 Past Taoqmtd-Lhreme-Tocanu Hx Immunizations Up To Date Tetanus Booster (TDap): Unknown First/Initial COVID19 Vaccinat: none Second COVID19 Vaccination Demarco: none Third COVID19 Vaccination Date: none Seasonal Allergies Seasonal Allergies: No Past Medical History Surgeries: Yes (EGD in 2011) Ear Surgery, Gallbladder Respiratory: Yes Asthma, Sleep Apnea Currently Using CPAP: Yes Currently Using BIPAP: No Cardiac: Yes Hypertension Neurological: No Reproductive Disorders: Yes Female Reproductive Disorders: Menstrual Problems, Polycystic Ovarian Dis Sexually Transmitted Disease: No HIV/AIDS: No Genitourinary: No Kidney Stones Gastrointestinal: Yes Gastroesophageal Reflux, Gall Bladder Disease Musculoskeletal: No Chronic Back Pain Endocrine: Yes Diabetes, Non-Insulin dep HEENT: No Loss of Vision: Denies Hearing Impairment: Denies Cancer: No Psychosocial: No Sleep Difficulties, Suicide Attempts, Depression Integumentary: Yes (HAS HIDRADENITIS UNDER BREASTS) Blood Disorders: No Adverse Reaction/Blood Tranf: No Family Medical History Family history: Asthma 09 BROTHER, Onset:Childhood Family history: Gastrointestinal disease 03 MOTHER, Onset:Unknown Family history: Hypertension 03 FATHER, Onset:40's - 50 Kidney disease 03 MOTHER, Onset:Childhood No Family History of: Abdominal aortic aneurysm [place]'s disease Alcoholism Aphasia Cancer Cataract Chest pain Congenital heart disease Congestive heart failure Cystic fibrosis Dementia Dysphagia Family history: Allergy Family history: Alzheimer's disease Family history: Arthritis Family history: Breast disease Family history: Cardiovascular disease Family history: Coronary thrombosis Family history: Diabetes mellitus Family history: Glaucoma Family history: Osteoporosis Family history: Thyroid disorder Headache Hearing loss Heart disease Hereditary disease History of - anemia History of - disorder History of - respiratory disease History of drug abuse Human immunodeficiency virus (HIV) seropositivity Hypercholesterolemia Infertile Malignant neoplasm of lung Myocardial infarction Parkinson's disease Prostate cancer Psychotic disorder Seizure disorder Stroke Tuberculosis Visual impairment Asthma, Heart Disease, GI Disease, Hypertension SOCIAL HISTORY: -ETOH--HX VERY HEAVY USE -DRUGS-HX METH, THC USE -SMOKED 1 PPD, QUIT 2017 Physical Exam Vital Signs Vital Signs - First Documented 11/03/22 23:08 Temp 37.0 Pulse 86 Resp 20 B/P (MAP) 155/96 (115) Pulse Ox 99 O2 Delivery Room Air Capillary Refill : Less Than 3 Seconds Progress/Results/Core Measures Results/Orders Vital Signs/I&O 11/03/22 23:08 Temp 37.0 Pulse 86 Resp 20 B/P (MAP) 155/96 (115) Pulse Ox 99 O2 Delivery Room Air Blood Pressure Mean: 115 Departure Impression Primary Impression: Pilonidal cyst with abscess Disposition: 01 HOME, SELF-CARE Condition: Stable Departure-Patient Inst. Decision time for Depature: 23:20 Referrals: [facility] [place] Primary Care Physician SABRINA SAUNDERS DO Patient Instructions: Pilonidal Cyst (DC) Add. Discharge Instructions: MOIST HEAT TO AREA AT 20 MINUTE INTERVALS TYLENOL NEEDED FOR PAIN FOLLOW UP WITH DR. SAUNDERS THIS WEEK FOR FURTHER CARE All discharge instructions reviewed with patient and/or family. Voiced understanding. Scripts Metronidazole (Metronidazole) 500 Mg Tablet 500 MG PO QID, #40 TAB Prov: ANA YEUNG DO 11/03/22 Sulfamethoxazole/Trimethoprim (Bactrim Ds Tablet) 1 Each Tablet 1 EACH PO BID, #20 TAB Prov: ANA YEUNG DO 11/03/22 ANA YEUNG DO Nov 03, 2022 23:24
[2022-11-03] MEDS ORDERED: TRIM/SULFAMETH 160/800 (SEPTRA DS) TAB PO ONE (23:30)
[2022-11-03] MEDS ORDERED: CIPROFLOXACIN 500 MG (CIPRO) TABLET PO SCH (23:30)
[2022-11-03] MEDS ORDERED: metroNIDAZOLE 500 MG (FLAGYL) TAB PO ONE (23:30)
[2022-11-03 23:56] VITALS: BP 155/96
== END 2022-11-03 23:56 | disposition home or self-care (01) ==
LOC: EDUNIT# 22:54 → ER 22:55
DX: L05.01 Pilonidal cyst with abscess (principal); G47.30 Sleep apnea, unspecified; Z87.891 Personal history of nicotine dependence; Z28.310 Unvaccinated for COVID-19; Z99.89 Dependence on other enabling machines and devices
CPT/HCPCS: 87070; 87205; 99283

== ENCOUNTER → 2023-03-10 | Outpatient (CLI) | payer MEDICAID ==
[~2023-03-10] MED LIST changes: +METR-145 PO
[2023-03-10 11:28] LABS: BASOPHILS # (AUTO) 0.1 10^3/uL (0.0-0.1); BASOPHILS % (AUTO) 1 % (0-10); EOSINOPHILS # (AUTO) 0.2 10^3/uL (0.0-0.3); EOSINOPHILS % (AUTO) 1 % (0-10); HEMATOCRIT 38 % (35-52); HEMOGLOBIN 12.2 g/dL (11.5-16.0); LYMPHOCYTES # (AUTO) 2.8 10^3/uL (1.0-4.0); LYMPHOCYTES % (AUTO) 23 % (12-44); MEAN CORPUSCULAR HEMOGLOBIN 29 pg (25-34); MEAN CORPUSCULAR HGB CONC 32 g/dL (32-36); MEAN CORPUSCULAR VOLUME 90 fL (80-99); MEAN PLATELET VOLUME 10.5 fL (9.0-12.2); MONOCYTES # (AUTO) 0.8 10^3/uL (0.0-1.0); MONOCYTES % (AUTO) 6 % (0-12); NEUTROPHILS # (AUTO) 8.2 10^3/uL (1.8-7.8); NEUTROPHILS % (AUTO) 68 % (42-75); PLATELET COUNT 339 10^3/uL (130-400); WHITE BLOOD COUNT 12.1 10^3/uL (4.3-11.0)
[2023-03-10 11:51] LABS: ALBUMIN 2.4 GM/DL (3.2-4.5); BILIRUBIN,TOTAL 0.5 MG/DL (0.1-1.0); CALCIUM 7.7 MG/DL (8.5-10.1); CREATININE SERUM 0.67 MG/DL (0.60-1.30); POTASSIUM 3.2 MMOL/L (3.6-5.0); TOTAL PROTEIN 6.7 GM/DL (6.4-8.2)
== END ==
LOC: WOUNDCARE 10:04
PROVIDERS: ATTEND Family Medicine
DX: T81.31XA Disruption of external operation (surgical) wound, not elsewhere classified, initial encounter (principal); E66.01 Morbid (severe) obesity due to excess calories; Z68.41 Body mass index [BMI] 40.0-44.9, adult
CPT/HCPCS: 11042; 11045; 80053; 83036; 84134; 85025; A6260; G0463

== ENCOUNTER → 2023-03-17 | Outpatient (CLI) | payer MEDICAID | LOC: WOUNDCARE 11:06 | PROVIDERS: ATTEND Family Medicine | DX: T81.31XA Disruption of external operation (surgical) wound, not elsewhere classified, initial encounter (principal); E66.01 Morbid (severe) obesity due to excess calories; E43 Unspecified severe protein-calorie malnutrition; I96 Gangrene, not elsewhere classified; Z68.41 Body mass index [BMI] 40.0-44.9, adult | CPT/HCPCS: 11042; 11045; A6212; G0463 ==

== ENCOUNTER → 2023-04-02 | Outpatient (CLI) | payer MEDICAID | LOC: WOUNDCARE 10:25 | PROVIDERS: ATTEND Family Medicine | DX: T81.31XA Disruption of external operation (surgical) wound, not elsewhere classified, initial encounter (principal); E66.01 Morbid (severe) obesity due to excess calories; Z68.41 Body mass index [BMI] 40.0-44.9, adult; E43 Unspecified severe protein-calorie malnutrition | CPT/HCPCS: 11042; A6266; G0463 ==

== ENCOUNTER 2023-04-06 19:17 | Emergency (ER) | payer MEDICAID ==
[~2023-04-06] VITALS: Ht 177.8 cm; Wt 122.5 kg
[2023-04-06 19:30] VITALS: BP 139/88
[2023-04-06] MEDS ORDERED: oxyCODONE/APAP 10/325MG (PERCOCET 10) TABLET PO ONE (19:45)
[2023-04-06] MEDS ORDERED: PROMETHAZINE INJ 25 MG/ML (PHENERGAN) AMP IVP ONE (19:45)
--- NOTE | 2023-04-06 19:52 | ED General ---
General Chief Complaint: Skin/Wound Problems Stated Complaint: AB WOUND DRAINAGE/LEG SWELLING Nursing Triage Note: PT TO ED IN WC BY POV WITH C/O INCREASED DRAINAGE AND PAIN FROM ABD WOUND, INCREASED LE EDEMA, AND N/V OVER THE LAST COUPLE OF DAYS. PT HAS HAD ABD WOUND SINCE JANUARY AND SEES WOUND CARE ON TUESDAYS. Source of Information: Patient Exam Limitations: No Limitations History of Present Illness Date Seen by Provider: Apr 06, 2023 Time Seen by Provider: 19:37 Initial Comments 32 yo F here for abd wound check. Concerned about increased clear drainage inferiorly but more concerned that she ran out of oxycodone for pain. Has increase dpain the last 2 days. No f/c. No purulent drainage. Wound in abd since january when she had an esophageal stent migrate into her stomach and it had to be removed via open laparotomy. Does have chronic nausea since the incident and requests something other than zofran that she is taking at home. Other systems reviewed and negative except per HPI. Allergies and Home Medications Allergies Coded Allergies: No Known Drug Allergies (Verified , 09/24/21) Patient Home Medication List Home Medication List Reviewed: Yes Acetaminophen (Tylenol Extra Strength) 500 Mg Tablet, 1,000 MG PO Q8H PRN for PAIN-MILD (1-4), (Reported) Entered as Reported by: ITZEL CASAS on 07/30/21 1101 Albuterol Sulfate (Albuterol Sulfate) 2.5 Mg/3 Ml Vial.neb, 3 ML NEB Q6H PRN for SHORTNESS OF BREATH, (Reported) Entered as Reported by: ITZEL CASAS on 09/05/21 1151 Albuterol Sulfate (Ventolin Hfa) 1 Puff Puff, 2 PUFF IH Q4H PRN for SHORTNESS OF BREATH Prescribed by: CATHY SAPP on 09/08/21 1102 Aspirin/Acetaminophen/Caffeine (Excedrin Migraine Caplet) 1 Each Tablet, 2 EACH PO Q6-8HR PRN for HEADACHE, (Reported) Entered as Reported by: ITZEL CASAS on 05/02/21 1146 Dextromethorphan Polistirex (Delsym) 30 Mg/5 Ml Elsy.er.12h, 30 MG PO BID PRN for COUGH Prescribed by: Juan M Isaac on 07/27/22 1243 Fluticasone/Salmeterol (Fluticasone-Salmeterol 232-14) 1 Each Aer.pow.ba, 0 EACH IH RTBID Prescribed by: CATHY SAPP on 09/08/21 1102 Lisinopril/Hydrochlorothiazide (Lisinopril-Hctz 20-12.5 mg Tab) 1 Each Tablet, 1 EACH PO BID, (Reported) Entered as Reported by: ROHINI RUIZ on 09/17/21 1456 Metformin HCl (Metformin HCl) 500 Mg Tablet, 500 MG PO BID WITH MEALS, (Reported) Entered as Reported by: ITZEL CASAS on 07/30/21 1100 Metronidazole (Metronidazole) 500 Mg Tablet, 500 MG PO QID Prescribed by: ANA YEUNG on 11/03/222323 Pantoprazole Sodium (Pantoprazole Sodium) 40 Mg Granpkt.dr, 40 MG PO DAILY, (Reported) Entered as Reported by: ROHINI RUIZ on 09/17/21 1456 Sucralfate (Carafate) 1 Gm Tablet, 1 GM PO QID, (Reported) Entered as Reported by: ROHINI RUIZ on 09/17/21 1456 Sulfamethoxazole/Trimethoprim (Bactrim Ds Tablet) 1 Each Tablet, 1 EACH PO BID Prescribed by: ANA YEUNG on 11/03/222323 Review of Systems Review of Systems Constitutional: see HPI Past Dsrguqp-Jkaqda-Ayakhk Hx Patient Social History Tobacco Use?: No Use of E-Cig and/or Vaping dev: No Substance use?: No Alcohol Use?: No Pt feels they are or have been: No Immunizations Up To Date Tetanus Booster (TDap): Unknown Influenza Vaccine Up-to-Date: No; Not Current First/Initial COVID19 Vaccinat: none Second COVID19 Vaccination Demarco: none Third COVID19 Vaccination Date: none Seasonal Allergies Seasonal Allergies: No Past Medical History Surgery/Hospitalization HX: ASTHMA, DM2 GASTRIC BYPASS, HIGINIO, ABD SURGERY TO REMOVE ESOPHAGEAL STENT THAT TRAVELED, CHRONIC WOUND Surgeries: Yes (EGD in 2011; PILONIDAL CYST SURGERY) Ear Surgery, Gallbladder Respiratory: Yes Asthma, Sleep Apnea Currently Using CPAP: Yes Currently Using BIPAP: No Cardiac: Yes Hypertension Neurological: No Reproductive Disorders: Yes Female Reproductive Disorders: Menstrual Problems, Polycystic Ovarian Dis Sexually Transmitted Disease: No HIV/AIDS: No Genitourinary: No Kidney Stones Gastrointestinal: Yes Gastroesophageal Reflux, Gall Bladder Disease Musculoskeletal: Yes Chronic Back Pain Endocrine: Yes (MORBIDLY OBESE) Diabetes, Non-Insulin dep HEENT: No Loss of Vision: Denies Hearing Impairment: Denies Cancer: No Psychosocial: Yes Sleep Difficulties, Suicide Attempts, Depression Integumentary: Yes (HAS HIDRADENITIS UNDER BREASTS; PILONIDAL CYST SURGERY) Blood Disorders: No Adverse Reaction/Blood Tranf: No Family Medical History Family history: Asthma 09 BROTHER, Onset:Childhood Family history: Gastrointestinal disease 03 MOTHER, Onset:Unknown Family history: Hypertension 03 FATHER, Onset:40's - 50 Kidney disease 03 MOTHER, Onset:Childhood No Family History of: Abdominal aortic aneurysm [place]'s disease Alcoholism Aphasia Cancer Cataract Chest pain Congenital heart disease Congestive heart failure Cystic fibrosis Dementia Dysphagia Family history: Allergy Family history: Alzheimer's disease Family history: Arthritis Family history: Breast disease Family history: Cardiovascular disease Family history: Coronary thrombosis Family history: Diabetes mellitus Family history: Glaucoma Family history: Osteoporosis Family history: Thyroid disorder Headache Hearing loss Heart disease Hereditary disease History of - anemia History of - disorder History of - respiratory disease History of drug abuse Human immunodeficiency virus (HIV) seropositivity Hypercholesterolemia Infertile Malignant neoplasm of lung Myocardial infarction Parkinson's disease Prostate cancer Psychotic disorder Seizure disorder Stroke Tuberculosis Visual impairment Asthma, Heart Disease, GI Disease, Hypertension SOCIAL HISTORY: -ETOH--HX VERY HEAVY USE -DRUGS-HX METH, THC USE -SMOKED 1 PPD, QUIT 2017 Physical Exam Vital Signs Vital Signs - First Documented 04/06/23 19:30 Temp 36.5 Pulse 98 Resp 18 B/P (MAP) 139/88 (105) Pulse Ox 98 O2 Delivery Room Air Capillary Refill : Less Than 3 Seconds Height, Weight, BMI Height: 5'10.00" Weight: 320lbs. 0.0oz. 145.641622gc; 38.00 BMI Method:Stated General Appearance: No Apparent Distress, WD/WN Neck: Full Range of Motion, Normal Inspection Respiratory: Chest Non Tender, Lungs Clear, Normal Breath Sounds, No Accessory Muscle Use, No Respiratory Distress Cardiovascular: Regular Rate, Rhythm, No Murmur, Normal Peripheral Pulses Gastrointestinal: Normal Bowel Sounds, Soft, Tenderness (abd wound midline incicion healing well, no erythema, purulence, induration. Has good granulation tissue in the base. No evidence for infection. ) Extremity: Normal Capillary Refill, Swelling (mild b/l LE edema) Neurologic/Psychiatric: Alert, Oriented x3 Skin: Normal Color, Warm/Dry Progress/Results/Core Measures Suspected Sepsis SIRS Temperature: Pulse: 98 Respiratory Rate: 18 Blood Pressure 139 /88 Mean: 105 Results/Orders My Orders Orders - GAVINTYRELL SILVA DO Oxycodone/Acet 10/325mg Tablet (Percocet (04/06/23 19:45) Promethazine Injection (Phenergan Injec (04/06/23 19:45) Rx-Oxycodone/Apap 5-325 Mg (Rx-Percocet (04/06/23 19:53) Oxycodone/Apap 5/325mg Tablet (Percocet (04/06/23 19:56) Medications Given in ED Current Medications Medications Dose Ordered Sig/Monica Route Start Time Stop Time Status Last Admin Dose Admin Oxycodone/ Acetaminophen 1 ea STK-MED ONCE PO 04/06/23 19:53 04/06/23 19:55 DC 04/06/23 20:18 1 EA Oxycodone/ Acetaminophen 1 tab ONCE ONCE PO 04/06/23 19:45 04/06/23 19:46 DC 04/06/23 20:17 1 TAB Promethazine HCl 25 mg ONCE ONCE IVP 04/06/23 19:45 04/06/23 19:46 DC 04/06/23 20:02 25 MG Vital Signs/I&O 04/06/23 19:30 Temp 36.5 Pulse 98 Resp 18 B/P (MAP) 139/88 (105) Pulse Ox 98 O2 Delivery Room Air Capillary Refill : Less Than 3 Seconds Blood Pressure Mean: 105 Departure Communication (Admissions) Patient is hemodynamically stable. Abdominal wound is healing well with no evidence for infection whatsoever. Drainage is clear, serous. She is given a p.o. Percocet here and discharged with a single Percocet for overnight. Advised for any additional pain control she will need follow-up with her primary doctor or surgeon. She states understanding. She was given IV Phenergan for nausea which seems to help when needed and Zofran.. Impression Primary Impression: Open abdominal wall wound Qualified Codes: S31.109A - Unspecified open wound of abdominal wall, unspecified quadrant without penetration into peritoneal cavity, initial encounter Disposition: HOME, SELF-CARE Condition: Stable Departure-Patient Inst. Referrals: KULDIP MARTÍNEZ MD (PCP/Family) Primary Care Physician Patient Instructions: Wound Care ED, Acute Pain, Adult Add. Discharge Instructions: Take percocet as prescribed for the night. You will need to call your surgeon or primary doctor for further pain medications. You were given phenergan here for nausea. This will make you drowsy. Dont drive or make important decisions while feeling the effects. The wound is not infected. Follow up as previously scheduled. All discharge instructions reviewed with patient and/or family. Voiced understanding. TYRELL ALONSO DO Apr 06, 2023 19:52
[2023-04-06] MEDS ORDERED: RX-OXYCODONE/APAP 5-325 MG #4 TAB PK PO ONE (19:53)
[2023-04-06] MEDS ORDERED: oxyCODONE/APAP 5/325MG (PERCOCET 5) TABLET ONE (19:56)
== END 2023-04-06 20:31 | disposition home or self-care (01) ==
LOC: EDUNIT# 19:17 → ER 19:19
DX: K91.89 Other postprocedural complications and disorders of digestive system (principal); R11.0 Nausea; G47.30 Sleep apnea, unspecified; E66.01 Morbid (severe) obesity due to excess calories; Z99.89 Dependence on other enabling machines and devices; Z68.38 Body mass index [BMI] 38.0-38.9, adult; Z87.891 Personal history of nicotine dependence; Z53.31 Laparoscopic surgical procedure converted to open procedure; Z28.310 Unvaccinated for COVID-19
CPT/HCPCS: 99281

== ENCOUNTER → 2023-04-09 | Outpatient (CLI) | payer MEDICAID | LOC: WOUNDCARE 09:58 | PROVIDERS: ATTEND Family Medicine | DX: T81.31XA Disruption of external operation (surgical) wound, not elsewhere classified, initial encounter (principal); E66.01 Morbid (severe) obesity due to excess calories; E43 Unspecified severe protein-calorie malnutrition; D46.4 Refractory anemia, unspecified; R60.1 Generalized edema; Z68.41 Body mass index [BMI] 40.0-44.9, adult | CPT/HCPCS: 99213 ==

== ENCOUNTER → 2023-04-21 | Outpatient (CLI) | payer MEDICAID | LOC: WOUNDCARE 11:31 | PROVIDERS: ATTEND Family Medicine | DX: I96 Gangrene, not elsewhere classified (principal); T81.31XA Disruption of external operation (surgical) wound, not elsewhere classified, initial encounter; E66.01 Morbid (severe) obesity due to excess calories; Z68.41 Body mass index [BMI] 40.0-44.9, adult; E46 Unspecified protein-calorie malnutrition; D46.4 Refractory anemia, unspecified; R60.1 Generalized edema; R11.2 Nausea with vomiting, unspecified | CPT/HCPCS: 17250; A6266; G0463 ==

== ENCOUNTER → 2023-05-05 | Outpatient (CLI) | payer MEDICAID | LOC: WOUNDCARE 11:32 | PROVIDERS: ATTEND Family Medicine | DX: T81.31XA Disruption of external operation (surgical) wound, not elsewhere classified, initial encounter (principal); E66.01 Morbid (severe) obesity due to excess calories; Z68.41 Body mass index [BMI] 40.0-44.9, adult; E43 Unspecified severe protein-calorie malnutrition; R60.1 Generalized edema; D46.4 Refractory anemia, unspecified; K31.84 Gastroparesis; I82.622 Acute embolism and thrombosis of deep veins of left upper extremity | CPT/HCPCS: 17250; A6212; G0463 ==

== ENCOUNTER 2023-05-11 11:29 | Emergency (ER) | payer MEDICAID ==
[~2023-05-11] VITALS: Ht 177.8 cm; Wt 119.7 kg
[2023-05-11] MEDS ORDERED: NS IV 1000 ML 1,000 ML IV ONE (11:45)
[2023-05-11 11:47] LABS: BASOPHILS # (AUTO) 0.1 10^3/uL (0.0-0.1); BASOPHILS % (AUTO) 1 % (0-10); EOSINOPHILS % (AUTO) 0 % (0-10); HEMATOCRIT 34 % (35-52); HEMOGLOBIN 10.9 g/dL (11.5-16.0); LYMPHOCYTES # (AUTO) 1.8 10^3/uL (1.0-4.0); LYMPHOCYTES % (AUTO) 20 % (12-44); MEAN CORPUSCULAR HEMOGLOBIN 30 pg (25-34); MEAN CORPUSCULAR HGB CONC 32 g/dL (32-36); MEAN CORPUSCULAR VOLUME 92 fL (80-99); MEAN PLATELET VOLUME 10.2 fL (9.0-12.2); MONOCYTES # (AUTO) 0.5 10^3/uL (0.0-1.0); MONOCYTES % (AUTO) 5 % (0-12); NEUTROPHILS # (AUTO) 6.6 10^3/uL (1.8-7.8); NEUTROPHILS % (AUTO) 73 % (42-75); PLATELET COUNT 369 10^3/uL (130-400)
--- NOTE | 2023-05-11 11:47 | ED Abdominal Pain ---
General Chief Complaint: Abdominal/GI Problems Stated Complaint: AB PAIN History of Present Illness Date Seen by Provider: May 11, 2023 Time Seen by Provider: 11:31 Initial Comments Here with report of nausea, vomiting, diarrhea and weakness. This is all been going on for the last 3 to 4 days. She was increasingly weak this morning and ultimately called EMS and came here. She was seen at [facility] for similar a few days ago and instructed to follow-up locally if she had persistence of symptoms. This has occurred in is worse with respect to weakness so she presented here. She does have history of left upper arm DVT and is on Eliquis. She did have pulmonary embolism after that. She reports for the vomit without blood and believes her stools are dark and tarry. States overall feels weak. Does have history of gastric bypass and esophageal stricture with stent placement. Apparently the stent migrated from the esophagus into the lower bowel and perforated causing sepsis and she did have surgery for that. Reports that she has not been able to keep anything down for the last 3 days. Timing/Duration: 3-4 Days, Getting Worse Severity/Quality: Moderate, Cramping, Other (Nausea, vomiting and diarrhea) Location: Generalized Abdomen Radiation: No Radiation Activities at Onset: None Modifying Factors: Worsens With Eating Associated Symptoms: No Chest Pain, No Fever/Chills; Fatigue, Nausea/Vomiting; No Shortness of Air; Weakness (MATTHEW SUH MD) Allergies and Home Medications Allergies Coded Allergies: No Known Drug Allergies (Verified , 09/24/21) Patient Home Medication List Home Medication List Reviewed: Yes (MATTHEW SUH MD) Acetaminophen (Tylenol Extra Strength) 500 Mg Tablet, 1,000 MG PO Q8H PRN for PAIN-MILD (1-4), (Reported) Entered as Reported by: ITZEL CASAS on 07/30/21 1101 Albuterol Sulfate (Albuterol Sulfate) 2.5 Mg/3 Ml Vial.neb, 3 ML NEB Q6H PRN for SHORTNESS OF BREATH, (Reported) Entered as Reported by: ITZEL CASAS on 09/05/21 1151 Albuterol Sulfate (Ventolin Hfa) 1 Puff Puff, 2 PUFF IH Q4H PRN for SHORTNESS OF BREATH Prescribed by: CATHY SAPP on 09/08/21 1102 Aspirin/Acetaminophen/Caffeine (Excedrin Migraine Caplet) 1 Each Tablet, 2 EACH PO Q6-8HR PRN for HEADACHE, (Reported) Entered as Reported by: ITZEL CASAS on 05/02/21 1146 Dextromethorphan Polistirex (Delsym) 30 Mg/5 Ml Elsy.er.12h, 30 MG PO BID PRN for COUGH Prescribed by: Juan M Isaac on 07/27/22 1243 Fluticasone/Salmeterol (Fluticasone-Salmeterol 232-14) 1 Each Aer.pow.ba, 0 EACH IH RTBID Prescribed by: CATHY SAPP on 09/08/21 1102 Lisinopril/Hydrochlorothiazide (Lisinopril-Hctz 20-12.5 mg Tab) 1 Each Tablet, 1 EACH PO BID, (Reported) Entered as Reported by: ROHINI RUIZ on 09/17/21 1456 Metformin HCl (Metformin HCl) 500 Mg Tablet, 500 MG PO BID WITH MEALS, (Reported) Entered as Reported by: ITZEL CASAS on 07/30/21 1100 Metronidazole (Metronidazole) 500 Mg Tablet, 500 MG PO QID Prescribed by: ANA YEUNG on 11/03/222323 Pantoprazole Sodium (Pantoprazole Sodium) 40 Mg Granpkt.dr, 40 MG PO DAILY, (Reported) Entered as Reported by: ROHINI RUIZ on 09/17/21 1456 Sucralfate (Carafate) 1 Gm Tablet, 1 GM PO QID, (Reported) Entered as Reported by: ROHINI RUIZ on 09/17/21 1456 Sulfamethoxazole/Trimethoprim (Bactrim Ds Tablet) 1 Each Tablet, 1 EACH PO BID Prescribed by: ANA YEUNG on 11/03/222323 Review of Systems Review of Systems Constitutional: see HPI; No chills, No fever EENTM: No Symptoms Reported Respiratory: No Symptoms Reported Cardiovascular: Denies Chest Pain, Denies Edema Gastrointestinal: Abdominal Pain, Diarrhea, Nausea, Vomiting Genitourinary: No Symptoms Reported Musculoskeletal: No back pain, No muscle pain; muscle weakness Skin: change in color (Bruising to the left arm) Psychiatric/Neurological: No Symptoms Reported (MATTHEW SUH MD) All Other Systems Reviewed Negative Unless Noted: Yes (MATTHEW SUH MD) Past Ejgsgco-Ojqpxt-Nkftts Hx Patient Social History Tobacco Use?: No Substance use?: No Alcohol Use?: No (MATTHEW SUH MD) Immunizations Up To Date Tetanus Booster (TDap): Unknown First/Initial COVID19 Vaccinat: none Second COVID19 Vaccination Demarco: none Third COVID19 Vaccination Date: none (MATTHEW SUH MD) Seasonal Allergies Seasonal Allergies: No (MATTHEW SUH MD) Past Medical History Surgery/Hospitalization HX: ASTHMA, DM2 GASTRIC BYPASS, HIGINIO, ABD SURGERY TO REMOVE ESOPHAGEAL STENT THAT TRAVELED, CHRONIC WOUND Surgeries: Yes (EGD in 2012; PILONIDAL CYST SURGERY) Ear Surgery, Gallbladder Respiratory: Yes Asthma, Sleep Apnea Currently Using CPAP: Yes Currently Using BIPAP: No Cardiac: Yes Hypertension Neurological: No Reproductive Disorders: Yes Female Reproductive Disorders: Menstrual Problems, Polycystic Ovarian Dis Sexually Transmitted Disease: No HIV/AIDS: No Genitourinary: No Kidney Stones Gastrointestinal: Yes Gastroesophageal Reflux, Gall Bladder Disease Musculoskeletal: Yes Chronic Back Pain Endocrine: Yes (MORBIDLY OBESE) Diabetes, Non-Insulin dep HEENT: No Loss of Vision: Denies Hearing Impairment: Denies Cancer: No Psychosocial: Yes Sleep Difficulties, Suicide Attempts, Depression Integumentary: Yes (HAS HIDRADENITIS UNDER BREASTS; PILONIDAL CYST SURGERY) Blood Disorders: No Adverse Reaction/Blood Tranf: No (MATTHEW SUH MD) Family Medical History Reviewed Nursing Family Hx (MATTHEW SUH MD) Family history: Asthma 09 BROTHER, Onset:Childhood Family history: Gastrointestinal disease 03 MOTHER, Onset:Unknown Family history: Hypertension 03 FATHER, Onset:40's - 50 Kidney disease 03 MOTHER, Onset:Childhood No Family History of: Abdominal aortic aneurysm [place]'s disease Alcoholism Aphasia Cancer Cataract Chest pain Congenital heart disease Congestive heart failure Cystic fibrosis Dementia Dysphagia Family history: Allergy Family history: Alzheimer's disease Family history: Arthritis Family history: Breast disease Family history: Cardiovascular disease Family history: Coronary thrombosis Family history: Diabetes mellitus Family history: Glaucoma Family history: Osteoporosis Family history: Thyroid disorder Headache Hearing loss Heart disease Hereditary disease History of - anemia History of - disorder History of - respiratory disease History of drug abuse Human immunodeficiency virus (HIV) seropositivity Hypercholesterolemia Infertile Malignant neoplasm of lung Myocardial infarction Parkinson's disease Prostate cancer Psychotic disorder Seizure disorder Stroke Tuberculosis Visual impairment Asthma, Heart Disease, GI Disease, Hypertension SOCIAL HISTORY: -ETOH--HX VERY HEAVY USE -DRUGS-HX METH, THC USE -SMOKED 1 PPD, QUIT 2018 (MATTHEW SUH MD) Physical Exam Vital Signs Vital Signs - First Documented 05/11/23 11:32 Temp 36.6 Pulse 84 Resp 16 B/P (MAP) 134/81 (98) Pulse Ox 100 O2 Delivery Room Air ([facility]) Vital Signs Capillary Refill : (MATTHEW SUH MD) Height/Weight/BMI Height: 5'10.00" Weight: 320lbs. 0.0oz. 145.969017tu; 38.00 BMI Method:Stated General Appearance: WD/WN, mild distress, obese HEENT: PERRL/EOMI, pharynx normal Neck: full range of motion, supple Respiratory: lungs clear, normal breath sounds Cardiovascular: regular rate, rhythm, no murmur Gastrointestinal: non tender, soft Extremities: non-tender, normal inspection Back: normal inspection, no CVA tenderness, no vertebral tenderness Neurologic/Psychiatric: alert, oriented x 3 Skin: warm/dry, ecchymosis (Left upper arm) (MATTHEW SUH MD) Progress/Results/Core Measures Results/Orders Lab Results Laboratory Tests Test 05/11/23 11:36 05/11/23 12:35 Range/Units White Blood Count 9.0 4.3-11.0 10^3/uL Red Blood Count 3.70 L 3.80-5.11 10^6/uL Hemoglobin 10.9 L 11.5-16.0 g/dL Hematocrit 34 L 35-52 % Mean Corpuscular Volume 92 80-99 fL Mean Corpuscular Hemoglobin 30 25-34 pg Mean Corpuscular Hemoglobin Concent 32 32-36 g/dL Red Cell Distribution Width 15.8 H 10.0-14.5 % Platelet Count 369 130-400 10^3/uL Mean Platelet Volume 10.2 9.0-12.2 fL Immature Granulocyte % (Auto) 0 % Neutrophils (%) (Auto) 73 42-75 % Lymphocytes (%) (Auto) 20 12-44 % Monocytes (%) (Auto) 5 0-12 % Eosinophils (%) (Auto) 0 0-10 % Basophils (%) (Auto) 1 0-10 % Neutrophils # (Auto) 6.6 1.8-7.8 10^3/uL Lymphocytes # (Auto) 1.8 1.0-4.0 10^3/uL Monocytes # (Auto) 0.5 0.0-1.0 10^3/uL Eosinophils # (Auto) 0.0 0.0-0.3 10^3/uL Basophils # (Auto) 0.1 0.0-0.1 10^3/uL Immature Granulocyte # (Auto) 0.0 0.0-0.1 10^3/uL Sodium Level 138 135-145 MMOL/L Potassium Level 3.6 3.6-5.0 MMOL/L Chloride Level 105 98-107 MMOL/L Carbon Dioxide Level 20 L 21-32 MMOL/L Anion Gap 13 5-14 MMOL/L Blood Urea Nitrogen 3 L 7-18 MG/DL Creatinine 0.55 L 0.60-1.30 MG/DL Estimat Glomerular Filtration Rate 126 BUN/Creatinine Ratio 5 Glucose Level 92 70-105 MG/DL Calcium Level 8.7 8.5-10.1 MG/DL Corrected Calcium 9.7 8.5-10.1 MG/DL Magnesium Level 1.9 1.6-2.4 MG/DL Total Bilirubin 0.7 0.1-1.0 MG/DL Aspartate Amino Transf (AST/SGOT) 13 5-34 U/L Alanine Aminotransferase (ALT/SGPT) 12 0-55 U/L Alkaline Phosphatase 78 40-136 U/L C-Reactive Protein High Sensitivity 1.06 H 0.00-0.50 MG/DL Total Protein 6.9 6.4-8.2 GM/DL Albumin 2.8 L 3.2-4.5 GM/DL Serum Test, Qualitative NEGATIVE NEGATIVE Urine Color YELLOW Urine Clarity CLEAR Urine pH 7.0 5-9 Urine Specific [place] 1.010 L 1.016-1.022 Urine Protein NEGATIVE NEGATIVE Urine Glucose (UA) NEGATIVE NEGATIVE Urine Ketones 1+ H NEGATIVE Urine Nitrite NEGATIVE NEGATIVE Urine Bilirubin NEGATIVE NEGATIVE Urine Urobilinogen 1.0 < = 1.0 MG/DL Urine Leukocyte Esterase NEGATIVE NEGATIVE Urine RBC (Auto) NEGATIVE NEGATIVE Urine RBC NONE /HPF Urine WBC RARE /HPF Urine Squamous Epithelial Cells 2-5 /HPF Urine Crystals NONE /LPF Urine Bacteria NEGATIVE /HPF Urine Casts NONE /LPF Urine Mucus NEGATIVE /LPF Urine Culture Indicated NO (TYRELL ALONSO DO) My Orders Orders - TYRELL ALONSO DO Ondansetron Injection (Zofran Injectio (05/11/23 12:15) Ct Abdomen/Pelvis W (05/11/23 12:08) Iohexol Injection (Omnipaque 350 Mg/Ml 1 (05/11/23 12:15) Received Contrast (Hold Metformin- Contr (05/11/23 12:15) Ns (Ivpb) (Sodium Chloride 0.9% Ivpb Bag (05/11/23 12:15) Oxycodone/Apap 5/325mg Tablet (Percocet (05/11/23 13:15) Promethazine Injection (Phenergan Injec (05/11/23 13:30) (TYRELL ALONSO DO) Medications Given in ED Current Medications Medications Dose Ordered Sig/Monica Route Start Time Stop Time Status Last Admin Dose Admin Iohexol 100 ml ONCE ONCE IV 05/11/23 12:15 05/11/23 12:16 DC 05/11/23 12:28 100 ML Ondansetron HCl 8 mg ONCE ONCE IVP 05/11/23 12:15 05/11/23 12:16 DC 05/11/23 12:43 8 MG Sodium Chloride 100 ml ONCE ONCE IV 05/11/23 12:15 05/11/23 12:16 DC 05/11/23 12:29 80 ML Sodium Chloride 1,000 ml @ 0 mls/hr Q0M ONCE IV 05/11/23 11:45 05/11/23 11:46 DC 05/11/23 11:57 1,000 MLS/HR (TYRELL ALONSO DO) Vital Signs/I&O 05/11/23 11:32 Temp 36.6 Pulse 84 Resp 16 B/P (MAP) 134/81 (98) Pulse Ox 100 O2 Delivery Room Air (TYRELL ALONSO DO) Progress Progress Note : Progress Note Seen and evaluated. IV, labs including CBC, CMP and CRP, UA serum ordered. Normal saline 1 L bolus ordered. Monitor patient. Differential diagnosis includes electrolyte abnormality, dehydration, viral disease, intra-abdominal pathology (MATTHEW SUH MD) Departure Communication (Admissions) I assumed care of the patient at 12:00. She is still feeling nauseated however she has not vomited since she has been here. I ordered a CT scan due to her diffuse abdominal tenderness. She has had no recurrence of bloody or dark tarry stools here. She is not significantly anemic. Her vital signs are stable. Given her some nausea medicine, Zofran and Phenergan. I ordered her some p.o. Percocet which is what she takes at home. She was able to keep this down prior to discharge. I think she is stable for discharge home with home pain regimen. We will add Phenergan prescription both oral and rectal for nausea in addition to the Zofran that she is already using at home. CT scan does not show any acut e intra-abdominal process though she does have significant chronic changes associated with her recent surgeries. (TYRELL ALONSO DO) Impression Primary Impression: Abdominal pain Qualified Codes: R10.84 - Generalized abdominal pain Disposition: HOME, SELF-CARE Condition: Stable Departure-Patient Inst. Referrals: KULDIP MARTÍNEZ MD (PCP/Family) Primary Care Physician Patient Instructions: Abdominal Pain, Adult ED Add. Discharge Instructions: You were seen in the emergency department today for abdominal pain, nausea and vomiting. No emergent medical conditions identified. Your labs actually look really good with no electrolyte abnormalities or other acute findings. Your vital signs are reassuring as well. Your CT scan does not show any acute emergent conditions. We will go ahead and prescribe you Phenergan in addition to your home Zofran. Have given you this both an oral form as well as a rectal suppository which you may use if you are having significant vomiting. Continue your home pain regimen as previous. Follow-up with your surgeon for any contin ued pain issues. Return to the emergency department for any severe concerns for All discharge instructions reviewed with patient and/or family. Voiced understanding. Scripts Promethazine HCl (Promethazine Suppository) 25 Mg Supp.rect 25 MG RC TID for Nausea for 5 Days, #15 SUPP.RECT Prov: TYRELL ALONSO DO 05/11/23 Promethazine HCl (Promethazine Tablet) 25 Mg Tablet 25 MG PO Q6H PRN for NAUSEA/VOMITING for 5 Days, #20 TAB Prov: TYRELL ALONSO DO 05/11/23 MATTHEW SUH MD May 11, 2023 11:47 TYRELL ALONSO DO May 11, 2023 13:22
[2023-05-11 11:53] LABS: ALBUMIN 2.8 GM/DL (3.2-4.5); POTASSIUM 3.6 MMOL/L (3.6-5.0)
[2023-05-11 11:54] LABS: CALCIUM 8.7 MG/DL (8.5-10.1)
[2023-05-11 11:56] LABS: TOTAL PROTEIN 6.9 GM/DL (6.4-8.2)
[2023-05-11 11:57] LABS: BILIRUBIN,TOTAL 0.7 MG/DL (0.1-1.0)
[2023-05-11 11:59] LABS: CREATININE SERUM 0.55 MG/DL (0.60-1.30)
[2023-05-11 12:02] LABS: MAGNESIUM 1.9 MG/DL (1.6-2.4)
[2023-05-11] MEDS ORDERED: ONDANSETRON 4 MG/2 ML (SDV) Z0FRAN IVP ONE (12:15)
[2023-05-11] MEDS ORDERED: HOLD METFORMIN - RECEIVED CONTRAST 20 ML VIAL IV SCH (12:15)
[2023-05-11] MEDS ORDERED: IOHEXOL 350 MG/ML 100 ML (OMNIPAQUE 350) VIAL IV ONE (12:15)
[2023-05-11] MEDS ORDERED: NS 100 ML (IVPB) BAG IV ONE (12:15)
[2023-05-11 12:45] LABS: BILIRUBIN,URINE NEGATIVE (NEGATIVE); CLARITY,URINE CLEAR; COLOR,URINE YELLOW; GLUCOSE, URINE (UA) NEGATIVE (NEGATIVE); KETONES,URINE 1+ (NEGATIVE); LEUKOCYTE ESTERASE ,URINE NEGATIVE (NEGATIVE); NITRITE,URINE NEGATIVE (NEGATIVE); PROTEIN,URINE NEGATIVE (NEGATIVE)
[2023-05-11 12:55] LABS: BACTERIA,URINE NEGATIVE /HPF; WBC,URINE RARE /HPF
--- NOTE | 2023-05-11 13:07 | Diagnostic Imaging Report ---
EXAMINATION: CT abdomen and pelvis with intravenous contrast. TECHNIQUE: Multiple contiguous axial images were obtained through the abdomen and pelvis after the uneventful administration of intravenous contrast. All CT scans use one or more of the following dose optimizing techniques: automated exposure control, MA and/or KvP adjustment based on patient size and exam type or iterative reconstruction. HISTORY: Diffuse abdominal pain. Nausea and vomiting. COMPARISON: 01/20/2019. FINDINGS: The heart is unremarkable. The included lung bases are clear. There is hepatic steatosis. No focal hepatic lesions. The gallbladder is surgically absent. The portal vein is patent. The spleen, pancreas, adrenal glands, and kidneys have a normal appearance. The urinary bladder is unremarkable. There is no pathologically enlarged mesenteric or retroperitoneal adenopathy. 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 The bowel loops are nondilated. A small volume of ascites is seen in the upper abdomen. No free air. No acute osseous abnormalities. Inflammatory changes are seen in the midline of the abdomen and in the lateral soft tissues left of midline. There is a tiny fluid collection at the midline measuring 1.0 cm. Nonspecific linear dense material is seen adjacent to this fluid collection. There is no free air, loculated collection, or adenopathy in the pelvis. IMPRESSION: 1. Hepatic steatosis with small amount of free fluid in the upper abdomen. No evidence of free air. Recommend continued follow-up, as indicated. 2. No bowel obstruction. 3. Small fluid collection at the midline of the abdomen with surrounding inflammatory changes. A linear density is seen adjacent to this fluid collection which may represent prior suture. Recommend correlation with patient history and physical exam. Additional inflammatory changes are seen in the lateral soft tissues of the abdomen left of midline. Dictated by: Dictated on workstation # [id number]
[2023-05-11] MEDS ORDERED: oxyCODONE/APAP 5/325MG (PERCOCET 5) TABLET PO ONE (13:15)
[2023-05-11] MEDS ORDERED: PROM25SU44 RC (13:22)
[2023-05-11] MEDS ORDERED: PROM25TA14 PO (13:22)
[2023-05-11] MEDS ORDERED: PROMETHAZINE INJ 25 MG/ML (PHENERGAN) AMP IM ONE (13:30)
[2023-05-11 13:54] VITALS: BP 159/93
== END 2023-05-11 13:54 | disposition home or self-care (01) ==
LOC: EDUNIT# 11:29 → ER 11:31
DX: R10.84 Generalized abdominal pain (principal); R11.2 Nausea with vomiting, unspecified; I82.622 Acute embolism and thrombosis of deep veins of left upper extremity; R58 Hemorrhage, not elsewhere classified; G47.30 Sleep apnea, unspecified; E66.01 Morbid (severe) obesity due to excess calories; Z68.38 Body mass index [BMI] 38.0-38.9, adult; Z79.01 Long term (current) use of anticoagulants; Z98.84 Bariatric surgery status; Z28.310 Unvaccinated for COVID-19; Z99.89 Dependence on other enabling machines and devices
CPT/HCPCS: 36415; 74177; 80053; 81000; 83735; 84703; 85025; 86141

== ENCOUNTER → 2023-06-09 | Outpatient (CLI) | payer SELFPAY ==
[~2023-06-09] MED LIST changes: +PROM25SU44 RC
== END ==
LOC: WOUNDCARE 11:18
PROVIDERS: ATTEND Family Medicine
DX: T81.31XA Disruption of external operation (surgical) wound, not elsewhere classified, initial encounter (principal); E66.01 Morbid (severe) obesity due to excess calories; E43 Unspecified severe protein-calorie malnutrition; D46.4 Refractory anemia, unspecified; K31.84 Gastroparesis; I82.622 Acute embolism and thrombosis of deep veins of left upper extremity; R11.2 Nausea with vomiting, unspecified; R60.1 Generalized edema; Z68.41 Body mass index [BMI] 40.0-44.9, adult
CPT/HCPCS: A6212; G0463; 99212

== ENCOUNTER → 2023-06-30 | Outpatient (CLI) | payer MEDICAID ==
[2023-06-30 11:51] LABS: BASOPHILS % (AUTO) 1 % (0-10); EOSINOPHILS # (AUTO) 0.3 10^3/uL (0.0-0.3); EOSINOPHILS % (AUTO) 4 % (0-10); HEMATOCRIT 33 % (35-52); HEMOGLOBIN 10.7 g/dL (11.5-16.0); LYMPHOCYTES # (AUTO) 1.8 10^3/uL (1.0-4.0); LYMPHOCYTES % (AUTO) 28 % (12-44); MEAN CORPUSCULAR HEMOGLOBIN 30 pg (25-34); MEAN CORPUSCULAR HGB CONC 32 g/dL (32-36); MEAN CORPUSCULAR VOLUME 92 fL (80-99); MEAN PLATELET VOLUME 11.2 fL (9.0-12.2); MONOCYTES # (AUTO) 0.4 10^3/uL (0.0-1.0); MONOCYTES % (AUTO) 7 % (0-12); NEUTROPHILS % (AUTO) 61 % (42-75); PLATELET COUNT 256 10^3/uL (130-400); WHITE BLOOD COUNT 6.5 10^3/uL (4.3-11.0)
[2023-06-30 12:08] LABS: CALCIUM 8.7 MG/DL (8.5-10.1); CREATININE SERUM 0.78 MG/DL (0.60-1.30); POTASSIUM 4.1 MMOL/L (3.6-5.0)
== END ==
LOC: WOUNDCARE 11:19
PROVIDERS: ATTEND Family Medicine
DX: T81.31XA Disruption of external operation (surgical) wound, not elsewhere classified, initial encounter (principal); E66.01 Morbid (severe) obesity due to excess calories; Z68.41 Body mass index [BMI] 40.0-44.9, adult; E44.0 Moderate protein-calorie malnutrition; R60.1 Generalized edema; R11.2 Nausea with vomiting, unspecified; K31.84 Gastroparesis; I82.622 Acute embolism and thrombosis of deep veins of left upper extremity
CPT/HCPCS: 80048; 84134; 85025; 87070; 87077; 87205; A6212; G0463; 36415; 99213

== ENCOUNTER → 2023-07-04 | Outpatient (CLI) | payer MEDICAID ==
[~2023-07-04] MED LIST changes: +HOLD METFORMIN - RECEIVED CONTRAST 20 ML VIAL IV SCH; +IOHEXOL 350 MG/ML 100 ML (OMNIPAQUE 350) VIAL IV ONE; +NS 100 ML (IVPB) BAG IV ONE
--- NOTE | 2023-07-04 10:16 | Diagnostic Imaging Report ---
PROCEDURE: CT abdomen and pelvis with contrast. TECHNIQUE: Multiple contiguous axial images were obtained through the abdomen and pelvis after administration of intravenous contrast. Auto Exposure Controls were utilized during the CT exam to meet ALARA standards for radiation dose reduction. All CT scans use one or more of the following dose optimizing techniques: automated exposure control, MA and/or KvP adjustment based on patient size and exam type or iterative reconstruction. INDICATION: Nonhealing wound around the umbilicus. Correlation is made with prior CT from 05/11/2023. The lung bases are clear of acute infiltrates. Small nodule left lower lobe is stable. No discrete liver mass is detected. Gallbladder surgically absent. There is no bony ductal dilatation. Pancreas and spleen are unremarkable. No adrenal mass is identified. Kidneys are unremarkable. Aorta is nonaneurysmal. Postoperative changes to the stomach as well as bowel loop in the midabdomen is noted. Bowel loops appear nonobstructed. There appears to be some fluid surrounding the right ovary. The uterus and bladder are unremarkable. There are some inflammatory changes at the level of the umbilicus subcutaneous tissues and above but no discrete fluid collection is identified. Small fluid collection seen on prior CT has resolved. There may be some packing material within the umbilicus. IMPRESSION: Resolution of previously noted abdominal wall fluid collection when compared with CT study from 05/11/2023. There continues to be some soft tissue thickening in the midline anterior abdominal wall subcutaneous tissues with high density material in the umbilicus, perhaps packing material. No other significant abnormality is identified. Dictated by: Dictated on workstation # [id number]
== END ==
LOC: RAD 08:42
PROVIDERS: ATTEND Family Medicine
DX: T81.31XA Disruption of external operation (surgical) wound, not elsewhere classified, initial encounter (principal); E66.01 Morbid (severe) obesity due to excess calories; Z68.41 Body mass index [BMI] 40.0-44.9, adult; E43 Unspecified severe protein-calorie malnutrition; R60.1 Generalized edema; D46.4 Refractory anemia, unspecified; R11.2 Nausea with vomiting, unspecified; K31.84 Gastroparesis; I82.622 Acute embolism and thrombosis of deep veins of left upper extremity
CPT/HCPCS: 74177

== ENCOUNTER → 2023-07-09 | Outpatient (CLI) | payer MEDICAID ==
[~2023-07-09] MED LIST changes: -HOLD METFORMIN - RECEIVED CONTRAST 20 ML VIAL IV SCH; -IOHEXOL 350 MG/ML 100 ML (OMNIPAQUE 350) VIAL IV ONE; -NS 100 ML (IVPB) BAG IV ONE
== END ==
LOC: WOUNDCARE 10:27
PROVIDERS: ATTEND Family Medicine
DX: T81.31XA Disruption of external operation (surgical) wound, not elsewhere classified, initial encounter (principal); D46.4 Refractory anemia, unspecified; I82.622 Acute embolism and thrombosis of deep veins of left upper extremity; K31.84 Gastroparesis; E43 Unspecified severe protein-calorie malnutrition; E66.01 Morbid (severe) obesity due to excess calories; Z68.41 Body mass index [BMI] 40.0-44.9, adult; R60.1 Generalized edema; R11.2 Nausea with vomiting, unspecified
CPT/HCPCS: A6212; G0463; 99213

== ENCOUNTER → 2023-07-22 | Outpatient (CLI) | payer MEDICAID | LOC: WOUNDCARE 10:57 | PROVIDERS: ATTEND Family Medicine | DX: T81.31XA Disruption of external operation (surgical) wound, not elsewhere classified, initial encounter (principal); E66.01 Morbid (severe) obesity due to excess calories; I82.622 Acute embolism and thrombosis of deep veins of left upper extremity; E43 Unspecified severe protein-calorie malnutrition; R60.1 Generalized edema; D46.4 Refractory anemia, unspecified; R11.2 Nausea with vomiting, unspecified; K31.84 Gastroparesis; Z68.41 Body mass index [BMI] 40.0-44.9, adult | CPT/HCPCS: A6212; G0463; 99212 ==